=== PATIENT | male | born 1950 | race African-American/Black ===

== ENCOUNTER 2019-03-08 07:56 | Emergency (ER) | payer OTHER ==
[2019-03-08 08:34] LABS: Urine Blood TRACE (NEG); Urine Glucose NEGATIVE (NEG); Urine Protein NEGATIVE (NEG); Urine pH 7.5 (5.0-7.0)
[2019-03-08 08:41] LABS: Urine Bacteria >50 /HPF (NONE SEEN); Urine Culture Reflex Order REFLEXED; Urine RBC <5 /HPF (NONE SEEN)
[2019-03-08] MEDS ORDERED: CEFTRIAXONE/SWI 1gm 0 GM/0 ML SYR ONE (08:46)
[2019-03-08] MEDS ORDERED: CIPROFLOXACIN HCL 500 MG TAB ONE (09:11)
[2019-03-08] MEDS ORDERED: CEFTRIAXONE 1000 MG/VIAL ONE (09:12)
[2019-03-08] MEDS ORDERED: LIDOCAINE 1% MPF 2 ML AMPULE ONE (09:12)
--- NOTE | 2019-03-08 09:13 | ER ---
Nurse's Notes [facility] Name: Jesus Rodriguez Age: 68 yrs Sex: Male : 1950 Arrival Date: 03/08/2019 Time: 07:57 Bed 25 Private MD: Jesse Zamora H Diagnosis: Urinary tract infection, site not specified Presentation: 03/08 08:07 Presenting complaint: Patient states: Urinary frequency and "trickling" that began ss suddenly yesterday. Transition of care: patient was not received from another setting of care. Onset of symptoms was March 07, 2019. Risk Assessment: Do you want to hurt yourself or someone else? Patient reports no desire to harm self or others. Initial Sepsis Screen: Does the patient have a suspected source of infection? Yes: Dysuria/Frequency/Urgency/UTI. Initial Sepsis Screen: Does the patient meet any 2 criteria? HR > 90 bpm. Care prior to arrival: None. 08:07 Method Of Arrival: Ambulatory ss 08:07 Acuity: THERON 3 ss Historical: - Allergies: 08:08 No Known Allergies; ss - PMHx: 08:08 Hypertension; Gout; ss - Immunization history:: Adult Immunizations up to date. - Social history:: Smoking status: Patient/guardian denies using tobacco. - Ebola Screening: : Patient denies exposure to infectious person Patient denies travel to an Ebola-affected area in the 21 days before illness onset. Screenin:20 Abuse screen: Denies threats or abuse. Nutritional screening: No deficits noted. em Tuberculosis screening: No symptoms or risk factors identified. Fall Risk None identified. Assessment: 08:20 General: Appears in no apparent distress. comfortable, Behavior is calm, cooperative, em Denies fever. Pain: Denies pain. Neuro: Level of Consciousness is awake, alert, obeys commands, Oriented to person, place, time, situation, Appropriate for age. Cardiovascular: Capillary refill < 3 seconds Patient's skin is warm and dry. Respiratory: Airway is patent Respiratory effort is even, unlabored, Respiratory pattern is regular, symmetrical. : Reports burning with urination, urinary frequency, Denies discharge. Derm: Skin is intact, is healthy with good turgor, Skin is pink, warm \\T\\ dry. Musculoskeletal: Capillary refill < 3 seconds, Range of motion: intact in all extremities. 08:25 General: The previous assessment is accurate, call light remains within reach. . ss 09:00 Reassessment: currently refuses the IV and labs, reports has to be at a in [facility] and would just like to be given some medication and follow up with PCP, provider notified of pt request. Vital Signs: 08:06 BP 118 / 91; Pulse 99; Resp 16; Temp 99.7(O); Pulse Ox 98% on R/A; Weight 104.33 kg; ss Height 6 ft. 0 in. (182.88 cm); Pain 0/10; 09:25 BP 128 / 90; Pulse 91; Resp 18; Pulse Ox 99% on R/A; Pain 0/10; em 08:06 Body Mass Index 31.19 (104.33 kg, 182.88 cm) ED Course: 07:57 Patient arrived in ED. as 07:57 Jesse Zamora DO is Private Physician. as 08:02 Jaylan Calderon PA is PHCP. cp 08:02 Yamil Crane MD is Attending Physician. cp 08:06 Arm band placed on right wrist. ss 08:08 Triage completed. ss 08:14 Glen Valiente LVN is Primary Nurse. em 08:20 Patient has correct armband on for positive identification. Bed in low position. Call em light in reach. 08:22 Urine collected: clean catch specimen, clear, Bladder scan completed. 32 mL post void. em 09:12 Jesse Zamora DO is Referral Physician. cp 09:25 No provider procedures requiring assistance completed. Patient did not have IV access em during this emergency room visit. Administered Medications: 09:13 Not Given (Other Intervention Used): Rocephin 1 grams IV at calculated rate once; Given em slow IV push per pharmacy instructions 09:23 Drug: Rocephin (cefTRIAXone) 1 grams Route: IM; Site: left gluteus; em 09:39 Follow up: Response: No adverse reaction em 09:25 Drug: Cipro 500 mg Route: PO; em 09:39 Follow up: Response: No adverse reaction em Outcome: 09:12 Discharge ordered by . cp 09:25 Discharged to home ambulatory. em 09:25 Condition: good 09:25 Discharge instructions given to patient, Instructed on discharge instructions, follow up and referral plans. medication usage, Demonstrated understanding of instructions, follow-up care, medications, Prescriptions given X 1. 09:39 Patient left the ED. em Addendum: 03/11/2019 09:27 Addendum: Culture Results: Positive urine culture. Bacteria is resistant to, has s s intermediate sensitivity, or is not tested against prescribed antibiotics. Report given to ELIDA for further evaluation and then to gut snatcher for follow up with patient. Signatures: Glen Valiente, INSURANCE MARKETING REP INSURANCE MARKETING REP Ivonne Person Shelby, ANGELES RN ss Jaylan Calderon, PA PA cp
--- NOTE | 2019-03-08 09:14 | EDPHYS ---
Physician Documentation [facility] Name: Jesus Rodriguez Age: 68 yrs Sex: Male : 1950 Arrival Date: 03/08/2019 Time: 07:57 Bed 25 Private MD: Jesse Zamora H ED Physician Yamil Crane HPI: 03/08 08:15 This 68 yrs old Black Male presents to ER via Ambulatory with complaints of Urinary cp Retention. 08:15 The patient presents with urinary symptoms, urinary frequency, retention. cp 08:15 Onset: The symptoms/episode began/occurred yesterday. Associated signs and symptoms: cp Pertinent negatives: abdominal pain, dysuria, fever, hematuria, vomiting. Severity of symptoms: in the emergency department the symptoms are unchanged, despite home interventions. Historical: - Allergies: 08:08 No Known Allergies; ss - PMHx: 08:08 Hypertension; Gout; ss - Immunization history:: Adult Immunizations up to date. - Social history:: Smoking status: Patient/guardian denies using tobacco. - Ebola Screening: : Patient denies exposure to infectious person Patient denies travel to an Ebola-affected area in the 21 days before illness onset. ROS: 08:20 Eyes: Negative for injury, pain, redness, and discharge. cp 08:20 Constitutional: Negative for body aches, chills, fever, poor PO intake. 08:20 ENT: Negative for drainage from ear(s), ear pain, sore throat, difficulty swallowing, difficulty handling secretions. 08:20 Cardiovascular: Negative for chest pain, edema, palpitations. 08:20 Respiratory: Negative for cough, shortness of breath, wheezing. 08:20 Abdomen/GI: Negative for abdominal pain, nausea, vomiting, and diarrhea, black/tarry stool, rectal bleeding. 08:20 Back: Negative for pain at rest, pain with movement, radiated pain. 08:20 : Positive for urinary frequency, difficulty urinating, Negative for flank pain, cp testicular pain 08:20 Skin: Negative for rash. 08:20 Neuro: Negative for altered mental status, dizziness, headache, weakness. 08:20 All other systems are negative. Exam: 08:25 Constitutional: The patient appears in no acute distress, alert, awake, comfortable, cp non-diaphoretic, non-toxic, well developed, well nourished. 08:25 Head/Face: Normocephalic, atraumatic. cp 08:25 Eyes: Periorbital structures: appear normal, Conjunctiva: normal, no exudate, no injection, Sclera: no appreciated abnormality, Lids and lashes: appear normal, bilaterally. 08:25 ENT: External ear(s): are unremarkable, Nose: is normal, Mouth: Lips: moist, Oral mucosa: moist, Posterior pharynx: Airway: no evidence of obstruction, patent. 08:25 Neck: ROM/movement: is normal, is supple, no meningismus, no nuchal rigidity. 08:25 Chest/axilla: Inspection: normal, Palpation: is normal, no crepitus, no tenderness. 08:25 Cardiovascular: Rate: normal, Rhythm: regular. 08:25 Respiratory: the patient does not display signs of respiratory distress, Respirations: normal, no use of accessory muscles, no retractions, no splinting, no tachypnea, labored breathing, is not present, Breath sounds: are clear throughout, no decreased breath sounds, no stridor, no wheezing. 08:25 Abdomen/GI: Inspection: abdomen appears normal, Palpation: abdomen is soft and non-tender, in all quadrants, rebound tenderness, is not appreciated, voluntary guarding, is not appreciated, involuntary guarding, is not appreciated. 08:25 Back: CVA tenderness, is absent. 08:25 Neuro: Orientation: is normal, Mentation: is normal, Motor: moves all fours, strength is normal. Vital Signs: 08:06 BP 118 / 91; Pulse 99; Resp 16; Temp 99.7(O); Pulse Ox 98% on R/A; Weight 104.33 kg; ss Height 6 ft. 0 in. (182.88 cm); Pain 0/10; 09:25 BP 128 / 90; Pulse 91; Resp 18; Pulse Ox 99% on R/A; Pain 0/10; em 08:06 Body Mass Index 31.19 (104.33 kg, 182.88 cm) MDM: 08:04 Patient medically screened. josé miguel 08:30 Differential diagnosis: UTI, urinary retention, prostatitis, urethritis. cp 09:11 Data reviewed: vital signs, nurses notes, lab test result(s), and as a result, I will cp discharge patient. 09:11 Counseling: I had a detailed discussion with the patient and/or guardian regarding: the cp historical points, exam findings, and any diagnostic results supporting the discharge/admit diagnosis, lab results, the need for outpatient follow up, a family practitioner, to return to the emergency department if symptoms worsen or persist or if there are any questions or concerns that arise at home. 09:12 ED course: VSS. Patient declined having any blood work done today and denies any cp history of kidney disease. Will treat with 10 day course of Cipro and recommend f/u with primary physician next 2-3 days. 03/08 08:09 Order name: Urine Microscopic Only; Complete Time: 09:11 cp 03/08 08:32 Order name: Urine Dipstick--Ancillary (enter results); Complete Time: 09:11 eb 03/08 08:34 Order name: Urine Culture cp 03/08 08:09 Order name: Urine Dipstick-Ancillary (obtain specimen); Complete Time: 08:29 cp 03/08 08:13 Order name: Bladder Scanner: pre and post void; Complete Time: 08:29 cp Administered Medications: 09:13 Not Given (Other Intervention Used): Rocephin 1 grams IV at calculated rate once; Given em slow IV push per pharmacy instructions 09:23 Drug: Rocephin (cefTRIAXone) 1 grams Route: IM; Site: left gluteus; em 09:39 Follow up: Response: No adverse reaction em 09:25 Drug: Cipro 500 mg Route: PO; em 09:39 Follow up: Response: No adverse reaction em Disposition: 03/08/19 09:12 Discharged to Home. Impression: Urinary tract infection, site not specified. - Condition is Stable. - Discharge Instructions: Urinary Tract Infection, Adult. - Prescriptions for Cipro 500 mg Oral Tablet - take 1 tablet by ORAL route every 12 hours for 10 days; 20 tablet. - Medication Reconciliation Form, Thank You Letter, Antibiotic Education, Prescription Opioid Use form. - Follow up: Jesse Zamora DO; When: 2 - 3 days; Reason: Recheck today's complaints. - Problem is new. - Symptoms have improved. Signatures: Dispatcher [employer] Jaylan Arizmendi MD MD cha Munoz, Edgar, DRAWING INSTRUCTOR DRAWING INSTRUCTOR em Cyn Ospina, RN RN ss Jaylan Calderon PA PA cp Corrections: (The following items were deleted from the chart) 09:13 08:34 IV Saline Lock ordered. cp em 09:17 08:34 CBC+H.LAB.BRZ ordered. EDMS EDMS 09:17 08:34 BASIC METABOLIC PANEL+C.LAB.BRZ ordered. EDMS EDMS 09:39 09:12 03/08/2019 09:12 Discharged to Home. Impression: Urinary tract infection, site em not specified. Condition is Stable. Forms are Medication Reconciliation Form, Thank You Letter, Antibiotic Education, Prescription Opioid Use. Follow up: Jesse Zamora; When: 2 - 3 days; Reason: Recheck today's complaints. Problem is new. Symptoms have improved. cp
[2019-03-08 09:46] VITALS: TEMP 99.7
[2019-03-08 09:47] VITALS: BP 128/90; O2SAT 99
== END 2019-03-08 09:39 | disposition home or self-care (01) ==
LOC: ER 07:56
DX: N39.0 Urinary tract infection, site not specified (principal); I10 Essential (primary) hypertension
CPT/HCPCS: 87088; 87086; 87077; 87186; 96372; 99283; J2001; 81003; 81015; J0696

== ENCOUNTER 2019-07-18 09:06 | Emergency (ER) | payer OTHER ==
--- OUTSIDE RECORDS SUMMARY | 2019-07-18 09:09 | XMS REPORT ---
:1950 Author Organization [facility] Address [address] [place] [address] [address] Care Team Providers Name Role Phone FELIX FORD Unavailable Unavailable Problems This patient has no known problems. Allergies, Adverse Reactions, Alerts This patient has no known allergies or adverse reactions. Medications This patient has no known medications. Results Test Description Test Time Test Comments Text Results Atomic Results Result Comments TISSUE EXAM 2019-07-11 16:10:00 Surgical Pathology Report Case: [id number] Authorizing Provider: Felix Ford MD Collected: 07/08/2019 1003 Ordering Location: [facility] Received: 07/08/2019 1306 SERVICES Pathologist: Love Hernandez MD Specimen: Adrenal, Left, Left adrenal gland A. ADRENAL GLAND, LEFT, ADRENALECTOMY: - BENIGN ADRENAL GLAND WITH NO SIGNIFICANT DIAGNOSTIC ALTERATION. - HEMORRHAGE, ORGANIZING THROMBOSIS AND VASCULAR RECANALIZATION ADJACENT TO THE ADRENAL GLAND. - NO MALIGNANCY IDENTIFIED. Signing Pathologist Direct Phone Line: [phone] signed by Love Hernandez MD on 07/11/2019 at 4:10 [id number] and postop diagnosis: adrenal massLeft adrenal glandReceived fresh labeled with the patient's name, accession number and "adrenal, left" is a 58 gm, 7 x 4.7 x 4 cm adrenal gland surfaced by a glistening membrane. The outer surface is inked blue, and the specimen is serially sectioned to reveal a well-circumscribed, mostly hemorrhagic mass with a central area of pale yellow, sorensen to guo solid area. The mass is 5.5 x 4.7 x 4 cm and is completely encased within the cortex. The remaining adrenal gland is peguero yellow to guo and smooth. Residential Housekeeper sections are submitted. Section code: A1-A5, direct marketing representative of one full cross section of mass; A6-A7, mass to outer surface; A8-A9, uninvolved adrenal glands. CG/pl Performed.The interpretation of this case included the use of immunohistochemistry or special stains.Control Slides Examined: In-house known positive controls were evaluated along with the test tissue. These control slides run alongside of the patients sample show appropriate staining. Internal positive and negative controls when available are evaluated Immunohistochemistry technical testing was performed at [facility], Pathology Laboratory where it was developed and its performance characteristics were determined. It has not been cleared or approved by the U.S. Food and Drug Administration. The FDA has determined that such clearance or approval is not necessary. The test is used for clinical purposes. It should not be regarded as investigational or for research. This laboratory is certified under the Clinical Laboratory Improvement Amendments of 1988 (CLIA-88) as qualified to perform high complexity clinical laboratory testing.[facility], Department of Pathology, [address] [place] [id number], [facility], [address] [place] [address], [facility], Department of Path[facility], [address] [place] [address], BASIC METABOLIC PANEL 2019-07-10 06:54:00 Test Item Value Reference Range Comments SODIUM (BEAKER) (test xlgw=198) 139 meq/L 136-145 POTASSIUM (BEAKER) (test 3.7 meq/L 3.5-5.1 ipgs=142) CHLORIDE (BEAKER) (test 109 meq/L 98-107 gbqn=785) CO2 (BEAKER) (test lrti=585) 22 meq/L 22-29 BLOOD UREA NITROGEN (BEAKER) 7 mg/dL 7-21 (test mltu=043) CREATININE (BEAKER) (test 0.81 mg/dL 0.57-1.25 fmam=710) GLUCOSE RANDOM (BEAKER) (test 86 mg/dL 70-105 cavg=431) CALCIUM (BEAKER) (test 8.6 mg/dL 8.4-10.2 uqrp=616) EGFR (BEAKER) (test aefd=1418) INSUFFICIENT CLINICAL DATA TO CALCULATE ESTIMATED GFR. Program Arranger ID - GALAPCBC W/PLT COUNT & AUTO [id number] 05:35:00 Test Item Value Reference Range Comments WHITE BLOOD CELL COUNT (BEAKER) (test qwgm=825) 5.6 K/ L 3.5-10.5 RED BLOOD CELL COUNT (BEAKER) (test lcfu=702) 3.64 M/ L 4.63-6.08 HEMOGLOBIN (BEAKER) (test cndp=275) 11.1 GM/DL 13.7-17.5 HEMATOCRIT (BEAKER) (test ozlm=124) 34.5 % 40.1-51.0 MEAN CORPUSCULAR VOLUME (BEAKER) (test bhfy=672) 94.8 fL 79.0-92.2 MEAN CORPUSCULAR HEMOGLOBIN (BEAKER) (test 30.5 pg 25.7-32.2 hvtu=169) MEAN CORPUSCULAR HEMOGLOBIN CONC (BEAKER) (test 32.2 GM/DL 32.3-36.5 yzyv=536) RED CELL DISTRIBUTION WIDTH (BEAKER) (test 13.5 % 11.6-14.4 qxgn=536) PLATELET COUNT (BEAKER) (test pujx=423) 239 K/CU MM 150-450 MEAN PLATELET VOLUME (BEAKER) (test dqzz=789) 10.4 fL 9.4-12.4 NUCLEATED RED BLOOD CELLS (BEAKER) (test 0 /100 WBC 0-0 iwir=318) NEUTROPHILS RELATIVE PERCENT (BEAKER) (test 64 % mkfc=577) LYMPHOCYTES RELATIVE PERCENT (BEAKER) (test 25 % kjka=639) MONOCYTES RELATIVE PERCENT (BEAKER) (test 8 % vzbq=256) EOSINOPHILS RELATIVE PERCENT (BEAKER) (test 3 % kctf=379) BASOPHILS RELATIVE PERCENT (BEAKER) (test 0 % uscs=218) NEUTROPHILS ABSOLUTE COUNT (BEAKER) (test 3.55 K/ L 1.78-5.38 ammq=912) LYMPHOCYTES ABSOLUTE COUNT (BEAKER) (test 1.40 K/ L 1.32-3.57 dxry=093) MONOCYTES ABSOLUTE COUNT (BEAKER) (test 0.46 K/ L 0.30-0.82 elcz=330) EOSINOPHILS ABSOLUTE COUNT (BEAKER) (test 0.15 K/ L 0.04-0.54 ihii=437) BASOPHILS ABSOLUTE COUNT (BEAKER) (test 0.02 K/ L 0.01-0.08 kebp=614) IMMATURE GRANULOCYTES-RELATIVE PERCENT (BEAKER) 0 % 0-1 (test lzor=0857) BASIC METABOLIC [id number] 10:13:00 Test Item Value Reference Range Comments SODIUM (BEAKER) (test 140 meq/L 136-145 acfn=455) POTASSIUM (BEAKER) (test 4.5 meq/L 3.5-5.1 Specimen moderately hemolyzed qwvs=027) CHLORIDE (BEAKER) (test 110 meq/L 98-107 fphs=654) CO2 (BEAKER) (test ipyv=889) 26 meq/L 22-29 BLOOD UREA NITROGEN (BEAKER) 10 mg/dL 7-21 (test wfsg=733) CREATININE (BEAKER) (test 0.89 mg/dL 0.57-1.25 Specimen moderately hemolyzed rwgq=532) GLUCOSE RANDOM (BEAKER) 79 mg/dL 70-105 (test mbzh=664) CALCIUM (BEAKER) (test 8.4 mg/dL 8.4-10.2 nqni=911) EGFR (BEAKER) (test INSUFFICIENT CLINICAL DATA TO ojom=3781) CALCULATE ESTIMATED GFR. Program Arranger ID - [place] FCBC W/PLT COUNT & AUTO [id number] 09:50: 00 Test Item Value Reference Range Comments WHITE BLOOD CELL COUNT (BEAKER) (test pijm=871) 5.3 K/ L 3.5-10.5 RED BLOOD CELL COUNT (BEAKER) (test jfof=446) 3.60 M/ L 4.63-6.08 HEMOGLOBIN (BEAKER) (test vczx=659) 11.6 GM/DL 13.7-17.5 HEMATOCRIT (BEAKER) (test avxu=505) 34.0 % 40.1-51.0 MEAN CORPUSCULAR VOLUME (BEAKER) (test pdmx=002) 94.4 fL 79.0-92.2 MEAN CORPUSCULAR HEMOGLOBIN (BEAKER) (test 32.2 pg 25.7-32.2 aoiz=185) MEAN CORPUSCULAR HEMOGLOBIN CONC (BEAKER) (test 34.1 GM/DL 32.3-36.5 pkrx=239) RED CELL DISTRIBUTION WIDTH (BEAKER) (test 13.6 % 11.6-14.4 hmew=179) PLATELET COUNT (BEAKER) (test vxsa=290) 246 K/CU MM 150-450 MEAN PLATELET VOLUME (BEAKER) (test dwda=248) 10.2 fL 9.4-12.4 NUCLEATED RED BLOOD CELLS (BEAKER) (test 0 /100 WBC 0-0 eqkp=598) NEUTROPHILS RELATIVE PERCENT (BEAKER) (test 49 % giiu=907) LYMPHOCYTES RELATIVE PERCENT (BEAKER) (test 37 % mhej=415) MONOCYTES RELATIVE PERCENT (BEAKER) (test 10 % dyhh=181) EOSINOPHILS RELATIVE PERCENT (BEAKER) (test 4 % kxul=282) BASOPHILS RELATIVE PERCENT (BEAKER) (test 0 % gpsr=911) NEUTROPHILS ABSOLUTE COUNT (BEAKER) (test 2.58 K/ L 1.78-5.38 ygsf=739) LYMPHOCYTES ABSOLUTE COUNT (BEAKER) (test 1.93 K/ L 1.32-3.57 hhrp=026) MONOCYTES ABSOLUTE COUNT (BEAKER) (test 0.55 K/ L 0.30-0.82 ivpx=596) EOSINOPHILS ABSOLUTE COUNT (BEAKER) (test 0.19 K/ L 0.04-0.54 wout=982) BASOPHILS ABSOLUTE COUNT (BEAKER) (test 0.01 K/ L 0.01-0.08 ycms=712) IMMATURE GRANULOCYTES-RELATIVE PERCENT (BEAKER) 0 % 0-1 (test qxom=9527) BASIC METABOLIC [id number] 11:58:00 Test Item Value Reference Range Comments SODIUM (BEAKER) (test 138 meq/L 136-145 gvlp=214) POTASSIUM (BEAKER) (test 4.6 meq/L 3.5-5.1 isim=979) CHLORIDE (BEAKER) (test 110 meq/L 98-107 veyx=548) CO2 (BEAKER) (test jmxf=845) 22 meq/L 22-29 BLOOD UREA NITROGEN (BEAKER) 13 mg/dL 7-21 (test jehh=682) CREATININE (BEAKER) (test 0.97 mg/dL 0.57-1.25 tcgc=465) GLUCOSE RANDOM (BEAKER) 108 mg/dL 70-105 (test fokh=902) CALCIUM (BEAKER) (test 8.7 mg/dL 8.4-10.2 hser=199) EGFR (BEAKER) (test INSUFFICIENT CLINICAL DATA TO wxmo=1876) CALCULATE ESTIMATED GFR. Program Arranger ID - [place] FHEMOGLOBIN AND [id number] 11:41:00 Test Item Value Reference Range Comments HEMOGLOBIN (BEAKER) (test wpbq=913) 11.7 GM/DL 13.7-17.5 HEMATOCRIT (BEAKER) (test bccz=120) 34.9 % 40.1-51.0 Program Arranger ID - [id number] 11:35:00 Test Item Value Reference Range Comments CULTURE (BEAKER) (test mjxv=3866) No growth URINALYSIS W/ REFLEX URINE [id number] 14:23:00 Test Item Value Reference Range Comments COLOR (BEAKER) (test udvg=361) Yellow CLARITY (BEAKER) (test rmba=907) Clear SPECIFIC GRAVITY UA (BEAKER) (test wboo=457) 1.005 1.001-1.035 PH UA (BEAKER) (test lsjh=484) 7.0 5.0-8.0 PROTEIN UA (BEAKER) (test wqjs=271) Negative Negative GLUCOSE UA (BEAKER) (test keje=648) Negative Negative KETONES UA (BEAKER) (test rzwa=528) Negative Negative BILIRUBIN UA (BEAKER) (test khuu=545) Negative Negative BLOOD UA (BEAKER) (test qkeb=534) Negative Negative NITRITE UA (BEAKER) (test dryr=991) Negative Negative LEUKOCYTE ESTERASE UA (BEAKER) (test cjxq=807) Negative Negative UROBILINOGEN UA (BEAKER) (test nemd=674) 0.2 mg/dL 0.2-1.0 RBC UA (BEAKER) (test wzcd=894) < /HPF WBC UA (BEAKER) (test eclo=642) 2 /HPF BACTERIA (BEAKER) (test kchw=335) Rare SOURCE(BEAKER) (test ebnx=3283) Program Arranger ID - [auto]Program Arranger ID - techCOMPREHENSIVE METABOLIC [id number] 13 :52:00 Test Item Value Reference Range Comments TOTAL PROTEIN (BEAKER) (test 7.3 gm/dL 6.0-8.3 znsm=426) ALBUMIN (BEAKER) (test 4.4 g/dL 3.5-5.0 miyc=2770) ALKALINE PHOSPHATASE (BEAKER) 73 U/L 40-150 (test odoy=970) BILIRUBIN TOTAL (BEAKER) 0.8 mg/dL 0.2-1.2 (test bxte=621) SODIUM (BEAKER) (test 137 meq/L 136-145 mppr=958) POTASSIUM (BEAKER) (test 3.9 meq/L 3.5-5.1 fmpi=538) CHLORIDE (BEAKER) (test 104 meq/L 98-107 hrfj=442) CO2 (BEAKER) (test lqpo=634) 26 meq/L 22-29 BLOOD UREA NITROGEN (BEAKER) 11 mg/dL 7-21 (test srbs=254) CREATININE (BEAKER) (test 0.96 mg/dL 0.57-1.25 oxjz=884) GLUCOSE RANDOM (BEAKER) (test 96 mg/dL 70-105 naxn=259) CALCIUM (BEAKER) (test 9.9 mg/dL 8.4-10.2 fcgy=801) AST (SGOT) (BEAKER) (test 23 U/L 5-34 mdlm=747) ALT (SGPT) (BEAKER) (test 25 U/L 6-55 jstj=987) EGFR (BEAKER) (test INSUFFICIENT CLINICAL DATA TO ffit=2963) CALCULATE ESTIMATED GFR. Program Arranger ID - ROSIANGCBC W/PLT COUNT & AUTO [id number] 13:10:00 Test Item Value Reference Range Comments WHITE BLOOD CELL COUNT (BEAKER) (test amxx=536) 4.2 K/ L 3.5-10.5 RED BLOOD CELL COUNT (BEAKER) (test bybw=359) 4.21 M/ L 4.63-6.08 HEMOGLOBIN (BEAKER) (test odes=299) 12.9 GM/DL 13.7-17.5 HEMATOCRIT (BEAKER) (test jjqr=431) 39.1 % 40.1-51.0 MEAN CORPUSCULAR VOLUME (BEAKER) (test xlvo=624) 92.9 fL 79.0-92.2 MEAN CORPUSCULAR HEMOGLOBIN (BEAKER) (test 30.6 pg 25.7-32.2 ffqx=840) MEAN CORPUSCULAR HEMOGLOBIN CONC (BEAKER) (test 33.0 GM/DL 32.3-36.5 lpiu=886) RED CELL DISTRIBUTION WIDTH (BEAKER) (test 13.6 % 11.6-14.4 phwc=812) PLATELET COUNT (BEAKER) (test ndyz=358) 230 K/CU MM 150-450 MEAN PLATELET VOLUME (BEAKER) (test xdpv=588) 9.8 fL 9.4-12.4 NUCLEATED RED BLOOD CELLS (BEAKER) (test 0 /100 WBC 0-0 qswo=577) NEUTROPHILS RELATIVE PERCENT (BEAKER) (test 44 % wena=327) LYMPHOCYTES RELATIVE PERCENT (BEAKER) (test 42 % rmkb=915) MONOCYTES RELATIVE PERCENT (BEAKER) (test 10 % fsdq=836) EOSINOPHILS RELATIVE PERCENT (BEAKER) (test 3 % wzcm=495) BASOPHILS RELATIVE PERCENT (BEAKER) (test 1 % ukha=533) NEUTROPHILS ABSOLUTE COUNT (BEAKER) (test 1.82 K/ L 1.78-5.38 ttut=664) LYMPHOCYTES ABSOLUTE COUNT (BEAKER) (test 1.74 K/ L 1.32-3.57 vfaa=047) MONOCYTES ABSOLUTE COUNT (BEAKER) (test 0.43 K/ L 0.30-0.82 hkhk=642) EOSINOPHILS ABSOLUTE COUNT (BEAKER) (test 0.13 K/ L 0.04-0.54 fuco=520) BASOPHILS ABSOLUTE COUNT (BEAKER) (test 0.02 K/ L 0.01-0.08 meaf=320) IMMATURE GRANULOCYTES-RELATIVE PERCENT (BEAKER) 0 % 0-1 (test zyne=7566)
--- NOTE | 2019-07-18 09:28 | ER ---
Nurse's Notes [facility] Name: Jesus Rodriguez Age: 68 yrs Sex: Male : 1950 Arrival Date: 07/18/2019 Time: 09:07 Bed 18 Private MD: Jesse Zamora H Diagnosis: Urticaria Presentation: 07/18 09:19 Chief complaint: Patient states: itchy rash to pelvis area and upper thighs that began ss this morning. Pt also states that the itchiness seems to be progressing to hands and head. Denies SOB. PT reports the only thing new he started was TRAVATAN eye drops x 2 days. Coronavirus screen: The patient has NOT traveled to [place] in the past 14 days. Proceed with normal triage procedures. Ebola Screen: Patient denies exposure to infectious person. No symptoms or risks identified at this time. Onset: The symptoms/episode began/occurred this morning. Anaphylaxis evaluation, no signs or symptoms of anaphylaxis were noted. Initial Sepsis Screen: Does the patient meet any 2 criteria? No. Patient's initial sepsis screen is negative. Does the patient have a suspected source of infection? No. Patient's initial sepsis screen is negative. Risk Assessment: Do you want to hurt yourself or someone else? Patient reports no desire to harm self or others. 09:19 Method Of Arrival: Ambulatory ss 09:19 Acuity: THERON 5 ss 09:34 Onset of symptoms was July 18, 2019. ca1 Historical: - Allergies: 09:21 No Known Allergies; ss - PMHx: 09:21 Gout; Hypertension; ss - Immunization history:: Adult Immunizations up to date. - Social history:: Smoking status: Patient denies any tobacco usage or history of. Screenin:33 Abuse screen: Denies threats or abuse. Denies injuries from another. Nutritional ca1 screening: No deficits noted. Tuberculosis screening: No symptoms or risk factors identified. Fall Risk None identified. Assessment: 09:33 General: Appears in no apparent distress. comfortable, Behavior is calm, cooperative, ca1 appropriate for age. Pain: Denies pain. Neuro: Level of Consciousness is awake, alert, obeys commands, Oriented to person, place, time, situation, Appropriate for age. Respiratory: Airway is patent Respiratory effort is even, unlabored, Respiratory pattern is regular, symmetrical, Breath sounds are clear bilaterally. Derm: Skin is intact, is healthy with good turgor, Skin is pink, warm \T\ dry. Rash noted that is urticaria, on pelvis. Musculoskeletal: Circulation, motion, and sensation intact. Capillary refill < 3 seconds. Vital Signs: 09:19 BP 135 / 96; Pulse 85; Resp 17; Temp 98.2(TE); Pulse Ox 100% on R/A; Weight 106.59 kg; Height 6 ft. 0 in. (182.88 cm); Pain 0/10; 09:19 Body Mass Index 31.87 (106.59 kg, 182.88 cm) ED Course: 09:07 Patient arrived in ED. rg4 09:07 Jesse Zamora DO is Private Physician. 4 09:10 Luis García PA is PHCP. [facility] 09:10 Jaylan Caballero MD is Attending Physician. [facility] 09:19 Arm band placed on right wrist. 09:21 Triage completed. 09:25 Funmilayo Bustamante RN is Primary Nurse. ca1 09:33 Patient has correct armband on for positive identification. Bed in low position. Call ca1 light in reach. Side rails up X 1. Pulse ox on. NIBP on. 09:33 No provider procedures requiring assistance completed. Patient did not have IV access ca1 during this emergency room visit. Administered Medications: 09:32 Drug: Dexamethasone 10 mg Route: IM; Site: right gluteus; ca1 Outcome: 09:28 Discharge ordered by MD. [facility] 09:39 Discharged to home ambulatory, with significant other. ca1 09:39 Condition: stable 09:39 Discharge instructions given to patient, Instructed on discharge instructions, follow up and referral plans. no drinking with medication, no driving heavy equipment, medication usage, Demonstrated understanding of instructions, follow-up care, medications, Prescriptions given X 2. 09:50 Patient left the ED. ca1 Signatures: Luis García PA PA jmm Calderon, Audri, RN RN aa5 Smirch, Shelby, RN RN ss Garcia, Rubi 4 Funmilayo Bustamante RN RN ca1 Corrections: (The following items were deleted from the chart) 12:46 09:20 Geri Vu RN is Primary Nurse. rm abdalla 12:46 09:25 Primary Nurse role handed off by Geri Vu, RN ca1 aa5
--- NOTE | 2019-07-18 09:28 | EDPHYS ---
Physician Documentation [facility] Name: Jesus Rodriguez Age: 68 yrs Sex: Male : 1950 Arrival Date: 07/18/2019 Time: 09:07 Bed 18 Private MD: Jesse Zamora H ED Physician Jaylan Caballero HPI: 07/18 09:23 This 68 yrs old Black Male presents to ER via Ambulatory with complaints of Hives. jmm 09:23 Onset: The symptoms/episode began/occurred gradually, this morning. Associated signs jmm and symptoms: Pertinent positives: rash, Pertinent negatives: SOB, facial swelling. Modifying factors: The patient symptoms are alleviated by nothing, the patient symptoms are aggravated by nothing. This is a 68 year old male with a history of htn that presents to the ED with complaints of rash which initially began in his groin this morning. Patient recently began a medication for glaucoma. Denies change in vision, swelling in the throat, face. . Historical: - Allergies: 09:21 No Known Allergies; ss - PMHx: 09:21 Gout; Hypertension; ss - Immunization history:: Adult Immunizations up to date. - Social history:: Smoking status: Patient denies any tobacco usage or history of. ROS: 09:23 Constitutional: Negative for fever, chills, and weight loss, Cardiovascular: Negative jmm for chest pain, palpitations, and edema, Respiratory: Negative for shortness of breath, cough, wheezing, and pleuritic chest pain. 09:23 Skin: Positive for rash. 09:23 All other systems are negative. Exam: 09:23 Constitutional: This is a well developed, well nourished patient who is awake, alert, jmm and in no acute distress. Head/Face: atraumatic. Eyes: EOMI, no conjunctival erythema appreciated ENT: Moist Mucus Membranes Neck: Trachea midline, Supple Chest/axilla: Normal chest wall appearance and motion. Cardiovascular: Regular rate and rhythm. No edema appreciated Respiratory: Normal respirations, no respiratory distress appreciated Abdomen/GI: Non distended, soft Back: Normal ROM 09:23 Skin: urticaria noted to the the proximal legs bilaterally. 09:23 Neuro: Orientation: is normal, Mentation: is normal, Memory: is normal. 09:23 Psych: Behavior/mood is pleasant, cooperative. Vital Signs: 09:19 BP 135 / 96; Pulse 85; Resp 17; Temp 98.2(TE); Pulse Ox 100% on R/A; Weight 106.59 kg; ss Height 6 ft. 0 in. (182.88 cm); Pain 0/10; 09:19 Body Mass Index 31.87 (106.59 kg, 182.88 cm) ss MDM: 09:13 Patient medically screened. mone 09:27 Data reviewed: vital signs, nurses notes. Counseling: I had a detailed discussion with mone the patient and/or guardian regarding: the historical points, exam findings, and any diagnostic results supporting the discharge/admit diagnosis, the need for outpatient follow up, to return to the emergency department if symptoms worsen or persist or if there are any questions or concerns that arise at home. ED course: Patient is alert and non toxic in appearance in the ED. Patient advised to discontinue new medication and will follow up with ophthalmology for reevaluation. Patient is otherwise given strict return precautions. Patient understood and agrees with the plan of care. . Administered Medications: 09:32 Drug: Dexamethasone 10 mg Route: IM; Site: right gluteus; ca1 Disposition: 12:30 Co-signature as Attending Physician, Jaylan Caballero MD I agree with the assessment and josé miguel plan of care. Disposition: 07/18/19 09:28 Discharged to Home. Impression: Urticaria. - Condition is Stable. - Discharge Instructions: Hives. - Prescriptions for Hydroxyzine HCl 25 mg Oral Tablet - take 1 tablet by ORAL route every 6 hours As needed; 30 tablet. Prednisone 20 mg Oral Tablet - take 3 tablet by ORAL route once daily for 5 days; 15 tablet. - Medication Reconciliation Form, Thank You Letter, Antibiotic Education, Prescription Opioid Use, Work release form form. - Follow up: Private Physician; When: Upon discharge from the Emergency Department; Reason: Recheck today's complaints, Continuance of care, Re-evaluation by your physician. Signatures: Jaylan Caballero MD MD cha Mickail, Joel, PA PA jmm Smirch, Shelby, RN RN ss Funmilayo Bustamante RN RN ca1 Corrections: (The following items were deleted from the chart) 09:50 09:28 07/18/2019 09:28 Discharged to Home. Impression: Urticaria. Condition is Stable. ca1 Forms are Medication Reconciliation Form, Thank You Letter, Antibiotic Education, Prescription Opioid Use. Follow up: Private Physician; When: Upon discharge from the Emergency Department; Reason: Recheck today's complaints, Continuance of care, Re-evaluation by your physician. mone
[2019-07-18] MEDS ORDERED: dexAMETHasone 4 MG/ML VIAL ONE (09:32)
[2019-07-18 09:56] VITALS: BP 135/96; TEMP 98.2; O2SAT 100
== END 2019-07-18 09:50 | disposition home or self-care (01) ==
LOC: ER 09:06
DX: L50.9 Urticaria, unspecified (principal)
CPT/HCPCS: 96372; 99283

== ENCOUNTER 2020-02-09 20:51 | Emergency (ER) | payer OTHER ==
--- OUTSIDE RECORDS SUMMARY | 2020-02-09 20:54 | XMS REPORT | Clinical Summary ---
:1950 Author Organization [facility] Address [address] [place] [address] Care Team Providers Name Role Phone Jonathan Zamora DO Primary Care Provider Allergies Active Allergy Reactions Severity Noted Date Comments No Known Drug Allergies 04/18/2016 Medications Medication Sig Dispensed Refills Start Date End Date Status allopurinol (ZYLOPRIM) Take 300 mg by 1 02/02/2016 Active 300 MG tablet mouth once daily. amlodipine-benazepril Take 1 capsule 0 04/07/2016 Active (LOTREL) 10-20 mg per by mouth daily. capsule fluticasone (FLONASE) 50 fluticasone 50 0 Active mcg/actuation nasal mcg/actuation spray nasal spray,suspension PRN losartan (COZAAR) 100 MG Take 100 mg by 0 10/10/2017 Active tablet mouth daily. flaxseed powder Take by mouth 0 Active daily. multivitamin capsule Take 1 capsule 0 Active by mouth daily. vitamin E 400 UNIT Take 400 Units 0 Active capsule by mouth daily. zinc 50 mg tablet Take 1 tablet by 0 Active mouth daily. gabapentin (NEURONTIN) Take 600 mg by 0 Active 600 mg tablet mouth as needed. cholecalciferol, vitamin Take 2,000 Units 0 Active D3, (VITAMIN D3) 2,000 by mouth daily. unit capsule capsule doxazosin (CARDURA) 2 MG 2 mg 2 (two) 0 03/14/2018 Active tablet times a day. MAGNESIUM ORAL Take 500 mg by 0 Active mouth daily. tiZANidine (ZANAFLEX) 4 Take 4 mg by 0 09/02/2018 Active MG tablet mouth every 8 (eight) hours as needed. IBU 800 mg tablet Take 800 mg by 0 09/09/2018 Active mouth every 6 (six) hours as needed. metoprolol succinate XL TAKE 1 TABLET BY 90 tablet 3 9 Active (TOPROL-XL) 200 mg 24 hr MOUTH EVERY DAY tablet hydroCHLOROthiazide Take 1 capsule 90 capsule 3 03/19/2018 (MICROZIDE) 12.5 mg (12.5 mg total) 19 capsule by mouth daily. Additional Information Patient taking differently: 12.5 mg oral PRN, Reported on 09/10/2018 metoprolol TAKE 1 TABLET 90 tablet 3 05/27/2018 05/01/2019 Dis continued succinate XL BY MOUTH (Reorde r) (TOPROL-XL) 200 mg EVERY DAY 24 hr tablet Active Problems Problem Noted Date Hyperparathyroidism, primary 01/11/2018 Irregular heart beat 12/04/2017 Abdominal aortic aneurysm (AAA) 04/18/2016 Aneurysm of thoracic aorta 04/18/2016 Aortic valve regurgitation 04/18/2016 Coronary arteriosclerosis 04/18/2016 Essential hypertension 04/18/2016 Peripheral vascular disease 04/18/2016 Coronary artery disease involving venetie heart without angina pectoris 04/18/2016 Encounters Date Type Specialty Care Team Description 09/09/2019 Telemedicine Cardiology Sina Jaquez MD Thoracic aortic aneurysm without rupture (HCC) (Primary Dx); Essential hyper tension; Coronary artery disease involving ven[place] coronary artery of venetie heart without angina pectoris 09/08/2019 Travel 08/22/2019 Travel 05/01/2019 Refill Cardiology Sina Jaquez MD Med Refi ll 03/10/2019 Telephone Cardiology Rafael Cavazos MA Telephone [place] unter after 02/08/2019 Immunizations Name Administration Dates Next Due FLUZONE HIGH-DOSE PF 02/06/2019 Family History Medical History Relation Name Comments Heart attack Mother Heart attack Other Grandfather Relation Name Status Comments Mother Other Grandfather Social History Tobacco Use Types Packs/Day Years Used Date Former Smoker Cigarettes 1 40 Quit: 2009 Smokeless Tobacco: Never Used Comments: stopped 2009 Alcohol Use Drinks/Week oz/Week Comments Yes occasional Sex Assigned at Date Recorded Not on file Last Filed Vital Signs Not on file Plan of Treatment Health Maintenance Due Date Last Done Comments COLONOSCOPY SCREENING 2002 SHINGLES VACCINES (#1) 2002 INFLUENZA VACCINE 01/20/2020 02/19/2019, 02/06/2019, 2017, Additional history exists 65+ PNEUMOCOCCAL VACCINE Completed 02/24/2019, 01/28/2019 Implants Implanted Type Area Department Manager Device Shelf Model / Identifier Expiration Serial / Date Lot Clip Ligtng Weck Hemoclip Plus W/ Tape Ti Med - [id number] Medic al [employer]LE[employer] MEDICAL [id number] / Implanted: Qty: 2 on 01/11/2018 by Zack Driscoll MD at [facility] Clips for / Internal Use Clip Ligtng Weck Hemoclip Plus W/ Tape Ti Sm - [id number] Medical WECK CLOSURE [id number] / Implanted: Qty: 2 on 01/11/2018 by Zack Driscoll MD at [facility] Clips for SYSTEMS / Internal Use Results Not on fileafter 02/08/2019 Insurance Payer Benefit Plan / Subscriber ID Effective Dates Phone Addre ss Type Group MEDICARE MEDICARE PART A AND [id number] 2017-[place] Medicare B t AETNA AETNA [facility] [id number] 2000-Senthil [place] [phone] (Work) Advance Directives For more information, please contact: [phone] Type Date Recorded Patient Travel Money Advisor Explanati on Advance Directives, Living Will and Medical Power of Ultrasonographer
--- OUTSIDE RECORDS SUMMARY | 2020-02-09 20:54 | XMS REPORT | Clinical Summary ---
:1950 Author Organization [facility] Address [address] [place] [address] Care Team Providers Name Role Phone Unavailable Primary Care Provider Unavailable Allergies No Known Allergies Medications Medication Sig Dispensed Refills Start Date End Date Status allopurinol Take 300 mg by 0 Act cathy (ZYLOPRIM) 300 MG mouth daily. tablet amlodipine-benazepril Take 1 capsule 0 Active (LOTREL) 10-20 mg per by mouth daily. capsule doxazosin (CARDURA) 2 Take 2 mg by 0 Active MG tablet mouth 2 (two) times daily. metoprolol Take 200 mg by 0 Acti ve (TOPROL-XL) 200 MG 24 mouth daily. hr tablet losartan (COZAAR) 100 Take 100 mg by 0 Active MG tablet mouth daily. zinc gluconate 50 mg Take 50 mg by 0 Active tablet mouth daily. vitamin E 400 UNIT Take 400 Units 0 Active capsule by mouth daily. cholecalciferol, Take 2,000 Units 0 Active vitamin D3, 2,000 by mouth daily. unit Tab magnesium chloride Take by mouth 0 Active (SLOW-MAG) 71.5 mg daily. TbEC omeprazole (PRILOSEC) Take 20 mg by 0 Active 20 MG capsule mouth daily. aspirin 81 MG EC Take 81 mg by 0 Active tablet mouth daily. fluticasone 1 spray by Nasal 0 A ctive propionate (FLONASE) route as needed 50 mcg/actuation for Rhinitis. nasal spray albuterol HFA Inhale 1 puff by 0 Active (VENTOLIN HFA) 90 mouth via mcg/actuation inhaler inhaler every 6 (six) hours as needed for Wheezing. fluticasone Inhale by mouth 0 Ac tive furoate-vilanterol via inhaler as (BREO ELLIPTA) 200-25 needed. mcg/dose DsDv doxylamine/phenylephr Take by mouth as 0 Active ine HCl (POLY HIST needed. FORTE ORAL) acetaminophen-codeine Take 1 tablet by 30 tablet 0 07/09/2019 07/19/2019 (TYLENOL #3) 300-30 mouth every 4 mg per tablet (four) hours as needed for up to 10 days. Max Daily Amount: 6 tablets bisacodyl (DULCOLAX) Take 1 tablet (5 30 tablet 0 07/09/2019 0 08/08/2019 5 mg EC tablet mg total) by mouth daily as needed for up to 30 days. Active Problems Problem Noted Date Adrenal mass 07/08/2019 Encounters Date Type Specialty Care Team Description 07/08/2019 Anesthesia Event Syed Nava MD 07/08/2019 Surgery Link, Gurinder LAPAROSCOPY,AD RENAL MD Davi ECTOMY 07/08/2019 - Hospital Encounter General Internal LinkGurinder 07/10/2019 Medicine MD Davi 06/25/2019 Orders Only Lab Link, Gurinder Tomlinson MD 06/25/2019 Hospital Encounter Pre-Admission Link, Gurinder Testing MD Davi after 02/08/2019 Social History Tobacco Use Types Packs/Day Years Used Date Former Smoker Quit: 06/25/19 10 Smokeless Tobacco: Never Used Alcohol Use Drinks/Week oz/Week Comments Yes occasional Sex Assigned at Date Recorded Not on file Job Start Date Occupation Industry Not on file Not on file Not on file Travel History Travel Start Travel End No recent travel history available. Last Filed Vital Signs Vital Sign Reading Time Taken Blood Pressure 157/87 07/10/2019 8:00 AM POTTERY MACHINE OPERATOR Pulse 87 07/10/2019 8:00 AM POTTERY MACHINE OPERATOR Temperature 36.8 C (98.2 F) 07/10/2019 8:00 AM POTTERY MACHINE OPERATOR Respiratory Rate 18 07/10/2019 8:00 AM POTTERY MACHINE OPERATOR Oxygen Saturation 97% 07/10/2019 8:00 AM POTTERY MACHINE OPERATOR Inhaled Oxygen Concentration - - Weight 105.5 kg (232 lb 9.4 oz) 07/08/2019 5:4 1 AM POTTERY MACHINE OPERATOR Height 182.9 cm (6') 07/08/2019 5:41 AM POTTERY MACHINE OPERATOR Body Mass Index 31.54 07/08/2019 5:41 AM POTTERY MACHINE OPERATOR Plan of Treatment Not on file Procedures Procedure Name Priority Date/Time Associated Comments Diagnosis RHYTHM STRIP - SCAN 07/15/2019 9:22 AM POTTERY MACHINE OPERATOR CBC W/PLT COUNT & GAIL 07/10/2019 4:34 Result s for this AUTO DIFFERENTIAL AM POTTERY MACHINE OPERATOR procedure are in the results section. BASIC METABOLIC PANEL GAIL 07/10/2019 4:34 Re sults for this (7) AM POTTERY MACHINE OPERATOR procedure are i n the results section. CBC W/PLT COUNT & GAIL 07/10/2019 4:34 Result s for this AUTO DIFFERENTIAL AM POTTERY MACHINE OPERATOR procedure are in the results section. TRANSFUSION SERVICE 07/09/2019 5:51 REPORT - SCAN PM POTTERY MACHINE OPERATOR CBC W/PLT COUNT & GAIL 07/09/2019 8:43 Result s for this AUTO DIFFERENTIAL AM POTTERY MACHINE OPERATOR procedure are in the results section. BASIC METABOLIC PANEL GAIL 07/09/2019 8:43 Re sults for this (7) AM POTTERY MACHINE OPERATOR procedure are i n the results section. CBC W/PLT COUNT & GAIL 07/09/2019 8:43 Result s for this AUTO DIFFERENTIAL AM POTTERY MACHINE OPERATOR procedure are in the results section. BASIC METABOLIC PANEL STAT 07/08/2019 11:15 Re sults for this (7) AM POTTERY MACHINE OPERATOR procedure are i n the results section. HEMOGLOBIN AND STAT 07/08/2019 11:15 Results f or this HEMATOCRIT AM POTTERY MACHINE OPERATOR procedure are i n the results section. TISSUE EXAM AP Routine 07/08/2019 10:03 Results for this AM POTTERY MACHINE OPERATOR procedure are i n the results section. LAPAROSCOPY,ADRENALEC 07/08/2019 7:30 Adrenal mass (H CC) SAIDA AM POTTERY MACHINE OPERATOR Case Notes 4 HRS Special Needs (3D SCOPE, [place]) ABORH, MANUAL STAT 07/08/2019 6:19 AM POTTERY MACHINE OPERATOR Res ults for this procedure are i n the results section . TYPE AND SCREEN, AUTOMATED Routine 07/08/2019 5:52 AM POTTERY MACHINE OPERATOR Results for this procedure are i n the results section . CBC W/PLT COUNT & AUTO Routine 06/25/2019 12:53 PM POTTERY MACHINE OPERATOR Results for this DIFFERENTIAL procedure are i n the results section . COMPREHENSIVE METABOLIC Routine 06/25/2019 12:53 PM POTTERY MACHINE OPERATOR Results for this PANEL procedure are i n the results section . CBC W/PLT COUNT & AUTO Routine 06/25/2019 12:53 PM POTTERY MACHINE OPERATOR Results for this DIFFERENTIAL procedure are i n the results section . URINALYSIS W/ REFLEX URINE Routine 06/25/2019 12:53 PM POTTERY MACHINE OPERATOR Results for this CULTURE procedure are i n the results section . URINE CULTURE Routine 06/25/2019 12:53 PM POTTERY MACHINE OPERATOR Res ults for this procedure are i n the results section . after 02/08/2019 Results RHYTHM STRIP - SCAN (07/15/2019 9:22 AM POTTERY MACHINE OPERATOR) Narrative Performed At This result has an attachment that is no t available. CBC with platelet count + automated diff (07/10/2019 4:34 AM POTTERY MACHINE OPERATOR)Only the most recent of3 resultswithin the time period is included. WBC 5.6 3.5 - 10.5 K/L [facility] RBC 3.64 (L) 4.63 - 6.08 M/L [facility] Hemoglobin 11.1 (L) 13.7 - 17.5 GM/DL [facility] Hematocrit 34.5 (L) 40.1 - 51.0 % [facility] MCV 94.8 (H) 79.0 - 92.[address] [facility] MCH 30.5 25.7 - 32.[address] [facility] MCHC 32.2 (L) 32.3 - 36.5 GM/DL [facility] RDW 13.5 11.6 - 14.4 % [facility] Platelets 239 150 - 450 K/CU MM [facility] MPV 10.4 9.4 - 12.[address] [facility] nRBC 0 0 - 0 /[address] [facility] % Neutros 64 % [facility] % Lymphs 25 % [facility] % Monos 8 % [facility] % Eos 3 % [facility] % Baso 0 % [facility] # Neutros 3.55 1.78 - 5.38 K/L [facility] # Lymphs 1.40 1.32 - 3.57 K/L [facility] # Monos 0.46 0.30 - 0.82 K/L [facility] # Eos 0.15 0.04 - 0.54 K/L [facility] # Baso 0.02 0.01 - 0.08 K/L [facility] Immature Granulocytes-Relative 0 0 - 1 % C [facility] Specimen Blood Performing Organization Address City/[facility]/Zipcode Phone Number [address] [address] CENTER Basic Metabolic Panel (07/10/2019 4:34 AM POTTERY MACHINE OPERATOR)Only the most recent of3 results within the time period is included. Sodium 139 136 - 145 meq/L [facility] Potassium 3.7 3.5 - 5.1 meq/L [facility] Chloride 109 (H) 98 - 107 meq/L [facility] CO2 22 22 - 29 meq/L [facility] BUN 7 7 - 21 mg/dL [facility] Creatinine 0.81 0.57 - 1.25 mg/dL [facility] Glucose 86 70 - 105 mg/dL [facility] Calcium 8.6 8.4 - 10.2 mg/dL [facility] EGFR Comment: INSUFFICIENT CLINICAL C [facility] DATA TO CALCULATE ESTIMATED [facility] GFR. Specimen Blood Narrative Performed At Messenger Copy ID - [facility] Performing Organization Address City/[facility]/Zipcode Phone Number [address] [address] [place] TRANSFUSION SERVICE REPORT - SCAN (07/09/2019 5:51 PM POTTERY MACHINE OPERATOR) Narrative Performed At This result has an attachment that is no t available. Hemoglobin and hematocrit (07/08/2019 11:15 AM POTTERY MACHINE OPERATOR) Hemoglobin 11.7 (L) 13.7 - 17.5 GM/DL [facility] Hematocrit 34.9 (L) 40.1 - 51.0 % [facility] Specimen Blood Narrative Performed At Messenger Copy ID - [id number] [facility] CENTER Performing Organization Address City/State/Zipcode Phone Number [facility] [address] [place] [address] CENTER Tissue Exam (07/08/2019 10:03 AM POTTERY MACHINE OPERATOR) Case Report Surgical Pathology Report Case: [id number] [facility] Authorizing Provider:Gurinder Callaway MD Collected: 07/08/2019 1003 [facility] Ordering Location: [facility] Received:07/08/2019 1306 SERVICES Pathologist: Love Hernandez MD Specimen:Adrenal, Le ft, Left adrenal gland [facility]AG[facility]IS [facility] ADRENAL GLAND, LEFT, ADRENALECTOMY: [facility] - BENIGN ADRENAL GLAND WITH NO SIGNIFICANT D IAGNOSTIC ALTERATION. - HEMORRHAGE, ORGANIZING THROMBOSIS AND VASC ULAR RECANALIZATION ADJACENT TO THE ADRENAL GLAND. - NO MALIGNANCY IDENTIFIED. Signing Pathologist Direct Phone Line: CPT Code(s) 02032 [facility] ER CLINICAL HISTORY Pre and postop diagnosis: [facility] adrenal mass [facility] ER SPECIMEN SOURCE Left adrenal gland [facility] ER GROSS DESCRIPTION Received fresh labeled with the patient's name, accession number and "adrenal, left" is a 58 gm, 7 x 4.7 x 4 cm adrenal gland surfaced by a glistening membrane. The outer surface is inked blue, and the [facility] specimen is serially section ed to reveal a well-circumscribed, mostly hemorrhagic mass with a central area of pale yellow, sorensen to guo solid area. The mass is 5.5 x 4.7 x 4 cm and is completely encased [facility] within the cortex. The remai philomena adrenal gland is peguero yellow to guo and smooth. Digital Media Strategist sections are submitted. Section code: A1-A5, represe ntative of one full cross section of mass; A6-A7, mass to outer surface; A8-A9, uninvolved adrenal glands. CG/pl MICROSCOPIC DESCRIPTION Performed. [facility] SPECIAL STUDIES The interpretation of this c ase included the use of immunohistochemistry or special stains. [facility] Control Slides Examined: In -house known positive controls were evaluated along with the test tissue. These control slides run alongside of the patients sample show appropriate staining. Internal posit cathy and negative controls when available are edvin peraza Immunohistochemistry technic al testing was performed at [facility], Pathology Laboratory where it was developed and its performance characteristics were determined. It has not be en cleared or approved by [facility] U.S. Food and Drug Administration. The FDA has determined that such clearance or approval is not necessary. The test is used for clinical purposes. It should not be regarde d as investigational or for research. This laboratory is certified under the Clinical Laboratory Improvement Amendments of 1988 (CLIA-88) as qualified to perform high complexity clinical laboratory testing. Gross assessment was [facility] performed at [place], Department of [facility] Pathology, [address] [place] [address], Technical component was [facility] performed at [place], Department of [facility] Pathology, [address] [place] [address], Professional component [facility] was performed at [place], Department of [facility] Pathology, [address] [place] [address], Specimen Tissue Performing Organization Address City/State/Zipcode Phone Number [address] [phone] CENTER ABORH, manual (07/08/2019 6:19 AM POTTERY MACHINE OPERATOR) ABO Grouping O [facility] Rh Factor POS [facility] Specimen Blood Performing Organization Address City/[facility]/Unm Hospitalcode Phone Number [facility] [address] [place] [address] Type and screen, automated (07/08/2019 5:52 AM POTTERY MACHINE OPERATOR) ABO/RH AUTOMATED (BEAKER) O POSITIVE [facility] Ab Scrn NEGATIVE [facility] Specimen Blood Performing Organization Address [facility]/Unm Hospitalcode Phone Number [facility] [address] [place] [address] Urinalysis w/Microscopic + Reflex to Culture (06/25/2019 12:53 PM POTTERY MACHINE OPERATOR) Color, UA Yellow [facility] ALTH [facility] Clarity, UA Clear [facility] Specific [place], UA 1.005 1.001 - 1.035 [facility] pH, UA 7.0 5.0 - 8.0 [facility] Protein, UA Negative Negative [facility] ALTH [facility] Glucose, UA Negative Negative [facility] ALTH [facility] Ketones, UA Negative Negative [facility]TH [facility] Bilirubin, UA Negative Negative [facility]TH [facility] Blood, UA Negative Negative [facility] ALTH [facility] Nitrite, UA Negative Negative [facility]TH [facility] Leukocytes, UA Negative Negative [facility] Urobilinogen, UA 0.2 0.2 - 1.0 mg/dL [facility] RBC, UA <1 /HPF [facility] WBC, UA 2 /HPF [facility] ALTH [facility] Bacteria, UA Rare [facility] Specimen Source [facility] Specimen Urine Narrative Performed At Messenger Copy ID - [auto] [facility] Messenger Copy ID - tech Performing Organization Address City/State/Zipcode Phone Number [facility] [address] [place] [address] [place] Urine culture (06/25/2019 12:53 PM POTTERY MACHINE OPERATOR) Result No growth [facility] Specimen Urine Performing Organization Address [facility]/Zipcode Phone Number [facility] [address] [place] [address] [place] Comprehensive metabolic panel (06/25/2019 12:53 PM POTTERY MACHINE OPERATOR) Protein, Total 7.3 6.0 - 8.3 gm/dL [facility] Albumin 4.4 3.5 - 5.0 g/dL [facility] Alkaline Phosphatase 73 40 - 150 U/L [facility] Total Bilirubin 0.8 0.2 - 1.2 mg/dL [facility] Sodium 137 136 - 145 meq/L [facility] Potassium 3.9 3.5 - 5.1 meq/L [facility] Chloride 104 98 - 107 meq/L [facility] CO2 26 22 - 29 meq/L [facility] BUN 11 7 - 21 mg/dL [facility] Creatinine 0.96 0.57 - 1.25 mg/dL [facility] Glucose 96 70 - 105 mg/dL [facility] Calcium 9.9 8.4 - 10.2 mg/dL [facility] AST 23 5 - 34 U/L [facility] ALT 25 6 - 55 U/L [facility] EGFR Comment: INSUFFICIENT [facility] TER CALCULATE ESTIMATED GFR. Specimen Blood Narrative Performed At Messenger Copy MATTHEW - [facility] Performing Organization Address City/State/Zipcode Phone Number [facility] [address] [place] [address] CENTER after 02/08/2019 Insurance Payer Benefit Plan / Group Subscriber ID Type Phone A ddress MEDICARE MEDICARE A B xxxxxxxxxxx Medicare AETNA - MGD CARE AETNA INDEMNITY NON CONTR xxxxxxxxx Comm
--- OUTSIDE RECORDS SUMMARY | 2020-02-09 20:55 | XMS REPORT | Continuity of Care Document ---
:1950 Author Organization [facility] t Address [address] [place] [address] Care Team Providers Name Role Phone Jonathan Zamora DO Primary Care Physician Michael Hamlin MD Attending Clinician Kerrie Delgado MD Attending Clinician DWAIN DELGADO Attending Clinician Unavailable Dwain Delgado MD Attending Clinician Wes Nava MD Attending Clinician Macy DAVID Attending Clinician Unavailable DWAIN DELGADO Admitting Clinician Unavailable Payers Payer Name Policy Policy Number Effective Expiration Source Type Date Date MEDICAREMEDICARE PART A [id number] 2017 [place] AND 00:00:00 [place] [id number] [facility] [place] [facility] [id number] [facility] [id number] 00:00:00 [facility]ish 01-PresentIndemnity MEDICAREMEDICARE A xxxxxxxxxxx [facility] [place] [facility] AETNA - MGD CAREAETNA xxxxxxxxx [facility] INDEMNITY NON - Medical CONTRxxxxxxxxxComm Center Problems Condition Condition Condition Status Onset Resolution Last Treating Co mments Source Name Details Category Date Date Treatment Clinician Date Adrenal Adrenal Disease Active [facility] 2-18 [facility] - [facility]: Medical 00 Center Hyperparat Hyperparat Disease Active H jimmie hyroidism, hyroidism, 8-24 [facility] primary primary 00:00: st 00 Irregular Irregular Disease Active Darshana ston heart beat heart beat 7-17 Me thodi 00:00: st 00 Abdominal Abdominal Disease Active 2015-05 Darshana ston aortic aortic 06-18 [facility] aneurysm aneurysm 00:00: st (AAA) (AAA) 00 Aneurysm Aneurysm Disease Active 2015-05 [place] of of 06-18 [facility] thoracic thoracic 00:00: st aorta aorta 00 Aortic Aortic Disease Active 2015-05 [place] valve valve 06-18 [facility] regurgitat regurgitat 00:00: st ion ion 00 Essential Essential Disease Active 2015-05 Darshana ston hypertensi hypertensi 06-18 Me thodi on on 00:00: st 00 Peripheral Peripheral Disease Active 2015-05 [place] vascular vascular 06-18 Method i disease disease 00:00: st 00 Coronary Coronary Disease Active 2015-05 [place] artery artery 06-18 [facility] disease disease 00:00: st involving involving 00 [place] heart heart without without angina angina pectoris pectoris Allergies, Adverse Reactions, Alerts This patient has no known allergies or adverse reactions. Family History Family Member Diagnosis Comments Start Date Stop Date Source Natural mother Heart attack [place] [facility] Other Heart attack [place] Meth odist Social History Social Habit Start Date Stop Date Quantity Comments Source Sex Assigned At [place] [facility] Cigarettes smoked 2018-07-29 2018-07-29 [place] current (pack per 00:00:00 00:00:00 [facility] ) - Reported Cigarette 2018-07-29 2018-07-29 [place] pack-years 00:00:00 00:00:00 [facility] Tobacco use and 2018-07-29 2018-07-29 Never used [place] exposure 00:00:00 00:00:00 [facility] Alcohol intake 2018-07-29 2018-07-29 [facility] (finding) Tobacco Comment 2018-01-01 2018-01-01 stopped 2009 00:00:00 00:00:00 [facility] Alcohol Comment 2016-04-18 2016-04-18 occasional [place] 00:00:00 00:00:00 [facility] History of tobacco 2009-06-[address] [facility] Smoking Status Start Date Stop Date Source Former smoker 2018-07-29 00:00:00 2018-07-29 00:00:00 [place] [facility] Medications Ordered Filled Start Stop Current Ordering Indication Dosage Frequency Signature Comments Components Source Medication Medication Date Date Medication? Clinician (SIG) Name Name bisacodyl 2019-0 2020- No 5mg Take 1 [facility] (DULCOLAX) 07-09 03-20 tablet (5 [facility] es - 5 mg EC 00:00: 23:59 mg total) Medi erica tablet 00 :00 by mouth Center daily as needed for up to 30 days. acetaminoph 2019- 2020- No 1{tbl} Take [address] en-codeine 07-0929 tablet by Mariaa es - (TYLENOL 00:00: 23:59 mouth Medical #3) 300-30 00 :00 every 4 Center mg per (four) tablet hours as needed for up to 10 days. Max Daily Amount: 6 tablets doxylamine/ 2019-0 Yes Take by [facility] phenylephri 2-05 mouth as Luke s - ne HCl 12:35: needed. Medical (POLY HIST 46 Center FORTE ORAL) fluticasone 2019-0 Yes Inhale by [facility] furoate-catrachito 2-05 mouth via Mariaa es - anterol 12:33: inhaler as Medi erica (BREO 17 needed. Center ELLIPTA) 200-25 mcg/dose DsDv albuterol 2019-0 Yes 1{puff} Inhale [address] HFA 2-05 puff by [facility] - (VENTOLIN 12:32: mouth via Med ical HFA) 90 33 inhaler Center mcg/actuati every 6 on inhaler (six) hours as needed for Wheezing. fluticasone 2020-0 Yes 1{spray [address] propionate 2-05 } Nasal [facility] - (FLONASE) 12:30: route as Medi erica 50 55 needed for Center mcg/actuati Rhinitis. on nasal spray vitamin E 2020-0 Yes 400U QD Take [address] 400 UNIT 2-05 Units by [facility] - capsule 12:30: mouth Medical 11 daily. Center cholecalcif 2020-0 Yes 2000U QD Take 2,[address] myrna, 2-05 Units by [facility] - vitamin D3, 12:30: mouth Medic al 2,000 unit 11 daily. [place] Tab magnesium 2020-0 Yes QD Take by [facility] t chloride 2-05 mouth [facility] - (SLOW-MAG) 12:30: daily. Medic al 71.5 mg 11 [facility] omeprazole 2020-0 Yes 20mg QD Take [address] (PRILOSEC) 2-05 by mouth [facility] - 20 MG 12:30: daily. Medical capsule 11 Center aspirin 81 2020-0 Yes 81mg QD Take [address] MG EC 2-05 by mouth [facility] - tablet 12:30: daily. Medical 11 [place] allopurinol 2020-0 Yes 300mg QD Take [address] (ZYLOPRIM) 2-05 mg by [facility] - 300 MG 12:30: mouth Medical tablet 10 daily. [place] amlodipine- 2019-0 Yes 1{capsu QD Take [address] benazepril 2-05 le} capsule by Mariaa es - (LOTREL) 12:30: mouth Medical 10-20 mg 10 daily. [place] per capsule doxazosin 2019-0 Yes 2mg Q.5D Take [address] (CARDURA) 2 2-05 by mouth 2 Gevoanna kes - MG tablet 12:30: (two) Medical 10 times Center daily. metoprolol 2019-0 Yes 200mg QD Take [address] (TOPROL-XL) 2-05 mg by [facility] - 200 MG 24 12:30: mouth Medical hr tablet 10 daily. [place] losartan 2019-0 Yes 100mg QD Take [address] (COZAAR) 2-05 mg by [facility] - 100 MG 12:30: mouth Medical tablet 10 daily. [place] zinc 2019-0 Yes 50mg QD Take [address] gluconate 2-05 by mouth [facility] - 50 mg 12:30: daily. Medical tablet 10 [place] metoprolol 2018-05 Yes TAKE 1 [place] succinate 2-12 TABLET BY Metho di XL 00:00: MOUTH st (TOPROL-XL) 00 EVERY DAY 200 mg 24 hr tablet fluticasone 2018- Yes fluticason [place] (FLONASE) 4-23 e 50 Methodi 50 10:31: mcg/actuat st mcg/actuati 39 ion nasal on nasal spray,susp spray ension PRN flaxseed 2018-0 Yes QD Take by [place] powder 4-23 mouth [facility] 10:31: daily. st 39 multivitami 2019-0 Yes 1{capsu QD Take 1 [place] capsule 4-23 le} capsule by Meth [place] 10:31: mouth st 39 daily. vitamin E 2019-0 Yes 400U QD Take 400 [place] 400 UNIT 4-23 Units by [facility]i capsule 10:31: mouth st 39 daily. zinc 50 mg 2019-0 Yes 1{tbl} QD Take 1 D[facility] ston tablet 4-23 tablet by [facility]i 10:31: mouth st 39 daily. gabapentin 2019-0 Yes 600mg Take 600 [place] (NEURONTIN) 4-23 mg by [facility] 600 mg 10:31: mouth as st tablet 39 needed. cholecalcif 2019-0 Yes 2000U QD Take 2,000 [place] myrna, 4-23 Units by [facility] vitamin D3, 10:31: mouth st (VITAMIN 39 daily. D3) 2,000 unit capsule capsule MAGNESIUM 2019-0 Yes 500mg QD Take 500 Darshana ston ORAL 4-23 mg by Methodi 10:31: mouth st 39 daily. IBU 800 mg 2019-0 Yes 800mg Q6H Take 800 [place] tablet 4-22 mg by Methodi 00:00: mouth st 00 every 6 (six) hours as needed. tiZANidine 2019-0 Yes 4mg Q8H Take 4 mg [place] (ZANAFLEX) 4-15 by mouth Metho di 4 MG tablet 00:00: every 8 st 00 (eight) hours as needed. metoprolol 2019- No TAKE 1 [place] succinate 1-07 12-12 TABLET BY Meth trell XL 00:00: 00:[address] (TOPROL-XL) 00 :00 EVERY DAY 200 mg 24 hr tablet hydroCHLORO 2017-05 2019- No 12.5mg QD Take 1 [place] thiazide 0-30 10-30 capsule [facility] (MICROZIDE) 00:00: 23:59 (12.5 mg s t 12.5 mg 00 :00 total) by capsule mouth daily. doxazosin 2017-05 Yes 2mg Q.5D 2 mg 2 [place] (CARDURA) 2 0-25 (two) [facility] MG tablet 00:00: times a st 00 day. losartan 2018-0 Yes 100mg QD Take 100 [place] (COZAAR) 5-23 mg by [facility]i 100 MG 00:00: mouth st tablet 00 daily. amlodipine- 2015-05 Yes 1{capsu QD Take 1 [place] benazepril 1-18 le} capsule by Met akhtar (LOTREL) 00:00: mouth st 10-20 mg 00 daily. per capsule allopurinol Yes 300mg QD Take 300 [place] (ZYLOPRIM) 9-14 mg by Methodi 300 MG 00:00: mouth once st tablet 00 daily. Immunizations Ordered Immunization Filled Immunization Date Status Commen ts Source Name Name FLUZONE HIGH-DOSE PF 2019-02-06 Completed [place] 00:00:00 [place] Vital Signs Vital Name Observation Time Observation Value Comments Source Systolic blood 2019-07-10 08:00:00 157 mm[Hg] [facility] Diastolic blood 2019-07-10 08:00:00 87 mm[Hg] [facility] Heart rate 2019-07-10 08:00:00 87 /min [facility] Body temperature 2019-07-10 08:00:00 36.78 [facility] Respiratory rate 2019-07-10 08:00:00 18 /min [facility] Oxygen saturation in 2019-07-10 08:00:00 97 /min [facility] Arterial blood by Medical Ce nter Pulse oximetry Body height 2019-07-08 05:41:00 182.9 cm [facility] Body weight Measured 2019-07-08 05:41:00 105.5 kg [facility] BMI 2019-07-08 05:41:00 31.54 kg/m2 [facility] Procedures Procedure Date / Time Performed Performing Clinician Sourc e RHYTHM STRIP - SCAN 2019-07-15 09:22:16 Provider, Default [facility] BASIC METABOLIC PANEL (7) 2019-07-10 04:34:00 Leroy Workman CH I [facility] CBC W/PLT COUNT & AUTO 2019-07-10 04:34:00 Leroy Workman [facility] TRANSFUSION SERVICE 2019-07-09 17:51:44 Provider, Default [facility] REPORT - SCAN [facility] BASIC METABOLIC PANEL (7) 2019-07-09 08:43:00 Leroy Workman CH [facility] CBC W/PLT COUNT & AUTO 2019-07-09 08:43:00 Leroy Workman [facility] HEMOGLOBIN AND HEMATOCRIT 2019-07-08 11:15:00 Luther Santo CH, I [facility] BASIC METABOLIC PANEL (7) 2019-07-08 11:15:00 Luther Santo [facility] TISSUE EXAM 2019-07-08 10:03:00 Gurinder Delgado [facility] LAPAROSCOPY,ADRENALECTOMY 2019-07-08 07:30:[address] [facility] ABORH, MANUAL 2019-07-08 06:19:00 Morelia Leo [facility] TYPE AND SCREEN, 2019-07-08 05:52:00 Luther Santo [facility] s - AUTOMATED [facility] URINE CULTURE 2019-06-25 12:53:00 Gurinder Delgado [facility] URINALYSIS W/ REFLEX 2019-06-25 12:53:00 Gurinder Delgado [facility] URINE CULTURE [facility] COMPREHENSIVE METABOLIC 2019-06-25 12:53:00 Gurinder Delgado [facility] CBC W/PLT COUNT & AUTO 2019-06-25 12:53:00 Gurinder Delgado [facility] Plan of Care Planned Activity Planned Date Details Comments Source Future Scheduled 2020-01-20 INFLUENZA VACCINE [place] [facility] Test 00:00:00 [code = INFLUENZA VACCINE] Future Scheduled 2002 COLONOSCOPY SCREENING [place] [facility] Test 00:00:00 [code = COLONOSCOPY SCREENING] Future Scheduled 2002 SHINGLES VACCINES [place] [facility] Test 00:00:00 (#1) [code = SHINGLES VACCINES (#1)] Encounters Start End Encounter Admission Attending Care Care Encounter Source Date/Time Date/Time Type Type Clinicians Facility Department ID 2019-09-09 2019-09-09 Outpatient [facility] [id number] [address] [place] [address] 00:00:00 00:00:[address] 2019-07-23 2019-07-23 Office OSIEL Delgado [id number] 15:02:12 16:42:42 Visit Gurinder RIVAS [id number] Y [id number] 300 Results Test Description Test Time Test Comments Results Result Comments Source Tissue Exam 2019-07-11 16:10:00 Test Item Value Reference Range Interpretation Comme nts Case Report (test code = 104) Surgical Pathology Report Case: [id number] Authorizing Provider: Gurinder Delgado MD Collected: 07/08/2019 1003 Ordering Location: [facility] PERI[facility] Received: 07/08/2019 1306 SERVICES Pathologist: Love Hernandez MD Specimen: Adrenal, Left, Left adrenal gland DIAGNOSIS (test code = 3220) [id number]vOoMbGzQd pc aBWhMCmunvKwMAlzz3SvK2ZlAlApNXwxgaXkPPXi YsstqvguXYCsZDR7zhOeAMDfUModOFEmDUiyTt9z bXAdrJrhQhEwITGyx1xhkcKPzocciUp3o3raEWNl UhNnuJIcGTcnN5azneUliYKmUCGbVTu9oSqwDxNx DCGgw6rqyeTkRdPhEDWfZKReCXSvzSZnS279i0mc v6zvpnDwuWU4CDZoOCWdW9VvTS5sNAMmuLVqCMrc phUbRxV1QGgnXDGhJvA2HGRqmLKqGKUuW1hgIZIl FGddywCsghG6FBXdaXYaZKT0sZoep6P8oOCslGWe fCufSpJoVlUmCYBIj4YyTNo9sTojB6CwYFOfMzK3 aAXhCYMfKDxqOQNlTLKbmwI1kM56SNynfhJ8eZXq b4Hmd56qc547fM9ocSTiDBH2GNUdHEAdpHVcJKHq APP3VUTkyXHtH0v8AiCwiYYcX6M8NnJalLVuI0E9 IgDulFFaE3T2WgHnwXNdIMAmuPAcYe5wfZJslRDl dw1fxl64MJO3o4NfmHreRRG7SDG7OoMyUz2rgXEv KTGrPD4lVpUqlPYaBSJaib51eWlaXKqvnpTfyH0w RzVdRH2uwHabf55yDFPsWL3tkX5ovd6uynEkGTxk wTTroJH8obujCAT8RVXvejYls3Hse1vcRiVyxoBm N3xaU0WbDGUxGQJtOPDbAhRaakUpj3Vic2IopMUw nLn9l5kcUMIwSGRiqHctl2dsPYZ2TYElA1E1kTSx v6gwZSgtPGTckIW3kvuuHQdzKBMhonE3xgueWUqc LKOroSF6zepaRZgsFKPvCxK8iandPCwrEOWgAIV0 ZMhfb502BPZ5XDxuVghvBJvqHZVnvlPevzRoiLjp ZGVjXHBsYWluXHBsYWluXGYwXGZzMjBccWxccGxh aM6cGlAvQbPwZMdqsJVutnwsIKgnsgXnWXWicyAX RmSSYAUFTaJXFLcSCX1NYWVRGERSYSGYKGBZAwJR EMBPP27SNackBFDfJLYeLB4fKfWDHUnMANDQZfFL URbyY1qDLpHbF0bRJBZflFgvoI1tQoIuZsIzCRud IW9vIHNmG5mdsMNoWYUeDUEgU8bkImZzhB6poLby JOrfUaKpAgMuEZkplSTxyBIHRcTFNZoXSTVLD9VC KQWMMJPVMq3VDFfNOUPPWKATKWCDD07xzLdocI8p KwNdDlCyREejZG0vGOMqQ5qemEOwZSVuQYYlY5jp FoMdeO4juTtsUiwnFzBjKcCyWCTdUSOnPLrgQARm QPYkFrLrqANzUJQzBLUbKMhPPP9XEdcSO4LpCP2C J1QQBEfDYqkgMFcYB97YB3FNNxRUTvQxFqPOG3KS AYHrUgPWPE4GBPmnSODQW77nZEVmxcPtTVHqESVO PPtQW2SWPNOEBvUYLMZbAZKTQV3PNRFTYRNYPP0n dMTxNYUvLFVwNS2DLQ3UEIpKAjPIH3zcOOLKVwSA RrvBQN4ecIEidQymrdHqPPnoz8TeNIhaXDAgOV7l eGwlGUVsLE9uJRUgO3criF7lgoj1IgQhERMsYgZ1 FXJaeuH5Lhc8GUNrYApim0ouy1QuAVAiUGo7dFsi PpWwSVBiv1apjcWcKgBtGURuDQAdDVDlmSApU108 s0dzq3xvcnGgkWF6CNFdDFL8JCypolGvqkQ7CXkl lOMaXeW2BKrindLwRJweetAhktTsMkz6AOPwT780 SVA2rMdbu1bhCGB5EUEnTGSkBgWsGj2xbHIfY075 STDdGMELRXYcnNb1ZVPldeBxagLceRVCh197J317 l9ytVMNbaqWbjOrQjlvsl3yxA823KQCcqCZvlsBy GpGqRXEjhOTxzTR3TMNsRU0elysmFHuwDJlbQKPm ptX5MCYgmSVlA3WyKYUxHX9ntybwHNQ2XCemEMNo IEI2IdQsIQQla7Bbpzc3FzNxfq1wwc68USI3z2Gj rEruVFW7MOQ2CaKlZu4vwCJqDAOuYB2xQsQxaQHh BBRwgl86hXbvQVveUSK7WIEnduIpy8Hku2ioRiTf pzPpP3lzN0DvOATtSKGxUUWtFiBzniPtv6Vsh3Fu bBRmzDj7n8hrOHQgXQOrrAxkx8wcIKZ1UYFhuMLq P9wsnN4mYRFlZU2npyoxx1juMAouCAwgPIXprDV0 muO7EDOhhQVsX4UueM2zYKEbDPrzUVHctrs5PjQp Nm3omJChdYxmHZgpVzeiVSzuLLVsgxKlztLvwExi ZGVjXHBsYWluXHBsYWluXGYwXGZzMjRccWxcbGFu PpDiCaHouXottTofDGquJyRhKCPzPMomZ0kuJuQp NuBjZss3XJJxaTPtYPHgKrq7RHLpwNYoCUWZjLrc sU7tVSKctAxlbN0tyDI7BCIwnjPnpOTNjZ0yQYJG qQ7gBxU5LHBbGxk4COZjZeSkuKAjtJ1= CPT Code(s) (test code = 3357) f0heuYXsIYSnfCOeRlGiPXIcEIRcg2ysQWRf bGFu AfWpFhOlWzZgKyxzhRYdYFRsCtOzs3fba181mJWm y2feRSOoPjH0mWEpTRFhfKDxE977l4ujf0psjuIs rPT0FAJcZLP5GAmftiXdmwT1WYhnzRDeXdD1YSsw jdVfZIbhnnQzgeEeEak2NBZiX166HXU3nCvrz3bw NZH0UXYaFWUzSmYgAu0vqHTgA281BEYqYTCIUAGf mBa6TVFcnfWyjcOhaXTWg812Z560x6rrWOLyypDk qLdTifwoy4ylH955WAUptCDyvyBdRvYrULVkuRHa uLW5UJXrRN0ytbblUrStHI0ctrriCsBwOW3vxaz7 PfVhSK1ccihmGoXdXHrtRVMkzncgHKOde7Bojyns MP9yY0Cda9H7wA6fwVNyVTUwvKLzPfIdSXBoon1u eIDlQWbid8ZwLME7knU5sHZskFXzDJSyRP85Lusf l4JoTjyhKOD3XYKabfQkr6Nbl2cnDdAlffCaX5fn C1QuEINrBOSwYBPqOmScrhJgt9Iif9GbtBCwvDt7 z5yoMGPfZMTvnMuif0tsWTI7ZLEmO0Y1iQYxc3tr FZarICFipUR5xnnrCVseYWMyxqB5vohtGPewKJAs eON7ojtjVJaeUUCeObQ5gnqsOJdfPNLeZQX8CWtj h204DKY6KCrpUktpZKpeDVWonfVlttEqbSoyVENk SLMcFQxmTYZpQJrlHINsIRZzRbVxyUevjDzaxL1e RgPlNhXnTPyjAH5vHMZuJ9gzuSAbEQAcXHQrQ0hp FfTnwY9tyYmoMCjopeRkZKq1MqC9KMSngk6= CLINICAL HISTORY (test code = 3356) k8mawTEsBTFkhHObQjIrYPHoDTOtg2v cZGVmbGFu XyJuQvMmAzKtLhyrvZUtFULxWrPbj1ssh435vQOm u6lzSTHzRjM9sUMfKWTpiBWmT733MWYwOOrhf7tz s6MhJRTbgKTji7U7TZEBoiahpUq0dDqhI71of2Y3 LgsxI7dcQNWgKFyxUXPbQSckdNYgEIF1UURuCEA6 TRkgcpWiprS3XCverPQbXwB6LRc6p1lumDazXVBz LRA2t2zqTPxutpPyST2lgv6hxKu5c3dtvpZkAMAj RFUjsWQPYOWzF9EmkKqpUt6cmTx3fUntTfmcNUU8 Vuu5PT8sme23nsl4eLomOKCgsikiChO2ZQojMSQj rihpRMh2MErdSQHjeQtbCNvtUKRoxapfRBzxCLSy xDuuHPmqEEDsNvpeNYdfKKGbTWZ4XElju153CSP3 RGjlz8hrr9pxzXZjPgk6VHFbDwGaPwhxYEjpu9Qy n1huLHIwlq6nKJY0gSXzdHsoe4X5eVYqDJUzdJAc hpBwULZfOiQ5PCpiOC9ayw44TCByTHW1ez1uuXEt qHzimxAvkQBaAKtjX0PfVWUhe742DDNqU0VlEGTl i0E2pyLwNkWgLGHmaPN1leR4YSFkKCq0pEUdblH2 joZhyZIkN6zbiB09HcNzlVWiU4QlvH37IcHhsUTh H9UahG41WdJvcSHvN3UmoU93UsWbqWJiKMIagNQo Ct9iyCRcoPHwy7BskNHtLEwrA97mg958YGQkooQb Y9tzgJKazgtfnVEiqiwsTYmkxtPhJPLcQCImOMap DBGjYQUiNvFsxGpxoX5cWaOgDsGhFZAOkoVeTL6l STUwn7VfxOMbzUPtqc4adQX3TDGbzbTnFNzjzXZx x9rzZYN4 SPECIMEN SOURCE (test code = 3377) z3ofyDRlKASyoSQdVhKgFVUiKNBbj8qi ZGVmbGFu CjBtZmWiMzIiVqlgkNTmWSUdPxTow7uon533dPOj t3ujVHRsXmW6yKKyGTYtfPNeO702e7eup8xhgtSh qVS7VHWhKBH1YWfkibKtruS4RDlawZSkKuU3XJnk ysOsOVmkafKybfYkUii7ONMnL371HZB0iBase4hr HBG5KOTqIKKzTeBkHc9ksLAtJ188VVFrYVAHGSDu kGn5IXIympPxysGlkVEOs250N780a6nnTWTaeuAh hHvLoxaob7jlT888DACnhYCycsJfEmRnDPVmdNFs sNR4DSDzTK4dplfbHzDoTF0wqesvMlIvGE0osrs9 BiMqGC4djflsMySoQHecJDLvhhomHCIcm1Leinjj DP7bQ9Nlm4Y4mC4epBIfRZFwrLQqUuLhRCNhgz1m aMWpQFfyo9VpDPX4clN4qHRolRVzASWpBJ72Idit a3DtVhhdEMA0NLKnaoWoi0Qbh8jcHpOfkdSbW8hd J9DxACOeWCHpIUZhNcIjauSqa6Lgj3TgiUHikKv3 k3kkRHYcKIKzgNrkb9jlLSQ7EACpP9K4oTQts2wl CPejUKAezLZ5kktmJNfdNKIodtL1nymwZSzdCEPn sMQ6ekkpXBusBDMbKwY1otkhGNomQMZnOOT3OAfd l280XNT5JYxeOownRQjfHWSmxeDgtcYweLzjICUp OICtIVasBQLxUHfqVGVrKVDpDlDsxLnsuKewjQ5t LmSvLaLeHGtnAS5bTSCaE6zxiWMgSMIeBLDnP1ik IzXnnW9grYxwCBjcrfZwFOwpBiUlSVDuWW8uwQVd bGFuZFxwYXJ9 GROSS DESCRIPTION (test code = 3366) i6mhsGXjGYHbnBGuBuIwGNDrDLLrc6 lcZGVmbGFu GmXbRaDbFzKvPqyomOZqNMPjOoAgj7oue432qODv a9upCAPpIzU9rLGjTNPvvDKqM901TWFoMNdqz1fc f2MmZGYevZGtw6V9CSAYejaoiXx5cCpqX40vz7Y8 CwxiN5dyHQRaMMlpSBLpXDfajNFwDRR8XSQqQFQ0 XWfmblXfnnV8EKjusJEbCmH6CJg4a9hmfGigRBCs GLB0z2waEFexbpGjPT5yfn3xhIs1j7ywigDcZVVm QZTspEIKJVKyQ6CrmQbiFj2xxYu0hGtuIzkpNHP5 Uvv2PR6vit41ryk1uNxvUEVcdjvbIlD8ZNecNFYr xsjsEOl9TTszJPGyqZbhSCulLZJnuiuhQKsvNXNi dZljVZxlBBCoZbvnSVscSUBiTZE4GBllp223UPS5 LGnig9mqn4owwLMqKdz9JVTuPjWjHsxeEGxvl7Qn w0ubYDImyr2xNWH3dEIhoEwaw4O8vZUaUJRkwQSq cwMeIFXrJhD0OSvaCU9azd53LKFkRRV3hl5dkGWm oGfufqInfNBpZUicY3BpNHSez236PFDuH9KmKZRr l1W6pnYoCcWkDJXcwMW6kcR0IOEoZSd8fMObpeH8 dxMylWKxR3nrrW97OiZetQWrR5XlrN36NpBnfPAe M9SpqB13DkTrxDUiG1RnsV80MiMfpILvVLIinWUe Dn3noSNgvJPbv0SmyDWsYWzcZ43nr563OIOpxnIk J5kapXXhqqkonHWzbubzTYchnhLeADWfCNBoSVlt YBFaXPMcNvJdhIrlcB2xWtCvUeQoICDDQZFipGMm ZCBmcmVzaCBsYWJlbGVkIHdpdGggdGhlIHBhdGll hfFtefYkRZ7aMYJiA5Gzf2Foc54vonHsTxZcRANy CEIyLNSsAW0ohCfooIEpwSQroGScHWQ6SUOfpFhv YeV2VGVxPtG2FKUsF27sWBDvKU6chZMoaTPsDJUo iGSoBDJtHTNpdJFyRWefjET2CV2eciaalTWjIhHw lgUzYHXqGXNgsSAbmvEbwQTeIFIiGPazBYfck6As JINgwGCrUMPbXVT7iSPmp7WcV9svLU9xdTOim4Cg kPGrsNavj5ZrvIfpcvLdEPJdASKpvcYxwEPrVZih dBldG7arP8Dtw1DyjMAeSCuouW7btWm0ANjwvI0e vdbcZ8yoSE6ox2Gbh0z3gXZuUDDeawSuAQeeJTZt KRUzOdOoLYozEWjtxEbhcktpL3LhwFE4wcB1MG6l r15orSKcIXVhZQ6fUIyoCP1zr0ZdiONdQQ05AGsi DO66IDoqZKFgzTNbgcOesIFqL84zbUydxFLlxIUo ukCta4XjRKypiLoklcV7mQOxW36sjOS2AlHXoZWh wjWxLYraaF6rHYBnukDvKClfH9fwvnKoyUZrM73i NIMoRQzvnWzukuG4edP0BZ0nZG0cNPMxo312qY2j HyGdhnVdQH16VRDlbpXpe9ZdmIpddwCxUISiNJP2 Cp7rbRPkIS9cBPMmafndWLXsQ9GhbDnrhzYsi1Zu CmVRTR8YCDdmrqHulqPwRL88JHBbkxZse6Zcy32t CVI7kFxvG9Kfn7Fma3TmcDprnuBmDwFkMXRuQsLK Fk0PBqirfOLuddM4oeKoyFMtgrXjoJCrZYDoUhUP HU0JNKtvcZ7hyyHyrXUhSTSrFXHonaEdDOjkRQ2g mg1tB5qwfDapEHGedp2= MICROSCOPIC DESCRIPTION (test code = z1lwnVPoWNZffYBlEeVsOXLfICGmm8 [place] [address]) MjKaIyYqAoGzDjhkfHBsEJBzKnYyb0ttw464dRBl v0wmOSUsSwD5aOEfNIPguVYnG981o0ylx5wiwnDz nPW8KTIcWRA9QZfxyfGzhpE6LNjdcRGoFtQ1ERru ddGhAZksntBrkiEwZnd1LYTpC297DKT0aPabt1xd DVM6TDAuKOIdBsCsHj8raOZsJ412DNTaYLTGVJEp sFs9EVWyvsDjisPlgCNRw268X827e4sfAHVikiBo qJyYzsvhw5igL178TGTieHDeodJlPbCoKYFygQQh aBH6OVGbMA0ficrbOuFjEV7shpceNcCyKK9oill2 EyNaTA3xsxkiWiDrCYkgUMFzqyuyTPJsb7Mmgdwf US6pS4Crb4V8wQ3jkVWoWZZnnCWcCaXrJLFglz2v zOMxJTnye9QmWDO4cfG0fLZbuGDiMGXfAK75Qxxn r4SuFnkuAKA0DVIbshBvo4Pat3ueKjTomuIsX0nd B1XhRCOaPIMuIOFcTrAxilMxe0Noy7RyaRPfsNm6 l5yoEAHlLVOzqBwxh5tgGHI1AEDtZ8N0oRMqg9xi HOoeREAbcHZ1wyyyPQwdNAEvxzR9zdafFQndISKt fWM5wkavHAwfFXIbPfN3pbkfRNmySFLiPKG6KOiq d640QRW1TAiiJtspSBvuRDKdknTwcrLeuBenAZUg IORyPGtlTQWfBVhmFNVpEQPgTgKgyBfehTagoJ9r QvLnWrBvNJdlWX8gTMXdP0ulzLKiVVWuSTMbW3fd OfXgxM0voAwrTHqlzrBuTVRywfArzp2hCG9clKIb fQ== SPECIAL STUDIES (test code = 3376) p1sjsIKuXEDuvVCiUdKeUNJlZBPeo6tz ZGVmbGFu SkSyIkDqOiMbSkciuSMzJAMfZjLbb3pyn141tXCn h3znLXFqQbS6sFWbXTNniSPfV561KPYjXIzpq2qg g1BvYXMirXUts9R9PYTZWRrvEsOcV691IQUkLChw l8hky4EfNKMfhFAld5R8AJEFdwichUi3cCxmM28r x0K6TrcrO4dpYAQuSVMzW3SmJH6dWOAjFyl7IJY1 HRZ6OBCzYQBoO9RiPG1qSOHnvVSuZNe0p2irnTrv MVBbGGG3f5kfABfcckU4XJ2rxs0wvIe5v8uybqWb TYYiDQRmyZTGHOYaY1UkiFknNb5ugBd5x2oaBrmt vzC7kLBeFkOxNsOjRHcwgBOulypvWNXiXWE7hHBS FIc3Y900t1ycLCVyejDqxHaGwlbwp5grV753AUGp aIUdetZvMwLySEPltHHusUG1VALjZQ1zkcbiQuUn GA5naxtaZpVsMG3jrni6WnFbRO6bkngaIbTtSXfu HDCjfueoJYDmk4FhnbyuUR7uX1Ytc0M7sT6xxXTx GXDjfASsBjOcOSByjj4hwYWdBFvxXOX0ETBhgrRc e9Uot0guQoDxszXpZ0hsR9AcGKDnKMAlWINnDqYt loNva8Orj0VhrKEeaTo8q9aiLYTgLXWklZcvs8vy ASV4VZNrE7C5sLKsq6jmYOhwZWKbyXD6scawKLob ZQNoqfO1jfycNZfwZZQykJB0rdzwBQhwFBHqPfH4 mzlyUHcnCAFfWWF2YVtao655VCF9UYydIlwaXLxc XHBnbmNvbnRccGduZGVjXHBsYWluXHBsYWluXGYw WJPzWvAzvJcenAiumY0hBmOoBkVdBxleLA2bCKQx B3kigRVcLBIyAICuZ9bhPvGwyK1vvVuaADcnEpOw ElWeNgTQpCJgaQ98ZXQaqeL4ZMOwa81yg7PxnIro ufAhWVKlRCekV9t1JOHpJGJbQIA0r7Fwr7WjtC7l qA7dzDloxC5jdPMqdMU5vmbpx6Wyz0KuH2tfbPGv dGFpbnMuXHBsYWluXGYxXGZzMjJcbGFuZzEwMzNc jKttiWfuGWmqZxLySVIaNDfvP0taMhTtG0HnRHNj XkNrsYLpS8civHUqCFIzdaeguTPbrnivXJcodbXh WBqidjceDMQxRQhhI3aiIaUxNSZcrXjiDUvcl5Ck UKBvTTBgXmsnfxBrVCFpkfQtv6nwQ5awKLCxTEG6 VE9uhbClXsZrOV1lyG96e8Dgu83ph08nhH2ypVAi sxOwG22mpULbeDQwe0XnISGftrSijPX8BANuYEyl uddzk4k6pAG4lCUjfKTnvJH1uFFvzIEoWZUPwXZl OJPik589fe8fVNNtbTKvseIkiM9bQRtqwayevWXr AE6hJPYdAMNvWZVuYO67msZhTS2xkHPcf6nsamKk jREei2VzxLO1KAZbpLDbdgfeDh1oHX92GNRrHQst jT1mfWSfbkHlIA5tEE8pK0A2nECiKPBfjiIgk0cu YSekAB9oBIZpcExyQmjmXBCqJGSnzuXbxAH1CIXj wMxphW7oRmWvKwSvAcziAC7vKPVmH5mnpPEgECTc LZEwB5pbHiQdjV5mqYvmUAbiKbVdSrEbDuikmXAt yGlxQIOsjBjzvE5sNaMpYpLaDxdsMS5iUOAjY9iw gMIuCYSvNWBfT2hdPgDgyY4ojEppANcuIiGdWhLu MiAgXHBsYWluXGYxXGZzMjJcbGFuZzEwMzNcaGlj gTlpSWqdTnYdUEKvEDknD0jyPjBwA0KvIKTlLpTb wGYtU9mvwTDiJNCwDHfcBCXwMXBtFlRpdXNsQqGp ArRxwBtstIokBIjsWpRmSTMmSOunC9uaWeJeK5Cx EBUlIhYqLZ5tiZ5izYonlJ8kwQHcnZU9ffyilYYh mU3hU5CfQTNth4Rhenygm5MgMDXazlRoxg5fUDYn oQREAHkgb9WxY5BoFLy7f9SxqQnqbT9jYuHaEtUd FyycNQ9dGIJlT2sgxYEaVJNsJNWdK1ohVrRcmD5j iAgtOScvAlAuCyYaGsz1PNFeAhNmCwzsGDFcVNqb XGYxXGZzMjJcbGFuZzEwMzNcaGljaFxmMVxkYmNo BLKoWOciX8nrRpRcN1DbHIYiViIoxnZYTTCkQ6Kt YETqbuRcyhrsUGA8dI8wb8h0ZXwyOg1mHISquxnc m2aeroZkpCUuh8KyQELhyvCpz3JnSQKtchKmtLCc SJCaprXdjj5nbvJzQYFtYQCsH4DqbcpsoPhthjD3 QESvNIDtkPLcuEkvNMJdGNv4IUejsrMwf2HyGbAr xrFfjRKiriOcVV4fUUIdqVIqxsIfTLA6KRXcVAYT HpHxWGMkz7IwPO4hRZAruTzzKFLmcW9hn8WrAPTu r94eNUUoFTJEQTGofDNbGSCklCFbyMfpSRQtuToo cRPdfTWuWPRdWZFvFO3fYJKqfsFrxWWyt5WhoCBw wlXve6MvglXzGZAuDWF5PkUQySOipIAyzPResbK4 k6HdIMAkbxEjlOouxJWapCHxvQWsx7Albu1aTRWx i0sjuTxcTW9roAQjHMPyPZlkicZjRPVonaRvybPa h8DcF4R4zK5bIZezd1SgXu8hYLCaj6JyegNnBnRX yKxmRBoaZc7xZPHfsdqxhNHfC0DwbGottWVkTUWe EAYkUQMeUWOLoXfwkWRwaTWZEUVswcI2a8G1HVqf tCMegtMvEQ73YBDqES0sbXWulQCkk7BnLQr7DMVm X6xLJH58JTefKCDokGSdxXpzrOHxLTKcMAXaylRl ww6ciMxvpZJkb27jfGM0cFV6KMIkzY3gG7IqEYrg Te3sJAMvrdbceCMdqNleTu4isFvaiS7hVzYiBfUo AbctFR6rLTRyE4sxuWRqCWEwKOBaR5azOyMemO6z aFxmMlxmczIyXHBhclxwYXJkXHBsYWluXGYwXGZz IgU[id number] Gross assessment was performed at (test [facility] enter, code = 2777) Department of Pathology, [address] [place] [id number], Technical component was performed at [facility] er, (test code = 2778) Department of Pathology, [address] [place] [id number], Professional component was performed at [facility] enter, (test code = 2779) Department of Pathology, [address] [place] [address], [id number] 16:10:00Surgical Pathology Report Case: [id number] Authorizing Provider: Gurinder Delgado MD Collected: 07/08/2019 1003 Ordering Location: [facility] PERI[facility] Received: 07/08/2019 1306 SERVICES Pathologist: Love Hernandez MD Specimen: Ad renal, Left, Left adrenal gland A. ADRENAL GLAND,LEFT, ADRENALECTOMY: - BENIGN ADRENAL GLAND WITH NO SIGNIFICANT DIAGNOSTIC ALTERATION. - HEMORRHAGE, ORGANIZING THROMBOSIS AND VASCULAR RECANALIZATION ADJACENT TO THE ADRENAL GLAND. - NOMALIGNANCY IDENTIFIED. Signing Pathologist Direct Phone Line: [phone] signedby Love Hernandez MD on 07/11/2019 at 4:10 [id number] and postop diagnosis: adrenal massLeft adrenal glandReceived fresh labeled with the patient's name, accession number and "adrenal, left" is a 58 gm, 7x 4.7 x 4 cm adrenal gland surfaced by a glistening membrane. The outer surface is inked blue, and the specimen is serially sectioned to reveal a well- circumscribed, mostly hemorrhagic mass with a central area of pale yellow, sorensen to guo solid area. The mass is 5.5 x 4.7 x 4 cm and is completely encased within the cortex. The remaining adrenal gland is peguero yellow to guo and smooth. [employer] Systems Operator sections are submitted. Section code: A1-A5, digital sales representative of one full cross section of mass; A6-A7,mass to outer surface; A8-A9, uninvolved adrenal glands. CG/pl Performed.The interpretation of this case included the use of immunohistochemistry or special stains.Control Slides Examined: In-house kno wn positive controls were evaluated along with the test tissue. These control slides run alongside of the patients sample show appropriate staining. Internal positive and negative controls when available are evaluated Immunohistochemistry technical testing was performed at [facility], Pathology Laboratory where it was developed [...] (CLIA-88) as qualified to perform high complexity clinicallaboratory testing.[facility], Department of Pathology, [address] [place] [address], [facility], [address] [place] [address], [facility], [address] [place] [address], Zbdnx Metabolic [id number] 06:54:00 Test Item Value Reference Range Interpretation Comments Sodium (test code = 139 meq/L 978-301 9363-2) Potassium (test code 3.7 meq/L 3.5-5.1 = 2823-3) Chloride (test code = 109 meq/L 98-107 H 2074-0) CO2 (test code = 22 meq/L 22-29 2027-9) BUN (test code = 7 mg/dL 7- 3094-0) Creatinine (test code 0.81 mg/dL 0.57-1.25 = 2160-0) Glucose (test code = 86 mg/dL 70-105 2345-7) Calcium (test code = 8.6 mg/dL 8.4-10.2 10668-2) EGFR (test code = [place] [address]-3) CLINICAL DATA T O CALCULATE ESTIMATED GFR. FLORINDA (test code = FLORINDA) Floater Operator ID - GALAP Lab Interpretation Abnormal (test code = 15594-4) [facility] [id number] 06:54:00 Test Item Value Reference Range Interpretation Comments SODIUM (BEAKER) (test 139 meq/L 136-145 code = 381) POTASSIUM (BEAKER) 3.7 meq/L 3.5-5.1 (test code = 379) CHLORIDE (BEAKER) 109 meq/L 98-107 H (test code = 382) CO2 (BEAKER) (test 22 meq/L 22-29 code = 355) BLOOD UREA NITROGEN 7 mg/dL 7-21 (BEAKER) (test code = 354) CREATININE (BEAKER) 0.81 mg/dL 0.57-1.25 (test code = 358) GLUCOSE RANDOM 86 mg/dL 70-105 (BEAKER) (test code = 652) CALCIUM (BEAKER) 8.6 mg/dL 8.4-10.2 (test code = 697) EGFR (BEAKER) (test INSUFFIC IENT CLINICAL code = 1092) DATA TO CALCULA TE ESTIMATED GFR. Floater Operator ID - GALAPCBC with platelet count + automated [id number] 05:35:00 Test Item Value Reference Range Interpretation Comments WBC (test code = 6690-2) 5.6 3.5- 10.5 K/L RBC (test code = 789-8) 3.64 4.63- 6.08 M/L L MCHC (test code = 786-4) 32.2 32.3- 36.5 GM/DL L Hematocrit (test code = 4544-3) 34.5 % 40.1-51 L MCV (test code = 787-2) 94.8 fL 79-92.2 H MCH (test code = 785-6) 30.5 pg 25.7-32.2 RDW (test code = 788-0) 13.5 % 11.6-14.4 Platelets (test code = 777-3) 239 150- 450 K/CU MM MPV (test code = 52967-2) 10.4 fL 9.4-12.4 nRBC (test code = 413) 0 0- 0 /100 WBC % Neutros (test code = 429) 64 % % Lymphs (test code = 430) 25 % % Monos (test code = 431) 8 % % Eos (test code = 432) 3 % % Baso (test code = 437) 0 % # Neutros (test code = 670) 3.55 1.78- 5.38 K/L # Lymphs (test code = 414) 1.40 1.32- 3.57 K/L # Monos (test code = 415) 0.46 0.30- 0.82 K/L # Eos (test code = 416) 0.15 0.04- 0.54 K/L # Baso (test code = 417) 0.02 0.01- 0.08 K/L Immature Granulocytes-Relative 0 % 0-1 (test code = 2801) Lab Interpretation (test code = Abnormal 14444-6) [facility] W/PLT COUNT & AUTO [id number] 05:35:00 Test Item Value Reference Range Interpretation Comments WHITE BLOOD CELL COUNT (BEAKER) 5.6 K/ L 3.5-10.5 (test code = 775) RED BLOOD CELL COUNT (BEAKER) 3.64 M/ L 4.63-6.08 L (test code = 761) HEMOGLOBIN (BEAKER) (test code = 11.1 GM/DL 13.7-17.5 L 410) HEMATOCRIT (BEAKER) (test code = 34.5 % 40.1-51.0 L 411) MEAN CORPUSCULAR VOLUME (BEAKER) 94.8 fL 79.0-92.2 H (test code = 753) MEAN CORPUSCULAR HEMOGLOBIN 30.5 pg 25.7-32.2 (BEAKER) (test code = 751) MEAN CORPUSCULAR HEMOGLOBIN CONC 32.2 GM/DL 32.3-36.5 L (BEAKER) (test code = 752) RED CELL DISTRIBUTION WIDTH 13.5 % 11.6-14.4 (BEAKER) (test code = 412) PLATELET COUNT (BEAKER) (test 239 K/CU MM 150-450 code = 756) MEAN PLATELET VOLUME (BEAKER) 10.4 fL 9.4-12.4 (test code = 754) NUCLEATED RED BLOOD CELLS 0 /100 WBC 0-0 (BEAKER) (test code = 413) NEUTROPHILS RELATIVE PERCENT 64 % (BEAKER) (test code = 429) LYMPHOCYTES RELATIVE PERCENT 25 % (BEAKER) (test code = 430) MONOCYTES RELATIVE PERCENT 8 % (BEAKER) (test code = 431) EOSINOPHILS RELATIVE PERCENT 3 % (BEAKER) (test code = 432) BASOPHILS RELATIVE PERCENT 0 % (BEAKER) (test code = 437) NEUTROPHILS ABSOLUTE COUNT 3.55 K/ L 1.78-5.38 (BEAKER) (test code = 670) LYMPHOCYTES ABSOLUTE COUNT 1.40 K/ L 1.32-3.57 (BEAKER) (test code = 414) MONOCYTES ABSOLUTE COUNT (BEAKER) 0.46 K/ L 0.30-0.82 (test code = 415) EOSINOPHILS ABSOLUTE COUNT 0.15 K/ L 0.04-0.54 (BEAKER) (test code = 416) BASOPHILS ABSOLUTE COUNT (BEAKER) 0.02 K/ L 0.01-0.08 (test code = 417) IMMATURE GRANULOCYTES-RELATIVE 0 % 0-1 PERCENT (BEAKER) (test code = 2801) BASIC METABOLIC [id number] 10:13:00 Test Item Value Reference Range Interpretation Comments SODIUM (BEAKER) (test 140 meq/L 136-145 code = 381) POTASSIUM (BEAKER) 4.5 meq/L 3.5-5.1 Specimen moderately (test code = 379) hemolyzed CHLORIDE (BEAKER) 110 meq/L 98-107 H (test code = 382) CO2 (BEAKER) (test 26 meq/L 22-29 code = 355) BLOOD UREA NITROGEN 10 mg/dL 7-21 (BEAKER) (test code = 354) CREATININE (BEAKER) 0.89 mg/dL 0.57-1.25 Specimen moderately (test code = 358) hemolyzed GLUCOSE RANDOM 79 mg/dL 70-105 (BEAKER) (test code = 652) CALCIUM (BEAKER) 8.4 mg/dL 8.4-10.2 (test code = 697) EGFR (BEAKER) (test INSUFFIC IENT CLINICAL code = 1092) DATA TO CALCULA TE ESTIMATED GFR. Floater Operator ID - [place] FCBC W/PLT COUNT & AUTO [id number] 09:50:00 Test Item Value Reference Range Interpretation Comments WHITE BLOOD CELL COUNT (BEAKER) 5.3 K/ L 3.5-10.5 (test code = 775) RED BLOOD CELL COUNT (BEAKER) 3.60 M/ L 4.63-6.08 L (test code = 761) HEMOGLOBIN (BEAKER) (test code = 11.6 GM/DL 13.7-17.5 L 410) HEMATOCRIT (BEAKER) (test code = 34.0 % 40.1-51.0 L 411) MEAN CORPUSCULAR VOLUME (BEAKER) 94.4 fL 79.0-92.2 H (test code = 753) MEAN CORPUSCULAR HEMOGLOBIN 32.2 pg 25.7-32.2 (BEAKER) (test code = 751) MEAN CORPUSCULAR HEMOGLOBIN CONC 34.1 GM/DL 32.3-36.5 (BEAKER) (test code = 752) RED CELL DISTRIBUTION WIDTH 13.6 % 11.6-14.4 (BEAKER) (test code = 412) PLATELET COUNT (BEAKER) (test 246 K/CU MM 150-450 code = 756) MEAN PLATELET VOLUME (BEAKER) 10.2 fL 9.4-12.4 (test code = 754) NUCLEATED RED BLOOD CELLS 0 /100 WBC 0-0 (BEAKER) (test code = 413) NEUTROPHILS RELATIVE PERCENT 49 % (BEAKER) (test code = 429) LYMPHOCYTES RELATIVE PERCENT 37 % (BEAKER) (test code = 430) MONOCYTES RELATIVE PERCENT 10 % (BEAKER) (test code = 431) EOSINOPHILS RELATIVE PERCENT 4 % (BEAKER) (test code = 432) BASOPHILS RELATIVE PERCENT 0 % (BEAKER) (test code = 437) NEUTROPHILS ABSOLUTE COUNT 2.58 K/ L 1.78-5.38 (BEAKER) (test code = 670) LYMPHOCYTES ABSOLUTE COUNT 1.93 K/ L 1.32-3.57 (BEAKER) (test code = 414) MONOCYTES ABSOLUTE COUNT (BEAKER) 0.55 K/ L 0.30-0.82 (test code = 415) EOSINOPHILS ABSOLUTE COUNT 0.19 K/ L 0.04-0.54 (BEAKER) (test code = 416) BASOPHILS ABSOLUTE COUNT (BEAKER) 0.01 K/ L 0.01-0.08 (test code = 417) IMMATURE GRANULOCYTES-RELATIVE 0 % 0-1 PERCENT (BEAKER) (test code = 2801) BASIC METABOLIC [id number] 11:58:00 Test Item Value Reference Range Interpretation Comments SODIUM (BEAKER) (test 138 meq/L 136-145 code = 381) POTASSIUM (BEAKER) 4.6 meq/L 3.5-5.1 (test code = 379) CHLORIDE (BEAKER) 110 meq/L 98-107 H (test code = 382) CO2 (BEAKER) (test 22 meq/L 22-29 code = 355) BLOOD UREA NITROGEN 13 mg/dL 7-21 (BEAKER) (test code = 354) CREATININE (BEAKER) 0.97 mg/dL 0.57-1.25 (test code = 358) GLUCOSE RANDOM 108 mg/dL 70-105 H (BEAKER) (test code = 652) CALCIUM (BEAKER) 8.7 mg/dL 8.4-10.2 (test code = 697) EGFR (BEAKER) (test INSUFFIC IENT CLINICAL code = 1092) DATA TO CALCULA TE ESTIMATED GFR. Floater Operator ID - [place] FHemoglobin and [id number] 11:41:00 Test Item Value Reference Range Interpretation Comments Hemoglobin (test code = 11.7 13.7- 17.5 GM/DL L 786-4) Hematocrit (test code = 34.9 % 40.1-51 L 4544-3) FLORINDA (test code = FLORINDA) Floater Operator ID - [id number] Lab Interpretation (test Abnormal code = 39522-9) [facility] AND [id number] 11:41:00 Test Item Value Reference Range Interpretation Comments HEMOGLOBIN (BEAKER) (test code = 11.7 GM/DL 13.7-17.5 L 410) HEMATOCRIT (BEAKER) (test code = 34.9 % 40.1-51.0 L 411) Floater Operator ID - [id number], [id number] 07:44:00 Test Item Value Reference Range Interpretation Comments ABO Grouping (test code = 2588) O Rh Factor (test code = 2589) POS [facility], [id number] 07:08:00 Test Item Value Reference Range Interpretation Comments ABO/RH AUTOMATED (BEAKER) (test O POSITIVE code = 2260) Ab Scrn (test code = 890-4) NEGATIVE [facility] Center[facility] [id number] 11:35:00 Test Item Value Reference Range Interpretation Comments Result (test code = 6463-4) No growth [facility] [id number] 11:35:00 Test Item Value Reference Range Interpretation Comments CULTURE (BEAKER) (test code = 1095) No growth Urinalysis w/Microscopic + Reflex to [id number] 14:23:00 Test Item Value Reference Range Interpretation Comments Color, UA (test code = Yellow 5778-6) Clarity, UA (test code Clear = 5767-9) Specific [place], UA 1.005 1.001-1.035 (test code = 5811-5) pH, UA (test code = 7.0 5.0-8.0 5803-2) Protein, UA (test code Negative Negative = 35345-1) Glucose, UA (test code Negative Negative = 365) Ketones, UA (test code Negative Negative = 2514-8) Bilirubin, UA (test Negative Negative code = 71486-5) Blood, UA (test code = Negative Negative 32522-5) Nitrite, UA (test code Negative Negative = 5802-4) Leukocytes, UA (test Negative Negative code = 5799-2) Urobilinogen, UA (test 0.2 mg/dL 0.2-1 code = 19141-6) RBC, UA (test code = <1 /HPF 95010-6) WBC, UA (test code = 2 /HPF 5821-4) Bacteria, UA (test code Rare = 07045-7) Specimen Source (test code = 2795) FLORINDA (test code = FLORINDA) Floater Operator ID - [auto]Floater Operator ID - tech [facility]/ REFLEX URINE [id number] 14:23:00 Test Item Value Reference Range Interpretation Comments COLOR (BEAKER) (test code = 470) Yellow CLARITY (BEAKER) (test code = 469) Clear SPECIFIC GRAVITY UA (BEAKER) (test 1.005 1.001-1.035 code = 468) PH UA (BEAKER) (test code = 467) 7.0 5.0-8.0 PROTEIN UA (BEAKER) (test code = Negative Negative 464) GLUCOSE UA (BEAKER) (test code = Negative Negative 365) KETONES UA (BEAKER) (test code = Negative Negative 371) BILIRUBIN UA (BEAKER) (test code = Negative Negative 462) BLOOD UA (BEAKER) (test code = 461) Negative Negative NITRITE UA (BEAKER) (test code = Negative Negative 465) LEUKOCYTE ESTERASE UA (BEAKER) Negative Negative (test code = 466) UROBILINOGEN UA (BEAKER) (test code 0.2 mg/dL 0.2-1.0 = 463) RBC UA (BEAKER) (test code = 519) < /HPF WBC UA (BEAKER) (test code = 520) 2 /HPF BACTERIA (BEAKER) (test code = 517) Rare SOURCE(BEAKER) (test code = 2795) Floater Operator ID - [auto]Floater Operator ID - techComprehensive metabolic [id number] 13:52:00 Test Item Value Reference Range Interpretation Comments Protein, Total 7.3 6.0- 8.3 gm/dL (test code = 2885-2) Albumin (test code 4.4 g/dL 3.5-5 = 25458-8) Alkaline 73 U/L 40-150 Phosphatase (test code = 6768-6) Total Bilirubin 0.8 mg/dL 0.2-1.2 (test code = 1975-2) Sodium (test code = 137 meq/L 034-276 1881-2) Potassium (test 3.9 meq/L 3.5-5.1 code = 2823-3) Chloride (test code 104 meq/L 98-107 = 2075-0) CO2 (test code = 26 meq/L 22-29 2027-9) BUN (test code = 11 mg/dL 7-21 3094-0) Creatinine (test 0.96 mg/dL 0.57-1.25 code = 2160-0) Glucose (test code 96 mg/dL 70-105 = 2345-7) Calcium (test code 9.9 mg/dL 8.4-10.2 = 28579-4) AST (test code = 23 U/L 5-34 1920-8) ALT (test code = 25 U/L 6-55 1742-6) EGFR (test code = [place] [address]-1) CLINICAL DATA T O CALCULATE ESTIM ATED GFR. FLORINDA (test code = Floater Operator ID - FLORINDA) AKASH DOUGLASS [facility] Center[facility]PRE[facility] MET[facility] [id number] 13:52:00 Test Item Value Reference Range Interpretation Comments TOTAL PROTEIN 7.3 gm/dL 6.0-8.3 (BEAKER) (test code = 770) ALBUMIN (BEAKER) 4.4 g/dL 3.5-5.0 (test code = 1145) ALKALINE PHOSPHATASE 73 U/L 40-150 (BEAKER) (test code = 346) BILIRUBIN TOTAL 0.8 mg/dL 0.2-1.2 (BEAKER) (test code = 377) SODIUM (BEAKER) (test 137 meq/L 136-145 code = 381) POTASSIUM (BEAKER) 3.9 meq/L 3.5-5.1 (test code = 379) CHLORIDE (BEAKER) 104 meq/L 98-107 (test code = 382) CO2 (BEAKER) (test 26 meq/L 22-29 code = 355) BLOOD UREA NITROGEN 11 mg/dL 7-21 (BEAKER) (test code = 354) CREATININE (BEAKER) 0.96 mg/dL 0.57-1.25 (test code = 358) GLUCOSE RANDOM 96 mg/dL 70-105 (BEAKER) (test code = 652) CALCIUM (BEAKER) 9.9 mg/dL 8.4-10.2 (test code = 697) AST (SGOT) (BEAKER) 23 U/L 5-34 (test code = 353) ALT (SGPT) (BEAKER) 25 U/L 6-55 (test code = 347) EGFR (BEAKER) (test INSUFFIC IENT CLINICAL code = 1092) DATA TO CALCULA TE ESTIMATED GFR. Floater Operator ID - ROSIANGCBC W/PLT COUNT & AUTO [id number] 13:10:00 Test Item Value Reference Range Interpretation Comments WHITE BLOOD CELL COUNT (BEAKER) 4.2 K/ L 3.5-10.5 (test code = 775) RED BLOOD CELL COUNT (BEAKER) 4.21 M/ L 4.63-6.08 L (test code = 761) HEMOGLOBIN (BEAKER) (test code = 12.9 GM/DL 13.7-17.5 L 410) HEMATOCRIT (BEAKER) (test code = 39.1 % 40.1-51.0 L 411) MEAN CORPUSCULAR VOLUME (BEAKER) 92.9 fL 79.0-92.2 H (test code = 753) MEAN CORPUSCULAR HEMOGLOBIN 30.6 pg 25.7-32.2 (BEAKER) (test code = 751) MEAN CORPUSCULAR HEMOGLOBIN CONC 33.0 GM/DL 32.3-36.5 (BEAKER) (test code = 752) RED CELL DISTRIBUTION WIDTH 13.6 % 11.6-14.4 (BEAKER) (test code = 412) PLATELET COUNT (BEAKER) (test 230 K/CU MM 150-450 code = 756) MEAN PLATELET VOLUME (BEAKER) 9.8 fL 9.4-12.4 (test code = 754) NUCLEATED RED BLOOD CELLS 0 /100 WBC 0-0 (BEAKER) (test code = 413) NEUTROPHILS RELATIVE PERCENT 44 % (BEAKER) (test code = 429) LYMPHOCYTES RELATIVE PERCENT 42 % (BEAKER) (test code = 430) MONOCYTES RELATIVE PERCENT 10 % (BEAKER) (test code = 431) EOSINOPHILS RELATIVE PERCENT 3 % (BEAKER) (test code = 432) BASOPHILS RELATIVE PERCENT 1 % (BEAKER) (test code = 437) NEUTROPHILS ABSOLUTE COUNT 1.82 K/ L 1.78-5.38 (BEAKER) (test code = 670) LYMPHOCYTES ABSOLUTE COUNT 1.74 K/ L 1.32-3.57 (BEAKER) (test code = 414) MONOCYTES ABSOLUTE COUNT (BEAKER) 0.43 K/ L 0.30-0.82 (test code = 415) EOSINOPHILS ABSOLUTE COUNT 0.13 K/ L 0.04-0.54 (BEAKER) (test code = 416) BASOPHILS ABSOLUTE COUNT (BEAKER) 0.02 K/ L 0.01-0.08 (test code = 417) IMMATURE GRANULOCYTES-RELATIVE 0 % 0-1 PERCENT (BEAKER) (test code = 2801)
--- NOTE | 2020-02-09 22:36 | ER ---
Nurse's Notes [facility] Name: Jesus Rodriguez Age: 69 yrs Sex: Male : 1950 Arrival Date: 02/09/2020 Time: 20:54 Bed 4 Private MD: Diagnosis: Viral infection, unspecified Presentation: 02/08 21:07 Chief complaint: Patient states: SOB, slight cough, fever, fatigue for 1 day. ll1 Coronavirus screen: Client denies travel out of the [place] in the last 14 days. cough unrelated to allergies, difficulty breathing, fatigue, fever, Client presents with at least one sign or symptom that may indicate coronavirus-19. Standard/surgical mask placed on the client. Ebola Screen: Patient denies travel to an Ebola-affected area in the 21 days before illness onset. Initial Sepsis Screen: Does the patient meet any 2 criteria? HR > 90 bpm. No. Patient's initial sepsis screen is negative. Risk Assessment: Do you want to hurt yourself or someone else? Patient reports no desire to harm self or others. Onset of symptoms was February 09, 2020. 21:07 Method Of Arrival: Ambulatory 1 21:07 Acuity: THERON 3 ll1 22:40 Initial Sepsis Screen: Does the patient have a suspected source of infection? No. mg2 Patient's initial sepsis screen is negative. Triage Assessment: 22:40 General: Appears in no apparent distress. comfortable, Behavior is calm, cooperative. mg2 22:40 Respiratory: Reports shortness of breath Onset: The symptoms/episode began/occurred mg2 gradually, the patient has mild shortness of breath. Historical: - Allergies: 21:09 No Known Allergies; ll1 - PMHx: 21:09 Gout; Hypertension; ll1 - PSHx: 21:10 mass removed from head; parathyroidectomy; cyst removed from spine; adrenal gland mass; ll1 - Immunization history:: Flu vaccine is up to date. - Social history:: Smoking status: Patient denies any tobacco usage or history of. Screenin:40 Abuse screen: Denies threats or abuse. Denies injuries from another. Nutritional mg2 screening: No deficits noted. Tuberculosis screening: No symptoms or risk factors identified. 22:40 Fall Risk None identified. mg2 Assessment: 22:40 General: Appears in no apparent distress. comfortable, Behavior is calm, cooperative. mg2 Pain: Denies pain. Neuro: Level of Consciousness is awake, alert, obeys commands, Oriented to person, place, time, situation. Cardiovascular: Rhythm is regular. Respiratory: Airway is patent Respiratory effort is even, unlabored, Respiratory pattern is regular, symmetrical. GI: No signs and/or symptoms were reported involving the gastrointestinal system. : No signs and/or symptoms were reported regarding the genitourinary system. EENT: No deficits noted. Derm: Skin is intact, is healthy with good turgor, Skin is pink, warm \T\ dry. normal. Musculoskeletal: Circulation, motion, and sensation intact. Capillary refill < 3 seconds. 22:40 Respiratory: Breath sounds are clear. mg2 Vital Signs: 21:07 BP 108 / 77; Pulse 99; Resp 18; Temp 99.5; Pulse Ox 100% ; Pain 0/10; ll1 22:40 BP 110 / 60; Pulse 90; Resp 18; Temp 99; Pulse Ox 100% on R/A; mg2 ED Course: 20:54 Patient arrived in ED. cf2 21:09 Triage completed. ll1 21:10 Arm band placed on Patient placed in an exam room, on a stretcher. ll1 21:12 Candido Osorio MD is Attending Physician. tw4 21:38 Flu and/or RSV swab sent to lab. Strep swab sent to lab. COVID 19 Swab done and walked ar5 out to lab. 21:54 Kwadwo Pichardo, ANGELES is Primary Nurse. rv 22:05 CXR XRAY In Process Unspecified. EDMS 22:40 Patient has correct armband on for positive identification. mg2 22:40 Patient did not have IV access during this emergency room visit. mg2 22:40 No provider procedures requiring assistance completed. mg2 Administered Medications: No medications were administered Outcome: 22:35 Discharge ordered by . tw4 22:48 Discharged to home ambulatory, with family. mg2 22:48 Condition: good 22:48 Discharge instructions given to patient, Instructed on discharge instructions, follow up and referral plans. medication usage, Demonstrated understanding of instructions, follow-up care, medications, Prescriptions given X 3. 22:49 Patient left the ED. mg2 Addendum: 02/11/2020 14:39 Addendum: COVID-19 Result: Negative result given to RN to notify pt. Notified pt of s s negative COVID 19 swab results. Pt advised that even with a negative test result they should remain in isolation until symptom free for 3 days without medication. Pt also advised to return to the ED for worsening symptoms. Signatures: Dispatcher [employer] EDCyn Parks, RN RN Candido Watkins MD MD tw4 Reg Manning RN RN mg2 Kwadwo Pichardo RN RN rv Robles, Autumn ar5 Cintia Tabor 2 Lou Lynch RN RN ll1
--- NOTE | 2020-02-09 22:36 | EDPHYS ---
Physician Documentation [facility] Name: Jesus Rodriguez Age: 69 yrs Sex: Male : 1950 Arrival Date: 02/09/2020 Time: 20:54 Bed 4 Private MD: ED Physician Candido Osorio HPI: 02/09 06:30 This 69 yrs old Black Male presents to ER via Ambulatory with complaints of Fever, tw4 Breathing Difficulty. 06:30 The patient reports fever, not measured (subjective). Onset: The symptoms/episode tw4 began/occurred today. Modifying factors: there are no obvious modifying factors. Associated signs and symptoms:. Severity of symptoms: At their worst the symptoms were moderate in the emergency department the symptoms are unchanged. The patient has not experienced similar symptoms in the past. Historical: - Allergies: 02/08 21:09 No Known Allergies; ll1 - PMHx: 21:09 Gout; Hypertension; ll1 - PSHx: 21:10 mass removed from head; parathyroidectomy; cyst removed from spine; adrenal gland mass; ll1 - Immunization history:: Flu vaccine is up to date. - Social history:: Smoking status: Patient denies any tobacco usage or history of. ROS: 02/09 06:30 ENT: Negative for injury, pain, and discharge, Neck: Negative for injury, pain, and tw4 swelling, Cardiovascular: Negative for chest pain, palpitations, and edema, Abdomen/GI: Negative for abdominal pain, nausea, vomiting, diarrhea, and constipation. Back: Negative for injury and pain, MS/Extremity: Negative for injury and deformity, Skin: Negative for injury, rash, and discoloration, Neuro: Negative for headache, weakness, numbness, tingling, and seizure. Constitutional: Positive for fever. Constitutional: Positive for body aches, fatigue. Respiratory: Positive for shortness of breath, Negative for cough, dyspnea on exertion, hemoptysis, orthopnea, pleurisy. Exam: 06:30 Constitutional: This is a well developed, well nourished patient who is awake, alert, tw4 and in no acute distress. Head/Face: Normocephalic, atraumatic. Chest/axilla: Normal chest wall appearance and motion. Nontender with no deformity. No lesions are appreciated. Cardiovascular: Regular rate and rhythm with a normal S1 and S2. No gallops, murmurs, or rubs. Normal PMI, no JVD. No pulse deficits. Respiratory: Lungs have equal breath sounds bilaterally, clear to auscultation and percussion. No rales, rhonchi or wheezes noted. No increased work of breathing, no retractions or nasal flaring. Abdomen/GI: Soft, non-tender, with normal bowel sounds. No distension or tympany. No guarding or rebound. No evidence of tenderness throughout. Back: No spinal tenderness. No costovertebral tenderness. Full range of motion. MS/ Extremity: Pulses equal, no cyanosis. Neurovascular intact. Full, normal range of motion. Neuro: Awake and alert, GCS 15, oriented to person, place, time, and situation. Cranial nerves II-XII grossly intact. Motor strength 5/5 in all extremities. Sensory grossly intact. Cerebellar exam normal. Normal gait. Vital Signs: 02/08 21:07 BP 108 / 77; Pulse 99; Resp 18; Temp 99.5; Pulse Ox 100% ; Pain 0/10; ll1 22:40 BP 110 / 60; Pulse 90; Resp 18; Temp 99; Pulse Ox 100% on R/A; mg2 MDM: 21:12 Patient medically screened. 02/09 06:30 Differential diagnosis: viral Infection, bacterial infection, URI, bronchitis, tw4 pneumonia. Data reviewed: vital signs, nurses notes. Data reviewed: lab test result(s), Flu: negative. Data interpreted: Pulse oximetry: Interpretation: normal. Counseling: I had a detailed discussion with the patient and/or guardian regarding: the historical points, exam findings, and any diagnostic results supporting the discharge/admit diagnosis, lab results. Special discussion: I discussed with the patient/guardian in detail that at this point there is no indication for admission to the hospital. It is understood, however, that if the symptoms persist or worsen the patient needs to return immediately for re-evaluation. 02/08 21:12 Order name: COVID-19 tw4 02/08 21:13 Order name: Flu tw4 02/08 21:13 Order name: Strep tw4 02/08 22:08 Order name: Throat Culture EDMS 02/08 22:14 Order name: Urine Microscopic Only mg2 02/08 22:18 Order name: Urine Dipstick--Ancillary (enter results) tt3 02/08 21:12 Order name: CXR XRAY tw4 02/08 21:13 Order name: Document PUI#; Complete Time: 21:54 02/08 21:13 Order name: Droplet/Contact Precautions; Complete Time: 21:54 02/08 21:13 Order name: Labs collected and sent; Complete Time: 21:54 02/08 21:13 Order name: Notify Health Dept [phone]/ ; Complete Time: 21:54 02/08 21:13 Order name: O2 Per Protocol; Complete Time: 21:54 02/08 22:14 Order name: Urine Dipstick-Ancillary (obtain specimen); Complete Time: 22:14 mg2 Administered Medications: No medications were administered Disposition: 02/09/20 22:35 Discharged to Home. Impression: Viral infection, unspecified. - Condition is Stable. - Discharge Instructions: Viral Respiratory Infection. - Prescriptions for Ibuprofen 800 mg Oral Tablet - take 1 tablet by ORAL route every 8 hours As needed take with food; 30 tablet. Medrol (Tito) 4 mg Oral Tablets, Dose Pack - take 1 tablet by ORAL route as directed - follow package instructions; 1 packet. Albuterol Sulfate 90 mcg/actuation - inhale 1-2 puff by INHALATION route every 4-6 hours; 1 Inhaler. - Medication Reconciliation Form, Thank You Letter, Antibiotic Education, Prescription Opioid Use form. - Follow up: Private Physician; When: Upon discharge from the Emergency Department; Reason: Recheck today's complaints, Continuance of care, Re-evaluation by your physician. - Problem is new. - Symptoms have improved. Signatures: Dispatcher [employer] EDNV Candido Osorio MD MD tw4 Reg Manning RN RN mg2 Lou Lynch RN RN ll1 Corrections: (The following items were deleted from the chart) 02/08 22:49 22:35 02/09/2020 22:35 Discharged to Home. Impression: Viral infection, unspecified. mg2 Condition is Stable. Forms are Medication Reconciliation Form, Thank You Letter, Antibiotic Education, Prescription Opioid Use. Follow up: Private Physician; When: Upon discharge from the Emergency Department; Reason: Recheck today's complaints, Continuance of care, Re-evaluation by your physician. Problem is new. Symptoms have improved. tw4
[2020-02-09 22:53] VITALS: BP 108/77; TEMP 99.5; O2SAT 100
[2020-02-09 23:45] LABS: Urine Blood NEGATIVE (NEG); Urine Culture Reflex Order REFLEXED; Urine Glucose NEGATIVE (NEG); Urine Protein NEGATIVE (NEG); Urine pH 5.5 (5.0-7.0)
[2020-02-09 23:46] LABS: Urine Bacteria <20 /HPF (NONE SEEN); Urine Mucus SLIGHT /HPF (NONE SEEN); Urine RBC <5 /HPF (NONE SEEN)
--- NOTE | 2020-02-10 06:59 | RAD REPORT ---
EXAM DESCRIPTION: RAD - Chest Single View - 02/09/2020 10:05 pm CLINICAL HISTORY: COUGH COMPARISON: Portable September 22 TECHNIQUE: AP portable chest image was obtained 02/09/2020 10:05 pm . FINDINGS: Lungs are clear. Heart and vasculature are normal. No measurable pleural effusion and no p neumothorax. No acute bony abnormality seen. No acute aortic findings suspected. PICC line has been r emoved since comparison. IMPRESSION: No acute cardiopulmonary process.
== END 2020-02-09 22:49 | disposition home or self-care (01) ==
LOC: ER 20:51
DX: B34.9 Viral infection, unspecified (principal); Z20.828 Contact with and (suspected) exposure to other viral communicable diseases
CPT/HCPCS: 87070; 87088; 87086; 87081; 87804 ×2; 71045; 99283; U0002; 81003; 81015

== ENCOUNTER 2020-03-25 15:32 | Inpatient (IN) | payer OTHER ==
--- OUTSIDE RECORDS SUMMARY | 2020-03-25 15:34 | XMS REPORT | Clinical Summary ---
:1950 Author Organization [facility] Address [address] [place] [address] Care Team Providers Name Role Phone Unavailable [...] MD 06/25/2019 Hospital Encounter Pre-Admission Link, Gurinder Tomlinson MD after 03/25/2019 Social History Tobacco Use Types Packs/Day Years Used Date Former Smoker Quit: 06/25/19 10 Smokeless Tobacco: Never Used Alcohol Use Drinks/Week oz/Week Comments Yes occasional Sex Assigned at Date Recorded Not on file Last Filed Vital Signs Vital Sign Reading Time Taken Comments Blood Pressure 157/87 07/10/2019 8:00 AM [employer] Pulse 87 07/10/2019 8:00 AM [employer] Temperature 36.8 C (98.2 F) 07/10/2019 8:00 AM [employer] Respiratory Rate 18 07/10/2019 8:00 AM [employer] Oxygen Saturation 97% 07/10/2019 8:00 AM [employer] Inhaled Oxygen Concentration - - Weight 105.5 kg (232 lb 9.4 oz) 07/08/2019 5:41 AM [employer] Height 182.9 cm (6') 07/08/2019 5:41 AM [employer] Body Mass Index 31.54 07/08/2019 5:41 AM [employer] Plan of Treatment Health Maintenance Due Date Last Done Comments COLON CANCER SCREENING COLONOSCOPY 1950 MEDICARE ANNUAL WELLNESS (YEAR 2 or FIRST 07/20/2018 YEAR if no IPPE) INFLUENZA VACCINE (#1) 2020 02/06/2019 PNEUMOCOCCAL 65+ YRS Completed 02/24/2019, 01/28/2019 Procedures Procedure Name Priority Date/Time Associated Comments Diagnosis RHYTHM STRIP - SCAN 07/15/2019 9:22 AM [employer] CBC W/PLT COUNT & GAIL 07/10/2019 4:34 Result s for this AUTO DIFFERENTIAL AM [employer] procedure are in the results section. BASIC METABOLIC PANEL GAIL 07/10/2019 4:34 Re sults for this (7) AM [employer] procedure are i n the results section. CBC W/PLT COUNT & GAIL 07/10/2019 4:34 Result s for this AUTO DIFFERENTIAL AM [employer] procedure are in the results section. TRANSFUSION SERVICE 07/09/2019 5:51 REPORT - SCAN PM [employer] CBC W/PLT COUNT & GAIL 07/09/2019 8:43 Result s for this AUTO DIFFERENTIAL AM [employer] procedure are in the results section. BASIC METABOLIC PANEL GAIL 07/09/2019 8:43 Re sults for this (7) AM [employer] procedure are i n the results section. CBC W/PLT COUNT & GAIL 07/09/2019 8:43 Result s for this AUTO DIFFERENTIAL AM [employer] procedure are in the results section. BASIC METABOLIC PANEL STAT 07/08/2019 11:15 Re sults for this (7) AM [employer] procedure are i n the results section. HEMOGLOBIN AND STAT 07/08/2019 11:15 Results f or this HEMATOCRIT AM [employer] procedure are i n the results section. TISSUE EXAM AP Routine 07/08/2019 10:03 Results for this AM [employer] procedure are i n the results section. LAPAROSCOPY,ADRENALEC 07/08/2019 7:15 Adrenal mass (H CC) SAIDA AM [employer] Case Notes 4 HRS Special Needs (3D SCOPE, [place]) ABORH, MANUAL STAT 07/08/2019 6:19 AM [employer] Res ults for this procedure are i n the results section . TYPE AND SCREEN, AUTOMATED Routine 07/08/2019 5:52 AM [employer] Results for this procedure are i n the results section . CBC W/PLT COUNT & AUTO Routine 06/25/2019 12:53 PM [employer] Results for this DIFFERENTIAL procedure are i n the results section . COMPREHENSIVE METABOLIC Routine 06/25/2019 12:53 PM [employer] Results for this PANEL procedure are i n the results section . CBC W/PLT COUNT & AUTO Routine 06/25/2019 12:53 PM [employer] Results for this DIFFERENTIAL procedure are i n the results section . URINALYSIS W/ REFLEX URINE Routine 06/25/2019 12:53 PM [employer] Results for this CULTURE procedure are i n the results section . URINE CULTURE Routine 06/25/2019 12:53 PM [employer] Res ults for this procedure are i n the results section . after 03/25/2019 Results RHYTHM STRIP - SCAN (07/15/2019 9:22 AM [employer]) Narrative Performed At This result has an attachment that is no t available. CBC with platelet count + automated diff (07/10/2019 4:34 AM [employer])Only the most recent of3 resultswithin the time period is included. Pathologist Sig nature WBC 5.6 3.5 - 10.5 [facility] K/L [facility] RBC 3.64 (L) 4.63 - 6.08 [facility] M/L [facility] Hemoglobin 11.1 (L) 13.7 - 17.5 [facility] GM/DL [facility] Hematocrit 34.5 (L) 40.1 - 51.0 % [facility] MCV 94.8 (H) 79.0 - 92.2 fL [facility] MCH 30.5 25.7 - 32.2 pg [facility] MCHC 32.2 (L) 32.3 - 36.5 [facility] GM/DL [facility] RDW 13.5 11.6 - 14.4 % [facility] Platelets 239 150 - 450 K/CU [facility] MPV 10.4 9.4 - 12.4 fL [facility] nRBC 0 0 - 0 /100 WBC [facility] % Neutros 64 % [facility] % Lymphs 25 % [facility] % Monos 8 % [facility] % Eos 3 % [facility] % Baso 0 % [facility] # Neutros 3.55 1.78 - 5.38 [facility]/L [facility] # Lymphs 1.40 1.32 - 3.57 [facility]/L [facility] # Monos 0.46 0.30 - 0.82 [facility] # Eos 0.15 0.04 - 0.54 [facility]/L [facility] # Baso 0.02 0.01 - 0.08 [facility]/L [facility] Immature 0 0 - 1 % [facility] Granulocytes-Relative [facility] Specimen Blood Performing Organization Address City/[facility]/Zipcode Phone Number [facility] [address] [place] [address] [facility] Basic Metabolic Panel (07/10/2019 4:34 AM [employer])Only the most recent of3 results within the time period is included. Sodium 139 136 - 145 [facility] meq/[facility] Potassium 3.7 3.5 - 5.1 [facility] meq/[facility] Chloride 109 (H) 98 - 107 meq/L [facility] CO2 22 22 - 29 meq/L [facility] BUN 7 7 - 21 mg/dL [facility] Creatinine 0.81 0.57 - 1.25 [facility] mg/dL [facility] Glucose 86 70 - 105 mg/dL [facility] Calcium 8.6 8.4 - 10.2 [facility] mg/dL [facility] EGFR Comment: INSUFFICIENT [facility] CLINICAL DATA TO [facility] CALCULATE ESTIMATED CENTER GFR. Specimen Blood Narrative Performed At [facility] ICAL [place] Performing Organization Address City/State/Zipcode Phone Number [facility] [address] [place] [address] [place] TRANSFUSION SERVICE REPORT - SCAN (07/09/2019 5:51 PM [employer]) Narrative Performed At This result has an attachment that is no t available. Hemoglobin and hematocrit (07/08/2019 11:15 AM [employer]) Pathologist Sig nature Hemoglobin 11.7 (L) 13.7 - 17.5 GM/DL [facility] Hematocrit 34.9 (L) 40.1 - 51.0 % [facility] Specimen Blood Narrative Performed At [facility] ID - [id number] [facility] Performing Organization Address City/State/Zipcode Phone Number [facility] [address] [place] [address] CENTER Tissue Exam (07/08/2019 10:03 AM [employer]) Case Report Surgical Pathology Report Case: [id number] [facility] Authorizing Provider: Gurinder Ford MD Collected: 07/08/2019 1003 [facility] Ordering Location: [facility] PERI[facility] Received: 07/08/2019 1306 [facility] Pathologist: Love Hernandez MD Specimen: Adrenal, Left , Left adrenal gland DIAGNOSIS [facility] Electronically A. ADRENAL GLAND, LEFT, ADRENALECTOMY: HE [facility] signed by David, - BENIGN ADRENAL GLAND WITH NO SIGNIFICANT D IAGNOSTIC ALTERATION. [facility] MD Love on - HEMORRHAGE, ORGANIZING THROMBOSIS AND VASCULAR R ECANALIZATION 07/11/2019 at 4:10 ADJACENT TO THE ADRENAL GLAND. PM - NO MALIGNANCY IDENTIFIED. Signing Pathologist Direct Phone Line: CPT Code(s) 10024 [facility] CLINICAL HISTORY Pre and postop diagnosis: [facility] adrenal mass [facility] SPECIMEN SOURCE Left adrenal gland [facility] GROSS DESCRIPTION Received fresh labeled with the patient's name, accession number and "adrenal, left" is a 58 gm, 7 x 4.7 x 4 cm adrenal gland surfaced by a glistening membrane. The outer surface is inked blue, and the [facility] specimen is serially section ed to reveal a well-circumscribed, mostly hemorrhagic mass with a central area of pale yellow, sorensen to guo solid area. The mass is 5.5 x 4.7 x 4 cm and is completely encased [facility] within the cortex. The deejay quach adrenal gland is peguero yellow to guo and smooth. Director Presales sections are submitted. [facility] Section code: A1-A5, represe ntative of one full cross section of mass; A6-A7, mass to outer surface; A8-A9, uninvolved adrenal glands. CG/pl MICROSCOPIC Performed. [facility] [place] SPECIAL STUDIES The interpretation of this c ase included the use of immunohistochemistry or special stains. [facility] Control Slides Examined: In -house known positive controls were evaluated along with the test tissue. These control slides run alongside of the patients sample show appropriate staining. [facility] cathy and negative controls when available are evaluated Immunohistochemistry technic donaldo testing was performed at [facility], Pathology Laboratory where it was developed and its performance characteristics were determined. It has not be en cleared or approved by [facility] U.S. Food and Drug Administration. The FDA has determined that such clearance or approval is not necessary. The test is used for clinical purposes. It should not be regarde d as investigational or for research. This laboratory is certified under the Clinical Laboratory Improvement Amendments of 1988 (CLIA-88) as qualified to perform high complexity clinical laboratory testing. Gross assessment [facility] was performed at [facility] Pathology, [address] [place] [id number], Technical [facility] component was [facility] performed at Pathology, [address] [place] [id number], Professional [facility] component was [facility] performed at [address] [id number], Specimen Tissue - Structure of left adrenal gland (body structure) Performing Organization Address City/State/Zipcode Phone Number [facility] [address] [place] [phone] CENTER ABORH, manual (07/08/2019 6:19 AM [employer]) Pathologist Sig nature ABO Grouping O [facility] Rh Factor POS [facility] Specimen Blood Performing Organization Address City/[facility]/Zipcode Phone Number [facility] [address] [place] [address] Type and screen, automated (07/08/2019 5:52 AM [employer] IN) Pathologist Sig nature ABO/RH AUTOMATED O POSITIVE [facility] Ab Scrn NEGATIVE [facility] Specimen Blood Performing Organization Address [facility]/Zipcode Phone Number [facility] [address] [place] [address] Urinalysis w/Microscopic + Reflex to Culture (06/25/2019 12:53 PM [employer] IN) Pathologist Sig nature Color, UA Yellow [facility] Clarity, UA Clear [facility] Specific [place], UA 1.005 1.001 - 1.035 [facility] pH, UA 7.0 5.0 - 8.0 [facility] Protein, UA Negative Negative [facility] Glucose, UA Negative Negative [facility] Ketones, UA Negative Negative [facility] Bilirubin, UA Negative Negative [facility] Blood, UA Negative Negative [facility] Nitrite, UA Negative Negative [facility] Leukocytes, UA Negative Negative [facility] Urobilinogen, UA 0.2 0.2 - 1.0 mg/dL [facility] RBC, UA <1 /HPF [facility] WBC, UA 2 /HPF [facility] Bacteria, UA Rare [facility] Specimen Source [facility] Specimen Urine - Urine (substance) Narrative Performed At [facility] ID - [auto] [facility] ID - tech Performing Organization Address [facility]/Zipcode Phone Number [facility] [address] [place] [address] [facility] Urine culture (06/25/2019 12:53 PM [employer] IN) Pathologist Sig nature Result No growth [facility] Specimen Urine - Urine specimen collection, clean catch (procedure) Performing Organization Address City/State/Zipcode Phone Number [facility] [address] [place] [address] [place] Comprehensive metabolic panel (06/25/2019 12:53 PM [employer] IN) Protein, Total 7.3 6.0 - 8.3 [facility] gm/dL [facility] Albumin 4.4 3.5 - 5.0 [facility] g/dL [facility] Alkaline 73 40 - 150 U/L [facility] Phosphatase [facility] Total Bilirubin 0.8 0.2 - 1.2 [facility] mg/dL [facility] Sodium 137 136 - 145 [facility] meq/L [facility] Potassium 3.9 3.5 - 5.1 [facility] meq/L [facility] Chloride 104 98 - 107 [facility] meq/L [facility] CO2 26 22 - 29 [facility] meq/L [facility] BUN 11 7 - 21 mg/dL [facility] Creatinine 0.96 0.57 - 1.25 [facility] mg/dL [facility] Glucose 96 70 - 105 [facility] mg/dL [facility] Calcium 9.9 8.4 - 10.2 [facility] mg/dL [facility] AST 23 5 - 34 U/L [facility] ALT 25 6 - 55 U/L [facility] EGFR Comment: [facility] CLINICAL DATA TO MEDICAL CENTER CALCULATE ESTIMATED GFR. Specimen Blood - Entire left upper arm (body stru cture) Narrative Performed At [facility] ID - KRISTYG RAFAT [facility] Performing Organization Address City/State/Zipcode Phone Number [facility] [address] [place] [address] CENTER after 03/25/2019 Insurance Payer Benefit Plan / Subscriber ID Effective Dates Phone Addre ss Type Group MEDICARE MEDICARE A B [id number] 2017-Present Medicare AETNA - MGD CARE AETNA INDEMNITY [id number] 2017-Present Comm NON CONTR
--- OUTSIDE RECORDS SUMMARY | 2020-03-25 15:34 | XMS REPORT | Clinical Summary ---
:1950 Author Organization [facility] Address [address] [place] [address] Care Team Providers Name Role Phone Jonathan Zamora DO Primary Care Provider Allergies Active Allergy Reactions Severity Noted Date Comments No Known Drug Allergies 04/18/2016 Medications Medication Sig Dispensed Refills Start Date End Date Status allopurinol Take 300 mg by 1 02/02/2016 Ac tive (ZYLOPRIM) 300 MG mouth once tablet daily. amlodipine-benaze Take 1 capsule 0 04/07/2016 Active pril (LOTREL) by mouth daily. 10-20 mg per capsule fluticasone fluticasone 50 0 Act cathy (FLONASE) 50 mcg/actuation mcg/actuation nasal nasal spray spray,suspension PRN losartan (COZAAR) Take 100 mg by 0 10/10/2017 Active 100 MG tablet mouth daily. flaxseed powder Take by mouth 0 Active daily. multivitamin Take 1 capsule 0 Ac tive capsule by mouth daily. vitamin E 400 Take 400 Units 0 A ctive UNIT capsule by mouth daily. zinc 50 mg tablet Take 1 tablet by 0 Active mouth daily. gabapentin Take 600 mg by 0 Acti ve (NEURONTIN) 600 mouth as needed. mg tablet cholecalciferol, Take 2,000 Units 0 Active vitamin D3, by mouth daily. (VITAMIN D3) 2,000 unit capsule capsule doxazosin 2 mg 2 (two) 0 03/14/2018 Active (CARDURA) 2 MG times a day. tablet MAGNESIUM ORAL Take 500 mg by 0 Active mouth daily. tiZANidine Take 4 mg by 0 09/02/2018 Activ e (ZANAFLEX) 4 MG mouth every 8 tablet (eight) hours as needed. IBU 800 mg tablet Take 800 mg by 0 09/09/2018 Active mouth every 6 (six) hours as needed. metoprolol TAKE 1 TABLET BY 90 tablet 3 05/01/2019 A ctive succinate XL MOUTH EVERY DAY (TOPROL-XL) 200 mg 24 hr tablet metoprolol TAKE 1 TABLET BY 90 tablet 3 05/27/2018 05/01/20 D iscontinued succinate XL MOUTH EVERY DAY 19 ( Reorder) (TOPROL-XL) 200 mg 24 hr tablet Active Problems Problem Noted Date Hyperparathyroidism, primary 01/11/2018 Irregular heart beat 12/04/2017 Abdominal aortic aneurysm (AAA) 04/18/2016 Aneurysm of thoracic aorta 04/18/2016 Aortic valve regurgitation 04/18/2016 Coronary arteriosclerosis 04/18/2016 Essential hypertension 04/18/2016 Peripheral vascular disease 04/18/2016 Coronary artery disease involving huslia heart without angina pectoris 04/18/2016 Encounters Date Type Specialty Care Team Description 09/09/2019 Telemedicine Cardiology Sina Jaquez MD Thoracic aortic aneurysm without rupture (HCC) (Primary Dx); Essential hyper tension; Coronary artery disease involving huslia coronary artery of huslia heart without angina pectoris 09/08/2019 Travel 08/22/2019 Travel 05/01/2019 Refill Cardiology Sina Jaquez MD Med Refi ll after 03/25/2019 Immunizations Name Administration Dates Next Due FLUZONE HIGH-DOSE PF 02/06/2019 Surgical History Surgery Date Site/Laterality Comments INCISION AND REMOVAL, CYST, 05/21/2010 - occi pital area SEBACEOUS 05/20/2011 EXPLORATION, NECK, WITH 01/11/2018 Neck/N/A Procedur e: PARATHYROIDECTOMY PARATHYROIDECT WINTER WITH INTRAOPERATIVE U LTRASOUND; Surgeon: Zack burgos MD; Location: [facility]; Service: General ; Laterality: N/A; Medical devices from this surgery are in t he Implants section. LAMINECTOMY, LUMBAR, WITH 07/26/2018 Back/Posterior Proced ure: LUMBAR FORAMINOTOMY OR FACETECTOMY, GONZALEZ INECTOMY, MEDIAL 1 LEVEL FACETECTOMY, AND FORAMINOTOMY AT RIGHT L3-L4, EMG; Ivan geon: Joce Min MD; Location: [facility]; Service: Neuros urgery; Laterality: Post erior; Medical History Medical History Date Comments AAA (abdominal aortic aneurysm) (HCC) Anesthesia denies chest pain or sob, nhap/nfhap can climb 2 flights of s tairs no routine exercise Exercises occasionally Aneurysm of aorta (HCC) dx [address] Jaquez last visit november 2017 Gout controlled with medi cation Hypertension takes meds Disease of thyroid gland Family History Medical History Relation Name Comments [...] 2002 SHINGLES VACCINES (#1) 2002 INFLUENZA VACCINE 12/20/2019 02/19/2019, 02/06/2019, 2017, Additional history exists 65+ PNEUMOCOCCAL VACCINE Completed 02/24/2019, 01/28/2019 Implants Implanted Type Area [place] Device Shelf Model / Identifier Expiration Serial / Date Lot Clip Ligtng Weck Hemoclip Plus W/ Tape Ti Med - [id number] Medic al TELE[employer] MEDICAL [id number] / Implanted: Qty: 2 on 01/11/2018 by Zack Driscoll MD at [facility] Clips for / Internal Use Clip Ligtng Weck Hemoclip Plus W/ Tape Ti - [id number] Medical WECK CLOSURE [id number] / Implanted: Qty: 2 on 01/11/2018 by Zack Driscoll MD at [facility] Clips for SYSTEMS / Internal Use Results Not on fileafter 03/25/2019 Insurance Payer Benefit Plan / Subscriber ID Effective Dates Phone Addre ss Type Group MEDICARE MEDICARE PART A AND [id number] [facility] [place] Medicare B t AETNA AETNA [facility] [id number] 2000-Senthil d[place]las [phone] (Work) Advance Directives For more information, please contact: [phone] 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
--- OUTSIDE RECORDS SUMMARY | 2020-03-25 15:36 | XMS REPORT | Continuity of Care Document ---
:1950 Author Organization [facility] t Address [address] [place] [place] [address] Care Team Providers Name Role Phone Noah TAYLOR Castillo Primary Care Physician Michael Jaquez MD Attending Clinician Kerrie Delgado MD Attending Clinician DWAIN DELGADO Attending Clinician Unavailable Dwain Delgado MD Attending Clinician Wes Nava MD Attending Clinician DWAIN DELGADO Admitting Clinician Unavailable Payers Payer Name Policy Type Policy Effective Date Expiration Date Sour ce Number MEDICAREMEDICARE PART [id number] 2017-07-19 Cm rebollar A AND 00:00:00 [facility] [id number]/05[place] [id number] 2000-05-21 [facility] 00:00:00 [facility] [id number]/-PresentIndemnit y MEDICAREMEDICARE A [id number] 2017-07-19 RAFAT [place] [id number]/05/2017- 00:00:00 - Shawna gilical PresentMedicare Center AETNA - MGD CAREAETNA [id number] 2017-07-19 RAFAT Watson INDEMNITY NON 00:00:00 - Medical [id number]/ Mp ter 8-PresentComm Problems Condition Condition Condition Status Onset Resolution Last Treating Co mments Source Name Details Category Date Date Treatment Clinician Date Adrenal Adrenal Disease Active [facility] mass mass 2-18 [facility] - 00:00: Medical [...] aorta 00 Aortic Aortic Disease Active 2015-05 [place] valve valve 06-18 [facility] regurgitat regurgitat 00:00: st ion ion 00 Essential Essential Disease Active 2015-05 Darshana ston hypertensi hypertensi 06-18 Me thodi on on 00:00: st 00 Peripheral Peripheral Disease Active 2015-05 H jimmie vascular vascular 06-18 Method i disease disease 00:00: st 00 Coronary Coronary Disease Active 2015-05 [place] artery artery 06-18 [facility] disease disease 00:00: st involving involving 00 [place] heart heart without without angina angina pectoris pectoris Allergies, Adverse Reactions, Alerts This patient has no known allergies or adverse reactions. Family History Family Member Diagnosis Comments Start Date Stop Date Source Natural mother Heart attack [facility] Other Heart attack [facility] Meth odist Social History Social Habit Start Date Stop Date Quantity Comments Source Sex Assigned At [facility] Tobacco use and 2019-07-08 2019-07-08 Never used [facility] - exposure 00:00:00 00:00:00 [facility] Alcohol intake 2019-07-08 2019-07-[address] [facility] [place] - 00:00:00 00:00:00 of alcohol [facility] (finding) Alcohol Comment 2019-06-25 2019-06-25 occasional [facility] - 00:00:00 00:00:00 [facility] Cigarettes smoked 2018-07-29 2018-07-29 [facility] current (pack per 00:00:00 00:00:[address] day) - Reported Cigarette 2018-07-29 2018-07-29 [facility] pack-years 00:00:00 00:00:00 [facility] Tobacco Comment 2018-01-01 2018-01-01 stopped 2009 [facility] 00:00:00 00:00:00 [facility] History of tobacco 2009-06-25 [facility] Smoking Status Start Date Stop Date Source Former smoker 2019-07-08 00:00:00 2019-07-08 00:00:[address] [facility] Medications Ordered Filled Start Stop Current Ordering Indication Dosage Frequency Signature Comments Components Source Medication Medication Date Date Medication? Clinician (SIG) Name Name allopurinol 2020-0 Yes 300mg QD Take [address] (ZYLOPRIM) 2-20 mg by [facility] - 300 MG 09:20: mouth Medical tablet 49 daily. [place] amlodipine- 2020-0 Yes 1{capsu QD Take [address] benazepril 2-20 le} capsule by [facility] - (LOTREL) 09:20: mouth Medical 10-20 mg 49 daily. [place] per capsule doxazosin 2020-0 Yes 2mg Q.5D Take [address] (CARDURA) 2 2-20 by mouth 2 Geovanna kes - MG tablet 09:20: (two) Medical 49 times Center daily. metoprolol 2020-0 Yes 200mg QD Take [address] (TOPROL-XL) 2-20 mg by [facility] - 200 MG 24 09:20: mouth Medical hr tablet 49 daily. [place] losartan 2020-0 Yes 100mg QD Take [address] (COZAAR) 2-20 mg by [facility] - 100 MG 09:20: mouth Medical tablet 49 daily. [place] zinc 2020-0 Yes 50mg QD Take [address] gluconate 2-20 by mouth [facility] - 50 mg 09:20: daily. Medical tablet 49 [place] vitamin E 2020-0 Yes 400U QD Take [address] 400 UNIT 2-20 Units by [facility] - capsule 09:20: mouth Medical 49 daily. [place] cholecalcif 2020-0 Yes 2000U QD Take 2,[address] myrna, 2-20 Units by [facility] - vitamin D3, 09:20: mouth Medic al 2,000 unit 49 daily. [place] Tab magnesium 2020-0 Yes QD Take by [facility] t chloride 2-20 mouth [facility] - (SLOW-MAG) 09:20: daily. Medic al 71.5 mg 49 Center TbEC omeprazole 2019-0 Yes 20mg QD Take [address] (PRILOSEC) 2-20 by mouth [facility] - 20 MG 09:20: daily. Medical capsule 49 Center aspirin 81 2020-0 Yes 81mg QD Take [address] MG EC 2-20 by mouth [facility] - tablet 09:20: daily. Medical 49 Center fluticasone 2019-0 Yes 1{spray [address] propionate 2-20 } Nasal [facility] - (FLONASE) 09:20: route as Medi erica 50 49 needed for Center mcg/actuati Rhinitis. on nasal spray albuterol 2019-0 Yes 1{puff} Inhale [address] HFA 2-20 puff by [facility] - (VENTOLIN 09:20: mouth via Med ical HFA) 90 49 inhaler Center mcg/actuati every 6 on inhaler (six) hours as needed for Wheezing. fluticasone 2019-0 Yes Inhale by [facility] furoate-catrachito 2-20 mouth via Mariaa es - anterol 09:20: inhaler as Medi erica (BREO 49 needed. Center ELLIPTA) 200-25 mcg/dose DsDv doxylamine/ 2019-0 Yes Take by [facility] phenylephri 2-20 mouth as Luke s - ne HCl 09:20: needed. Medical (POLY HIST 49 Center FORTE ORAL) bisacodyl 2019-0 2020- No 5mg Take 1 [facility] t (DULCOLAX) 2-19 03-20 tablet (5 Maria[facility] - 5 mg EC 00:00: 23:59 mg total) Medi erica tablet 00 :00 by mouth Center daily as needed for up to 30 days. acetaminoph 2020-0 2020- No 1{tbl} Take [address] en-codeine 2-19 02-29 tablet by Mariaa [facility] - (TYLENOL 00:00: 23:59 mouth Medical #3) 300-30 00 :00 every 4 Center mg per (four) tablet hours as needed for up to 10 days. Max Daily Amount: 6 tablets metoprolol 2018-05 Yes TAKE 1 [place] succinate 2-12 TABLET BY Metho di XL 00:00: MOUTH st (TOPROL-XL) 00 EVERY DAY 200 mg 24 hr tablet fluticasone 2019-0 Yes fluticason [place] (FLONASE) 4-23 e 50 Methodi 50 10:31: mcg/actuat st mcg/actuati 39 ion nasal on nasal spray,susp spray ension PRN flaxseed 2019-0 Yes QD Take by [place] powder [...] st 00 (eight) hours as needed. metoprolol 2019-0 2019- No TAKE 1 [place] succinate 1-07 12-12 TABLET BY Meth trell XL 00:00: 00:[address] (TOPROL-XL) 00 :00 EVERY DAY 200 mg 24 hr tablet doxazosin 2017-05 Yes 2mg Q.5D 2 mg 2 [place] (CARDURA) 2 0-25 (two) Methodi MG tablet 00:00: times a st 00 day. losartan 2018-0 Yes 100mg QD Take 100 [place] (COZAAR) 5-23 mg by Methodi 100 MG 00:00: mouth st tablet 00 daily. amlodipine- 2016- Yes 1{capsu QD Take 1 [place] [...] HIGH-DOSE PF 2019-02-06 Completed [place] 00:00:00 [facility] Vital Signs Vital Name Observation Time Observation Value Comments Source Systolic blood 2019-07-10 08:00:00 157 mm[Hg] [facility] Diastolic blood 2019-07-10 08:00:00 87 mm[Hg] [facility] Heart rate 2019-07-10 08:00:00 87 /min [facility] Body temperature 2019-07-10 08:00:00 36.78 Kristie [facility] Respiratory rate 2019-07-10 08:00:00 18 /min [facility] Oxygen saturation in 2019-07-10 08:00:00 97 /min [facility] Arterial blood by Medical Ce nter Pulse oximetry Body height 2019-07-08 05:41:00 182.9 cm [facility] Body weight 2019-07-08 05:41:00 105.5 kg [facility] BMI 2019-07-08 05:41:00 31.54 kg/m2 [facility] Procedures Procedure Date / Time Performed Performing Clinician Sour e RHYTHM STRIP - SCAN 2019-07-15 09:22:16 Provider, Default [facility] BASIC METABOLIC PANEL (7) 2019-07-10 04:34:00 Leroy Workman [facility] CBC W/PLT COUNT & AUTO 2019-07-10 04:34:[address] [facility] TRANSFUSION SERVICE 2019-07-09 17:51:44 Provider, Default [facility] - REPORT - SCAN [facility] BASIC METABOLIC PANEL (7) 2019-07-09 08:43:00 Leroy Workman [facility] CBC W/PLT COUNT & AUTO 2019-07-09 08:43:00 Leroy Workman [facility] HEMOGLOBIN AND HEMATOCRIT 2019-07-08 11:15:00 Luther Santo [facility] BASIC METABOLIC PANEL (7) 2019-07-08 11:15:00 Luther Santo [facility] TISSUE EXAM 2019-07-08 10:03:00 Gurinder Delgado [facility] LAPAROSCOPY,ADRENALECTOMY 2019-07-08 07:15:[address] [facility] ABORH, MANUAL 2019-07-08 06:19:00 Morelia Leo [facility] TYPE AND SCREEN, 2019-07-08 05:52:00 Luther Santo [facility] - AUTOMATED [facility] URINE CULTURE 2019-06-25 12:53:00 Gurinder Delgado [facility] URINALYSIS W/ REFLEX 2019-06-25 12:53:00 Gurinder Delgado [facility] URINE CULTURE [facility] COMPREHENSIVE METABOLIC 2019-06-25 12:53:00 Gurinder Delgado [facility] CBC W/PLT COUNT & AUTO 2019-06-25 12:53:00 Gurinder Delgado [facility] Plan of Care Planned Activity Planned Date Details Comments Source Future Scheduled 2020-01-[address] [facility] - Test 00:00:00 (#1) [code = [facility] INFLUENZA VACCINE (#1)] Future Scheduled 2019-12-20 INFLUENZA VACCINE [place] [facility] Test 00:00:00 [code = INFLUENZA VACCINE] Future Scheduled 2018-07-[address] [facility] - Test 00:00:00 WELLNESS (YEAR 2 or Medical Center FIRST YEAR if no IPPE) [code = MEDICARE ANNUAL WELLNESS (YEAR 2 or FIRST YEAR if no IPPE)] Future Scheduled 2002 COLONOSCOPY SCREENING [place] [facility] Test 00:00:00 [code = COLONOSCOPY SCREENING] Future Scheduled 2002 SHINGLES VACCINES [place] [facility] Test 00:00:00 (#1) [code = SHINGLES VACCINES (#1)] Future Scheduled [address] [facility] - Test 00:00:00 malignant neoplasm of Medica l Center colon (procedure) [code = 833425602] Encounters Start End Encounter Admission Attending Care Care Encounter Source Date/Time Date/Time Type Type Clinicians Facility Department ID 2019-09-09 2019-09-09 Outpatient COUNT INCLUDES [facility] [id number] [address] [place] [address] 00:00:00 00:00:[address] 2019-07-23 2019-07-23 Office ARGENTINA Delgado [id number] 50 15:02:12 16:42:42 Visit Gurinder Sy AMBULATOR [id number] Y [id number] 300 Results Test Description Test Time Test Comments Results Result Comments Source Tissue Exam 2019-07-11 16:10:00 Test Item Value Reference Range Interpretation Comme nts Case Report (test code = 104) Surgical Pathology Report Case: [id number] Authorizing Provider: Gurinder Delgado MD Collected: 07/08/2019 1003 Ordering Location: [facility] Received: 07/08/2019 1306 SERVICES Pathologist: Love Hernandez MD Specimen: Adrenal, Left, Left adrenal gland DIAGNOSIS (test code = 3220) v5xnvLMcQYXor6elMIFznNVkXkKiPsQdAcHlZx pc nXBkKTgkpnCsYSftp8VdW4DsJjNvPMfzebSiTGCx TqbtmkizGFBdTTO3obRgIPFzQBguEHBxXTnfDp4y zEDgrVlwHnAcWAQrp8qxftGErnytyAl0y9mpTKYh RlBgaHEdEDsdO3opvxBguLMpITGaNIw7vUwkNjFv ELRcm6xhenUuUyQwAIWxFIJaWWKqvKWxP836f2wc k8bqjjWeeLR1NMUmMDJsQ3CdGN1oXHMynOTqWPaw czBaZfF0EThhYMEtZvM2XCZevBRsJNIcC6bkINZf HNfchgEilbD1RSHbxRWeUKO5xJkwh1D3zBHzkCIx zEgiDcSkPyKkKESHr1TtLFk1rUlmI2RuKUXfGnJ0 bTIyZVBnPWbtRTEnEITryzJ4oQ57GKsnetQ2iKXy d3Jzb39db119lA7wqKUeOQY4DCKaNYBzmFMcELVg KRP7FOVxoLMcX1f1CkBarVXcS4Y6XzMiuQWjE5N7 LuPmhZGtM6O7SkDkeXNpOLLdsDMeIf8hsAWaeBGd pv7wry67QCL2r8GqmDjjXQB4GCJ6GlThWv7ytIIy KXNfCY4hLrEogWVzIQOmpn28iYgxYVnmxmGhgU4z HqGoKZ5ovWqse86jYXPvUG4cpV8ywd2stdFsWUym qXKmcWF6znsvOTD9AKBuueJbj0Eht4xvHoQcqpFv U7phS3VmTRRsCDGjZLSvZpBlelDyr5Wis9JomQDb tMi5b6nvFPXuKVFdlHonh7hhUKE8EGNsK6K9xDGa j5zmSWybDTFwzUA1nmrjMCmnOXLjjlT0bplkUTql IFAkrTN3uoamUYrxXUBkVyI5feewJBfeKMMfOKP4 FQwiq996YQO4LXmjQdgoSVipAYGhkrHgqlZiaLqz ZGVjXHBsYWluXHBsYWluXGYwXGZzMjBccWxccGxh dY0sUfLjJaBdXXrpfFKyaetvSCoowlQmIRMrdyUH ObYIIUKSNcMGZOeCOU6PULRISUQQWGUWYTYUVbTN JHTMF20NDpbyTOXxSIKoMA1mXjBNRWwTBDKMJgWV MJcvQ5tDIdHcU9gKDSHnxJukoY2qBvZbSeMfNPun GJ7oBKNfL8zscTMdULFtHUTqL9kqLpKjdE7kqLfv WJnrPbNoJuDkKItjrSFlvEOYLeQEOKxCHMWIG2DF XTEADSKVYh9TGOgDHLISZAXFAOPDR96zeVmozY5q QbSiZmOfIBllMA9cMWZfI7dhzOTdLFEgSJZmQ4jo OcAirR8lpIcbOzfgIdFgDdQbQKPqOPGuIWlqNVBi SZVjTlBmdLDnJYOcOYDcPSqQBQ1VEfqPE2YoQD2I G2RBPZsWVcmgPHgUA04NJ6JJFmAQJmZuVgEKJ1NY ICBpPpZVBF0RVEycYRGKX01zRTMqdeAqBORzGVAM EIzGJ4SFMSDPRxIJDSSeWKPDVA3JDNLWASWPXJ4m gKKnSVExRZMhJB3ASR8SRVhCTyQUG6ssVSUHTmWM KvwDTN2kiHYweRhqgxYyFRuia0FcVPpfTHRiKY2k lAnnCQPqVC1zMOTjB6twaV4ypxm8FdYxFZHyNtB0 QMTzwmJ8Bjz0JURoWFxiw1gui4McZRAwJSf0eBdp SmFcFGRsi7afzxEiWfTyHJBqSKSvVLHvpBRlY976 e6ztn1hxugDqwSF5MBZiAFR1CMjzckXmgsP0OScw iNWbBqE3NFjqqeSkSImrbdEtwoFcXnd0KRErW301 SZB0bWhtg3asWKI3QJUcVLGnJmVeIn8hhWEjX730 HXPjDRLLZMWtsVf9KCAwigLnxtIkbSLZt502Q861 l4vcQIShbzAnyAqPcwcfb5rmR267VIKzvHTfwiPf ZmQiCORjtKNxmHP2BNDyTV9cgpnbQBfyQFotBDJp fbN0DGXpjEXqV2HfFOQsET3qwxqeMPV7HPmgHGHe HTK2QmPlETIil8Gzpxs9CgQkny7clf69MNO3k9It zJyhFZA5SZI7LlHhQy8evYHxHUXvQK8cDrEksNTr RPIdkh99oFrqJXxlJHX6UYLqfpDtj7Foh1axSfIc hqNfI3axE5WvYZFqJNAxLGWxCfMiovShe7Kgk2Hv kZTatWw4q1qbRLDoZVZysRxxx4ouSZF9HVCebRFm R2imsG8pESVvVS7clougi3goPRycYXvoBFPbaCG4 yxG9UMRabIZrA5XyxP3oFBVeZTliTTUiusz6VxAa Bv5rjMVrvZtmXClwAzbkFUfpSYUdzwAdjpVhpTxe ZGVjXHBsYWluXHBsYWluXGYwXGZzMjRccWxcbGFu YfTtLjEmsSqieQbhBLmyXqMeBWPaZWzdF5klSvTv PpFcRxr2KWKjvLAvJBIzFvf1RMXjeXKbGHPZbHew qH0eHHQhbOlkxV1seVH0KOIsetNycONQhR7lZGHD hU8rCdY3MHZjMqb5IJQcRsClxLBrlO1= CPT Code(s) (test code = 3357) l0ojsYJaPTUcqLLcClSqVYSvTVBvx0kbMGHx bGFu UtPjDkZkRdYwWdgeoUPmRGQdKxXms9gtn062oPOr e4kpKGQsUwD7lUNwFWDhnLFfS370l0dpf3gebaYi oCA8JFVbJWP0HNfvuuOszyT0BPejfCArHrW6IChu hfCpFXlfwnFlrdXnYgc9CSAgU598KNG5uKhnh8vk WBR1TDTpZTNyPjXpZf0saJXgH250CGJcXEWFNXUq yMd4SFOzvtFoueKucGRXn736C782w4vyFRCcknCd oGcPdrihm6qjM973QQZmpMLufaZzTmBdUWQncSEi tCI5MWMdBC1kyvamNsHeVO9kylalJrKmHN8quye3 PtCsPD5qerzoMrMiMDveXLUagixrBUObg8Crhlzx MG6yW5Chm4D6mW2kvFUtVKLkeONrNrHyVOYjfu9v bLQpIMeyx9XpWSY9nsC1hGVdpPDgKUTfNV93Xtls t8DyPpsnTAL3FYRprdIhc3Nrb6ncSeYtyxCzY1tx Z5CeXUWuTCBcFAHtTvUzawOhf8Tvg1SlqQCrqXc5 o2jeNTUbUATwnPdoe8mfITM2FYPdD0N0lMYll7vt TGthZJTvsIL5ssxiTWnoXASsxoU3knvuEUdjJFWt aHR9lxvrXUluGJCbYiX1mteuPVsqWLPuBID3SHzb z191IOD2ZDmaVyiiHHvoMYYgtcIgkoJxjUqkINZg AMDhHTyfLNNrFChgIVYoZHIdLsQmrBhvzSswlL5f XmHzBjJaFXacGO5xLQJcY4zxcAOzVQWnQJIcK3eb UvEylG4jrUvdCYglajEoJSz9PmI6XAHzlm7= CLINICAL HISTORY (test code = 3356) r5fttZBxVSIdqSNhIzQdTMKcSSPqs5g cZGVmbGFu LgXsNbRmMhAtRoiciHIvVZJiJcIus3zag498fBOe h0ckVNCcYbM9hDHbVWOxiPDoX104FEPrSIdym4gj k1YkBLZctBShd6E9AGSLlxyktNh2fBooM87fi6F8 AzqkN8kbEBHjOFloFYBlHYazdPFmQQB7JMLkYGP0 NYcbirTgryV4BAmaeJJfUpM0ZXn3t0mckCocZECh HAP2g9weUYibtpNuOT3hwm4iuIi2g1nygnOmHPSd PTBteUBTYQWfN1OpmZmfIx6ceLn9lUslEvnyUTR7 Fwe9LN2vyj85cni5fKkiGXSdzfzlEsU2MUtuBQKm smzgJIx1MGyzHDRyrLucSPknKCNsapjdLLcxLYKx zHiqHGihIQDpVezbWBrnCLEgIBV5KXnxf894HUR6 ZFoai2xmg6qbiOInJug7JTXjVmGzGzyqNFuqi9Ob r1jhZUSbkd4aCXD8mMDdoOpnq9L1uCZzBVIcbREt xkFuWBAeWiR7GStnYG7kjr45XFWwZTR1db3bxFEu gIcabgJblHSrJDsuP9QkGAQrk236TRGzS0ZhTKEg t5K9ucWcHtTaPYSlzAS7fmJ7YIUhORi2mFMypmO0 lbWsvNYyR2gjzB63ExVpsCQnF2KmsC91QlDwgOJr I9KakD18ImUifTTzG8DmvP49TvEkeTTvTTEvmTRh Vq9dpABwaVMgx0CmaYBgJJecF45yl555IMCmrmMl D9umqAXpycklyZKttumkTAeymjYjQPZbJRQzOCpn WTOdNZAlGbMyvRaepL4dLjVtXkAdFJLVplTzGL5m GYNal6HikPAjhXSzgf5duYD5EMDsweCiFMfifUOs x9uuIYT1 SPECIMEN SOURCE (test code = 3377) c3lzyBLpFTJewXFyFzGaTPNtWZGgy6ma ZGVmbGFu IkAnLxHsVlPlNtgakDPsKXQdJvPyw1ltf591lYTs a1gcGZLlHvE4kBVhPWWaaIZfV272o7iqj9gzrpVo tCF3RJQmZRM3VSmpdnGfzsB3QUugaNOeAtR2MQiz shYvSFaqahWsqhTyUjo1KYOmQ278QBY7gBjiq4lb ZUK6AIQrKJCqVfXuBg1zaMEqN909MRNwAHQGVRWg wEg6GOCjroGnetGceFKFk815G151h0lgACEwbwQy hPvMookbf7qhA703EUCefSTqiaAdPmRhCDCfaHHc wMR9SMWwGV0kowqpQoBnCF1wtnuoAwHcGP8iusk8 SpQwCF3hmbecEgEdKMkwHVOoseylLYCay9Vlkqob DL9aL6Bju5A4oZ0oaXIjIIQyfIQmHaUdQHYrja3h rJLjVKfmk3FnIUL3vtM1jLAtuGVuHKGxVA08Cktv g1EfNbsxTQU7FHYrvpPar9Sqx6blKnYjyrPqZ2pe R5KpFMEfCSNzQFQfZmRgdfXqa8Auc5IelXDkiXo5 m4dwZMDvXPMoiLzod7hvMDF7WXHbI9E6vAHkm2zl TJnjGJOvrDG9mnbhZOxjKHWsdhT7kuarPPopIIQc hXT2uvkpQYtoZOQxEpD5brrcCTzqBMPzCHB4JNoa b246UET1RVcbOhjkHGvmCOLhcyKhosPhsZquTPPn IZYtMVzkYTNfXShuSMDhVHZdTaUqpImulWeehV6g GmBjNaAkPRtpCL0rHOGkG2rupWYrCNPpBFGuJ0kv PiLryA2wcKdyQPzbdgWbRAseDrZiJXEdXR8dkNVr bGFuZFxwYXJ9 GROSS DESCRIPTION (test code = 3366) z8dmiCMuSATyjXDxJcWnKBFmHRSdx5 lcZGVmbGFu ZrUzFvZiKsNlMzykmXOfRELuNoAol5bkk023bYUk u3anKYXvUpQ9aPSgKXWtvFWsG944XHAqPHeur7dm r4HeXGZmoHOpy2B8XNFPewdsuWq6lAyaF65xg7J1 OvdtR3frEHMrWZmeYZYkQHjuxXWuTUG9BCGkHVT6 AGmkqmRoktA6KEguvSMaHgE8FMm0h4ougXljJOKk KQN6x9zrNRgleaYjUK1paj7nmSh3x1ehymCuZZAw SPNqeEUGHPBnF8BdtDmbXw9exIv9sWqnNtqqYQG2 Lin4YU4tlo70jic5hYiqUDXouywwGyL7SYlzICPd krboTZg8OOpaUEJuaXmrYUtyPOHtqdimLSagNGLb eDedCOchWIVyPkuqNCgaHZNmDAT9OIcjf593ACB4 YQsgg1jqv3fhcHUpIgu8UCHhRfVlRzftWVymt4Ac o6ncCZYkpe1kENA3cYKwjGiyw3A2yRBmDXMtgHCj wvUxRIYcAxP1RMyhSP4jnb79NTKxKXB1zt1qnFUa rAeionNchUIyEElbL2PoFMMlz740QGIcJ0VhKPYj n4G1asEmDrCuPKIdnRQ4vcA9TUIhWGb7gIJxljA2 vtUsxVMlT5txoG57LfRaaHRsG8XiuL16LiDtwJGb S5FnxS34RbUzeOIyD3GzkM56SsTcqBSbETVymSCo Zy2bxERorPRnz8KwcDYnPJiuE15ks459NWHouqHg D5dzaLJlrbzwfGAjskhhPHahpmKbUKZpGHAvBOry NQUqQEZlZqOeaInfkK4xQbMlWbOpCCMVHWNrsZVk ZCBmcmVzaCBsYWJlbGVkIHdpdGggdGhlIHBhdGll nmVtdcYkYD2oPWDfW9Ixd9Hqb53qvtYuKkKfHCTe DKDgZJByDQ5lvAxtcPMlsRYxuPHgYQY5VUWhfGtj ZiJ9MJLnHnJ5KCHlR22gBRHfCM0znKCfjZNqBMKo bBXhPEScCPFgrXPhSObgqRU7EB7nhitndRPsFdEn zbSnHGPlYAOawUAkvdXxyXKcUAYbJNxbIPgky1Nt RSIpfDYuEGYiNCB0oOZyz0EfW9mdZN6jmUDmt5Fe eBMxlDowq5LvbHzzymLkIPDpBJRhxdBqxLDaNKan tIcfI1ewF1Swr6KftVNqVQqhbH3wpOd1XCkpdR4v oaliG9wgHU9pp0Noo2j0yAGkYIOjbwJaFXvyGBCq YJXfRfRiONdoUKhkmZorjyqnB7FhwWC9raO1PD2d k73lxMAeVFAnPC5oJSfmCN1vd7NmmDVeLR60XTbj LP88UMdzOCXdmDSxftFnmCMtF12xpFbbjTAdiDEj vpZep4NlUWdmbIxribP4gVDpB50euUZ5ZuLVaXVs amLvIZgacB6zFTDmwfYnHRdhQ7rxujVzvLUcB23h LPXlCDuimAxndiK0nkO5EH6kDY3oPUOug692nP9m YxXibuIgCC00BVWuefBaj5AtyYxekrZrTXGqSLW4 At8mbYRnZB6kZTWgkcafSTPyG9GxtZfvpeUms1Rk UqUTPY2UPWfuvsMxblWhIB09DLCeqnQzb0Ihp70q FGT9hNztJ3Wqt7Xql3GysNmjqgEnDkRtKGUzVzCF Ak1KVdtqfUOjthR2zrBxgUYdocTenUSiRDNxYlLF FM4YGRenlI5lyiFxsTYcQTMrHITdwdFsOUjiLQ1o es2tA7pomWffBWFmew2= MICROSCOPIC DESCRIPTION (test code = o5tnmNWjQHUztYPtRqHyRCRgQOTlx6 [place] [address]) PcJyAxSvOnOoRgjfwLVcNRGkGpUhe4zhx691lMFv c2ecIKFvEmF0cQBbOTIbsVBlV273n3oqw7diixMa vXM2WWNkPXN1HRqlvkDcdoP1GBqpzAUjHiR4CCzz roUnRBqqydSxpaWmAcg2LRZhG505ZKT1kJqcb4hw OIY5TKNkMQVtEgRyXl6hhIAgU389NPXtMDHOSUVr sWm6AYZacoSutkRqqPKGp839R083n9vvBJBajeGg dCnAkfcbb6ggG806MXKasNNonrAvJjJzEGEcmVJn dEQ7OFEtBR3nvbhdYcUnEF2dbxshMcNtWC7ziws4 NeSbEU5bmaxhMeRmHGpbPIMyyrdrUMBdr7Guhuru FX1fH7Eas5C1sL8wlGRsAHAbyIMpCiObPMWrvg0b dOOdBTkzu0WjGFU2feH5iGUxaGPpHGScDJ56Nvcv p4BvZecfVZZ1WSNwruZoe9Hza7ugOdXnuyXwI2ir I6VqZCTmARQbDLXpBkFizcDjm7Wat7JmfXFbwTc0 j5txIEOuVDLynGich0lvOYC0DUKfJ8C2eUBgh7ys TQzhDEMzeKX6ckuxHExzPFUfmaS7ymlwSJvlOHXs vHB8ijjsRLomXYFuKxU7kbmoXVneWCAlGUH7ZZjk g586USE1WAtjOgteIJxvYVOmmuBiqwFjhPttOTDf UGUkUVslVSQkFFmmUNFaVSLgWtKntCstkEshcJ5j BlOjBwCkAVwtED7cPGGiX5gsmYNaAVMdBIJtK5cd YsTajB3dbPljXRbosyDaHKPyldLonf9pAR1dmIXf fQ== SPECIAL STUDIES (test code = 3376) n2phsGMqVKAlkBKzLdTvXLEdNRFpk5fi ZGVmbGFu AkQoKuOtNeFmOpnqqDXkXNCpZtXwo3xgc973wWWv u0piHDNtEeX9uOImSDBrrIHgP343IOOcCXxhg7li e0WuMTIifINiq2Z6KTIWWUpwLuSxU995WORiZXbf h2pzq2AcUHUquLBcz5T1UACMcmolePx9jGazR76p p6J6WlqoM9zxQXTyUWEiN2PgIV6nFRMrOoc4IVY1 OGO6KMPiIBHgJ2KyJF6xTNCtwPNiFKd7e3aytEld MBOjGWB5l7phDIkbdrN6TV6jem1owJk1r3owwxVk KERoUJGawVPKZFVcN7XfnHezYi4ymTs2n9wbAfih oiA6kDUmLwBfPqXxDOnltZBrbbscSDCaXYU7xDSC NRv5X322s0nwRFOsvsGopUbZqiavf2qtJ695GJDj aGHnlaYeBzOtJFKukDZedGI5KLDeWJ8rbdkjJyAy BG0xhmzvLxPnZL8quea3WhZaHX0ghttuMySlSLao CQPwqgyzRPXpk3LxpylmZJ9cS9Vjn2B5zH8wbFOw CMCplUKqGsQmHWOota6vdQJiGVazWYC3CMVudvTn b5Nlq5bnRtRwznKaO4dmH2DcQUZpYROiOHOcTxMd ttGxe0Wyv2TkrUPnmEz0w7kjSDYvZHUzvCmlk3vw FYK5XGUgS7F4hXRno8ciLEmbUCDdeEO1lncsPVgi JPSaikG6vzchAPctHOMobYV5kriyDYboBCGgXeO2 zwbsSLonJOPjNAA3AOonp694NIR4WSnpJnawLXnv XHBnbmNvbnRccGduZGVjXHBsYWluXHBsYWluXGYw PVKqUiTaiWeljXysnC7tHxSrSrHoKxawZM3qMPLk P9rikZXcPTIwFXWcA9zgWgBlqM3jyZueRKsoKvTp YgGtLqOWqSLzdN06WDEbjxN2VBBbp50ae1AxbYhq ocThMXGkGPpyQ2d6CNFjQKVgPQH9t7Dfg5RhmI4n qP2tgAcjuW6unDPldJA6tdazw4Duy2OsX0sysSQo dGFpbnMuXHBsYWluXGYxXGZzMjJcbGFuZzEwMzNc tJezkBinHMxeDvYiYGFoQJlqM0esTbOjA4JuBHYf QtCfdCWyU5eujGGtEIEyxbpmvJCnkgzwWKgdieJu YDobqjkrTZNmBRftV5mqGrAeMJVzlLhrOObgj4Am LSFyLYSpOytbxdHzHKApsuTha0dxA8kcPPBtCGQ4 VL0mgpCpLlRkGU0szK50x6Ndk89wv08wbN5ujJSp inGqN20jrADtkKFyg6UaBFLkowMztEY7JYRvRQgj zyofs8m0pTS8iJJlwHStmMO7kGUshCEuQATZfRFa YNHjq659ev9uUANfdLWvitPcqZ6dUIbooucadCLk OR4cOLSgRKXbDPZkLY40jsKoPS4beERvj5zmkdTq fMSzz8HvgZK9QBVvhNJbrcbhDb6iCA52RLTfVWqe uB4uoCIqduNjJK8rDU1wK6C3mQReLVIjplBuu9yu LKrjFR4jYUCuzAnzWaabRERtTLXgjrCztVE1LXFf iUthxL7jGwKfZeCoGwjrWY1uLXMmT2ufkOEuHWWa FMJdJ4tbMzSegR4ylVvpOPdxOgMkIzGaYizgnWXk zJatPUKbxTayiG8uNaYlHsGtEaloWH7uOHCzY1tn pMMoLIRiSNIvC3lkZwCasA3miPmdQJliXmJxXbJa MiAgXHBsYWluXGYxXGZzMjJcbGFuZzEwMzNcaGlj fMjzGPrlYcPrMXFhYKkyN3ttHtWrB1ZvGPVlHyAk fRPpT3aczNUnQJZzHUwkSQGwBWXeWxLxjMJuDwSf MtHyoNmgePhtCSseZpBkVXInNOnvI6cmNjYbE9Mj YDScMbYgMN0fuY3vcIfefN6wqVHsgVD6jiitcSBs hF5cW2RnSEVkd7Libnhnb8TpXEVwnqHyri2vWJZg nRQZOUvrg4TfA2RkCXo3p1AzzPbqxC1nAwChXvMg DguuCW1hCACfK3bjeBLgWOCoJVKfB3phBtYkjK3f oCpgLFsgUkLfIsNaGzj5VMXiAxQuTzkhDOWjMBmw XGYxXGZzMjJcbGFuZzEwMzNcaGljaFxmMVxkYmNo IDSoDPnoV8wnJzOzA6NgWHJyDrJmaoKKHGBbE3Yy VSJildFiyyhwTDN0jB2cv6g3RQolZt5mAGNciqxu c1rwpbHpyXOfp5WgHUMzngBxb6OlTTAzaxZzmFBd DQQbbxTuxs3enePyMREoLMPpC3DutsclhQwuhdT7 WMBuEPIwlSOcxVjsJGGfTKe7NByfdwSow7LgUxMo caSulTKebfWuYY4sBNVzqLVfenQoKYF8PFTeNDFB OqEbQIYzi1McZQ2uHTKhgGzcYSFdmX2oc9TlVSGq m28dVXAjVPKISCStlECtAZZstSUieCasZMBasNjy sPHibZQyXYAqNOXlMT2iMEJxmlCmpNCny8EyzQJb iwBlk9DmukSoKLAwQTK1WxGLtKLynRKlrIYvvqM3 i5AvBJFhhsGamJgkzOBobCHtyUKki9Jtwo6iSPDi s6mpjVagOZ3wpTEhYQQoJXguyyQoORCsutXxtpRf x1MxJ8A3uR7kRIepf3YqUl3wFCQem2BykvJxCyBA iDlwESwrGv6kNQZptvquoGAuZ4PbwYlgkRAgPWPr TWCnJIIkLAWYkIqjaUKocSHLVETennQ5k9T2FMlr mEElyyGqNZ22IIBmCE6skCJiuWDyf6BvEZj4UPJe W6hTYO64SUpoNOMdzGOexRhvxALsBZJePVZrwoSj hb6inVcrvKWxp58dmZR1zEC3VOTgbH2sV5QzJJag Pj1nJCPudnidqZLbyJmjIp0bqTypzB6qVgSdGxWl RkszTQ0sEFLrK9cqxMYjPLSqSVBgL2qrYpYraK8p aFxmMlxmczIyXHBhclxwYXJkXHBsYWluXGYwXGZz EpCzgAlpyS3qZrHeLbZtLHdfTXA8 Gross assessment was performed at (test [facility] enter, code = 2777) Department of Pathology, [address] [place] [address], Technical component was performed at [facility] er, (test code = 2778) Department of Pathology, [address] [place] [id number], Professional component was performed at [facility] enter, (test code = 2779) Department of Pathology, [address] [place] [address], [facility] [id number] 16:10:00Surgical Pathology Report Case: [id number] Authorizing Provider: Gurinder Delgado MD Collected: 07/08/2019 1003 Ordering Location: [facility] Received: 07/08/2019 1306 SERVICES Pathologist: Love Hernandez MD Specimen: Ad renal, Left, Left adrenal gland A. ADRENAL GLAND,LEFT, ADRENALECTOMY: - BENIGN ADRENAL GLAND WITH NO SIGNIFICANT DIAGNOSTIC ALTERATION. - HEMORRHAGE, ORGANIZING THROMBOSIS AND VASCULAR RECANALIZATION ADJACENT TO THE ADRENAL GLAND. - NOMALIGNANCY IDENTIFIED. Signing Pathologist Direct Phone Line: [phone] signedby Love Hernandez MD on 07/11/2019 at 4:10 [id number] and postop diagnosis: adrenal massLeft adrenal glandReceived [...] is peguero yellow to guo and smooth. Kiln [employer] sections are submitted. Section code: A1-A5, customer field representative of one full cross section of [...] evaluated Immunohistochemistry technical testing was performed at [facility], Pathology Laboratory where it was developed [...] as qualified to perform high complexity clinicallaboratory testing.[facility], Department of Pathology, [address] [place] [id number], [facility] [address] [place] [address], [facility], [address] [place] [address], [employer] Metabolic [id number] 06:54:00 Test Item Value Reference Range Interpretation Comments Sodium (test code = 139 meq/L 316-241 2719-2) Potassium (test code 3.7 meq/L 3.5-5.1 = 2823-3) Chloride (test code = 109 meq/L 98-107 H 2075-0) CO2 (test code = 22 meq/L 22-29 2028-9) BUN (test code = 7 mg/dL 7-21 3094-0) Creatinine (test code 0.81 mg/dL 0.57-1.25 = 2160-0) Glucose (test code = 86 mg/dL 70-105 2345-7) Calcium (test code = 8.6 mg/dL 8.4-10.2 60006-7) EGFR (test code = [place] [address]-6) CLINICAL DATA T O CALCULATE ESTIMATED GFR. FLORINDA (test code = FLORINDA) [employer]flight [employer] ID - GALAP Lab Interpretation Abnormal (test code = 82928-1) [facility]OL[facility] [id number] 06:54:00 Test Item Value Reference Range Interpretation [...] 1092) DATA TO CALCULA TE ESTIMATED GFR. [employer]flight [employer] ID - GALAPCBC with platelet count + automated [id number] 05:35:00 Test Item Value Reference Range Interpretation [...] 450 K/CU MM MPV (test code = 92454-2) 10.4 fL 9.4-12.4 nRBC (test code = [...] 2801) Lab Interpretation (test code = Abnormal 59368-3) [facility] W/PLT COUNT & AUTO [id number] 05:35:00 Test Item Value Reference Range Interpretation [...] (BEAKER) (test code = 2801) BASIC METABOLIC [id number] 10:13:00 Test Item Value Reference Range Interpretation [...] 1092) DATA TO CALCULA TE ESTIMATED GFR. [employer] Inflight Services ID - FARNAZ FCBC W/PLT COUNT & AUTO [id number] 09:50:00 Test Item Value Reference Range Interpretation [...] (BEAKER) (test code = 2801) BASIC METABOLIC [id number] 11:58:00 Test Item Value Reference Range Interpretation [...] 1092) DATA TO CALCULA TE ESTIMATED GFR. [employer] Att[employer] Inflight Services ID - TRIPOLI FHemoglobin and [id number] 11:41:00 Test Item Value Reference Range Interpretation Comments Hemoglobin (test code = 11.7 13.7- 17.5 GM/DL L 786-4) Hematocrit (test code = 34.9 % 40.1-51 L 4544-3) FLORINDA (test code = FLORINDA) Flight Attendant Inflight Services ID - [id number] Lab Interpretation (test Abnormal code = 85705-3) [facility] FranciscoHEMOGLOBIN AND [id number] 11:41:00 Test Item Value Reference Range Interpretation Comments HEMOGLOBIN (BEAKER) (test code = 11.7 GM/DL 13.7-17.5 L 410) HEMATOCRIT (BEAKER) (test code = 34.9 % 40.1-51.0 L 411) [employer] Inflight Services ID - [id number], [id number] 07:44:00 Test Item Value Reference Range Interpretation Comments ABO Grouping (test code = 2588) O Rh Factor (test code = 2589) POS [facility] FranciscoType and screen, [id number] 07:08:00 Test Item Value Reference Range Interpretation Comments ABO/RH AUTOMATED (BEAKER) (test O POSITIVE code = 2260) Ab Scrn (test code = 890-4) NEGATIVE [facility] FranciscoUrine [id number] 11:35:00 Test Item Value Reference Range Interpretation Comments Result (test code = 6463-4) No growth [facility] Francisco[facility]INE [id number] 11:35:00 Test Item Value Reference Range Interpretation Comments CULTURE (BEAKER) (test code = 1095) No growth Urinalysis w/Microscopic + Reflex to [id number] 14:23:00 Test Item Value Reference Range Interpretation Comments Color, UA (test code = Yellow 5778-6) Clarity, UA (test code Clear = 5767-9) Specific [place], UA 1.005 1.001-1.035 (test code = 5811-5) pH, UA (test code = 7.0 5.0-8.0 5803-2) Protein, UA (test code Negative Negative = 20505-3) Glucose, UA (test code Negative Negative = 365) Ketones, UA (test code Negative Negative = 2514-8) Bilirubin, UA (test Negative Negative code = 16981-1) Blood, UA (test code = Negative Negative 88406-8) Nitrite, UA (test code Negative Negative = 5802-4) Leukocytes, UA (test Negative Negative code = 5799-2) Urobilinogen, UA (test 0.2 mg/dL 0.2-1 code = 70203-4) RBC, UA (test code = <1 /HPF 98648-8) WBC, UA (test code = 2 /HPF 5821-4) Bacteria, UA (test code Rare = 35180-2) Specimen Source (test code = 2795) FLORINDA (test code = FLORINDA) [employer] Inflight Services ID - [auto]Flight Attendant Inflight Services ID - tech [facility]ALYSIS W/ REFLEX URINE [id number] 14:23:00 Test Item Value Reference Range Interpretation [...] 517) Rare SOURCE(BEAKER) (test code = 2795) [employer] Inflight [employer] ID - [auto]F[employer] Attendant Inflight Services ID - techComprehensive metabolic [id number] 13:52:00 Test Item Value Reference Range Interpretation Comments Protein, Total 7.3 6.0- 8.3 gm/dL (test code = 2885-2) Albumin (test code 4.4 g/dL 3.5-5 = 81020-6) Alkaline 73 U/L 40-150 Phosphatase (test code = 6768-6) Total Bilirubin 0.8 mg/dL 0.2-1.2 (test code = 1975-2) Sodium (test code = 137 meq/L 259-854 0064-2) Potassium (test 3.9 meq/L 3.5-5.1 code = 2823-3) Chloride (test code 104 meq/L 98-107 = 5-0) CO2 (test code = 26 meq/L 22-29 2027-) BUN (test code = 11 mg/dL 7- 3094-0) Creatinine (test 0.96 mg/dL 0.57-1.25 code = 2160-0) Glucose (test code 96 mg/dL 70-105 = 2345-7) Calcium (test code 9.9 mg/dL 8.4-10.2 = 69016-7) AST (test code = 23 U/L 5-34 1920-8) ALT (test code = 25 U/L 6-55 1742-6) EGFR (test code = [place] [address]-7) CLINICAL DATA T O CALCULATE ESTIM ATED GFR. FLORINDA (test code = Flight Attendant Inflight Services ID - FLORINDA) [facility] [id number] 13:52:00 Test Item Value Reference Range Interpretation [...] = 355) BLOOD UREA NITROGEN 11 mg/dL 7- (BEAKER) (test code = 354) CREATININE (BEAKER) [...] 1092) DATA TO CALCULA TE ESTIMATED GFR. Flight Attendant Inflight Services ID - ROSIANGCBC W/PLT COUNT & AUTO [id number] 13:10:00 Test Item Value Reference Range Interpretation [...]
[2020-03-25 17:35] LABS: Absolute Lymphocytes (CBC) 0.6 K/uL (0.7-4.9); Basophils % 0.2 % (0-1.3); Hematocrit 37.9 % (39.6-49.0); Lymphocytes % 5.2 % (15.3-44.8); Protime INR 1.09; RBC Red Blood Cell Count 4.19 M/uL (4.33-5.43)
[2020-03-25] MEDS ORDERED: NA CHLORIDE 0.9% 1,000 ML ONE ×3 (17:35→19:16)
[2020-03-25] MEDS ORDERED: ACETAMINOPHEN 500 MG TAB ONE (17:43)
[2020-03-25 17:48] LABS: ALT/SGPT 24 U/L (12-78); AST/SGOT 19 U/L (15-37); Albumin 3.8 g/dL (3.4-5.0); Alkaline Phosphatase 71 U/L (45-117); BUN Blood Urea Nitrogen 14 mg/dL (7-18); Bicarbonate 24 mmol/L (21-32); Bilirubin Direct 0.1 mg/dL (0-0.2); Bilirubin Total 0.7 mg/dL (0.2-1.0); Glucose Level 92 mg/dL (74-106); Magnesium 1.5 mg/dL (1.8-2.4); Potassium 4.3 mmol/L (3.5-5.1); Protein, Total 7.1 g/dL (6.4-8.2); Sodium Level 138 mmol/L (136-145); Troponin (Emerg Dept Use Only) < 0.02 ng/mL (0.0-0.045)
[2020-03-25 17:57] LABS: Urine Bacteria <20 /HPF (NONE SEEN); Urine Culture Reflex Order NOT NEEDED; Urine Mucus 1+ /HPF (NONE SEEN); Urine RBC TNTC /HPF (NONE SEEN)
--- NOTE | 2020-03-25 18:04 | RAD REPORT ---
EXAM DESCRIPTION: RAD - Chest Single View - 03/25/2020 5:37 pm CLINICAL HISTORY: FEVER Chest pain. COMPARISON: Chest Single View dated 02/09/2020; Chest Single View dated 09/23/2019; Chest Single View d ated 03/10/2019; Chest Pa And Lat (2 Views) dated 10/07/2018 FINDINGS: Portable technique limits examination quality. Linear atelectasis is present at the left lung base. The lungs are otherwise clear. The heart is norm al in size. Tortuous thoracic aorta.
[2020-03-25] MEDS ORDERED: CEFTRIAXONE/SWI 1gm 1 GM/10 ML SYR ONE (18:22)
--- NOTE | 2020-03-25 18:35 | RAD REPORT ---
EXAM DESCRIPTION: CT - Stone Protocol - 03/25/2020 6:16 pm CLINICAL HISTORY: Flank pain. HEMATURIA COMPARISON: Abdomen Pelvis W/Wo Contrast dated 04/11/2019 TECHNIQUE: Axial images were obtained without oral or IV contrast. Lack of contrast limits solid org an and vascular assessment. The [id number]-[id number] spans the entirety of the system partially obscuring uppermost abdomen and lung bases. Coronal reformatted images were obtained and reviewed. All CT scans are performed using dose optimization technique as appropriate and may include automated exposure control or mA/KV adjustment according to patient size. FINDINGS: The lower lung cha are clear. Imaged portions of the liver and spleen show no suspicious findings on non-contrast imaging. The panc reas and adrenal glands are normal. No pathologic lymphadenopathy in the abdomen or pelvis. No urinary tract stones or obstructive uropathy. 10 mm cyst anterior superior left kidney, likely david ign. No bowel obstruction, free air, free fluid or abscess. Normal appendix noted. No significant bony abnormality. Moderate prostatomegaly. IMPRESSION: No urinary tract stones or obstructive uropathy. Moderate prostatomegaly.
[2020-03-25] MEDS ORDERED: Meropenem 1 GM/100 ML BAG ONE (19:16)
[2020-03-25] MEDS ORDERED: Magnesium Sulfate 2gm IVPB 2 G/50 ML BAG IV ONE (19:29)
--- NOTE | 2020-03-25 19:37 | EDPHYS ---
Physician Documentation [facility] Name: Jesus Rodriguez Age: 69 yrs Sex: Male : 1950 Arrival Date: 03/25/2020 Time: 15:34 Bed 15 Private MD: ED Physician Huber Solis HPI: 03/25 16:17 This 69 yrs old Black Male presents to ER via Ambulatory with complaints of Fever. cp 16:17 The patient reports fever, that was measured at 103 degrees Fahrenheit. Onset: The cp symptoms/episode began/occurred today. 16:17 Associated signs and symptoms: Pertinent positives: chills, hematuria. Severity of cp symptoms: in the emergency department the symptoms are unchanged despite home interventions. 16:17 Patient reports having biopsy of prostate performed yesterday by DR Mattson in [facility]. Currently taking Cipro after procedure. Started running fever today and having chills, noticed grossly bloody urine. Historical: - Allergies: 15:43 No Known Allergies; jd3 - PMHx: 15:43 Gout; Hypertension; jd3 - PSHx: 15:43 mass removed from head; parathyroidectomy; cyst removed from spine; adrenal gland mass; jd3 - Immunization history:: Adult Immunizations up to date. - Social history:: Smoking status: Patient/guardian denies using tobacco, but has a distant history of tobacco abuse. ROS: 16:20 Constitutional: Positive for body aches, chills, fever, Negative for poor PO intake. cp 16:20 Eyes: Negative for injury, pain, redness, and discharge. cp 16:20 ENT: Negative for ear pain, sore throat, difficulty swallowing, difficulty handling secretions. 16:20 Cardiovascular: Negative for chest pain, edema, palpitations. 16:20 Respiratory: Negative for cough, shortness of breath, wheezing. 16:20 Abdomen/GI: Negative for abdominal pain, nausea, vomiting, and diarrhea. 16:20 Back: Negative for radiated pain. 16:20 : Positive for hematuria, Negative for flank pain, testicular pain 16:20 Neuro: Negative for altered mental status, headache, syncope, weakness. 16:20 All other systems are negative. Exam: 16:25 Constitutional: The patient appears in no acute distress, alert, awake, cp non-diaphoretic, non-toxic, well developed, well nourished. 16:25 Head/Face: Normocephalic, atraumatic. cp 16:25 Eyes: Periorbital structures: appear normal, Conjunctiva: normal, no exudate, no injection, Sclera: no appreciated abnormality, Lids and lashes: appear normal, bilaterally. 16:25 ENT: External ear(s): are unremarkable, Nose: is normal, Posterior pharynx: Airway: no evidence of obstruction, patent. 16:25 Neck: ROM/movement: is normal, is supple, without pain, no range of motions limitations, no meningismus, no nuchal rigidity. 16:25 Chest/axilla: Inspection: normal, Palpation: is normal, no crepitus, no tenderness. 16:25 Cardiovascular: Rate: tachycardic, Rhythm: regular, Edema: is not appreciated, JVD: is not appreciated. 16:25 Respiratory: the patient does not display signs of respiratory distress, Respirations: normal, no use of accessory muscles, no retractions, labored breathing, is not present, Breath sounds: are clear throughout, no decreased breath sounds, no stridor, no wheezing. 16:25 Abdomen/GI: Inspection: abdomen appears normal, Bowel sounds: active, all quadrants, Palpation: soft, in all quadrants, mild abdominal tenderness, in the suprapubic area, rebound tenderness, is not appreciated, voluntary guarding, is not appreciated, involuntary guarding, is not appreciated. 16:25 Back: CVA tenderness, is absent. 16:25 Skin: no rash present. 16:25 Neuro: Orientation: to person, place \T\ time. Mentation: is normal, Motor: moves all fours, strength is normal. 17:25 ECG was reviewed by the Attending Physician. cp Vital Signs: 15:43 BP 130 / 80; Pulse 110; Resp 17 S; Temp 99.3(O); Pulse Ox 98% on R/A; Weight 106.14 kg jd3 (R); Height 6 ft. 0 in. (182.88 cm) (R); Pain 8/10; 17:27 BP 97 / 67; Pulse 104; Resp 20; Temp 101.2(O); Pulse Ox 97% on R/A; ca1 17:37 BP 95 / 60; Pulse 97; Resp 20 S; Pulse Ox 100% on R/A; ca1 18:30 BP 94 / 63; Pulse 94; Resp 18 S; Pulse Ox 98% on R/A; ca1 19:19 Temp 99.8(O); ca1 19:30 BP 98 / 62; Pulse 92; Resp 20 S; Pulse Ox 100% on R/A; ca1 20:30 BP 102 / 70; Pulse 87; Resp 20 S; Pulse Ox 99% on R/A; ca1 21:30 BP 109 / 83; Pulse 87; Resp 20 S; Pulse Ox 99% on R/A; ca1 22:36 BP 107 / 65; Pulse 86; Resp 20 S; Temp 98.6(O); Pulse Ox 99% on R/A; jd3 15:43 Body Mass Index 31.74 (106.14 kg, 182.88 cm) jd3 MDM: 16:07 Patient medically screened. 19:15 Physician consultation: was called at 18:50, was contacted at 18:50, regarding consult, patient's condition, DR Mattson, urologist who performed biopsy, wants patient started on Meropenum and admitted to our facility for management. 19:30 Data reviewed: vital signs, nurses notes, lab test result(s), EKG, radiologic studies, cp CT scan, I have discussed the patient's presentation/case with the attending Emergency Department Physician;. 19:30 Physician consultation: Tin PEGUERO was contacted at 19:30, regarding admission, to the medical/surgical unit. patient's condition. 03/25 16:17 Order name: Urine Microscopic Only; Complete Time: 18:03 03/25 16:17 Order name: Urine Culture 03/25 16:17 Order name: Basic Metabolic Panel; Complete Time: 17:51 03/25 16:17 Order name: CBC with Diff; Complete Time: 20:06 03/25 18:23 Interpretation: Normal except: RBC 4.19; HGB 12.9; HCT 37.9; DUYEN% 93.2; LYM% 5.2; MN% cp 1.1; NEUT A 9.8; LYMA 0.6. 03/25 16:17 Order name: LFT's; Complete Time: 17:51 03/25 16:17 Order name: Magnesium; Complete Time: 17:51 03/25 16:17 Order name: PT-INR; Complete Time: 18:23 cp 03/25 16:17 Order name: Troponin (emerg Dept Use Only); Complete Time: 17:51 cp 03/25 16:17 Order name: Blood Culture Adult (2) cp 03/25 16:17 Order name: Procalcitonin; Complete Time: 18:23 cp 03/25 16:17 Order name: Lactate; Complete Time: 17:51 cp 03/25 19:52 Order name: Manual Differential; Complete Time: 20:06 EDMS 03/25 21:36 Order name: SARS-COV-2 RT PCR EDMS 03/25 16:17 Order name: Urine Dipstick-Ancillary (obtain specimen); Complete Time: 17:27 cp 03/25 16:17 Order name: XRAY Chest (1 view); Complete Time: 18:23 cp 03/25 16:17 Order name: EKG; Complete Time: 16:17 cp 03/25 16:17 Order name: Cardiac monitoring; Complete Time: 17:29 cp 03/25 16:17 Order name: EKG - Nurse/Tech; Complete Time: 17:29 cp 03/25 16:17 Order name: IV Saline Lock; Complete Time: 16:58 cp 03/25 16:17 Order name: Labs collected and sent; Complete Time: 16:58 cp 03/25 16:17 Order name: O2 Per Protocol; Complete Time: 16:58 cp 03/25 17:52 Order name: CT Stone Protocol; Complete Time: 18:41 cp 03/25 16:17 Order name: O2 Sat Monitoring; Complete Time: 16:58 cp 03/25 16:17 Order name: Bladder Scanner: pre and post void; Complete Time: 17:27 cp EC:25 Rate is 105 beats/min. Rhythm is regular. GA interval is normal. QRS interval is cp normal. QT interval is normal. T waves are Inverted in lead aVR. Interpreted by me. Reviewed by me. Administered Medications: 17:27 Drug: NS 0.9% 1000 ml Route: IV; Rate: 1 bolus; Site: right antecubital; ca1 18:30 Follow up: Response: No adverse reaction; IV Status: Completed infusion; IV Intake: ca1 1000ml 18:30 Follow up: Response: No adverse reaction; IV Status: Completed infusion; IV Intake: ca1 1000ml 17:34 Drug: Tylenol 1000 mg Route: PO; ca1 21:00 Follow up: Response: No adverse reaction; Temperature is decreased ca1 18:10 Drug: NS 0.9% 1000 ml Route: IV; Rate: 1 bolus; Site: right antecubital; ca1 20:10 Follow up: Response: No adverse reaction; IV Status: Completed infusion; IV Intake: ca1 1000ml 18:11 Drug: Rocephin - (cefTRIAXone) 1 grams Route: IVPB; Infused Over: 30 mins; Site: right ca1 antecubital; 18:30 Follow up: Response: No adverse reaction; IV Status: Completed infusion ca1 19:00 Drug: NS 0.9% 1000 ml Route: IV; Rate: 1 bolus; Site: right forearm; ca1 20:20 Follow up: Response: No adverse reaction; IV Status: Completed infusion; IV Intake: ca1 1000ml 19:12 Drug: Meropenem 1 grams Route: IV; Rate: calculated rate; Site: right forearm; ca1 19:42 Follow up: Response: No adverse reaction; IV Status: Completed infusion ca1 19:19 Drug: Magnesium Sulfate 2 grams Route: IVPB; Infused Over: 2 hrs; Site: right ca1 antecubital; 21:20 Follow up: Response: No adverse reaction; IV Status: Completed infusion; IV Intake: [id number] Disposition: 03/26 07:12 Co-signature as Attending Physician, Huber Solis MD I agree with the assessment and kdr plan of care. Disposition: 03/25/20 19:36 Hospitalization ordered by Alondra Hartmann for Inpatient Admission. Preliminary diagnosis are Acute prostatitis, Other sepsis. - Bed requested for Telemetry/MedSurg (Inpatient). - Status is Inpatient Admission. jd3 - Condition is Stable. - Problem is new. - Symptoms have improved. Signatures: Dispatcher [employer] EDMS Shama Anne RN RN mw Rittger, Kevin, MD MD kdr Roszak, Josh, PA PA [id number] Jaylan Calderon PA PA cp Davies, Jonathon, RN RN jd3 Funmilayo Bustamante RN RN ca1 Corrections: (The following items were deleted from the chart) 03/25 20:38 19:58 CORONAVIRUS+MR.LAB.BRZ ordered. EDMS EDMS 21:59 19:36 Hospitalization Ordered by Alondra Hartmann MD for Inpatient Admission. Preliminary mw diagnosis is Acute prostatitis; Other sepsis. Bed requested for Telemetry/MedSurg (Inpatient). Status is Inpatient Admission. Condition is Stable. Problem is new. Symptoms have improved. cp 23:00 21:59 03/25/2020 19:36 Hospitalization Ordered by Alondra Hartmann MD for Inpatient jd3 Admission. Preliminary diagnosis is Acute prostatitis; Other sepsis. Bed requested for Telemetry/MedSurg (Inpatient). Status is Inpatient Admission. Condition is Stable. Problem is new. Symptoms have improved. mw
--- NOTE | 2020-03-25 19:37 | ER ---
Nurse's Notes [facility] Name: Jesus Rodriguez Age: 69 yrs Sex: Male : 1950 Arrival Date: 03/25/2020 Time: 15:34 Bed 15 Private MD: Diagnosis: Acute prostatitis;Other sepsis Presentation: 03/25 15:42 Chief complaint: Patient states: "he has some biopsies done yesterday and his doc told jd3 him to watch for sings of bleeding and he started running a fever.". Coronavirus screen: fever, Client presents with at least one sign or symptom that may indicate coronavirus-19. Standard/surgical mask placed on the client. Provider contacted for isolation considerations. Ebola Screen: Patient negative for fever greater than or equal to 101.5 degrees Fahrenheit, and additional compatible Ebola Virus Disease symptoms. Initial Sepsis Screen: Does the patient meet any 2 criteria? No. Patient's initial sepsis screen is negative. Does the patient have a suspected source of infection? No. Patient's initial sepsis screen is negative. Risk Assessment: Do you want to hurt yourself or someone else? Patient reports no desire to harm self or others. Onset of symptoms was March 25, 2020. 15:42 Method Of Arrival: Ambulatory jd3 15:42 Acuity: THERON 3 jd3 Historical: - Allergies: 15:43 No Known Allergies; jd3 - PMHx: 15:43 Gout; Hypertension; jd3 - PSHx: 15:43 mass removed from head; parathyroidectomy; cyst removed from spine; adrenal gland mass; jd3 - Immunization history:: Adult Immunizations up to date. - Social history:: Smoking status: Patient/guardian denies using tobacco, but has a distant history of tobacco abuse. Screenin:02 Abuse screen: Denies threats or abuse. Denies injuries from another. Nutritional ca1 screening: No deficits noted. Tuberculosis screening: No symptoms or risk factors identified. Fall Risk IV access (20 points). Assessment: 16:02 General: Appears in no apparent distress. comfortable, Behavior is calm, cooperative, ca1 appropriate for age. General: Reports fever for 0-12 hours. Pain: Denies pain. Neuro: Level of Consciousness is awake, alert, obeys commands, Oriented to person, place, time, situation. Cardiovascular: Heart tones S1 S2 present Capillary refill < 3 seconds Patient's skin is warm and dry. Rhythm is sinus rhythm. Respiratory: Airway is patent Respiratory effort is even, unlabored, Respiratory pattern is regular, symmetrical, Breath sounds are clear bilaterally. GI: Abdomen is round non-distended, Bowel sounds present X 4 quads. Abd is soft and non tender X 4 quads. : Urine is blood tinged, Reports this is expected after the prostate biopsy yesterday. EENT: No signs and/or symptoms were reported regarding the EENT system. Derm: Skin is intact, is healthy with good turgor, Skin is pink, warm \\T\\ dry. Musculoskeletal: Circulation, motion, and sensation intact. Capillary refill < 3 seconds. 17:02 Reassessment: Patient appears in no apparent distress at this time. Patient and/or ca1 family updated on plan of care and expected duration. Pain level reassessed. Patient is alert, oriented x 3, equal unlabored respirations, skin warm/dry/pink. 18:00 Reassessment: Patient appears in no apparent distress at this time. Patient and/or ca1 family updated on plan of care and expected duration. Pain level reassessed. Patient is alert, oriented x 3, equal unlabored respirations, skin warm/dry/pink. 19:00 Reassessment: Patient appears in no apparent distress at this time. Patient and/or ca1 family updated on plan of care and expected duration. Pain level reassessed. Patient is alert, oriented x 3, equal unlabored respirations, skin warm/dry/pink. 20:00 Reassessment: Patient appears in no apparent distress at this time. Patient and/or ca1 family updated on plan of care and expected duration. Pain level reassessed. Patient is alert, oriented x 3, equal unlabored respirations, skin warm/dry/pink. 21:00 Reassessment: Patient appears in no apparent distress at this time. Patient and/or ca1 family updated on plan of care and expected duration. Pain level reassessed. Patient is alert, oriented x 3, equal unlabored respirations, skin warm/dry/pink. 22:36 Reassessment: Patient appears in no apparent distress at this time. No changes from jd3 previously documented assessment. Patient and/or family updated on plan of care and expected duration. Pain level reassessed. Patient is alert, oriented x 3, equal unlabored respirations, skin warm/dry/pink. Vital Signs: 15:43 BP 130 / 80; Pulse 110; Resp 17 S; Temp 99.3(O); Pulse Ox 98% on R/A; Weight 106.14 kg jd3 (R); Height 6 ft. 0 in. (182.88 cm) (R); Pain 8/10; 17:27 BP 97 / 67; Pulse 104; Resp 20; Temp 101.2(O); Pulse Ox 97% on R/A; ca1 17:37 BP 95 / 60; Pulse 97; Resp 20 S; Pulse Ox 100% on R/A; ca1 18:30 BP 94 / 63; Pulse 94; Resp 18 S; Pulse Ox 98% on R/A; ca1 19:19 Temp 99.8(O); ca1 19:30 BP 98 / 62; Pulse 92; Resp 20 S; Pulse Ox 100% on R/A; ca1 20:30 BP 102 / 70; Pulse 87; Resp 20 S; Pulse Ox 99% on R/A; ca1 21:30 BP 109 / 83; Pulse 87; Resp 20 S; Pulse Ox 99% on R/A; ca1 22:36 BP 107 / 65; Pulse 86; Resp 20 S; Temp 98.6(O); Pulse Ox 99% on R/A; jd3 15:43 Body Mass Index 31.74 (106.14 kg, 182.88 cm) jd3 ED Course: 15:34 Patient arrived in ED. as 15:43 Triage completed. jd3 15:46 Arm band placed on. jd3 16:02 Patient has correct armband on for positive identification. Placed in gown. Bed in low ca1 position. Call light in reach. Side rails up X2. bus monitor on. Pulse ox on. NIBP on. 16:06 Jaylan Calderon PA is PHCP. cp 16:06 Huber Solis MD is Attending Physician. cp 16:35 Funmilayo Bustamante, ANGELES is Primary Nurse. ca1 16:58 Inserted saline lock: 20 gauge in right antecubital area, using aseptic technique. ca1 Blood collected. 16:58 Initial lab(s) drawn, by me, sent to lab. First set of blood cultures drawn by me. ca1 17:28 Inserted saline lock: 22 gauge in right forearm, using aseptic technique. Blood ca1 collected. 17:28 First set of blood cultures drawn by me. ca1 17:37 XRAY Chest (1 view) In Process Unspecified. EDMS 18:17 CT Stone Protocol In Process Unspecified. EDMS 19:36 Alondra Hartmann MD is Hospitalizing Provider. cp 22:18 No provider procedures requiring assistance completed. Patient admitted, IV remains in jd3 place. Administered Medications: 17:27 Drug: NS 0.9% 1000 ml Route: IV; Rate: 1 bolus; Site: right antecubital; ca1 18:30 Follow up: Response: No adverse reaction; IV Status: Completed infusion; IV Intake: ca1 1000ml 18:30 Follow up: Response: No adverse reaction; IV Status: Completed infusion; IV Intake: ca1 1000ml 17:34 Drug: Tylenol 1000 mg Route: PO; ca1 21:00 Follow up: Response: No adverse reaction; Temperature is decreased ca1 18:10 Drug: NS 0.9% 1000 ml Route: IV; Rate: 1 bolus; Site: right antecubital; ca1 20:10 Follow up: Response: No adverse reaction; IV Status: Completed infusion; IV Intake: ca1 1000ml 18:11 Drug: Rocephin - (cefTRIAXone) 1 grams Route: IVPB; Infused Over: 30 mins; Site: right ca1 antecubital; 18:30 Follow up: Response: No adverse reaction; IV Status: Completed infusion ca1 19:00 Drug: NS 0.9% 1000 ml Route: IV; Rate: 1 bolus; Site: right forearm; ca1 20:20 Follow up: Response: No adverse reaction; IV Status: Completed infusion; IV Intake: ca1 1000ml 19:12 Drug: Meropenem 1 grams Route: IV; Rate: calculated rate; Site: right forearm; ca1 19:42 Follow up: Response: No adverse reaction; IV Status: Completed infusion ca1 19:19 Drug: Magnesium Sulfate 2 grams Route: IVPB; Infused Over: 2 hrs; Site: right ca1 antecubital; 21:20 Follow up: Response: No adverse reaction; IV Status: Completed infusion; IV Intake: [id number] Intake: 18:30 IV: 1000ml; Total: 1000ml. ca1 18:30 IV: 1000ml; Total: 2000ml. ca1 20:10 IV: 1000ml; Total: 3000ml. ca1 20:20 IV: 1000ml; Total: 4000ml. ca1 21:20 IV: 50ml; Total: 4050ml. ca1 Outcome: 19:36 Decision to Hospitalize by Provider. cp 22:18 Admitted to Med/surg accompanied by tech, via wheelchair, room 230, with chart, Report gerald called to Court REY[facility] 22:18 Condition: stable 22:18 Instructed on the need for admit, Demonstrated understanding of instructions. 23:00 Patient left the ED. gerald Signatures: Dispatcher [employer] Ivonne Chandra Corey, PA PA cp Davies, Jonathon, RN RN Funmilayo Story RN RN ca1 Corrections: (The following items were deleted from the chart) 22:39 22:36 BP 107 / 65; Pulse 86bpm; Resp 20bpm; Spontaneous; Pulse Ox 99% RA; gerald duarte
[2020-03-25 19:52] LABS: Blood Morphology Comment NOT SEEN (NOT SEEN); Platelet Estimate ADEQ
--- NOTE | 2020-03-25 22:23 | P.INFCA ---
Sepsis Focused Assessment - Focused Assessment Complete? Sepsis Focused Assessment Completed?: Yes - Sepsis Screen Result Severe Sepsis: Negative Septic Shock: Negative - Evaluation Current stage of sepsis: Ruled out Reason for ruling out sepsis: Negative WBC, Negative Procal, Negative Lactate....Hemodynamically stable - Vital Signs Reviewed: Yes Temperature: 99.8 F Heart rate: 87 Blood Pressure: 109/83 Respiratory Rate: 20 O2 Sat by Pulse Oximetry: 99 (RA) - Examination Date exam was performed: 03/25/20 Time exam was performed: 21:00 Heart: Regular rate/rhythm Lungs: Clear bilaterally Peripheral pulses: 3+ Normal Peripheral pulse location: Radial Capillary refill: <2 Seconds Skin examination: Normal turgor Comments: Well appearing and in no acute distress
[2020-03-25 23:19] VITALS: BMI 32.0
[2020-03-25] MEDS ORDERED: MORPHINE 2 MG/ML SYR IV PRN (23:30)
[2020-03-25] MEDS ORDERED: ONDANSETRON 4 MG/2 ML VIAL IV PRN (23:30)
[2020-03-26] MEDS: NA CHLORIDE 0.9% 1,000 ML IV SCH ×3 (00:04→19:30)
[2020-03-26] MEDS: ACETAMINOPHEN 325 MG TABLET PO PRN ×2 (01:11→11:23)
--- NOTE | 2020-03-26 01:20 | P.HP ---
Certification for Inpatient Patient admitted to: Inpatient With expected LOS: >2 Midnights Patient will require the following post-hospital care: None Practitioner: I am a practitioner with admitting privileges, knowledge of patient current condition, hospital course, and medical plan of care. Services: Services provided to patient in accordance with Admission requirements found in Title 42 Section 412.3 of the Code of Federal Regulations Patient History Date of Service: 03/26/20 Primary Care Provider: Dr. Zamora Reason for admission: Acute Prostatitis History of Present Illness: This is a 69-year-old patient that presented to the emergency room today after sudden onset of fever and chills and lower abdominal discomfort with hematuria that started today. Patient stated that yesterday he had a biopsy by his urologist and [place]. They were concerned because he had an elevation in his PSA and wanted rule out prostate cancer. Patient stated that the procedure was uncomplicated at that time and was discharged home. Upon presentation the emergency room patient was found to be febrile with a heart rate of 104 and mild hypotension of 97/67. Patient had no white cell count, no procalcitonin elevation, no lactate elevation. Patient was given fluids and antipyretics and antibiotics in the emergency room. Upon assessment from Internal Medicine. Patient was doing very well and hemodynamically stable at this time. Emergency room had contacted the patient's urologist who did the procedure. Noted at that time that they did not think he needed to be transferred for an uncomplicated prostatitis secondary to instrumentation. Stated that they wanted him started on meropenem which we will continue in the hospital. Patients Urologist is Dr. Mattson ([phone]). Allergies No Known Allergies Allergy (Unverified 03/10/19 14:29) Home medications list reviewed: Yes Home Medications: Allopurinol 1 tab PO DAILY 03/11/19 Amlodipine Besylate/Benazepril [Lotrel 10-20 mg Capsule] 1 tab PO DAILY 03/11/19 Aspirin [Ecotrin 81 MG] 1 tab PO DAILY 03/11/19 Doxazosin [Cardura*] 1 tab PO BID 03/11/19 Losartan/Hydrochlorothiazide [Hyzaar 100-25 Tablet] 1 tab PO DAILY 03/11/19 Metoprolol Succinate [Toprol Xl] 1 tab PO DAILY 03/11/19 - Past Medical/Surgical History Has patient received pneumonia vaccine in the past: Yes Diabetic: No -: HTN -: Gout -: Glaucoma -: Aortic Aneurysm -: Cyst back of head 2009 -: thyroidectomy-2017 -: Laminectomy 2018 -: Adrenal mass removal left kidney . - Family History Family History: Reviewed- Non-Contributory - Family History Father -: Other (see notes) Notes: Glaucoma Mother -: Heart disease, Diabetes, Other (see notes) Notes: Arthritis - Social History Smoking Status: Former smoker Smoking therapy provided: No Alcohol use: Yes CD- Drugs: Yes Caffeine use: Yes Place of Residence: Home Review of Systems General: Fever, Chills Eyes: Unremarkable ENT: Unremarkable Respiratory: Unremarkable Cardiovascular: Unremarkable Gastrointestinal: Abdominal Pain (Lower) Genitourinary: Urgency, Hematuria Musculoskeletal: Unremarkable Integumentary: Unremarkable Neurological: Unremarkable Lymphatics: Unremarkable Physical Examination - Vital Signs Temperature: 99.3 F Blood Pressure: 109/83 Pulse: 87 Respirations: 20 Pulse Ox (%): 99 (RA) - Physical Exam General: Alert, In no apparent distress, Oriented x3 HEENT: PERRLA, Mucous membr. moist/pink, EOMI Neck: Supple, 2+ carotid pulse no bruit, JVD not distended, No Thyromegaly Respiratory: Clear to auscultation bilaterally, Normal air movement Cardiovascular: No edema, Normal pulses, Regular rate/rhythm, Normal S1 S2, No gallops, No rubs, No murmurs Capillary refill: <2 Seconds Gastrointestinal: Normal bowel sounds, Soft and benign, Non-distended, No ascites, No tenderness, No masses, No rebound, No guarding Musculoskeletal: No clubbing, No swelling, No contractures, No erythema, No tenderness, No warmth Integumentary: No rashes, No breakdown, No significant lesion, No tenderness/swelling, No erythema, No warmth, No cyanosis Neurological: Normal gait, Normal speech, Normal strength at 5/5 x4 extr, Normal tone, Sensation intact, Cranial nerves 3-12 intact, Normal affect Lymphatics: No axilla or inguinal lymphadenopathy - Studies Laboratory Data (last 24 hrs) 03/25/20 16:55: PT 12.8 H, INR 1.09 03/25/20 16:55: WBC 10.6, Hgb 12.9 L, Hct 37.9 L, Plt Count 218 03/25/20 16:55: Sodium 138, Potassium 4.3, BUN 14, Creatinine 1.20, Glucose 92, Magnesium 1.5 L, Total Bilirubin 0.7, AST 19, ALT 24, Alkaline Phosphatase 71 Assessment and Plan - Problems (Diagnosis) (1) Hypertension Current Visit: Yes Status: Chronic Plan: Patient's blood pressure and other vital signs will be monitored. Patient's blood pressure will be treated if if necessary for a systolic greater than 160 or diastolic greater than 100. Qualifiers: Hypertension type: essential hypertension Qualified Code(s): I10 - Essential (primary) hypertension (2) Benign prostatic hyperplasia Current Visit: Yes Status: Chronic Plan: Patient is home meds will be reconciled and will start patient on tamsulosin. Qualifiers: Lower urinary tract symptom presence: symptoms present Lower urinary tract symptom detail: nocturia Qualified Code(s): N40.1 - Benign prostatic hyperplasia with lower urinary tract symptoms; R35.1 - Nocturia (3) Fever Current Visit: Yes Status: Acute Plan: Antipruritics will be given for fevers. Qualifiers: Fever type: post-procedural Qualified Code(s): R50.82 - Postprocedural fever (4) Acute prostatitis Current Visit: Yes Status: Acute Plan: Patient started on meropenem and will continue on meropenem t.i.d. for acute prostatitis secondary to instrumentation. The patient will have vitals and labs assessed in the morning to ensure that white cell count remains normal and patient does not turn septic. We will consult his urologist by phone as needed if there is any further complications. Patient will continue to be hydrated via IV as well. Discharge Plan: Home Plan to discharge in: 48 Hours - Advance Directives Does patient have a Living Will: No Does patient have a Durable POA for Healthcare: No - Code Status/Comfort Care Code Status Assessed: Yes Code Status: Full Code Critical Care: No Time Spent Managing Pts Care (In Minutes): 60
[2020-03-26] MEDS ORDERED: IBUPROFEN 600 MG TAB PO ONE (02:14)
[2020-03-26] MEDS ORDERED: Meropenem 1 GM/100 ML BAG ONE (02:28)
[2020-03-26] MEDS: Meropenem 1,000 MG in NA CHLORIDE 0.9% 100 ML IV SCH ×3 (02:32→17:08)
[2020-03-26] MEDS ORDERED: Meropenem 1000 MG/VIAL IV SCH (03:00)
[2020-03-26] MEDS ORDERED: ACETAMINOPHEN 500 MG TAB PO ONE ×2 (06:00→17:00)
[2020-03-26 06:07] LABS: Absolute Lymphocytes (CBC) 0.3 K/uL (0.7-4.9); Basophils % 0.1 % (0-1.3); Hematocrit 36.3 % (39.6-49.0); Lymphocytes % 2.7 % (15.3-44.8); MPV 9.3 fL (7.6-11.3); RBC Red Blood Cell Count 4.02 M/uL (4.33-5.43)
[2020-03-26 06:26] LABS: Potassium 4.1 mmol/L (3.5-5.1)
[2020-03-26] MEDS ORDERED: TRAMADOL 37.5mg/APAP 325mg PER TAB PO ONE (17:00)
[2020-03-26] MEDS: ACETAMINOPHEN 500 MG TAB PO SCH ×2 (17:00→22:39)
[2020-03-26] MEDS ORDERED: HYDROCORTISONE SUC 100 MG INJ IV ONE (17:00)
[2020-03-26] MEDS ORDERED: NA CHLORIDE 0.9% 500 ML IV ONE (17:00)
[2020-03-26] MEDS ORDERED: Levofloxacin500mg IV 500 MG/100 ML BAG IV SCH (19:00)
[2020-03-26] MEDS ORDERED: NA CHLORIDE 0.9% 250 ML ONE (20:06)
[2020-03-26] MEDS ORDERED: VANCOMYCIN 1 GM/VIAL ONE (20:12)
[2020-03-26] MEDS ORDERED: VANCOMYCIN 500 MG/VIAL ONE (20:13)
[2020-03-26] MEDS: VANCOMYCIN 1.25 GM in NA CHLORIDE 0.9% 250 ML IVPB SCH (21:03)
[2020-03-27] MEDS: Meropenem 1,000 MG in NA CHLORIDE 0.9% 100 ML IV SCH ×3 (00:14→16:04)
[2020-03-27] MEDS: NA CHLORIDE 0.9% 1,000 ML IV SCH ×2 (00:17→16:02)
[2020-03-27] MEDS: ACETAMINOPHEN 500 MG TAB PO SCH ×4 (04:48→22:23)
--- NOTE | 2020-03-27 09:28 | RAD REPORT ---
EXAM DESCRIPTION: CT - Pelvis W/Cont - 03/27/2020 7:12 am CLINICAL HISTORY: Scrotal swelling and pain COMPARISON: March 25, 2020 cat scan TECHNIQUE: Computed axial tomography of the pelvis was obtained. Coronal and sagittal reconstruction performed All CT scans are performed using dose optimization technique as appropriate and may include automated exposure control or mA/KV adjustment according to patient size. FINDINGS: The prostate gland is mildly enlarged. There is no evidence of diverticulitis. Prominent veins are present within the right scrotum likely a varicocele. Moderate right hydrocele is present. Two small penile calcifications are present. IMPRESSION: Probable right varicocele. Moderate right hydrocele Testicular ultrasound recommended for further evaluation
[2020-03-27] MEDS: VANCOMYCIN 1.25 GM in NA CHLORIDE 0.9% 250 ML IVPB SCH (10:27)
--- NOTE | 2020-03-27 14:40 | P.PN ---
Subjective Date of Service: 03/26/20 Patient remains febrile with a temp of a 103. The patient's symptoms are not really improving. Patient still having some tenderness especially in the testicle. I will get a CT of that area especially on the right testicle which seems to be enlarged. Patient's blood cultures are positive for gram-negative rods. Continue with meropenem. He may need IV meropenem pending blood culture results. Patient has had ESBL E coli in his urine in the past. However, it does appear that it may be growing in the blood stream as well. He gets riders whenever his temp goes up. Continue with Tylenol scheduled. Review of Systems 10-point ROS is otherwise unremarkable Physical Examination - Vital Signs Temperature: 98.4 F Blood Pressure: 141/78 Pulse: 88 Respirations: 18 Pulse Ox (%): 99 - Physical Exam General: Alert, In no apparent distress, Oriented x3 Respiratory: Clear to auscultation bilaterally, Normal air movement Cardiovascular: Regular rate/rhythm, Normal S1 S2, Systolic murmur Gastrointestinal: Normal bowel sounds, Soft and benign, Non-distended, No tenderness Musculoskeletal: No clubbing, No swelling, No tenderness Integumentary: No rashes Neurological: Sensation intact, Cranial nerves 3-12 intact External genitalia: Tenderness (Tenderness in the right testicle) Rectal: Tenderness (Prostate tenderness) - Studies Microbiology Data (last 24 hrs): 03/25/20 17:18 Clean Catch Urine [place] Count - Final BETWEEN 10,000 & 100,000 CFU/ML 03/25/20 17:18 Clean Catch Urine - Final Escherichia Coli Esbl 03/25/20 16:55 Blood - Blood Blood Culture Gram Stain - Final 03/25/20 16:55 Blood - Blood Gram Stain - Final 03/25/20 17:12 Blood - Blood Blood Culture Gram Stain - Final 03/25/20 17:12 Blood - Blood Gram Stain - Final Medications List Reviewed: Yes Assessment & Plan - Problems (Diagnosis) (1) Testicle tenderness Current Visit: Yes Status: Acute (2) Acute prostatitis Current Visit: Yes Status: Acute (3) Fever Current Visit: Yes Status: Acute Qualifiers: Fever type: post-procedural Qualified Code(s): R50.82 - Postprocedural fever (4) Benign prostatic hyperplasia Current Visit: Yes Status: Chronic Qualifiers: Lower urinary tract symptom presence: symptoms present Lower urinary tract symptom detail: nocturia Qualified Code(s): N40.1 - Benign prostatic hyperplasia with lower urinary tract symptoms; R35.1 - Nocturia (5) Hypertension Current Visit: Yes Status: Chronic Qualifiers: Hypertension type: essential hypertension Qualified Code(s): I10 - Essential (primary) hypertension - Plan 1. Continue with IV hydration 2. Continue with IV antibiotics 3. Continue with pain control 4. Advanced diet as tolerated 5. Continue outpatient Urology follow-up 6. Serial H&H, and we will monitor CBC, BMP, LFTs, procalcitonin, and await culture results from the blood. 7. CT of the pelvis as well. 8. GI and DVT prophylaxis Discharge Plan: Home Plan to discharge in: Greater than 2 days - Advance Directives Does patient have a Living Will: No Does patient have a Durable POA for Healthcare: No - Code Status/Comfort Care Code Status: Full Code Critical Care: No Time Spent Managing PTS Care (In Minutes): 30
--- NOTE | 2020-03-27 14:40 | P.PN ---
Subjective Date of Service: 03/27/20 Patient clinically feeling a little bit better today. His ultrasound of the scrotum and Doppler of lower extremities are pending. Still having some tenderness and swelling there. CT scan revealed variocele and hydrocele on the right testicle. Review of Systems 10-point ROS is otherwise unremarkable Physical Examination - Vital Signs Temperature: 98.4 F Blood Pressure: 141/78 Pulse: 88 Respirations: 18 Pulse Ox (%): 99 - Physical Exam General: Alert, In no apparent distress, Oriented x3 Respiratory: Clear to auscultation bilaterally, Normal air movement Cardiovascular: Regular rate/rhythm, Normal S1 S2, No murmurs Gastrointestinal: Normal bowel sounds, Soft and benign, Non-distended, No tenderness Musculoskeletal: No clubbing, No swelling External genitalia: Edema, Tenderness - Studies Microbiology Data (last 24 hrs): 03/25/20 17:18 Clean Catch Urine [place] Count - Final BETWEEN 10,000 & 100,000 CFU/ML 03/25/20 17:18 Clean Catch Urine - Final Escherichia Coli Esbl 03/25/20 16:55 Blood - Blood Blood Culture Gram Stain - Final 03/25/20 16:55 Blood - Blood Gram Stain - Final 03/25/20 17:12 Blood - Blood Blood Culture Gram Stain - Final 03/25/20 17:12 Blood - Blood Gram Stain - Final Medications List Reviewed: Yes Assessment & Plan - Problems (Diagnosis) (1) Testicle tenderness Current Visit: Yes Status: Acute (2) Acute prostatitis Current Visit: Yes Status: Acute (3) Fever Current Visit: Yes Status: Acute Qualifiers: Fever type: post-procedural Qualified Code(s): R50.82 - Postprocedural fever (4) Benign prostatic hyperplasia Current Visit: Yes Status: Chronic Qualifiers: Lower urinary tract symptom presence: symptoms present Lower urinary tract symptom detail: nocturia Qualified Code(s): N40.1 - Benign prostatic hyperplasia with lower urinary tract symptoms; R35.1 - Nocturia (5) Hypertension Current Visit: Yes Status: Chronic Qualifiers: Hypertension type: essential hypertension Qualified Code(s): I10 - Essential (primary) hypertension - Plan Continue with plan of care as mentioned below: 1. Continue with IV hydration 2. Continue with IV antibiotics 3. Continue with pain control 4. Advanced diet as tolerated 5. Continue outpatient Urology follow-up 6. Serial H&H, and we will monitor CBC, BMP, LFTs, procalcitonin, and await culture results from the blood. 7. US scrotum and Doppler of the lower extremity pending. 8. GI and DVT prophylaxis Discharge Plan: Home Plan to discharge in: Greater than 2 days - Advance Directives Does patient have a Living Will: No Does patient have a Durable POA for Healthcare: No - Code Status/Comfort Care Code Status: Full Code Critical Care: No Time Spent Managing PTS Care (In Minutes): 35
[2020-03-27] MEDS ORDERED: FUROSEMIDE 20 MG/ 2ML VIAL IV ONE (17:23)
--- NOTE | 2020-03-27 20:01 | RAD REPORT ---
EXAM DESCRIPTION: USExtrem Venous W Compress Bil03/27/2020 7:55 pm CLINICAL HISTORY: Bilateral leg swelling COMPARISON: none FINDINGS: The common femoral, superficial femoral, popliteal and posterior tibial veins bilaterally are compressible and demonstrate augmentation. Doppler demonstrates good flow. IMPRESSION: No evidence of deep venous thrombosis involving either lower extremity.
--- NOTE | 2020-03-27 20:55 | RAD REPORT ---
EXAM DESCRIPTION: US - Scrotum Testicles - 03/27/2020 7:55 pm CLINICAL HISTORY: Testicular pain FINDINGS: Right testicle measures 4.7 x 2.4 x 3.6 centimeters. Echotexture is mildly inhomogeneous. Normal blood flow Left testicle measures 4 x 1.9 x 3 centimeters. Echotexture is mildly inhomogeneous. Normal blood víctor w The right epididymis is enlarged with increased blood flow. Left epididymis normal size and blood víctor w. Moderate right hydrocele Right varicocele. IMPRESSION: Right epididymitis Right spermatocele Moderate right hydrocele
[2020-03-27] MEDS: FAMOTIDINE 20 MG TAB PO SCH (21:04)
[2020-03-27] MEDS: DOXAZOSIN 2 MG TAB PO SCH (21:08)
[2020-03-28] MEDS: Meropenem 1,000 MG in NA CHLORIDE 0.9% 100 ML IV SCH ×3 (00:15→16:00)
[2020-03-28] MEDS: NA CHLORIDE 0.9% 1,000 ML IV SCH ×2 (01:51→11:07)
[2020-03-28] MEDS: ACETAMINOPHEN 500 MG TAB PO SCH (05:17)
[2020-03-28 06:05] LABS: Basophils % 0.3 % (0-1.3); Hematocrit 32.7 % (39.6-49.0); Lymphocytes % 17.1 % (15.3-44.8); MPV 8.7 fL (7.6-11.3); RBC Red Blood Cell Count 3.64 M/uL (4.33-5.43)
[2020-03-28 06:23] LABS: ALT/SGPT 24 U/L (12-78); AST/SGOT 18 U/L (15-37); Albumin 2.8 g/dL (3.4-5.0); Alkaline Phosphatase 72 U/L (45-117); BUN Blood Urea Nitrogen 9 mg/dL (7-18); Bicarbonate 26 mmol/L (21-32); Bilirubin Total 0.4 mg/dL (0.2-1.0); Glucose Level 89 mg/dL (74-106); Magnesium 2.2 mg/dL (1.8-2.4); Phosphorus 1.9 mg/dL (2.5-4.9); Potassium 3.6 mmol/L (3.5-5.1); Protein, Total 6.4 g/dL (6.4-8.2); Sodium Level 139 mmol/L (136-145)
[2020-03-28] MEDS: ASPIRIN EC 81 MG TAB PO SCH (08:14)
[2020-03-28] MEDS: VITAMIN E 400 IU CAP PO SCH (08:14)
[2020-03-28] MEDS: CETIRIZINE HCL 5 MG TABLET PO SCH (08:14)
[2020-03-28] MEDS: METOPROLOL XL 100 MG TAB PO SCH (08:15)
[2020-03-28] MEDS: FAMOTIDINE 20 MG TAB PO SCH ×2 (08:15→21:41)
[2020-03-28] MEDS: ASCORBIC ACID 500 MG TABLET PO SCH (08:15)
[2020-03-28] MEDS: LOSARTAN/HCTZ 50-12.5 PO SCH (08:16)
[2020-03-28] MEDS: VITAMIN D 1000 UNIT TAB PO SCH (08:16)
--- NOTE | 2020-03-28 15:32 | P.PN ---
Subjective Date of Service: 03/28/20 Patient is clinically doing much better. Patient is afebrile. Testicle pain is better. She did appear to have epididymitis. DVT of the lower extremity was negative. Ultrasound of the scrotum did show the infection of the epididymis. She has ESBL E coli in his blood from his urine. Continue with IV antibiotics times 10 more days. Can probably switch to InVance 1 g daily at the time of discharge so it will be easier to give at home. Review of Systems 10-point ROS is otherwise unremarkable Physical Examination - Vital Signs Temperature: 97.8 F Blood Pressure: 129/72 Pulse: 74 Respirations: 20 Pulse Ox (%): 95 - Physical Exam General: Alert, In no apparent distress, Oriented x3 Respiratory: Clear to auscultation bilaterally, Normal air movement Cardiovascular: Regular rate/rhythm, Normal S1 S2 Gastrointestinal: Normal bowel sounds, Soft and benign, Non-distended Musculoskeletal: No clubbing, No swelling Neurological: Normal gait, Normal speech, Normal strength at 5/5 x4 extr - Studies Microbiology Data (last 24 hrs): 03/25/20 17:12 Blood - Blood Aerobic Blood Culture - Final Escherichia Coli Esbl 03/25/20 17:12 Blood - Blood Blood Culture Gram Stain - Final 03/25/20 17:12 Blood - Blood Anaerobic Blood Culture - Final 03/25/20 17:12 Blood - Blood Gram Stain - Final 03/25/20 16:55 Blood - Blood Aerobic Blood Culture - Final Escherichia Coli Esbl 03/25/20 16:55 Blood - Blood Blood Culture Gram Stain - Final 03/25/20 16:55 Blood - Blood Anaerobic Blood Culture - Final 03/25/20 16:55 Blood - Blood Gram Stain - Final Medications List Reviewed: Yes Assessment & Plan - Problems (Diagnosis) (1) Testicle tenderness Current Visit: Yes Status: Acute (2) Acute prostatitis Current Visit: Yes Status: Acute (3) Fever Current Visit: Yes Status: Acute Qualifiers: Fever type: post-procedural Qualified Code(s): R50.82 - Postprocedural fever (4) Benign prostatic hyperplasia Current Visit: Yes Status: Chronic Qualifiers: Lower urinary tract symptom presence: symptoms present Lower urinary tract symptom detail: nocturia Qualified Code(s): N40.1 - Benign prostatic hyperplasia with lower urinary tract symptoms; R35.1 - Nocturia (5) Hypertension Current Visit: Yes Status: Chronic Qualifiers: Hypertension type: essential hypertension Qualified Code(s): I10 - Essential (primary) hypertension (6) Acute epididymitis Current Visit: Yes Status: Acute (7) ESBL (extended spectrum beta-lactamase) producing bacteria infection Current Visit: Yes Status: Acute (8) Bacteremia due to Escherichia coli Current Visit: Yes Status: Acute - Plan Continue with plan of care as mentioned below: 1. Diet as tolerated; awaiting PICC line placement 2. 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 Since he is bacteremic he will need aggressive treatment 3. Continue with pain control as needed 4. Advanced diet as tolerated 5. Continue outpatient Urology follow-up to get the results of his prostate biopsy 6. Labs are stable. 7. GI and DVT prophylaxis Discharge Plan: Home Plan to discharge in: Greater than 2 days - Advance Directives Does patient have a Living Will: No Does patient have a Durable POA for Healthcare: No - Code Status/Comfort Care Code Status: Full Code Critical Care: No Time Spent Managing PTS Care (In Minutes): 35
[2020-03-28] MEDS: DOXAZOSIN 2 MG TAB PO SCH (21:41)
[2020-03-29] MEDS: Meropenem 1,000 MG in NA CHLORIDE 0.9% 100 ML IV SCH ×2 (00:54→08:34)
[2020-03-29] MEDS: VITAMIN E 400 IU CAP PO SCH (08:29)
[2020-03-29] MEDS: CETIRIZINE HCL 5 MG TABLET PO SCH (08:29)
[2020-03-29] MEDS: METOPROLOL XL 100 MG TAB PO SCH (08:29)
[2020-03-29] MEDS: ASCORBIC ACID 500 MG TABLET PO SCH (08:30)
[2020-03-29] MEDS: FAMOTIDINE 20 MG TAB PO SCH (08:30)
[2020-03-29] MEDS: VITAMIN D 1000 UNIT TAB PO SCH (08:30)
[2020-03-29] MEDS: ASPIRIN EC 81 MG TAB PO SCH (08:30)
--- NOTE | 2020-03-29 08:35 | P.DS ---
Admission Date: 03/25/20 Discharge Date: 03/29/20 Primary Care Provider: Dr. Zamora Disposition: ROUTINE DISCHARGE Discharge Condition: GOOD Reason for Admission: Acute Prostatitis Consultations: Infectious Disease-Dr. Fischer Procedures: COVID: Negative CT Ab: FINDINGS: The lower lung cha are clear. Imaged portions of the liver and spleen show no suspicious findings on non- contrast imaging. The pancreas and adrenal glands are normal. No pathologic lymphadenopathy in the abdomen or pelvis. No urinary tract stones or obstructive uropathy. 10 mm cyst anterior superior left kidney, likely benign. No bowel obstruction, free air, free fluid or abscess. Normal appendix noted. No significant bony abnormality. Moderate prostatomegaly. IMPRESSION: No urinary tract stones or obstructive uropathy. Moderate prostatomegaly. CT Pelvis: FINDINGS: The prostate gland is mildly enlarged. There is no evidence of diverticulitis. Prominent veins are present within the right scrotum likely a varicocele. Moderate right hydrocele is present. Two small penile calcifications are present. IMPRESSION: Probable right varicocele. Moderate right hydrocele Testicular ultrasound recommended for further evaluation Venous doppler: FINDINGS: The common femoral, superficial femoral, popliteal and posterior tibial veins bilaterally are compressible and demonstrate augmentation. Doppler demonstrates good flow. IMPRESSION: No evidence of deep venous thrombosis involving either lower extremity. Scrotal US: FINDINGS: Right testicle measures 4.7 x 2.4 x 3.6 centimeters. Echotexture is mildly inhomogeneous. Normal blood flow Left testicle measures 4 x 1.9 x 3 centimeters. Echotexture is mildly inhomogeneous. Normal blood flow The right epididymis is enlarged with increased blood flow. Left epididymis normal size and blood flow. Moderate right hydrocele Right varicocele. IMPRESSION: Right epididymitis Right spermatocele Moderate right hydrocele PICC placement: To the RUE Medical Problem List: Fever, abdominal pain secondary to acute prostatitis/bacteremia with recent instrumentation-prostate biopsy complicated with history of ESBL, Urine/blood culture positive for E coli-ESBL BPH with recent biopsy Right epididymitis, right spermatocele, moderate right hydrocele noted on scrotal ultrasound Hypertension Right spermatocele and moderate right hydrocele Brief History of Present Illness: 69-year-old male presented to the emergency room with fever, chills and lower abdominal pain. Patient had recent prostate biopsy. Patient found to have acute prostatitis secondary to instrumentation. Patient admitted for further evaluation and treatment. Hospital Course: Patient presented with fever, abdominal pain patient found to have acute prostatitis/bacteremia with recent instrumentation-prostate biopsy. Patient was admitted for further evaluation and treatment. Patient with history of ESBL in the past. Patient was placed on IV antibiotic therapy. Sepsis was ruled out. Patient also found to have epididymitis. During the course of his stay his condition improved. Patient found to have E coli-ESBL in the urine and blood. At discharge white count and pro calcitonin within normal range. Arrangements for home antibiotics have been arranged by social work case manager. PICC line also in place. At discharge patient will continue with Invanz 1 g IV daily for 10 days. Patient will continue with home antibiotic therapy and PICC line care. Recommend to recheck urine and blood cultures after that time to monitor resolution. If unremarkable PICC line can be removed. Education on the ESBL will be provided. Recommend follow up with urology in 1 week to monitor his care. Recommend follow up with PCP in 1 week to follow up this hospitalization and continue antibiotics. Patient with history of BPH. Scrotal ultrasound also showed right spermatocele and moderate right hydrocele. At discharge patient will continue with his current medication of Cardura 1 mg daily. Recommend follow up with urology in 1-2 weeks to follow up this hospitalization and continue his care. Patient will need a follow up with recent biopsy report of the prostate. Patient with hypertension. This has remained stable. At discharge patient will continue with losartan/hydrochlorothiazide 100/12.5 mg daily, Toprol XL 10 mg daily, and Lotrel 10/20 mg 1 pill daily. Recommend to maintain blood pressure less than 130/80. Further adjustment in medication can be done by his PCP. Patient with GERD. At discharge patient will continue with Pepcid 20 mg 1 pill twice daily. Patient will continue with his other medications including vitamin-C, vitamin-E, Vitamin D, and aspirin daily. Vital Signs/Physical Exam: Temp Pulse Resp BP Pulse Ox 98.4 F 88 18 141/78 H 99 03/29/20 06:39 03/29/20 06:39 03/29/20 06:39 03/29/20 06:39 03/29/20 06:39 General: Alert, In no apparent distress, Oriented x3, Cooperative HEENT: Atraumatic Neck: Supple Respiratory: Clear to auscultation bilaterally, Normal air movement Cardiovascular: Normal pulses, Regular rate/rhythm Gastrointestinal: Normal bowel sounds, Soft and benign, Non-distended, No tenderness, No masses, No rebound, No guarding Musculoskeletal: No erythema, No tenderness, No warmth Neurological: Normal speech, Normal strength at 5/5 x4 extr, Normal tone, Normal affect Laboratory Data at Discharge: WBC 5.8 K/uL (4.3-10.9) D 03/28/20 05:34 Hgb 10.9 g/dL (13.6-17.9) L 03/28/20 05:34 Hct 32.7 % (39.6-49.0) L 03/28/20 05:34 Plt Count 184 K/uL (152-406) 03/28/20 05:34 PT 12.8 SECONDS (9.5-12.5) H 03/25/20 16:55 INR 1.09 03/25/20 16:55 Sodium 139 mmol/L (136-145) 03/28/20 05:39 Potassium 3.6 mmol/L (3.5-5.1) 03/28/20 05:39 BUN 9 mg/dL (7-18) 03/28/20 05:39 Creatinine 0.77 mg/dL (0.55-1.3) 03/28/20 05:39 Glucose 89 mg/dL (74-106) 03/28/20 05:39 Phosphorus 1.9 mg/dL (2.5-4.9) L 03/28/20 05:39 Magnesium 2.2 mg/dL (1.8-2.4) D 03/28/20 05:39 Total Bilirubin 0.4 mg/dL (0.2-1.0) 03/28/20 05:39 AST 18 U/L (15-37) 03/28/20 05:39 ALT 24 U/L (12-78) 03/28/20 05:39 Alkaline Phosphatase 72 U/L (45-117) 03/28/20 05:39 Home Medications: Amlodipine Besylate/Benazepril [Lotrel 10-20 mg Capsule] 1 tab PO DAILY 03/11/19 Doxazosin [Cardura*] 1 tab PO BEDTIME 03/11/19 Losartan/Hydrochlorothiazide [Hyzaar 100-25 Tablet] 1 tab PO DAILY 03/11/19 Metoprolol Succinate [Toprol Xl] 1 tab PO DAILY 03/11/19 Ascorbic Acid [Vitamin C*] 1,000 mg PO DAILY 03/26/20 Aspirin [Low Dose Aspirin EC] 81 mg PO DAILY 03/26/20 Cetirizine HCl [Zyrtec*] 10 mg PO DAILY 03/26/20 Cholecalciferol (Vitamin D3) [Vitamin D 1000 Iu Tab*] 2,000 mg PO DAILY 03/26/20 Famotidine [Pepcid*] 20 mg PO BID 03/26/20 Vitamin E 400 mg PO DAILY 03/26/20 Patient Discharge Instructions: 1. Recommend follow up with PCP in 1 week to follow up this hospitalization. 2. Patient presented with fever, abdominal pain patient found to have acute prostatitis with a recent instrumentation- prostate biopsy. Patient was admitted for further evaluation and treatment. Patient with history of ESBL in the past. Patient was placed on IV antibiotic therapy. Sepsis was ruled out. Patient also found to have epididymitis. During the course of his stay his condition improved. Patient found to have E coli-ESBL in the urine and blood. Arrangements for home antibiotics have been arranged by social work case manager. PICC line also in place. At discharge patient will continue with Invanz 1 g IV daily for 10 days. Patient will continue with home antibiotic therapy and PICC line care. Recommend to recheck urine and blood cultures after that time to monitor resolution. If unremarkable PICC line can be removed. Education on the ESBL will be provided. Recommend follow up with urology in 1 week to monitor his care. Recommend follow up with PCP in 1 week to follow up this hospitalization and continue antibiotics. 3. Patient with history of BPH. Scrotal ultrasound also showed right spermatocele and moderate right hydrocele. At discharge patient will continue with his current medication of Cardura 1 mg daily. Recommend follow up with urology in 1-2 weeks to follow up this hospitalization and continue his care. Patient will need a follow up with recent biopsy report of the prostate. 4. Patient with hypertension. This has remained stable. At discharge patient will continue with losartan/hydrochlorothiazide 100/12.5 mg daily, Toprol XL 10 mg daily, and Lotrel 10/20 mg 1 pill daily. Recommend to maintain blood pressure less than 130/80. Further adjustment in medication can be done by his PCP. 5. Patient with GERD. At discharge patient will continue with Pepcid 20 mg 1 pill twice daily. 6. Patient will continue with his other medications including vitamin- C, vitamin-E, Vitamin D, and aspirin daily. Diet: AHA Activity: Ad urby Followup: Jesse Zamora DO, DO [Primary Care Provider] - Time spent managing pt's care (in minutes): 55
[2020-03-29] MEDS ORDERED: TRAMADOL HCL 50 MG TAB PO PRN (08:53)
[2020-03-29] MEDS: LOSARTAN/HCTZ 50-12.5 PO SCH (09:26)
--- NOTE | 2020-03-29 11:28 | RAD REPORT ---
EXAM DESCRIPTION: RAD - Chest Single View - 03/29/2020 12:07 am CLINICAL HISTORY: The patient is 69 years old and is Male; picc line insertion verification TECHNIQUE: Frontal view of the chest. COMPARISON: No relevant prior studies available. FINDINGS: LUNGS: Unremarkable. No consolidation. PLEURAL SPACE: Unremarkable. No pneumothorax. HEART: Unremarkable. No cardiomegaly. MEDIASTINUM: Unremarkable. BONES/JOINTS: There are degenerative changes of the bones. TUBES, LINES AND DEVICES: A right upper extremity PICC is present with the tip in the SVC. IMPRESSION: A right upper extremity PICC is present with the tip in the SVC. Electronically signed by: Adelaide Calhoun MD 03/29/2020 12:20 AM INCOME TAX AUDITOR Due to temporary technical issues with the PACS/Fluency reporting system, reports are being signed by the in house radiologist without review as a courtesy to ensure prompt reporting. The interpreting r adiologist is fully responsible for the content of the report.
[2020-03-29 11:58] VITALS: O2SAT 97
--- NOTE | 2020-03-29 15:13 | CON ---
History Of Present Illness: This is a 69-year-old male, coming in with urinary tract infection and b acteremia secondary to E coli ESBL infection. He is started on meropenem. This is the third time th is year to get urine infection. Last 2 times, he had just urinary tract infection, at this time terrence garcia with fevers and chills. The patient also had burning urination with blood in urine. The patient had a biopsy done by urologist a day prior to coming to the hospital. Denies any other problems. Feeling much better today. Has a PICC line placed. 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 Social History: Nonsmoker, nondrinker. Family History: Diabetes mellitus, heart disease. Medications: Tylenol, vitamin C, aspirin, Zyrtec, vitamin D, Cardura, Pepcid, Hyzaar, meropenem, Top rol, Zofran, Ultram, vitamin E. Allergies: NO KNOWN DRUG ALLERGIES. Review of Systems: A 10-point review was performed. Physical Examination: General: This is a 69-year-old male, lying in bed, not in any acute cardiopulmonary distress. Vital Signs: Temperature 97.5, pulse 78, respirations 17, blood pressure 139/83. HEENT: Unremarkable. Neck: Supple. Lungs: Basal crackles. Heart: S1, S2. Regular. Abdomen: Soft, nontender. Bowel sounds present. Extremities: No edema. Laboratory Data: Shows WBC 5.8 down from 11.2, hemoglobin 10.9, platelets are 184. Chemistry shows sodium 139, potassium 3.6, chloride 106, bicarb 26, BUN 9, creatinine 0.77, glucose 89. Albumin is 2 .8. Procalcitonin is 13.3 down to today. Chest x-ray shows a PICC line in place, no infi ltrate. A pelvis CT scan showed the patient has right varicocele and moderate right hydrocele. A sc rotal ultrasound showed the patient has right epididymitis, right spermatocele, and moderate right hy drocele. Extremity venous Doppler shows no evidence of DVT. Abdominal CT scan done on 03/25/2020 sh ows no urinary tract stone or obstructive uropathy, moderate prostatomegaly. Micro data showing E co li ESBL in the urine and in blood. Assessment And Plan: This is a 69-year-old male, coming in with third urinary tract infection of thi s year, at this time causing him to have Escherichia coli bacteremia with ESBL, resistant pattern, cu rrently being treated with meropenem and responding well. We will recommend to treat total of 2 week s with antibiotic, meropenem. Continue supportive care and also recommend to get an intravenous pyel ogram as an outpatient after discussing case with export agent. We will follow the patient as needed in the a.m. Dr. Conrad and Dr. Hartmann for consult. NF/MODL Voice ID: [id number] Report ID: [id number]
[2020-03-29] MEDS ORDERED: ERTAPENEM SODIUM 1 GM VIAL IVPB ONE (15:18)
[2020-03-29] MEDS ORDERED: ERTAPENEM NA 1 GM in NA CHLORIDE 0.9% 100 ML IVPB ONE (15:30)
[2020-03-29 17:12] VITALS: BP 146/89; TEMP 97.9
== END 2020-03-29 18:30 | disposition home or self-care (01) | DRG 728 ==
LOC: ER 15:32 → ERHOLD 20:09 → 2ND 22:23
PROVIDERS: ADMIT Hospitalist; ATTEND Family Medicine
PROC: 02HV33Z Insertion of Infusion Device into Superior Vena Cava, Percutaneous Approach (ICD-10-PCS; principal; 2020-03-29)
DX: N41.0 Acute prostatitis (principal); Z16.12 Extended spectrum beta lactamase (ESBL) resistance; R78.81 Bacteremia; N39.0 Urinary tract infection, site not specified; I10 Essential (primary) hypertension; N40.1 Benign prostatic hyperplasia with lower urinary tract symptoms; R35.1 Nocturia; K21.9 Gastro-esophageal reflux disease without esophagitis; N45.1 Epididymitis; N43.3 Hydrocele, unspecified; N43.40 Spermatocele of epididymis, unspecified; N50.819 Testicular pain, unspecified; M10.9 Gout, unspecified; B96.20 Unspecified Escherichia coli [E. coli] as the cause of diseases classified elsewhere; R31.9 Hematuria, unspecified; R50.82 Postprocedural fever; Z87.891 Personal history of nicotine dependence; Z79.82 Long term (current) use of aspirin; Z79.899 Other long term (current) drug therapy; Z20.828 Contact with and (suspected) exposure to other viral communicable diseases
CPT/HCPCS: 36415; 36569; 71045; 72193; 74176; 76377; 76870; 80048; 80053; 80076; 81015; 83605; 83735; 84100; 84145; 84153; 84484; 85025; 85610; 87040; 87077; 87086; 87088; 87186; 87205; 93005; 93970; 99285; J0696; J1335; J1720; J1940; J2185; J3370; J3475; J7030; J7040; J7050; Q9967; U0003

== ENCOUNTER → 2020-04-16 | Day surgery (SDC) | payer OTHER ==
--- OUTSIDE RECORDS SUMMARY | 2020-04-16 11:14 | XMS REPORT | Clinical Summary ---
:1950 Author Organization [facility] Address [address] [place] [address] Care Team Providers Name Role Phone Jonathan [...] vascular disease 04/18/2016 Coronary artery disease involving [place] heart without angina pectoris 04/18/2016 Encounters Date Type Specialty Care Team Description 09/09/2019 Telemedicine Cardiology Sina Jaquez MD Thoracic aortic aneurysm without rupture (HCC) (Primary Dx); Essential hyper tension; Coronary artery disease involving [place] coronary artery of [place] heart without angina pectoris 09/08/2019 Travel 08/22/2019 Travel 05/01/2019 Refill Cardiology Sina Jaquez MD Med Refi ll after 04/16/2019 Immunizations Name Administration Dates Next Due FLUZONE HIGH-DOSE PF 02/06/2019 Surgical History Surgery Date Site/Laterality Comments INCISION AND REMOVAL, CYST, 05/21/2010 - occi pital area SEBACEOUS 05/20/2011 EXPLORATION, NECK, WITH 01/11/2018 Neck/N/A Procedur e: PARATHYROIDECTOMY PARATHYROIDECT WINTER WITH INTRAOPERATIVE U LTRASOUND; Surgeon: Zack burgos MD; Location: [facility]; Service: General ; Laterality: N/A; Medical devices from this surgery are in t he Implants section. LAMINECTOMY, LUMBAR, WITH 07/26/2018 Back/Posterior Proced ure: LUMBAR FORAMINOTOMY OR FACETECTOMY, GONZALEZ INECTOMY, MEDIAL 1 LEVEL FACETECTOMY, AND FORAMINOTOMY AT RIGHT L3-L4, EMG; Ivan geon: Joce Min MD; [facility]; Service: Neuros urgery; Laterality: Post erior; [...] COLONOSCOPY SCREENING 2002 SHINGLES VACCINES (#1) 2002 65+ PNEUMOCOCCAL VACCINE Completed 02/24/2019, 01/28/2019 INFLUENZA VACCINE Completed 01/23/2020, 02/19/2019, 2018, Additional history exists Implants Implanted Type Area Hand Ii Tube Bender Device Shelf Model / Identifier Expiration Serial / Date Lot Clip Ligtng Weck Hemoclip Plus W/ Tape Ti Med - [id number] Medic al [employer] [id number] / Implanted: Qty: 2 on 01/11/2018 by Zack Driscoll MD at [facility] Clips for / Internal Use Clip Ligtng Weck Hemoclip Plus W/ Tape Ti Sm - [id number] Medical WECK CLOSURE [id number] / Implanted: Qty: 2 on 01/11/2018 by Zack Driscoll MD at [facility] Clips for SYSTEMS / Internal Use Results Not on fileafter 04/16/2019 Insurance Payer Benefit Plan / Subscriber ID Effective Dates Phone Addre ss Type Group MEDICARE MEDICARE PART A AND [id number] 2017-Senthil [facility] [place] Medicare B t AETNA AETNA [facility] [id number] 2000-Senthil [place] [phone] (Work) Advance Directives For more information, please contact: [phone] Type Date Recorded 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
--- OUTSIDE RECORDS SUMMARY | 2020-04-16 11:15 | XMS REPORT | Clinical Summary ---
:1950 Author Organization [facility] Address [address] [place] [address] Care Team Providers Name Role Phone Unavailable [...] Encounter Pre-Admission Link, Gurinder Tomlinson MD after 04/16/2019 Social History Tobacco Use Types Packs/Day Years Used Date Former Smoker Quit: 06/25/19 10 Smokeless Tobacco: Never Used Alcohol Use Drinks/Week oz/Week Comments Yes occasional Sex Assigned at Date Recorded Not on file Last Filed Vital Signs Vital Sign Reading Time Taken Comments Blood Pressure 157/87 07/10/2019 8:00 AM METAPHYSICIAN Pulse 87 07/10/2019 8:00 AM METAPHYSICIAN Temperature 36.8 C (98.2 F) 07/10/2019 8:00 AM METAPHYSICIAN Respiratory Rate 18 07/10/2019 8:00 AM METAPHYSICIAN Oxygen Saturation 97% 07/10/2019 8:00 AM METAPHYSICIAN Inhaled Oxygen Concentration - - Weight 105.5 kg (232 lb 9.4 oz) 07/08/2019 5:41 AM METAPHYSICIAN Height 182.9 cm (6') 07/08/2019 5:41 AM METAPHYSICIAN Body Mass Index 31.54 07/08/2019 5:41 AM METAPHYSICIAN Plan of Treatment Health Maintenance Due Date Last Done Comments COLON CANCER SCREENING COLONOSCOPY 1950 MEDICARE ANNUAL WELLNESS (YEAR 2 or FIRST 07/20/2018 YEAR if no IPPE) INFLUENZA VACCINE (#1) 2020 02/06/2019 PNEUMOCOCCAL 65+ YRS Completed 02/24/2019, 01/28/2019 Procedures Procedure Name Priority Date/Time Associated Comments Diagnosis RHYTHM STRIP - SCAN 07/15/2019 9:22 AM METAPHYSICIAN CBC W/PLT COUNT & GAIL 07/10/2019 4:34 Result s for this AUTO DIFFERENTIAL AM METAPHYSICIAN procedure are in the results section. BASIC METABOLIC PANEL GAIL 07/10/2019 4:34 Re sults for this (7) AM METAPHYSICIAN procedure are i n the results section. CBC W/PLT COUNT & GAIL 07/10/2019 4:34 Result s for this AUTO DIFFERENTIAL AM METAPHYSICIAN procedure are in the results section. TRANSFUSION SERVICE 07/09/2019 5:51 REPORT - SCAN PM METAPHYSICIAN CBC W/PLT COUNT & GAIL 07/09/2019 8:43 Result s for this AUTO DIFFERENTIAL AM METAPHYSICIAN procedure are in the results section. BASIC METABOLIC PANEL GAIL 07/09/2019 8:43 Re sults for this (7) AM METAPHYSICIAN procedure are i n the results section. CBC W/PLT COUNT & GAIL 07/09/2019 8:43 Result s for this AUTO DIFFERENTIAL AM METAPHYSICIAN procedure are in the results section. BASIC METABOLIC PANEL STAT 07/08/2019 11:15 Re sults for this (7) AM METAPHYSICIAN procedure are i n the results section. HEMOGLOBIN AND STAT 07/08/2019 11:15 Results f or this HEMATOCRIT AM METAPHYSICIAN procedure are i n the results section. TISSUE EXAM AP Routine 07/08/2019 10:03 Results for this AM METAPHYSICIAN procedure are i n the results section. LAPAROSCOPY,ADRENALEC 07/08/2019 7:15 Adrenal mass (H CC) SAIDA AM METAPHYSICIAN Case Notes 4 HRS Special Needs (3D SCOPE, [place]) ABORH, MANUAL STAT 07/08/2019 6:19 AM METAPHYSICIAN Res ults for this procedure are i n the results section . TYPE AND SCREEN, AUTOMATED Routine 07/08/2019 5:52 AM METAPHYSICIAN Results for this procedure are i n the results section . CBC W/PLT COUNT & AUTO Routine 06/25/2019 12:53 PM METAPHYSICIAN Results for this DIFFERENTIAL procedure are i n the results section . COMPREHENSIVE METABOLIC Routine 06/25/2019 12:53 PM METAPHYSICIAN Results for this PANEL procedure are i n the results section . CBC W/PLT COUNT & AUTO Routine 06/25/2019 12:53 PM METAPHYSICIAN Results for this DIFFERENTIAL procedure are i n the results section . URINALYSIS W/ REFLEX URINE Routine 06/25/2019 12:53 PM METAPHYSICIAN Results for this CULTURE procedure are i n the results section . URINE CULTURE Routine 06/25/2019 12:53 PM METAPHYSICIAN Res ults for this procedure are i n the results section . after 04/16/2019 Results RHYTHM STRIP - SCAN (07/15/2019 9:22 AM METAPHYSICIAN) Narrative Performed At This result has an attachment that is no t available. CBC with platelet count + automated diff (07/10/2019 4:34 AM METAPHYSICIAN)Only the most recent of3 resultswithin the time period is included. Pathologist Sig nature WBC 5.6 3.5 - 10.5 [facility] K/L [facility] RBC 3.64 (L) 4.63 - 6.08 [facility] M/L [facility] Hemoglobin 11.1 (L) 13.7 - 17.5 [facility] GM/DL [facility] Hematocrit 34.5 (L) 40.1 - 51.0 % [facility] MCV 94.8 (H) 79.0 - 92.2 fL [facility] MCH 30.5 25.7 - 32.2 pg [facility] MCHC 32.2 (L) 32.3 - 36.5 [facility] GM/DL [facility] RDW 13.5 11.6 - 14.4 % [facility] Platelets 239 150 - 450 K/CU [facility] MPV 10.4 9.4 - 12.4 fL [facility] nRBC 0 0 - 0 /100 WBC [facility] % Neutros 64 % [facility] % Lymphs 25 % [facility] % Monos 8 % [facility] % Eos 3 % [facility] % Baso 0 % [facility] # Neutros 3.55 1.78 - 5.38 [facility]/L [facility] # Lymphs 1.40 1.32 - 3.57 [facility]/L [facility] # Monos 0.46 0.30 - 0.82 [facility] # Eos 0.15 0.04 - 0.54 [facility]/L [facility] # Baso 0.02 0.01 - 0.08 [facility]/L [facility] Immature 0 0 - 1 % [facility] Granulocytes-Relative [facility] Specimen Blood Performing Organization Address City/[facility]/Zipcode Phone Number [facility] [address] [place] [address] [place] Basic Metabolic Panel (07/10/2019 4:34 AM METAPHYSICIAN)Only the most recent of3 results within the time period is included. Sodium 139 136 - 145 [facility] meq/[facility], [facility] Potassium 3.7 3.5 - 5.1 [facility] meq/[facility], [facility] Chloride 109 (H) 98 - 107 meq/L [facility] CO2 22 22 - 29 meq/L [facility] BUN 7 7 - 21 mg/dL [facility] Creatinine 0.81 0.57 - 1.25 [facility] mg/dL [facility] Glucose 86 70 - 105 mg/dL [facility] Calcium 8.6 8.4 - 10.2 [facility] mg/dL [facility] EGFR Comment: INSUFFICIENT [facility] CLINICAL DATA TO [facility] CALCULATE ESTIMATED CENTER GFR. Specimen Blood Narrative Performed At Tomato Pulper Operator [facility] ICAL [place] Performing Organization Address City/State/Zipcode Phone Number [facility] [address] [place] [address] [place] TRANSFUSION SERVICE REPORT - SCAN (07/09/2019 5:51 PM METAPHYSICIAN) Narrative Performed At This result has an attachment that is no t available. Hemoglobin and hematocrit (07/08/2019 11:15 AM METAPHYSICIAN) Pathologist Sig nature Hemoglobin 11.7 (L) 13.7 - 17.5 GM/DL [facility] Hematocrit 34.9 (L) 40.1 - 51.0 % [facility] Specimen Blood Narrative Performed At Tomato Pulper Operator ID - [id number] [facility] MED ICAL CENTER Performing Organization Address City/State/Zipcode Phone Number [facility] [address] [place] [address] CENTER Tissue Exam (07/08/2019 10:03 AM METAPHYSICIAN) Case Report Surgical Pathology Report Case: [id number] [facility] Authorizing Provider: Gurinder Ford MD Collected: 07/08/[address] [facility] Ordering Location: [facility] PERIOPERATIVE Received: 07/08/2019 1306 [facility] CENTER SERVICES Pathologist: Love Hernandez MD Specimen: Adrenal, Left , Left adrenal gland DIAGNOSIS [facility] Electronically A. ADRENAL GLAND, LEFT, ADRENALECTOMY: HE [facility] signed by David, - BENIGN ADRENAL GLAND WITH NO SIGNIFICANT D IAGNOSTIC ALTERATION. [facility] MD Love on - HEMORRHAGE, ORGANIZING THROMBOSIS AND VASCULAR R ECANALIZATION 07/11/2019 at 4:10 ADJACENT TO THE ADRENAL GLAND. PM - NO MALIGNANCY IDENTIFIED. Signing Pathologist Direct Phone Line: [phone] CPT Code(s) 27467 [facility] CLINICAL HISTORY Pre and postop diagnosis: [facility] adrenal mass [facility] SPECIMEN SOURCE Left adrenal gland [facility] GROSS DESCRIPTION Received fresh labeled with the patient's name, accession number and "adrenal, left" is a 58 gm, 7 x 4.7 x 4 cm adrenal gland surfaced by a glistening membrane. The outer surface is inked blue, and the [facility] specimen is serially section ed to reveal a well-circumscribed, mostly hemorrhagic mass with a central area of pale yellow, sorensen to guo solid area. The mass is 5.5 x 4.7 x 4 cm and is completely encased [facility] within the cortex. The deejay quach adrenal gland is peguero yellow to guo and smooth. Internal Carver sections are submitted. [facility] Section code: A1-A5, represe ntative of one full cross section of mass; A6-A7, mass to outer surface; A8-A9, uninvolved adrenal glands. CG/pl MICROSCOPIC Performed. [facility] MEDICAL [place] SPECIAL STUDIES The interpretation of this c ase included the use of immunohistochemistry or special stains. [facility] Control Slides Examined: In -house known positive controls were evaluated along with the test tissue. These control slides run alongside of the patients sample show appropriate staining. [facility] cathy and negative controls when available are evaluated Immunohistochemistry technic donaldo testing was performed at [facility], Pathology Laboratory where it was developed and its performance characteristics were determined. It has not be en cleared or approved by [facility] U.S. Food and Drug Administration. The FDA has determined that such clearance or approval is not necessary. The test is used for clinical purposes. It should not be regarde d as investigational or for research. This laboratory is certified under the Clinical Laboratory Improvement Amendments of 1988 (CLIA-88) as qualified to perform high complexity clinical laboratory testing. Gross assessment [facility] was performed at [facility] Pathology, [address] [place] [id number], Technical [facility] component was [facility] performed at Pathology, [address] [place] [id number], Professional [facility] component was [facility] performed at [address] [address], Specimen Tissue - Structure of left adrenal gland (body structure) Performing Organization Address City/State/Zipcode Phone Number [facility] MEDICAL [address] [place] [address] [phone] CENTER [place], manual (07/08/2019 6:19 AM METAPHYSICIAN) Pathologist Sig nature ABO Grouping O [facility] Rh Factor POS [facility] Specimen Blood Performing Organization Address City/[facility]/Zipcode Phone Number [facility] [address] [place] [address] Type and screen, automated (07/08/2019 5:52 AM METAPHYSICIAN) Pathologist Sig nature ABO/RH AUTOMATED O POSITIVE [facility] Ab Scrn NEGATIVE [facility] Specimen Blood Performing Organization Address [facility]/Zipcode Phone Number [facility] [address] [place] [address] Urinalysis w/Microscopic + Reflex to Culture (06/25/2019 12:53 PM METAPHYSICIAN) Pathologist Sig nature Color, UA Yellow [facility] Clarity, UA Clear [facility] Specific [place], UA 1.005 1.001 - 1.035 [facility] pH, UA 7.0 5.0 - 8.0 [facility] Protein, UA Negative Negative [facility] Glucose, UA Negative Negative [facility] Ketones, UA Negative Negative [facility] Bilirubin, UA Negative Negative [facility] Blood, UA Negative Negative [facility] Nitrite, UA Negative Negative [facility] Leukocytes, UA Negative Negative [facility] Urobilinogen, UA 0.2 0.2 - 1.0 mg/dL [facility] RBC, UA <1 /HPF [facility] WBC, UA 2 /HPF [facility] Bacteria, UA Rare [facility] Specimen Source [facility] Specimen Urine - Urine (substance) Narrative Performed At Tomato Pulper Operator ID - [auto] [facility] Tomato Pulper Operator ID - tech Performing Organization Address [facility]/Zipcode Phone Number [facility] [address] [place] [address] [place] Urine culture (06/25/2019 12:53 PM METAPHYSICIAN) Pathologist Sig nature Result No [facility] Specimen Urine - Urine specimen collection, clean catch (procedure) Performing Organization Address City/State/Zipcode Phone Number [facility] [address] [place] [address] [place] Comprehensive metabolic panel (06/25/2019 12:53 PM METAPHYSICIAN) Protein, Total 7.3 6.0 - 8.3 [facility] gm/dL [facility] Albumin 4.4 3.5 - 5.0 [facility] g/dL [facility] Alkaline 73 40 - 150 U/L [facility] Phosphatase [facility] Total Bilirubin 0.8 0.2 - 1.2 [facility] mg/dL [facility] Sodium 137 136 - 145 [facility] meq/L [facility] Potassium 3.9 3.5 - 5.1 [facility] meq/L [facility] Chloride 104 98 - 107 [facility] meq/L [facility] CO2 26 22 - 29 [facility] meq/L [facility] BUN 11 7 - 21 mg/dL [facility] Creatinine 0.96 0.57 - 1.25 [facility] mg/dL [facility] Glucose 96 70 - 105 [facility] mg/dL [facility] Calcium 9.9 8.4 - 10.2 [facility] mg/dL [facility] AST 23 5 - 34 U/L [facility] ALT 25 6 - 55 U/L [facility] EGFR Comment: [facility] CLINICAL DATA TO MEDICAL CENTER CALCULATE ESTIMATED GFR. Specimen Blood - Entire left upper arm (body stru cture) Narrative Performed At Tomato Pulper Operator ID - [id number] RAFAT [facility] Performing Organization Address City/State/Zipcode Phone Number [facility] MED[facility] [address] [place] [address] CENTER after 04/16/2019 Insurance Payer Benefit Plan / Subscriber ID Effective Dates Phone Addre ss Type Group MEDICARE MEDICARE A B [id number] 2017-Present Medicare AETNA - MGD CARE AETNA INDEMNITY [id number] 2017-Present Comm NON CONTR
--- OUTSIDE RECORDS SUMMARY | 2020-04-16 11:16 | XMS REPORT | Continuity of Care Document ---
:1950 Author Organization [facility] t Address [address] [place] [address] Care Team Providers Name Role Phone Noah TAYLOR Castillo Primary Care Physician Michael Jaquez MD Attending Clinician Kerrie Delgado MD Attending Clinician DWAIN DELGADO Attending Clinician Unavailable Dwain Delgado MD Attending Clinician Wes Nava MD Attending Clinician DWAIN DELGADO Admitting Clinician Unavailable Payers Payer Name Policy Type Policy Effective Date Expiration Date Sour ce Number MEDICAREMEDICARE PART [id number] 2017-07-19 Cm rebollar A AND 00:00:00 Yarsani PrzubquoCT578/05/2017[place] [id number] 2000-05-21 [facility] 00:00:00 Yarsani [id number]/-PresentIndemnit y MEDICAREMEDICARE A [id number] 2017-07-19 [place]AT [place] SbslhfaxQN860/05/2017- 00:00:00 - Shawna gilical [facility] AETNA - MGD CAREAETNA [id number] 2017-07-19 RAFAT Watson INDEMNITY NON 00:00:00 - Medical [id number] Mp ter 8-PresentComm Problems Condition Condition Condition Status Onset Resolution Last Treating Co mments Source Name Details Category Date Date Treatment Clinician Date Adrenal Adrenal Disease Active [facility] mass mass 2-18 [facility] - 00:00: Medical [...] aorta 00 Aortic Aortic Disease Active 2015-05 [place] valve valve 06-18 [facility] regurgitat regurgitat 00:00: st ion ion 00 Essential Essential Disease Active 2015-05 Darshana ston hypertensi hypertensi 06-18 Me thodi on on 00:00: st 00 Peripheral Peripheral Disease Active 2015-05 H j[place] vascular vascular 06-18 Method i disease disease 00:00: st 00 Coronary Coronary Disease Active 2015-05 [place] artery artery 06-18 [facility] disease disease 00:00: st involving involving 00 morongo morongo heart heart without without angina angina pectoris pectoris Allergies, Adverse Reactions, Alerts This patient has no known allergies or adverse reactions. Family History Family Member Diagnosis Comments Start Date Stop Date Source Natural mother Heart attack [place] Y[facility]ani Other Heart attack [place] Meth odist Social History Social Habit Start Date Stop Date Quantity Comments Source Sex Assigned At [facility] Tobacco use and 2019-07-08 2019-07-08 Never used [facility] - exposure 00:00:00 00:00:00 [facility] Alcohol intake 2019-07-08 2019-07-08 Current drinker [facility] [place] - 00:00:00 00:00:00 [facility] (finding[facility] Alcohol Comment 2019-06-25 2019-06-25 occasional [facility] - 00:00:00 00:00:00 [facility] Cigarettes smoked 2018-07-29 2018-07-29 [place] current (pack per 00:00:00 00:00:[address] day) - Reported Cigarette 2018-07-29 2018-07-29 [place] pack-years 00:00:00 00:00:00 Yarsani Tobacco Comment 2018-01-01 2018-01-01 stopped 2009 [place] 00:00:00 00:00:00 Yarsani History of tobacco 2009-06-25 [facility] Smoking Status Start Date Stop Date Source Former smoker 2019-07-08 00:00:00 2019-07-08 00:00:[address] [facility] Medications Ordered Filled Start Stop Current Ordering Indication Dosage Frequency Signature Comments Components Source Medication Medication Date Date Medication? Clinician (SIG) Name Name allopurinol 2020-0 Yes 300mg QD Take [address] (ZYLOPRIM) 2-20 mg by [facility] - 300 MG 09:20: mouth Medical tablet 49 daily. [place] amlodipine- 2020-0 Yes 1{capsu QD Take [address] benazepril 2-20 le} capsule by Mariaa es - (LOTREL) 09:20: mouth Medical 10-20 mg 49 daily. [place] per capsule doxazosin 2020-0 Yes 2mg Q.5D Take [address] (CARDURA) 2 2-20 by mouth 2 Geovanna kes - MG tablet 09:20: (two) Medical 49 times Center daily. metoprolol 2020-0 Yes 200mg QD Take [address] (TOPROL-XL) 2-20 mg by [facility] - 200 MG 24 09:20: mouth Medical hr tablet 49 daily. [place] losartan 2020-0 Yes 100mg QD Take [address] (COZAAR) 2-20 mg by [facility] - 100 MG 09:20: mouth Medical tablet 49 daily. [place] zinc 2020-0 Yes 50mg QD Take [address] gluconate 2-20 by mouth [facility] - 50 mg 09:20: daily. Medical tablet 49 [place] vitamin E 2020-0 Yes 400U QD Take [address] 400 UNIT 2-20 Units by [facility] - capsule 09:20: mouth Medical 49 daily. [place] cholecalcif 2020-0 Yes 2000U QD Take 2,[address] myrna, 2-20 Units by [facility] - vitamin D3, 09:20: mouth Medic al 2,000 unit 49 daily. [place] Tab magnesium 2020-0 Yes QD Take by [...] HIGH-DOSE PF 2019-02-06 Completed [place] 00:00:00 Y[facility]ani Vital Signs Vital Name Observation Time Observation Value Comments Source Systolic blood 2019-07-10 08:00:00 157 mm[Hg] [facility] Diastolic blood 2019-07-10 08:00:00 87 mm[Hg] [facility] Heart rate 2019-07-10 08:00:00 87 /min [facility] Body temperature 2019-07-10 08:00:00 36.78 Kristie [facility] Respiratory rate 2019-07-10 08:00:00 18 /min [facility] Oxygen saturation in 2019-07-10 08:00:00 97 /min [facility] Arterial blood by Medical Ce nter Pulse oximetry Body height 2019-07-08 05:41:[address] [facility] Body weight 2019-07-08 05:41:[address] [facility] BMI 2019-07-08 05:41:00 31.54 kg/m2 [facility] Procedures Procedure Date / Time Performed Performing Clinician Sour e RHYTHM STRIP - SCAN 2019-07-15 09:22:16 Provider, Default [facility] BASIC METABOLIC PANEL (7) 2019-07-10 04:34:00 Leroy Workman [facility] CBC W/PLT COUNT & AUTO 2019-07-10 04:34:00 Leroy Workman [facility] S [facility] TRANSFUSION SERVICE 2019-07-09 17:51:44 Provider, Default [facility] - REPORT - SCAN [facility] BASIC METABOLIC PANEL (7) 2019-07-09 08:43:00 Leroy Workman CH [facility] CBC W/PLT COUNT & AUTO 2019-07-09 08:43:00 Leroy Workman [facility] S [facility] HEMOGLOBIN AND HEMATOCRIT 2019-07-08 11:15:00 Luther Santo CH [facility] BASIC METABOLIC PANEL (7) 2019-07-08 11:15:00 Luther Santo [facility] TISSUE EXAM 2019-07-08 10:03:00 Gurinder Delgado [facility] LAPAROSCOPY,ADRENALECTOMY 2019-07-08 07:15:[address] [facility] ABORH, MANUAL 2019-07-08 06:19:00 Morelia Leo [facility] TYPE AND SCREEN, 2019-07-08 05:52:00 Luther Santo [facility] s - AUTOMATED [facility] URINE CULTURE 2019-06-25 12:53:00 Gurinder Delgado [facility] URINALYSIS W/ REFLEX 2019-06-25 12:53:00 Gurinder Delgado [facility] URINE CULTURE [facility] COMPREHENSIVE METABOLIC 2019-06-25 12:53:00 Gurinder Delgado [facility] CBC W/PLT COUNT & AUTO 2019-06-25 12:53:00 Gurinder Delgado [facility] Plan of Care Planned Activity Planned Date Details Comments Source Future Scheduled 2020-01-[address] [facility] - Test 00:00:00 (#1) [code = Medical Center INFLUENZA VACCINE (#1)] Future Scheduled 2018-07-[address] [facility] - Test 00:00:00 WELLNESS (YEAR 2 or Medical Center FIRST YEAR if no IPPE) [code = MEDICARE ANNUAL WELLNESS (YEAR 2 or FIRST YEAR if no IPPE)] Future Scheduled 2002 COLONOSCOPY SCREENING [place] [facility] Test 00:00:00 [code = COLONOSCOPY SCREENING] Future Scheduled 2002 SHINGLES VACCINES [place] [facility] Test 00:00:00 (#1) [code = SHINGLES VACCINES (#1)] Future Scheduled [address] [facility] - Test 00:00:00 malignant neoplasm of Medica l Center colon (procedure) [code = 564652904] Encounters Start End Encounter Admission Attending Care Care Encounter Source Date/Time Date/Time Type Type Clinicians Facility Department ID 2019-09-09 2019-09-09 Outpatient [facility] [id number] [place] 00:00:00 00:00:[address] 2019-07-23 2019-07-23 Office OSIEL Delgado [id number] 50 15:02:12 16:42:42 Visit Gurinder Kerrie AMBULATOR [id number] Y [id number] 300 Results Test Description Test Time Test Comments Results Result Comments Source Tissue Exam 2019-07-11 16:10:00 Test Item Value Reference Range Interpretation Comme nts Case Report (test code = 104) Surgical Pathology Report Case: [id number] Authorizing Provider: Gurinder Delgado MD Collected: 07/08/2019 1003 Ordering Location: [facility] PERIOPERATIVE Received: 07/08/2019 1306 SERVICES Pathologist: Love Hernandez MD Specimen: Adrenal, Left, Left adrenal gland DIAGNOSIS (test code = 3220) [id number]kImNgNkBkKa pc zLAxTFmawfSiJSsxj8LxT2VkNfLvBSvlpoVdDQJg LvcwyfdkZGEfUYK3meJhWXWbYAbsBXOoUObpOo3f pHGnpQzwWpCfYCKrp2wfinEEiymenGo3s5wjDTSy MbUxvTYrYJngX1wqydJhmUWvJUAyQPa0qBpvXhZf ARSzs0kwwdKpOoZmWXBrXAEvGPNgcDDkM738n5po k5yqpaHwrSX6ARJdIEBqH7VzFZ2yEUTscRJrEMmb rnMpIcB2TBqfMOHnNmG5WDNhsPOkSHVsO9deVOJm GJmuaiQnysK0VXBbbQGpPVT3jZhop5M2wUOrvTDl iThrCiTmZlNeWWHCo4WmYHi4yCvkN7YbFRIzYaO5 nAQxPLFdJAlmDINcGOJnzpK2aC14BBibtnP0dDBv e0Whi48ec666aP8hpNPwNZM8TFMvJYNpdWBmXZDk BRT4VRPabYVnF1a1DqXloLYoV1L9ZfToxLOpE6Y0 BiNclYHkO4Y0QyEztCOoBYMnxMGoWa2meRBauRSi hu0gqe03LNB2d6JecFabVWG3OQT8WpCuPp3xyRLr YEDhXI3zJiUqjQXtCDEvjm93bBfoXKsgdpUbyT2p NyHzMA4tyKdld29wSTOmOM4ytS2roa3giqCsWVma qWFayTZ2qrlqKDU8QBUeodTpr6Uir6hcBgKfgrBq R9nnY9IaFHDmUHMnZCCpPuNpcfIxh7Yyv0NvgYCr vIc9r8ylQADtTPSvqOykm7xnSQJ4FOAqY5Y5iHYv r8kjDWqlXPPnpJP1ewkoONspJAUlnxX8cdklTVwb CWGktMV1niidPIunXSKiFnK7nhzfGStwPRKfGOE9 KXxxz679FOP0IMsxUlfyVHhmNGIctsCuafOpnRft ZGVjXHBsYWluXHBsYWluXGYwXGZzMjBccWxccGxh xQ1zTfFzAmTlZFcpfGQzggojFBaohyFgNOPurgPY EnDWBCKCDpHWZPdLWA4ATENZEAGQESNSNZMUUlWJ CKMQR39YZmqdTDBbZUPoUQ0gSpUIYGyLGBSHVxEO AByaF2dVDgNqI9ySDHEfoArvtX2wBoMrGyWwIJoq VF9jVLFkE0vtxGJqQUPnOSLtJ5imCzCuaZ7mlLwo VYwqJmGeAhGhQJkcrTWygRFEHfWMEUpGSAFFG0KX AIGSJUCREy0JCAcGQCERXLMVHXOIT53xkCauhL4e QeExUrXfXHuiRY5nUZMsR2xucBBaNURlNEMuA4un TdEtxH6oeVuuLesnHdXhVtZeAZGrAOItGFauNSTl WBCjCpUppWGjYHVuEOHjRFlFHA3PIqqOD6ArVN6U L6HHJKmAEahhIOkMM97UM4FNMsDEMrZmGvNMG5UY GKUfIvRNYS4ZQIfvHCWLQ62uFJVbpnIeOXZjIOUR WJcXS2QQWHFLLaBOSXEaZEZAYK1FLJNTQDXBQT9h kBLcSDAmKCTdBO8WOI4TSWcZOuEQG9fpKYOMReHT IvgVMG5luZEtzQzmyoUjUMpnh1VqYZpzRPNiBZ6g xVtcOWHcYN3cHRKnS2rhkT3dpgp6VtHjHNTqBnY9 UDYbydK9Jlb4PPRjQTpmi4pod9HbRMHlELv0kYmk QbHxYWEgy2ywwxElUgNjSRKkYHYbIGBmtIApB772 z8tbp7cukaIdlYD0IHJnEPW5CCzwyqDjeeP4AObt oKPxWmM0ZKwcciNpYTvsbzAkggGsFlx1UHInK517 MNJ4oJncb7pcCSG4MKMtDMPgAsRlAj1qsHIiG357 ODHlRKYNKSNzsPn9GABssiPyznPpbCIAx155X188 f8hwUXQcfdLubJuImzgvz3fxT082QZUxdROxotQr SzLtYMBnuNBbnES2STOqUS9tuhmrLXraHGwuJGJt ilV0WZQivBZtI9ZcYZJxPT1ptsknWWU0VKzrAJLv JHH3XlKbOBGsu8Owigk0TwUlzy4drx85JLN7p3Fz zZpjIHU8YCN0PjNkJj1shOSpXLZlPE3rCfQpqLSr HWEwrq33zAclGHjoULR7DFOynkQor0Fkb1ysSzFa wdXsP1fpF6DpZKSuJANpPDLpHzZabwRmh5Agj3Eq fYIinQc1t6biQVHxFULayYcrk1xbLVN5YRCnwLPr D5aszU6kNPOxJH3uuabbe1ngCCglOXtvNDZziFK8 xwC0ZPOzfUWvQ8PjhK7jWLGzXFheGHMppin8KwRi Lh3ryNFerZbzIQuyDhezOWpbHYPnjaAvftGuvMjp ZGVjXHBsYWluXHBsYWluXGYwXGZzMjRccWxcbGFu OaXyTmBaaRxtcIluRHydNmDcQJNkYPprS2qhXqAe GrJnMhr8MWUgrPAsQQSdKxd5CXLatYXvLRWVwLtc xB5xKMUwfOqlkB9khET8NWZkaaMzaTHHoL0uZOXR pG4eZcA1YCKhCbs0AZLjDrPayFZjkK8= CPT Code(s) (test code = 3357) e3nytMSxPOVscERbAyCmZIDjQWPol2iqYJMx bGFu WwHzOzOeGpLbFgvqvFBpWYRgHiZgt2gsk682dPOm y3mpLDXjPaG1qWHsAJAhxNCiE343q0rcy6gdeqCp aHU6OEYhKLT1ISigrcEpskP1GExwxIRgIfP6ZNlw akFoVYghggZdwoCcPeo6RVGzN127PAL9qYcac2qm BHP5JQGlKWRoRyDgVn9roKHtD308XUXeIQCLPTRa aFq5WJPgpbTugiEknQWFc744O471f3cvMIFmxeHw vIxKzgjik0oqX072LNSofSAdbfZqJcJbTWVleWZd sJY8LYAdRG9lvhppSxQmQE2yzvslClRvCS7gmbe5 GhXyHR8obittPdVrCDhgGKGhgslwPGDlv3Rmcrpu FH3gK9Pmd5N3vV5bqSGtPCSlzSMoLySoYDVudb5k aGZeUZqtr0IsJZP2czZ2gDTipVJsNVBrAX45Jwuy n5WxZyaaZSW1AZEflrFhj2Wta7laKuSvryVlH1mu U6LgRLZoMVVdKMLeWhNncpMxo0Grv7EkwPDyeCn2 r3zsMGKoOEBagFndv9jtYJF6WHSiQ9C7aUFqh9na XMuqDSJfkGK8cvdpFTwtIKNlyfI7blpoNVtaEJJz mGO7zsemCIcvRSIuAfX7oahvGTbgJEUyQSV2OPsh v359XBZ7PIgwZfthKFfqUOVmxlGhqgUttNblHJNz JIPrPEefDJOkOWwiJXBuOTBiTkKezFcpkEdqhO7a KbAeOoJkJPvdHQ1iLZYlI7uefPVqZCNgWRRxS2nh OdOhwI2erVncLBefsbGeQMw6SnT4OFDgld7= CLINICAL HISTORY (test code = 3356) y2tywWAqOIUeaYKjWxSnDGPhYDXio2b cZGVmbGFu IpFcNkSuGlKvGotmgYKeXVUwSmJux9ryt502fHJq a8krXEIpOmY1jQNdLZHiaMNrL159SXKeYIwon0lf p9AxHKQkaBOau1S1MGLDzemnyJr2jTlnO10rg8N8 XwciO0uwTTRoENfbCDLcFFwwyUYoTJW6RXFpOKA9 MUmpkhGlgqE0QRvwmUJeVmS4PSy0s4fupKpuLGJd CND2z3jyYJglajJiFZ9cea9qxYo2j0vcmwNcDERd DQYkyHSPGDHqL1AurZgsYn6crQy8hDtaNjjiOQN0 Osn6AI1pis22aqs6wRfyDDQkxhdqFhL7JTxjYIGx mjapYMn5YMzsNLMdnSakCOubBYTpmqtzYUxiGLWp jKnyGVovWQMoAlahBEuhZIRgZIO1SZduw189PSR3 QZrfw2yng4yryJBtDvi9NLVbAlXbBiwhOQqvp8Pg o4cnLDZvea9nGKD4rCHckFfne4U5jZIyCFJfoSUv fhOzCIOsInZ2UIdrAC0yhp60POQfEGH1xm3pgKNy fOcjecOpcLOhLBljQ4IqISCbu687AIWfQ9UmLQLx o1H0umRbZmNkZQPdbID7yeM3VIPrMWh8hEKdriE5 dcCtwGQlJ1mxeI51PmCldYXaK4CgnM35ZiNwpBUy O2WreD76KeVoqHGpQ5WqwO41QmHddZYnSMPrhKRm Bu9nyILwjCCqr0RawGOcZOmtI45jc391TVPhfrVu O6slxCSwvqajpMEuccjcZHoduiGcIBEcRICdGNxw APKsRNElZgRxtYrdtD8zQdFhBpNxZGOZrvUoCA8g RSQio6JswQNowWBexv8ofNJ7EGJvycWsIKejgNWd l5rrKKA3 SPECIMEN SOURCE (test code = 3377) i0syoFSxOZOqrOUuYrAsBNYwOEIbw2tx ZGVmbGFu TqRrYaQlDrUdZpmwnAFwMQJcKtRlq8weo935oCZi n2tbQJIsZcA0zGLjRZCkbLGuB067r0zwn6kuimSw bIN4XNLoJFJ3JAprblCrbiC8OOnbtMBaYyO1QOjl hsMeTJmcneAsioHvFve0FHKrO664YIH2pYviz4ie IQB9RLVqHQAsNgWmUk9oyFQfL056QIPmVPQEAKYv pSa9CFTtucFujcXvvKVYm299C852w0mvWGXapuGq oIxFogkfk6xfM639FWNngLGmjaYcZkAdDNRqoPMe uNI6EQGpGO0uucqmXpReXZ3vonqiCcDeHC7vmue9 SaPlZP3ezmqdCcReAGpqDZUgxwddKXMza3Zoatcj GO8aS9Jyj6I0bQ0wlCWiCIBblOVyJrNeBOIxit4k wWNvMDixh5HvGIN0gxJ5bIZhzCBfUWCqQP47Rrjt y4WvKgloDFX5MGIjtzCap1Val3aiVaXishFxC7lm M2BtPVOnTJGrAMWyQbOzqmKpu5Zxf1WmtCBnfHi1 r5cwEWOvXVQtwFgxe2sjEGD9XAAiF9E7pURvi6hu CHqyMQVpgSS4yiqrWSzkLZTtziN5xzqfLDeoXRYy sGD1uedqCKpmNFPyZmE5auzuUKfzZKPsFNW2JClk q866QSU9DQpqHrtvGZafYZUbjzAbflDabLerFJNy INZdEVddFULvQLmvWQPhWIOlAwSmyIsjfXwqhK3s UmWhAmVmDTcpGW1bHXOeN6ibtWWhFGOqVBMqR0vp KjJqtQ1iiNwvPZsimsZmCMzgQvNuOBPuOL4jjMTe bGFuZFxwYXJ9 GROSS DESCRIPTION (test code = 3366) d3fdnRAlSHQwkHYoFeQfKTQfLIOhg6 lcZGVmbGFu KhQlZmWrPmTnXdbdcUReIMXuOvSmg4xep844oRRb w8gkTFWxHtV4pFFyVJAnuSHwW992XGNdBUneq7kp p0GlAEWunGIrt5N0YHPHmibkoJo4cGtqY90gp9M6 AuruE4fyMUQsIXpnUFOnWWgfwLDiEXP6IELfCPX7 AUstaeJhdrT4UUtuqUNoIfR6SUr8i3rjhLccTQDt CUQ8u9dpDDnaocBwDG1ozb9xbYt5d5xadqAyUTSs QJBxbLCCEJZbH8XvnKfjIu5lvOm2zMbkPlacSKW8 Bee4AK5mth77vnt9cTsnCBIpthhhMaX9PYlbMKCu qdjpOCb1BTknRCInrGxyRNxmCQXqzaajXKcmEQQz bSplEHpxMVGmAdlpSFkhNMIbOPY7HUdnr149FUE0 YJhfs1suj6asxHFoXbx4FTZaOtXbWwmdYIlti2Yt c6xhCGEjsv0aJQK0fPRlmLwee5W1aGAhZSYzlVXv ddWcKDTwBzN9RXkfCB3kio66VSCoZAR9qm7llDDu vHstzuEmvXVwHIkwY2VrGHOih318GWBpG7CdRWAl w4H2moQiWvZwLAYpeHI6xaB0FARgVHn4zRRwojP3 xlJjpKNjR4cgcH10WjGiqTMtN6BqsC70AuKxiCLh L1SyfL42WbNywABqC4RemV15VgYgmEPeTDRaaZQn Tq7dkOAtzEUvl2CxxLJiLMkhH01gn570UURrjnRq O7dgkAQdtxnkbIUizrptDKdfbvHwWSYoDJKvTVos AAZqYWGoHlFdaBxisR9qXvBrXcDuHINBGLNvwYZu ZCBmcmVzaCBsYWJlbGVkIHdpdGggdGhlIHBhdGll yeXvblEkMO0mIBMwY7Tch8Iwa52ejqJwZyRyREVd GVYkJKOgLK3seEqxyHVbpNMpqEQiXCX1XNBgrEjd FfK4UEZbUpT6JSUnJ07nPBOdKL8mwWGcbSAvKESi bRKyAVKnYITteXAzZEmnaLE4GP6dmudfcBOwGtLo sqGpFLFvGHAwaDKngeAffPQmWZIbSZadCKiou5Zc QEPpfIHoEZJaUTL1nKEuv8EmT6soRB0muOPxt3Lc mPUkrVpeu9NvjUsmhwHcCRWiFOJubsYeaNKaPIjo hGqrA4zbO7Ehc1DktDBvBBvzaV8ksMa9OLqmgW1j tmteE6ccIO2ph7Sli2s5jQKbZSChkvCyBAlvVRSg WTOtKrXwYDwbTYlawKkakxrtF2DpfUJ8ldS9NB5k b08mtAFsSHQpNC4sWAlnHV3jc4RwvEBkZD56QKdz ND23RKjgQBRxvAUgetZthTDeY49ddTbkaPCgoIYd cqQbp1OnZPkbhHgejsC5qZPdX85txWJ7HdPGwJWp svUdSTuaxK9kNWAieyRuGVixU2ppusYzpYTcW14f UQLiIClarBkbapH3mbX0QO0kGZ4tHRDnf059aD0h ZoXjhwOsKI50BWBbmzEen8RlhAfckcSfKXOvAVN1 Hi9bgCBiEY3yVIPqwxeqNDQrH6QwhDxqrdYqy1Yp MtXBEK2XVAwsxiOmnqAgSF06GYBoqeKkx2Xni12e EWV0kFbfX0Bsb5Nju6ClfLcexgWpKbCyMCGcOjOE Ib2PBjeuzJXrwgC9vjIjyTBuqvNimUMvAYXwCaHQ BI1UJPehbW3bezPfyBAhPGIyWKSaloKbFFbdUE4c dx6uQ6plhZtmQZBxje2= MICROSCOPIC DESCRIPTION (test code = [place]at[place] [id number] LaOoYcFwZgOrClbovBEkUGFdXnVuz3azi576qMBl o8hgAQNxYhJ3gKNbYUSgtITcJ014c4slg7kkozXb uVH0DJApRBY8JTsihdKdmpI3IYinhVJiVdH8ROvo ncJkHQfrrrTawxDmExb8YHGaF574WRX3vSjej2sj TCP0GBXwPQHhApKgIx7ocBXtI927MAQkOQHHAYRi oIy4ASNazqWaaoJkoKYBc126Z000k2gsJUNrypAf aHkIewaff1brA269QWCzbOYhdnTsCpAyZKYhaCUc wBD7BVSqSM5cnhwmXxPmIV8ysfjsNfYbKB6medl3 JuTgGW2flvngCzSqTXavVSSzuzdeOLRcj6Bjjpuh UX3dK6Bxm8O8rN4wyYFjULDqaLYyBcYeMLTuhz9b mJIrZOhit5NjCPF7foG3pNYtjNApTJUpIV88Bkyj k5QfLvfgCIK9TYUemvPgl6Ual2ybFiEaekVpR2bp L1HgMFOpMCDyQFYmHbPraeRoe6Fij4DjuFXbkKo9 g6cgPBHoBDAxcWcsv5iuNFT4PHZtV1V2hGJom7vm SVbcVFVraXB2nbheLLzlVVQumuI7vgqdUYsdESUh xBF4pffwEFgcREFoMtZ4nospBFuoTVGgHVR0UBfu p029ILJ8JSxnPizuIPlbKKFbnlBhdzGwhPycTLKs RZSzFEjsUXCkMPmaFMGgOVOaPcGyzBhgpCvxbK9q BcBgQbKyKOfrHY0kTFIpD3ixtMQzOABvSHTaI2nv OwUrjU8kqXufISemxjPiGXYzvaJqxg5bMX6ngYFw fQ== SPECIAL STUDIES (test code = 3376) t0rtaBTbQZZhwIYtFhItPXBnSNMyk6md ZGVmbGFu EtZsNbFsQwBpJqnstUGjDWLdBcGrx7fkx022bTGk b0ckFMHpLrR6xLCpPNWykKOtS752ISDjJUtml1py n3XoZRUssAItj1G9EBUUILzrNxQmV807VBJoBLoz d4moy6EtRQBtzTCtt1V0APCKkqgfjCm1dIpxN49z t2F3OsmiA1uoKSHiVYCtX7AgTN7oKTZjQjd4TVY7 IGZ8NDMeCURiB5JzYX0jEJJhgVGlQAl7k5erjWis VHQhQOI5r3ixXGrwcmV6RC6dfl4geDa0y6bzbcFn JRLrHFKldWYZMCSzY5GvpHwaIp4seOs0i5sdIzeu wfM7sNUoLcVyZgFiQDvvhZGkspqfLXMmVCE2uQZG TFz1D043i3okFAPippLelVoLvwpgi0wnE328UKMh aJVsvlShOaUzTYKpuARitJA5GVUkVD1ujlwkQzWw ZK1xugdfZaGqED5faxg9GjClTU3vljwtDpIsLYlm FEKorodzRSBfs7AjeqxjVW4qB0Fyj5B5lY3wrTEk BYFzzBWrAsMaTAQwjj1hzVSoTFcoKII6TYKwfcXn n0Vno1iiMhIuubAhA1eyR9RkFWBaIWUiSXGdAjRc btCih1Wvh0JdqPAjcUx8r9fkBODgFYAvjXlzh1jm VQS8ZULkH9V7sIEhn2bxFJodQTRelCW4btqpADda ZISflnE1gtjsCAyeVXQmbYT1ppxkBMdrQEFwHtG1 xkufKXriFDPtFIW3JQkzw606GXK6AUfqRowxSNjt XHBnbmNvbnRccGduZGVjXHBsYWluXHBsYWluXGYw VKImUjTavClirUlmaP3xRoMuCvVaQrirPI3nACUq D3ferUVpDPBgRDPdL5wxEiUuaQ2kqNjhXXipFfKa TmSqGfDNiWVmfN40UOAdzyI2SZMur73ld5BywRlv rzLfSYTwLLcvL1s8VKRmTGRgNBR4b2Xwv7CnuJ4c bP4ohRrwhD2dlRMhiYP6txvkn2Ncp0SfU5vziOLt dGFpbnMuXHBsYWluXGYxXGZzMjJcbGFuZzEwMzNc eFwvqGldDLozScQcZCLzJYyfB1gvDxAwT4NyTSKf LpXqyCCdU0djzVXrPYWtmzlugKRbjrrdFEoovfBd NXxvkionIKGgXEyuQ6beCsPiRLEvbGgySWhwa6Oh BMWnLXJeJxmknfAmIVRfraIfv2ymW9auUVHbYOF9 AW2zoxZeYnCrZU1veG63q0Xgh23ju93xjI8zfXVs vdHpY46liWNpfJCmz4IuKFIgkiXcwGA0ZDDxGOak xlvva4k4rEZ8aGZkpNMccGI8uIFfoBJmDGVTgTPk KGWsv951xr1qOLFicDYkrzWthM6qKZawmuftsKHf VO4sFTJvPEHwYFGqAD40vjOqJI5lnIUwz8pkluXb kDJwr2TntKO0KYOooEWhevroRl4nWX77ZBKxZUcn rS1abODriyOpWL2wSV2uN0X3hUYhFEEmzgXxa1nc OPnrOM8zUWSlsRrcNqxmWNUnCHJrubZjfPG3XSXy dGzlaR5oFeZuIeIhChdvTI3mTBIpL0ggcSJlLIZp KYKiZ4bjUkWahM0fjMjuYOjrBwMcVmWhSpnosXCs gZneTAKsiAyqdR3uUzGhTgPyYfowVI1fDZCuH2ta jXImUDUqJFCqZ0vjFnRrsJ3xoJytFWasBbWyMmIs MiAgXHBsYWluXGYxXGZzMjJcbGFuZzEwMzNcaGlj dAvdKIadLkCnZBRgKCwcX2koOjSoN1VsBLBiLtAb mOMcM3ozjXPyBOZcSAjoRQVeURJwYlKrtZXpKiGa FqZumXihnDkzTJhlPeEbXWSrNRmsD7dnVnQsV0Pu UECbQdVuAF3wtR9ykVvuoH6ouJXtwWV3ssluvJLq oW8hK8GjMOFdw0Tbvnfpb6PtAUZgbdPgvr3eCBOg pNDELOmhm3ZiM4NoHAv2k7DtcRyhfI6dOhIiQeZp SoawUW2eTAScR6amgIObPQGpBEGcV0eoEvOoiA5k nBlyMSbtUvWpPlGoMci5DEUxVgJbNcloBHQuKOgx XGYxXGZzMjJcbGFuZzEwMzNcaGljaFxmMVxkYmNo QVHjCXijI4hpHcMvA5VpDRPhSaXujbDQGUXdI0Wu WPWytsGtnbydGAF5gH7qo4r7GJhzJu0xSGJqwrou g3kkabZxjEHvt2EiCXRvhtWnv1GrNDHngbAvcWWx HSKcgvPlmd9iyjXaBQKmZDCdZ5BvzlnbaSuthbF7 LPVkGCWdyRRooZwrDBWdZWf0QDgkrwMhv7VaPnCp xwRnnAEkeySvOF8gIOHrdZIbrcSnECV4DMIgCJIA BfEyFCWje7MeQP4kJVCprDyeQAHzbC9jf9QqFBNz w17wGGGzSNIZSYCcxGBfUGFbsJLriOuaIDLutGyu eHSkhWGuRUMtTVRnMI1lWDPdmeEkzJImw7AozSPv zkXpc5PztdGxYIDuRWE5XfWOuYSoiZCdcOWatiB4 u4IzFXLjccKdkWaahSQruPZpfTYpf4Jkvn8dHCAr s1oofNbqND1kfPTzSSGmJTihkePvNHKcbbInyaSn u5RxV7K0wY4kSXmak7IzRl0uXLScz4WubbNbBiCJ uJwyVMeuYn0uAKIkqwuvbPUcU6FkoLzkgEAdKQOg RWYnHJBjGEEOeLeuoKKweYWCEYPfuqD1n8W2NRfz sGBgpkZtJL46SKXxJY8teSFuzHOvy3PuMEm3PQTv F2sWKK04ZXgdTRCadBXvmPoymIXsFMXuCYOukzPp fo3vcUecaWIoa01itOO0rKO2GXSgyW1lB5KqQEzt Qf3pOTYsluxuoHGwdNqtDp2tiVxsfW5yLdKqTiEi IsvjDW7eOYFzR9oqgFCgHTRkTXNfM4zlHgTskG0g aFxmMlxmczIyXHBhclxwYXJkXHBsYWluXGYwXGZz XeNkzBoiwF2cNsEhRbPqVEsrQNA3 Gross assessment was performed at (test [facility] enter, code = 2777) Department of Pathology, [address] [place] [address], Technical component was performed at [facility] er, (test code = 2778) Department of Pathology, [address] [place] [id number], Professional component was performed at [facility] enter, (test code = 2779) Department of Pathology, [address] [place] [address], [facility] [id number] 16:10:00Surgical Pathology Report Case: [id number] Authorizing Provider: Gurinder Delgado MD Collected: 07/08/2019 1003 Ordering Location: [facility] PERIOPERATIVE Received: 07/08/2019 1306 SERVICES Pathologist: Love Hernandez MD Specimen: Ad renal, Left, Left adrenal gland A. ADRENAL GLAND,LEFT, ADRENALECTOMY: - BENIGN ADRENAL GLAND WITH NO SIGNIFICANT DIAGNOSTIC ALTERATION. - HEMORRHAGE, ORGANIZING THROMBOSIS AND VASCULAR RECANALIZATION ADJACENT TO THE ADRENAL GLAND. - NOMALIGNANCY IDENTIFIED. Signing Pathologist Direct Phone Line: [phone] signedby Love Hernandez MD on 07/11/2019 at 4:10 [id number] and postop diagnosis: adrenal massLeft adrenal glandReceived [...] is peguero yellow to guo and smooth. [employer] sections are submitted. Section code: A1-A5, school admissions representative of one full cross section of [...] evaluated Immunohistochemistry technical testing was performed at [facility], Pathology Laboratory where it was developed [...] as qualified to perform high complexity clinicallaboratory testing.[facility], Department of Pathology, [address] [place] [address], [facility] of [facility], [address] [place] [address], [facility]qnagcKind[facility], Department of Pathology, [address] [place] [address], [employer]outp Metabolic [id number] 06:54:00 Test Item Value Reference Range Interpretation Comments Sodium (test code = 139 meq/L 975-284 6443-2) Potassium (test code 3.7 meq/L 3.5-5.1 = 2823-3) Chloride (test code = 109 meq/L 98-107 H 2074-0) CO2 (test code = 22 meq/L 22-29 8-9) BUN (test code = 7 mg/dL 7-21 3094-0) Creatinine (test code 0.81 mg/dL 0.57-1.25 = 2160-0) Glucose (test code = 86 mg/dL 70-105 2345-7) Calcium (test code = 8.6 mg/dL 8.4-10.2 42877-2) EGFR (test [place] = [place] [address]-4) CLINICAL DATA T O CALCULATE ESTIMATED GFR. FLORINDA (test code = FLORINDA) Structural Iron Erector ID - GALAP Lab Interpretation Abnormal (test code = 12091-7) [facility] [id number] 06:54:00 Test Item Value Reference Range Interpretation [...] 1092) DATA TO CALCULA TE ESTIMATED GFR. Structural Iron Erector ID - GALAPCBC with platelet count + automated [id number] 05:35:00 Test Item Value Reference Range Interpretation [...] 450 K/CU MM MPV (test code = 43993-1) 10.4 fL 9.4-12.4 nRBC (test code = [...] 2801) Lab Interpretation (test code = Abnormal 34280-9) [facility] W/PLT COUNT & AUTO [id number] 05:35:00 Test Item Value Reference Range Interpretation [...] (BEAKER) (test code = 2801) BASIC METABOLIC [id number] 10:13:00 Test Item Value Reference Range Interpretation [...] 1092) DATA TO CALCULA TE ESTIMATED GFR. Structural Iron Erector ID - [place] FCBC W/PLT COUNT & AUTO [id number] 09:50:00 Test Item Value Reference Range Interpretation [...] (BEAKER) (test code = 2801) BASIC METABOLIC [id number] 11:58:00 Test Item Value Reference Range Interpretation [...] 1092) DATA TO CALCULA TE ESTIMATED GFR. Structural Iron Erector ID - [place] FHemoglobin and [id number] 11:41:00 Test Item Value Reference Range Interpretation Comments Hemoglobin (test code = 11.7 13.7- 17.5 GM/DL L 786-4) Hematocrit (test code = 34.9 % 40.1-51 L 4544-3) FLORINDA (test code = FLORINDA) Structural Iron Erector ID - [id number] Lab Interpretation (test Abnormal code = 17286-9) [facility] HospitalHEMO[facility]IN AND [id number] 11:41:00 Test Item Value Reference Range Interpretation Comments HEMOGLOBIN (BEAKER) (test code = 11.7 GM/DL 13.7-17.5 L 410) HEMATOCRIT (BEAKER) (test code = 34.9 % 40.1-51.0 L 411) Structural Iron Erector ID - [id number], [id number] 07:44:00 Test Item Value Reference Range Interpretation Comments ABO Grouping (test code = 2588) O Rh Factor (test code = 2589) [facility], [id number] 07:08:00 Test Item Value Reference Range Interpretation Comments ABO/RH AUTOMATED (BEAKER) (test O POSITIVE code = 2260) Ab Scrn (test code = 890-4) NEGATIVE [facility] [id number] 11:35:00 Test Item Value Reference Range Interpretation Comments Result (test code = 6463-4) No growth [facility] [id number] 11:35:00 Test Item Value Reference Range Interpretation Comments CULTURE (BEAKER) (test code = 1095) No growth Urinalysis w/Microscopic + Reflex to [id number] 14:23:00 Test Item Value Reference Range Interpretation Comments Color, UA (test code = Yellow 5778-6) Clarity, UA (test code Clear = 5767-9) Specific [place], UA 1.005 1.001-1.035 (test code = 5811-5) pH, UA (test code = 7.0 5.0-8.0 5803-2) Protein, UA (test code Negative Negative = 11174-6) Glucose, UA (test code Negative Negative = 365) Ketones, UA (test code Negative Negative = 2514-8) Bilirubin, UA (test Negative Negative code = 14536-5) Blood, UA (test code = Negative Negative 48832-3) Nitrite, UA (test code Negative Negative = 5802-4) Leukocytes, UA (test Negative Negative code = 5799-2) Urobilinogen, UA (test 0.2 mg/dL 0.2-1 code = 24022-1) RBC, UA (test code = <1 /HPF 63908-6) WBC, UA (test code = 2 /HPF 5821-4) Bacteria, UA (test code Rare = 70790-8) Specimen Source (test code = 2795) FLORINDA (test code = FLORINDA) Structural Iron Erector ID - [auto]Structural Iron Erector ID - tech [facility]/ REFLEX URINE [id number] 14:23:00 Test Item Value Reference Range Interpretation [...] 517) Rare SOURCE(BEAKER) (test code = 2795) Structural Iron Erector ID - [auto]Structural Iron Erector ID - techComprehensive metabolic [id number] 13:52:00 Test Item Value Reference Range Interpretation Comments Protein, Total 7.3 6.0- 8.3 gm/dL (test code = 2885-2) Albumin (test code 4.4 g/dL 3.5-5 = 83992-3) Alkaline 73 U/L 40-150 Phosphatase (test code = 6768-6) Total Bilirubin 0.8 mg/dL 0.2-1.2 (test code = 1975-2) Sodium (test code = 137 meq/L 666-726 2079-2) Potassium (test 3.9 meq/L 3.5-5.1 code = 2823-3) Chloride (test code 104 meq/L 98-107 = 2075-0) CO2 (test code = 26 meq/L 22-29 2027-9) BUN (test code = 11 mg/dL 7- 3094-0) Creatinine (test 0.96 mg/dL 0.57-1.25 code = 2160-0) Glucose (test code 96 mg/dL 70-105 = 2345-7) Calcium (test code 9.9 mg/dL 8.4-10.2 = 56480-0) AST (test code = 23 U/L 5-34 1920-8) ALT (test code = 25 U/L 6-55 1742-6) EGFR (test code = [place] [address]-2) CLINICAL DATA T O CALCULATE ESTIM ATED GFR. FLORINDA (test code = Structural Iron Erector ID - FLORINDA) [facility] CenterCOM[facility] METABOLIC [id number] 13:52:00 Test Item Value Reference Range Interpretation [...] = 382) CO2 (BEAKER) (test 26 meq/L code = 355) BLOOD UREA NITROGEN 11 [...] 1092) DATA TO CALCULA TE ESTIMATED GFR. Structural Iron Erector ID - ROSIANGCBC W/PLT COUNT & AUTO [id number] 13:10:00 Test Item Value Reference Range Interpretation [...]
--- OUTSIDE RECORDS SUMMARY | 2020-04-16 11:27 | XMS REPORT | Clinical Summary ---
:1950 Author Organization [facility] Address [address] [place] [address] Care Team Providers Name Role Phone Unavailable [...] Comments Blood Pressure 157/87 07/10/2019 8:00 AM GLAZE WIPER Pulse 87 07/10/2019 8:00 AM GLAZE WIPER Temperature 36.8 C (98.2 F) 07/10/2019 8:00 AM GLAZE WIPER Respiratory Rate 18 07/10/2019 8:00 AM GLAZE WIPER Oxygen Saturation 97% 07/10/2019 8:00 AM GLAZE WIPER Inhaled Oxygen Concentration - - Weight 105.5 kg (232 lb 9.4 oz) 07/08/2019 5:41 AM GLAZE WIPER Height 182.9 cm (6') 07/08/2019 5:41 AM GLAZE WIPER Body Mass Index 31.54 07/08/2019 5:41 AM GLAZE WIPER Plan of Treatment Health Maintenance Due Date Last Done Comments COLON CANCER SCREENING COLONOSCOPY 1950 MEDICARE ANNUAL WELLNESS (YEAR 2 or FIRST 07/20/2018 YEAR if no IPPE) INFLUENZA VACCINE (#1) 2020 02/06/2019 PNEUMOCOCCAL 65+ YRS Completed 02/24/2019, 01/28/2019 Procedures Procedure Name Priority Date/Time Associated Comments Diagnosis RHYTHM STRIP - SCAN 07/15/2019 9:22 AM GLAZE WIPER CBC W/PLT COUNT & GAIL 07/10/2019 4:34 Result s for this AUTO DIFFERENTIAL AM GLAZE WIPER procedure are in the results section. BASIC METABOLIC PANEL GAIL 07/10/2019 4:34 Re sults for this (7) AM GLAZE WIPER procedure are i n the results section. CBC W/PLT COUNT & GAIL 07/10/2019 4:34 Result s for this AUTO DIFFERENTIAL AM GLAZE WIPER procedure are in the results section. TRANSFUSION SERVICE 07/09/2019 5:51 REPORT - SCAN PM GLAZE WIPER CBC W/PLT COUNT & GAIL 07/09/2019 8:43 Result s for this AUTO DIFFERENTIAL AM GLAZE WIPER procedure are in the results section. BASIC METABOLIC PANEL GAIL 07/09/2019 8:43 Re sults for this (7) AM GLAZE WIPER procedure are i n the results section. CBC W/PLT COUNT & GAIL 07/09/2019 8:43 Result s for this AUTO DIFFERENTIAL AM GLAZE WIPER procedure are in the results section. BASIC METABOLIC PANEL STAT 07/08/2019 11:15 Re sults for this (7) AM GLAZE WIPER procedure are i n the results section. HEMOGLOBIN AND STAT 07/08/2019 11:15 Results f or this HEMATOCRIT AM GLAZE WIPER procedure are i n the results section. TISSUE EXAM AP Routine 07/08/2019 10:03 Results for this AM GLAZE WIPER procedure are i n the results section. LAPAROSCOPY,ADRENALEC 07/08/2019 7:15 Adrenal mass (H CC) SAIDA AM GLAZE WIPER Case Notes 4 HRS Special Needs (3D SCOPE, [place]) ABORH, MANUAL STAT 07/08/2019 6:19 AM GLAZE WIPER Res ults for this procedure are i n the results section . TYPE AND SCREEN, AUTOMATED Routine 07/08/2019 5:52 AM GLAZE WIPER Results for this procedure are i n the results section . CBC W/PLT COUNT & AUTO Routine 06/25/2019 12:53 PM GLAZE WIPER Results for this DIFFERENTIAL procedure are i n the results section . COMPREHENSIVE METABOLIC Routine 06/25/2019 12:53 PM GLAZE WIPER Results for this PANEL procedure are i n the results section . CBC W/PLT COUNT & AUTO Routine 06/25/2019 12:53 PM GLAZE WIPER Results for this DIFFERENTIAL procedure are i n the results section . URINALYSIS W/ REFLEX URINE Routine 06/25/2019 12:53 PM GLAZE WIPER Results for this CULTURE procedure are i n the results section . URINE CULTURE Routine 06/25/2019 12:53 PM GLAZE WIPER Res ults for this procedure are i n the results section . after 04/16/2019 Results RHYTHM STRIP - SCAN (07/15/2019 9:22 AM GLAZE WIPER) Narrative Performed At This result has an attachment that is no t available. CBC with platelet count + automated diff (07/10/2019 4:34 AM GLAZE WIPER)Only the most recent of3 resultswithin the time period is included. Pathologist Sig nature WBC 5.6 3.5 - 10.5 [facility] K/L [facility] RBC 3.64 (L) 4.63 - 6.08 [facility] M/L [facility] Hemoglobin 11.1 (L) 13.7 - 17.5 [facility] GM/DL [facility] Hematocrit 34.5 (L) 40.1 - 51.0 % [facility] MCV 94.8 (H) 79.0 - 92.[address] [facility] MCH 30.5 25.7 - 32.[address] [facility] MCHC 32.2 (L) 32.3 - 36.5 [facility] GM/DL [facility] RDW 13.5 11.6 - 14.4 % [facility] Platelets 239 150 - 450 K/CU [facility] MPV 10.4 9.4 - 12.[address] [facility] nRBC 0 0 - 0 /[address] [facility] % Neutros 64 % [facility] % Lymphs 25 % [facility] % Monos 8 % [facility] % Eos 3 % [facility] % Baso 0 % [facility] # Neutros 3.55 1.78 - 5.38 [facility]/L [facility] # Lymphs 1.40 1.32 - 3.57 [facility]/L [facility] # Monos 0.46 0.30 - 0.82 [facility] # Eos 0.15 0.04 - 0.54 [facility]/L [facility] # Baso 0.02 0.01 - 0.08 [facility]/L [facility] Immature 0 0 - 1 % [facility] Granulocytes-Relative [facility] Specimen Blood Performing Organization Address City/[facility]/Zipcode Phone Number [facility] [address] [place] [address] [place] Basic Metabolic Panel (07/10/2019 4:34 AM GLAZE WIPER)Only the most recent of3 results within the time period is included. Sodium 139 136 - 145 [facility] meq/[facility] Potassium 3.7 3.5 - 5.1 [facility] meq/[facility] Chloride 109 (H) 98 - 107 meq/L [facility] CO2 22 22 - 29 meq/L [facility] BUN 7 7 - 21 mg/dL [facility] Creatinine 0.81 0.57 - 1.25 [facility] mg/dL [facility] Glucose 86 70 - 105 mg/dL [facility] Calcium 8.6 8.4 - 10.2 [facility] mg/dL [facility] EGFR Comment: INSUFFICIENT [facility] CLINICAL DATA TO [facility] CALCUL[facility] ESTIMATED [facility] GFR. Specimen Blood Narrative Performed At Face Man MATTHEW - PAOLA [facility] ICAL [place] Performing Organization Address City/State/Zipcode Phone Number [facility] [address] [place] [address] [place] TRANSFUSION SERVICE REPORT - SCAN (07/09/2019 5:51 PM GLAZE WIPER) Narrative Performed At This result has an attachment that is no t available. Hemoglobin and hematocrit (07/08/2019 11:15 AM GLAZE WIPER) Pathologist Sig nature Hemoglobin 11.7 (L) 13.7 - 17.5 GM/DL [facility] Hematocrit 34.9 (L) 40.1 - 51.0 % [facility] Specimen Blood Narrative Performed At Face Man ID - 6000 [facility] Performing Organization Address City/State/Zipcode Phone Number [facility] [address] [place] [address] CENTER Tissue Exam (07/08/2019 10:03 AM GLAZE WIPER) Case Report Surgical Pathology Report Case: [id number] [facility] Authorizing Provider: Gurinder Ford MD Collected: 07/08/2019 1003 [facility] Ordering Location: [facility] PERIOPERATIVE Received: 07/08/2019 1306 [facility] SERVICES Pathologist: Love Hernandez MD Specimen: Adrenal, Left , Left adrenal gland DIAGNOSIS [facility] Electronically A. ADRENAL GLAND, LEFT, ADRENALECTOMY: HE [facility] signed by David, - BENIGN ADRENAL GLAND WITH NO SIGNIFICANT D IAGNOSTIC ALTERATION. [facility] MD Love on - HEMORRHAGE, ORGANIZING THROMBOSIS AND VASCULAR R ECANALIZATION 07/11/2019 at 4:10 ADJACENT TO THE ADRENAL GLAND. PM - NO MALIGNANCY IDENTIFIED. Signing Pathologist Direct Phone Line: [phone] CPT Code(s) [address]73 [facility] CLINICAL HISTORY Pre and postop diagnosis: [facility] adrenal mass [facility] SPECIMEN SOURCE Left adrenal gland [facility] GROSS DESCRIPTION Received fresh labeled with the patient's name, accession number and "adrenal, left" is a 58 gm, 7 x 4.7 x 4 cm adrenal gland surfaced by a glistening membrane. The outer surface is inked blue, and the [facility] specimen is serially section ed to reveal a well-circumscribed, mostly hemorrhagic mass with a central area of pale yellow, sorensen to guo solid area. The mass is 5.5 x 4.7 x 4 cm and is completely encased [facility] within the cortex. The deejay quach adrenal gland is peguero yellow to guo and smooth. Property Man sections are submitted. [facility] Section code: A1-A5, represe ntative of one full cross section of mass; A6-A7, mass to outer surface; A8-A9, uninvolved adrenal glands. CG/pl MICROSCOPIC Performed. [facility] MEDICAL [place] SPECIAL STUDIES The interpretation of this c ase included the use of immunohistochemistry or special stains. [facility] Control Slides Examined: In -house known positive controls were evaluated along with the test tissue. These control slides run alongside of the patients sample show appropriate staining. [facility] cathy and negative controls when available are evaluated Immunohistochemistry technic donaldo testing was performed at [facility], Pathology Laboratory where it was developed and its performance characteristics were determined. It has not be en cleared or approved by [facility] U.S. Food and Drug Administration. The FDA has determined that such clearance or approval is not necessary. The test is used for clinical purposes. It should not be regarde d as investigational or for research. This laboratory is certified under the Clinical Laboratory Improvement Amendments of 1988 (CLIA-88) as qualified to perform high complexity clinical laboratory testing. Gross assessment [facility] was performed at [facility] Pathology, [address] [place] [id number], Technical [facility] component was [facility] performed at Pathology, [address] [place] [id number], Professional [facility] component was [facility] performed at [address] [address], Specimen Tissue - Structure of left adrenal gland (body structure) Performing Organization Address City/State/Zipcode Phone Number [facility] MEDICAL [address] [place] [phone] CENTER ABORH, manual (07/08/2019 6:19 AM GLAZE WIPER) Pathologist Sig nature ABO Grouping O [facility] Rh Factor POS [facility] Specimen Blood Performing Organization Address City/[facility]/Zipcode Phone Number [facility] [address] [place] [address] Type and screen, automated (07/08/2019 5:52 AM GLAZE WIPER) Pathologist Sig nature ABO/RH AUTOMATED O POSITIVE [facility] Ab Scrn NEGATIVE [facility] Specimen Blood Performing Organization Address [facility]/Zipcode Phone Number [facility] [address] [place] [address] Urinalysis w/Microscopic + Reflex to Culture (06/25/2019 12:53 PM GLAZE WIPER) Pathologist Sig nature Color, UA Yellow [facility] Clarity, UA Clear [facility] Specific [place], UA 1.005 1.001 - 1.035 [facility] pH, UA 7.0 5.0 - 8.0 [facility] Protein, UA Negative Negative [facility] Glucose, UA Negative Negative [facility] Ketones, UA Negative Negative [facility] Bilirubin, UA Negative Negative [facility] Blood, UA Negative Negative [facility] Nitrite, UA Negative Negative [facility] Leukocytes, UA Negative Negative [facility] Urobilinogen, UA 0.2 0.2 - 1.0 mg/dL [facility] RBC, UA <1 /HPF [facility] WBC, UA 2 /HPF [facility] Bacteria, UA Rare [facility] Specimen Source [facility] Specimen Urine - Urine (substance) Narrative Performed At Face Man ID - [auto] [facility] Face Man ID - tech Performing Organization Address [facility]/Zipcode Phone Number [facility] [address] [place] [address] [place] Urine culture (06/25/2019 12:53 PM GLAZE WIPER) Pathologist Sig nature Result No growth [facility] Specimen Urine - Urine specimen collection, clean catch (procedure) Performing Organization Address City/State/Zipcode Phone Number [facility] [address] [place] [address] [place] Comprehensive metabolic panel (06/25/2019 12:53 PM GLAZE WIPER) Protein, Total 7.3 6.0 - 8.3 [facility] gm/dL [facility] Albumin 4.4 3.5 - 5.0 [facility] g/dL [facility] Alkaline 73 40 - 150 U/L [facility] Phosphatase [facility] Total Bilirubin 0.8 0.2 - 1.2 [facility] mg/dL [facility] Sodium 137 136 - 145 [facility] meq/L [facility] Potassium 3.9 3.5 - 5.1 [facility] meq/L [facility] Chloride 104 98 - 107 [facility] meq/L [facility] CO2 26 22 - 29 [facility] meq/L [facility] BUN 11 7 - 21 mg/dL [facility] Creatinine 0.96 0.57 - 1.25 [facility] mg/dL [facility] Glucose 96 70 - 105 [facility] mg/dL [facility] Calcium 9.9 8.4 - 10.2 [facility] mg/dL [facility] AST 23 5 - 34 U/L [facility] ALT 25 6 - 55 U/L [facility] EGFR Comment: [facility] CLINICAL DATA TO MEDICAL CENTER CALCULATE ESTIMATED GFR. Specimen Blood - Entire left upper arm (body stru cture) Narrative Performed At Face Man ID - KRISTYG RAFAT [facility] Performing Organization Address City/State/Zipcode Phone Number [facility] [address] [place] [address] CENTER after 04/16/2019 Insurance Payer Benefit Plan / Subscriber ID Effective Dates Phone Addre ss Type Group MEDICARE MEDICARE A B [id number] 2017-Present Medicare AETNA - MGD CARE AETNA INDEMNITY [id number] 2017-Present Comm NON CONTR
--- OUTSIDE RECORDS SUMMARY | 2020-04-16 11:27 | XMS REPORT | Clinical Summary ---
:1950 Author Organization [facility] Address [address] [place] [address] Care Team Providers Name Role Phone Jonathan [...] vascular disease 04/18/2016 Coronary artery disease involving [place] heart without angina pectoris 04/18/2016 Encounters Date Type Specialty Care Team Description 09/09/2019 Telemedicine Cardiology Sina Jaquez MD Thoracic aortic aneurysm without rupture (HCC) (Primary Dx); Essential hyper tension; Coronary artery disease involving [place] coronary artery of [place] heart without angina pectoris 09/08/2019 Travel 08/22/2019 [...] U LTRASOUND; Surgeon: Zack burgos MD; [place] [facility] [place]; Service: General ; Laterality: N/A; Medical devices from this surgery are in t he Implants section. LAMINECTOMY, LUMBAR, WITH 07/26/2018 Back/Posterior Proced ure: LUMBAR FORAMINOTOMY OR FACETECTOMY, GONZALEZ INECTOMY, MEDIAL 1 LEVEL FACETECTOMY, AND FORAMINOTOMY AT RIGHT L3-L4, EMG; Ivan geon: Joce Min MD; Location: [facility] [place]; Service: Neuros urgery; Laterality: Post erior; [...] Additional history exists Implants Implanted Type Area Burlap Bag Sewer Device Shelf Model / Identifier Expiration Serial / Date Lot Clip Ligtng Weck Hemoclip Plus W/ Tape Ti Med - [id number] Medic al [employer] [id number] / Implanted: Qty: 2 on 01/11/2018 by Zack Driscoll MD at [facility] Clips for / Internal Use Clip Ligtng Weck Hemoclip Plus W/ Tape Ti Sm - [id number] Medical WECK CLOSURE [id number] / Implanted: Qty: 2 on 01/11/2018 by Zack Driscoll MD at [facility] Clips for SYSTEMS / Internal Use Results Not on fileafter 04/16/2019 Insurance Payer Benefit Plan / Subscriber ID Effective Dates Phone Addre ss Type Group MEDICARE MEDICARE PART A AND [id number] 2017-Senthil [facility] [place] Medicare B t AETNA AETNA [facility] [id number] 2000-Senthil douglas [phone] (Work) Advance Directives For more information, please contact: [phone] Type Date Recorded 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
--- OUTSIDE RECORDS SUMMARY | 2020-04-16 11:28 | XMS REPORT | Continuity of Care Document ---
:1950 Author Organization [facility] t Address [address] [place] [place] [address] Care Team Providers Name Role Phone Noah TAYLOR Castillo Primary Care Physician Michael Jaquez MD Attending Clinician Kerrie Delgado MD Attending Clinician DWAIN DELGADO Attending Clinician Unavailable Dwain Delgado MD Attending Clinician Wes Nava MD Attending Clinician DWAIN DELGADO Admitting Clinician Unavailable Payers Payer Name Policy Type Policy Effective Date Expiration Date Sour ce Number MEDICAREMEDICARE PART [id number] 2017-07-19 Cm rebollar A AND 00:00:00 [facility] [id number]/05[place] [id number] 2000-05-21 [facility] 00:00:00 Congregation [id number] y MEDICAREMEDICARE A [id number] 2017-07-19 [place]AT [place] [id number]/05/2017- 00:00:00 - [facility]a gilical [facility] AETNA - MGD CAREAETNA [id number] 2017-07-19 RAFAT Watson INDEMNITY NON 00:00:00 - Medical [id number]/ Mp ter 8-PresentComm Problems Condition Condition Condition Status Onset Resolution Last Treating Co mments Source Name Details Category Date Date Treatment Clinician Date Adrenal Adrenal Disease Active [facility] - [facility]: Medical [...] aorta 00 Aortic Aortic Disease Active 2015-05 [facility] valve valve 06-18 [facility] regurgitat regurgitat 00:00: st ion ion 00 Essential Essential Disease Active 2015-05 Darshana ston hypertensi hypertensi 06-18 Me thodi on on 00:00: st 00 Peripheral Peripheral Disease Active 2015-05 H jimmie vascular vascular 06-18 Method i disease disease 00:00: st 00 Coronary Coronary Disease Active 2015-05 [place] artery artery 06-18 [facility] disease disease 00:00: st involving involving 00 anvik anvik heart heart without without angina angina pectoris pectoris Allergies, Adverse Reactions, Alerts This patient has no known allergies or adverse reactions. Family History Family Member Diagnosis Comments Start Date Stop Date Source Natural mother Heart attack [facility] Other Heart attack [facility] Meth odist Social History Social Habit Start Date Stop Date Quantity Comments Source Sex Assigned At [facility] Tobacco use and 2019-07-08 2019-07-08 Never used [facility] - exposure 00:00:00 00:00:00 [facility] Alcohol intake 2019-07-08 2019-07-08 Current drinker [facility] [place] - 00:00:00 00:00:00 [facility] ([facility] Alcohol Comment 2019-06-25 2019-06-25 occasional [facility] - 00:00:00 00:00:00 [facility] Cigarettes smoked 2018-07-29 2018-07-29 Mar Lin current (pack per 00:00:00 00:00:[address] day) - Reported Cigarette 2018-07-29 2018-07-29 Mar [facility] pack-years 00:00:00 00:00:00 [facility] Tobacco Comment 2018-01-01 2018-01-01 stopped 2009 [facility] 00:00:00 00:00:00 [facility] History of tobacco 2009-06-[address] [facility] Smoking Status Start Date Stop Date Source Former smoker 2019-07-08 00:00:00 2019-07-08 00:00:[address] [facility] [address] [facility] Medications Ordered Filled Start Stop Current Ordering Indication Dosage Frequency Signature Comments Components Source Medication Medication Date Date Medication? Clinician (SIG) Name Name allopurinol 2020-0 Yes 300mg QD Take [address] (ZYLOPRIM) 2-20 mg by [facility] - 300 MG 09:20: mouth Medical tablet 49 daily. [place] amlodipine- 2020-0 Yes 1{capsu QD Take [address] benazepril 2-20 le} capsule by Mariaa es - (LOTREL) 09:20: mouth Medical 10-20 mg 49 daily. [place] per capsule doxazosin 2020-0 Yes 2mg Q.5D Take [address] (CARDURA) 2 2-20 by mouth 2 Geovanna kes - MG tablet 09:20: (two) Medical 49 times Center daily. metoprolol 2020-0 Yes 200mg QD Take [address] (TOPROL-XL) 2-20 mg by [facility] - 200 MG 24 09:20: mouth Medical hr tablet 49 daily. [place] losartan 2020-0 Yes 100mg QD Take [address] (COZAAR) 2-20 mg by [facility] - 100 MG 09:20: mouth Medical tablet 49 daily. [place] zinc 2020-0 Yes 50mg QD Take [address] gluconate 2-20 by mouth [facility] - 50 mg 09:20: daily. Medical tablet 49 [place] vitamin E 2020-0 Yes 400U QD Take [address] 400 UNIT 2-20 Units by [facility] - capsule 09:20: mouth Medical 49 daily. [place] cholecalcif 2020-0 Yes 2000U QD Take 2,[address] myrna, 2-20 Units by [facility] - vitamin D3, 09:20: mouth Medic al 2,000 unit 49 daily. [place] Tab magnesium 2020-0 Yes QD Take by [...] HIGH-DOSE PF 2019-02-06 Completed [place] 00:00:00 [facility] Vital Signs Vital Name Observation Time Observation Value Comments Source Systolic blood 2019-07-10 08:00:00 157 mm[Hg] [facility] Diastolic blood 2019-07-10 08:00:00 87 mm[Hg] [facility] Heart rate 2019-07-10 08:00:00 87 /min [facility] Body temperature 2019-07-10 08:00:00 36.78 Kristie [facility] Respiratory rate 2019-07-10 08:00:00 18 /min [facility] Oxygen saturation in 2019-07-10 08:00:00 97 /min [facility] Arterial blood by Medical Ce nter Pulse oximetry Body height 2019-07-08 05:41:00 182.9 cm [facility] Body weight 2019-07-08 05:41:00 105.5 kg [facility] BMI 2019-07-08 05:41:00 31.54 kg/m2 [facility] Procedures Procedure Date / Time Performed Performing Clinician Sour e RHYTHM STRIP - SCAN 2019-07-15 09:22:16 Provider, Default [facility] BASIC METABOLIC PANEL (7) 2019-07-10 04:34:00 Leroy Workman [facility] CBC W/PLT COUNT & AUTO 2019-07-10 04:34:00 Leroy Workman [facility] S [facility] TRANSFUSION SERVICE 2019-07-09 17:51:44 Provider, Default [facility] - REPORT - SCAN [facility] BASIC METABOLIC PANEL (7) 2019-07-09 08:43:00 Leroy Workman CH [facility] CBC W/PLT COUNT & AUTO 2019-07-09 08:43:00 Leroy Workman [facility] S [facility] HEMOGLOBIN AND HEMATOCRIT 2019-07-08 11:15:00 Luther Santo [facility] BASIC METABOLIC PANEL (7) 2019-07-08 11:15:00 Luther Santo [facility] TISSUE EXAM 2019-07-08 10:03:00 Gurinder Delgado [facility] LAPAROSCOPY,ADRENALECTOMY 2019-07-08 07:15:[address] [facility] ABORH, MANUAL 2019-07-08 06:19:00 Morelia Leo [facility] TYPE AND SCREEN, 2019-07-08 05:52:00 Luther Santo [facility] - AUTOMATED [facility] URINE CULTURE 2019-06-25 12:53:00 Gurinder Delgado [facility] URINALYSIS W/ REFLEX 2019-06-25 12:53:00 Gurinder Delgado [facility] URINE CULTURE [facility] COMPREHENSIVE METABOLIC 2019-06-25 12:53:00 Gurinder Delgado [facility] CBC W/PLT COUNT & AUTO 2019-06-25 12:53:00 Gurinder Delgado [facility] Plan of Care Planned Activity Planned Date [...] Future Scheduled 2002 COLONOSCOPY SCREENING [place] [facility] Test 00:00:00 [code = COLONOSCOPY SCREENING] Future Scheduled 2002 SHINGLES VACCINES [place] [facility] Test 00:00:00 (#1) [code = SHINGLES VACCINES (#1)] Future Scheduled [address] - Test 00:00:00 malignant neoplasm of Medica l Center colon (procedure) [code = 228079233] Encounters Start End Encounter Admission Attending Care Care Encounter Source Date/Time Date/Time Type Type Clinicians Facility Department ID 2019-09-09 2019-09-09 Outpatient [facility] [id number] [facility] 00:00:00 00:00:[address] 2019-07-23 2019-07-23 Office OSIEL Delgado [id number] 15:02:12 16:42:42 Visit Gurinder Kerrie AMBULATOR [id number] Y [id number] 300 Results Test Description Test Time Test Comments Results Result Comments Source Tissue Exam 2019-07-11 16:10:00 Test Item Value Reference Range Interpretation Comme nts Case Report (test code = 104) Surgical Pathology Report Case: [id number] Authorizing Provider: Gurinder Delgado MD Collected: 07/08/2019 1003 Ordering Location: [facility] PERIOPERATIVE Received: 07/08/2019 1306 SERVICES Pathologist: Love Hernandez MD Specimen: Adrenal, Left, Left adrenal gland DIAGNOSIS (test code = 3220) t7ervCOrDQAve0clLOBegGRhYhGiPjYqHiHyHm pc jUPgBOvriiFoJHfaz5SaU9SoHbUrKHpbcuStMAOw JqlmyribOPRdVYP6ayIoGITyELhaGWJoLRwyLd5n oMDzpKzsOfEbKXHam1pczmBPffydgCo0x7whPVDe HoBdcCKiDAlrO3drihUsnFMpRTWcKLj0pGfbUtMn DHExv6lqveJwKrQaDXRyJATrFWIilQBtQ035m7ww x0egurCbzYU1PLGgXHAxD2LjBN1rOBOjpBOiMQar htBnAnR6QWzeBRNfJoN5UNIdyVZsBNYxP1reRKJp ZSomwmPybmQ9POIwdPOcXAZ4jPpog9W0hGRefJVx hZlrVjYcNmNjGHYRf2KnXWw1eOakZ3PdWDVrOlR2 tJEtFXYfEXzlSJSgRLEekdG2wB69TVrtiqG5gNFv u3Gvn87ev431kI8xkAAiYUF6UQWdZHNdgNFrTCCy ZUM1ULEmiYNyO1l5SnKrvLDsN2W5DdLokRUoF7Z3 BxYtwGOpK3M6OhEuvAOwTILbxDOrSb4hxXQygVNt sz6nbs16EOR1k0PasEytBDY4URV7TtYyLx1btZTt XYJfNF4pRyHpnCSeOIMoxi52vNboTBfxonCzrJ5k ThVqRD8mrNgos79cAQOjQD3wuZ9bvf1rwxSbUHzi gCOxeGK9afrxSVI5JFZfqaBiy6Mtz3kqMnDorwLu W2xlE5LpCSBuMUPuGKTfDlCmpbKgx2Jdp3LjgMWv sNy7v1ygVWGkGZOhjCwlz9odTJZ5EPRfV8Y3xUKl y3xqMCabBJZkbEC9optiCZuaRYYjovP2necmBRnu MSNthIV2zjghEJntJLIkAbV6ldomVThhNCOmXLP8 DIhfv696CCE4GFxjFwhkHPljBRQnqfSfbfWzlOwg ZGVjXHBsYWluXHBsYWluXGYwXGZzMjBccWxccGxh yX3mUzLiFqSbLVqfnODxmxjnRIswmqGpKASmzhGC ZlKKJLORPsQQKWjMQQ7YMAFRZKUUVBFZJXIMOzXE NDUUV80LApvaXVQnNSRuGY9iCmTKKFiFYTOQWuHB EVypH9dFJwAvZ3cOHRGfbVjpwC6wVuBeBiIkUFuw EZ6aBOEtU9vhdKDnAKGzMLSeA5ptGdNonP7puMsj SYttKyIdOwWkZXurdNAzvPWXBpMZRWpEJBYGH9RN NGTCNNNGSr6LDExXDNLTXSQUPYYUO31zaVgaaQ0k WvHsXsOtPWhhUG2jVEGnC8vmwVTaYFOoYBAbU1ki CfNsiV8ahIwtJvaaYmAsQwQdTYYfBMRsVPgwNQTx BFXqMmFvnQAmFSUiHKMaNOwLUE0SZenYV2OkKU0X L5PPZPmLVhhkUNnJY09MR8XCOgKBAzWdVgQYI0SS ERJqLrKHKB8JCEmaZFLPY32nVIRectNpCHTrINUU CKvLN5ZVUCLGJwOKCMUpWWLRWS8FNMMESGDVCH1g oEHeCLToTEFkJV8ODX8FTMvDMeBYC3rbCPHDBzFZ YgwVQT8bpGRufWbdnjVcAQwde4FeTKjeIKJiRZ0t dMmdRSEsHF4wWQGoZ3bkrT5alzf9PhBdOZGqVyM1 UEBkqnO6Sgh6NCDdJOjux2bju3JmZQCzJVs2tXll DyAgHDLkf6puesIdDeEfLGEoGIVuOTSsdXJeA700 g7nmm8cmgrYkdRF0NJGkXKM9EXmfxbDqwlA1RAqy xOYcDtX7QJplxhRtUUkaniGczcNkPac4YAEoB917 OZX3cLxcy2lcCZS4EPGiSMSkGqDaCx2suOCgH044 ZWKxWBOQNEIjgVh8UMZquzYqhbGhlGMXb472R855 a4pmDJFhfbEfqWoBepauf1wsR490DYLrnLEfmzIa FoJnBOGzvBUhwOH0XWYqRC1wsqijEKpgXZkoKETt leZ1QWFitRBcA2WbFQWeWQ1nxrqaILL0SIrzEQHb JVB6FyXtIGFqi6Wvmla8NvKyrj6dsy86UAR8y5Jb yLiuJDF1LIV8LhCvPz7xnJZmYGMiXZ1fVgAliPEa NESafq83jMybBQcpTDG7KRFbjkCqo8Xtx1uiRyAj gxNsM5sqO5KlWFKzNBKlPNOwElBxheAjn3Wkf8Ag zWEtmSl7q1biGKKaVWUgqGlkx3ayBSV5LEScqELz J7ryaA5mKQLzWF4fbifau0jmGTeyIXfqGRSibWH7 pyH5KJZjkDQiV5BcqB2hDGSoCEpaSIIugqt3FqDm Cu4tgFRibKbqTWfyBsbuEYqyXGBstrCrerYsdPsn ZGVjXHBsYWluXHBsYWluXGYwXGZzMjRccWxcbGFu BxMuPqIoeOzoxYgtXKhuZnKlKYYkDLigS1ouJwCr RvQsAdj9KZKymRAiHONxVdj9LYLpaSCsOYCFrDcu qO1bMGVclRmnnG2svRH8NHMizdEijHEAyG9hXGWL lE4iKvY6HHKgHwn1QQGnOiIkzLVziX2= CPT Code(s) (test code = 3357) b3cxpIAnNBQvnDHfUlInGURkIIQgs5wtJUJx bGFu OcZzOfJwMvEfGchufUHtVIPzAyUjm6qfw614aJUb p8scHNOmIcO4jNQmEBNtbBBjZ819i9aiv2eahbGr fYH3FIBeXYM1ASpkoaExbcC2IAgewYXeSsZ8DYtm yhZiVGococBbacCkToz2PLEiK616TPS9xHomm8fr MEM7OBIvNWWiXfUnCc6clOKnU458QDFdVVFCZTCj dEa5SSQngjCggwPesMXEt258A516r9dzDAEutqOn kJqLycjhw1bdO334NPUzmPRwetKoGjPvFELqrMEu tKU6RNTrDR8bbkqpHdMzRE4ybltnWmPkSS0gwap3 AvIyJY3ekpduQxGdWHapFZJujnjlPXMae3Cfdapq OV9rT3Gok9F9lG0hzLYaGUXspZRmVqHmKQLtiz2i pINfNCses4CgHRT6sjJ2vMLhmCOoKFNsHG89Bmfh y5GoHluiBIF1YGZdusWvw7Nwb3vzDdFfkfQyV6cj I6VnDKWuLBHqOHWtUcVlfmJzf5Bno9AvyJHftHx0 j3kkVGIsORPnsHwlf6agEUB6QAKfX7B6vCAip3zc QDvgRUGuoWN4qjvjLDnlYNMzmyI7qkaeUKjpDINk aZT4qtgiDNwcMIEcHnD3bcigZFjrJBDwGWF0JDlh i308SCS2TTixVdycAXikJNDxdgXnjzCeyLchPCNy UBFgXAycYWDjQGrlLDIyBAUaHuWinExejNylfB0m EvJkLsPpRPmsTL8sLEBjZ5jjfVPqVGQpKVChN7ul JsHrdS0liTscWOplmrDgZZk6GyC6JLMqje3= CLINICAL HISTORY (test code = 3356) v2fvrSAtSFJjlAWlJcHtHJUtNFFgm4b cZGVmbGFu CqEnZsFpMmZrGxtgyHLtIUPzDsZoc1upx849vKYt j6gtGIGbFoY4rOOpQAPhsDUxX190GZQqHPcgf0bj s5RsRRNxoHUbz7L8RRCDvohvoRg1hVyrC23hd1K8 UyyoN9haRZEeEPqpNWAjBZjhoORgYWN4XVUpGBP0 UKjciwQvgyB1FQrwmASzDqE0HOp1f7otbRmeUJNj KOE1i2guRHlnsbWlQF4ktg3pfRu2k7qfnmSqCODs EYSpgXRVWBCjN6QjrCihZr3fkIx2nKqeUvvxIOG8 Apk7JJ7zmk38zqq7eKijNWFidpkvCvN9SZrvSITc rnjxXRn8IQpcHYQcnOycFVffGPXqdqxaKWbtASYz rYtxBQlhGTSfQztxOTrhXVXqUJO3XWonq263WVV5 WVzgu3bgn9twpLBpFmf4SBNdWnSfQqcpPCvnu6Wy c6vhENRanj8oADL4zOObfVnyb0J0bGVpWJHrwDQq xdMxIWOvPsV2VXuaEQ6ksd38NSEqSIE0db1gzIPa aWdveoKvqXEgPAteD6UxAWJmr863YAQzW2EaPWMt x1X4seRwXfXbXABkgHO8myA0BNKuHNq2zMLbtvL3 goHxoEWiG9ezwS31EzMfuVVgN5XpsR85QlBmvWHa A7OtyB09PtDcbJSbB9OutF64IiMlbJWyZXZemGUl Zd3zwVGzrJRdo5WesKFrNFdfH01cy687MABsefJy Q3lnjIGyepakrPIoyskjIUhmllZlDVQmHMOtHPgz ZDEhICUnCrKhmTuybV5mWpFwDcTyCKIEuqVfWP3t MVVlf5QjpFHknGGxnk0pkEI6DHOnpfOsCFrppGFl y3utZGE2 SPECIMEN SOURCE (test code = 3377) r6treHAbWPIreSYcXvFgMQMoKSLhx2gf ZGVmbGFu FiYgZfHrQiXxJcgynEQyPAXwXjAuz0ofg155eQSe m3cmNOGfBoG0jJIcXFEhnTTsA922b2cpu8arjvCd uFS5OUJoMYV1XFwsspWbsiL8YCljzUXiXzK3IVxj agGqGRxddhLlmqKaKug8OGEyK654RCU9qRhmv7zw EOR7IYIrTEHoSiYcFw5prUMsM195FFWfGZYPBPLf iYq2OKRcxwTgllGjkMEXh174O237j6lmOBInriEc dMeBpapom0cyN357QSSpdSBcnxYuTjAlJUCzhQXy kLS2BEDpBF9ekzjsIcPeGD2lemdyNwGeJC0cbee6 IcSxUL8pxrihUiCqLViuANQeohpnKUTma4Bzzirt RP0uH9Lio3Y3eA2rtQJsKZNciXFiGrByGAXjjs2r rCAePAkyt1MiLBF7ubL1xENzkSFyWJTtVI52Vmfl g0RiBijmVXH0NQVdnwJhi3Vqd0fzHjPauwTvA6pc C1WaUHRkXVIaUYNrQzKxqlDgd1Iys3YrvPYopUe8 b5gjPBBbQKHvzJyim4yeWOW0XKTdW5V6dZQdv4ts LEkjZGCgyXQ3ikcdSVgtTCPxtfG1lnffACdeUXHw pVD8qfsuCUwmJDFzMvT1apzyKQdtVXZgGFQ0BElt u147ONC5DSavSsvcZDloHYJwqlAqrrEiyOobZKHy RRHmGErdBMAdVLqnSEHaKACuPmUgjHdshRaekH3o HdKzGvBsOBnlUI5qRXBrZ6cxtNRbOLQwUKAfX6hq XxLazP6vaRspGOajnzXqWSkwKhAhYUEpBT3tqFYo bGFuZFxwYXJ9 GROSS DESCRIPTION (test code = 3366) o6iswAGpFXGqyLVdAqUyLJFjEWQlr0 lcZGVmbGFu PlIyJkNyIaBuVpblfFGgITJxEqHwk3xfq177zGBk a3emEZBlCpF9zJVbABEncSHpA345LDFpDBgbz4ui x3TkGQJjhNWpa1M4CMVXtpdocBl8dMqlS74ir7D0 GenjA3xwWUZsWYawFKBnSAmfvYYaCFD2VHJpSHL5 FMbmtxPvrhV0UCarpTBkMjF9RFh8y8ghxHucAJJf MBL1z8zcELyjqiFxGI1dvi1ciVc8m7snzsMzDNJi UMRtoWDZVLXgM6TzhRdqQz3imWg2pYhbDmxaQRW7 Xbd5PH0pdq71rld7xQigSXWxfxhkHjR1XNrnRVOk ugaeTIu1WVtnQEQitGjaLRhnTPXxpyvbDScbSMVv yUobNZhlCKJzBkhvKSyjJSKyIBG5NMwed481UDK1 BOtnd9lsm2humBKeVaa0AQDhKgPuTjzlFUwtl7Ye w9dsJUKbpn0tBCX7pQTzeOjqd9Q5fLFePKCppZSk tdGgBDCqJwV1ZLnwBM2iup91QNLvXWX8mh4epBNr oDhdscSefLSlAWtpF4OkTXOla712LPKyN3EgMVAq g7M5ncJsMcWcUXNyrET4ypE8HDPiBFd9oIAtpjN0 pdTuzUXrP1xeeG64YmQxqZXkN2YipO93JfXmgHZw R3JkuU48HhDudEQqN6LlaG39LyQisMCnVUMlwTOx Tm7sxVLstLHju8NxpXVxQVvmC07yy290THXnycUe Q3liqHLenlhbuPPyhsjaRIeogvPxTIWgRIGdTCyc WFBdLXUkNoRtjIuzrS2iLmPaTaZrNJHBRQRsyWZy ZCBmcmVzaCBsYWJlbGVkIHdpdGggdGhlIHBhdGll eqXjhbVyFV4uFDXtB0Csh4Dik16tslNrGgJyWJHo VLOvIQBaWN8fzQzadRSdlLDelZOcIKV3CEZuiBva ZiU7MUEeSjH8DRGkH04bSJLfLR1mfRTavQLiTPJs lWPhONNcTPJvcUKiJInmmKA6JN6emgjyoCFiMpGt ozUqTNQuVXIslFFhodIahXSxVYGlYPgdTMrug8Jn WAPytUChLCAmEFT1nOBhi7LqQ3xdPR1nmWNpi3Dg uDRyaItkw0VuuQkuugLpXYIrALVtwzWarXMmKYbz hWeqV9sqW8Ago9VjuOPkWPzuvS9goOg6QYtmlQ3o jbkxD4laPK3ef3Vda7i4uKXmCTJjwiQkSCcpQRRv IVKoErEjDEkfUPlbsRshythjO8LqnDV6izQ7GM4c v08jqGPnMYHeJV8xOJwoHG1la5OxmDUaAK28FEvc JL08QCpuYQWgdDXolmQifJIhF67ouDrnfVOiuTNc xlNox0PaDTumbQcybbI3zOOlV08oeSZ1LlDKsORo lnInNOwegV9qXBWwmlSmGUdxQ8hjshGnlDMbC61y AMCuHXwtsGtgfpS0psB2UX1oZU7uZUJvb478wQ8f DaTtttBkPD96UGPbawLuu7CjwMwoecNfDDUyYOP1 Iv4oxUTqMO3jKLJfldnqDDBoB9ZymHftlrOdn8Js EvPOLV8PXBvshrYygsCvLN84ZYQdtpRhw8Xpa67m JGT8kHzdZ4Zmu6Ozu6OglFlsalZjQwPeCGXoPmQQ Tq4JFezdiAIlmrE5hzKhbSGoehOueFIwNKGbOfWE MF3LAZrnnB1trsRskTTnQJYnOBDmjuYqNMoqZQ3a oh6xN0ihuPnbKVBkpu2= MICROSCOPIC DESCRIPTION (test code = t3xnbUNoRPXloOChDoQuLALkAKDiw9 [place] [address] QcMdRpBrTsYqNxdjbSTrNUTjSoGph1opd927dADu w6kuZQIvFmQ0hDCtUNSnbFUiQ242k1nln3rttvMw sUE6GPGxWME7VIjcxeRjgfF9LOnhrCLlBpD5OPsr swPkTQvqhvXgmcFuIhc5OTYtT463FNW8cMxyo1ir QES1HIShJZLuTqScVc4pwPErO677EWOmAMZXCWMh pWs1HGHrgpPyvmZcyVZVs295J143l1keAXVbwyIw tKhBqtnqo1rdX366XWVwqCLrmtOuNhAxSGTxsIEn kSL6MUKnDX9hyvgcBfDoSS3yicvjDkNvRJ3kcos2 EzNzWE9lujiuMaCfTUtrFAKgmqeaYBBan4Fdxytt AC5tC4Qlg1M6vJ2vgJFwKAJtzZCcXdCtPVLjjz0m dYKiUOxmm0UyFOW3jrV1qERlwXOqFGUtVS40Ublm m3YnMncvHQZ7JQNonnZso9Ant0xfCxNcdhFvX8eo S2CgIGQiAELiYBDbEhWfqfNgy9Tja2YydTJgcIn7 k2ddGKMsAWNfcLdgq7duITF5SYIvK2V2aLWav8fz DZtjJLGklIR5dxldLXowDPWnqnF2mesvQVopYXDh yAV2zvgzBUdzNJXoCuN0chuvPXfzUTSoQPM8FGjg k308LZF6LSenEmlpNXsvPKKqgxBfgjGkbGudLBCq APXaPEbjUFZlBXlxKVPaREZuPhVcyNwofSgttH7b WlJlVjTaJTyeVE6kSIBuZ3dnqADgEUOlFOTmQ1fz SiOwxO1txSvsJMfdyhRxCZStpjGjdk5lZR1kaGOu fQ== SPECIAL STUDIES (test code = 3376) f9pquFYpZYFumUPjMwThJINsKDMfh9sq ZGVmbGFu LlMtCfIjAuNqQdaooAKwPIXzTzFrb6kbh686kRUb k2jjGRGpSiZ0oKZbIVJqeCYpB185OYFjGTiri5vd p5ToXMLtjCIkj3C3HGCIBKcbNpNoR250TKIjXLfp l1dje7GpHMSrnPNeu2Z4QHZRrfgjhFv6tSceJ15t e7S3QqawK4zdLVNlXZNfI5SyDO8yEOTnRed6FGP2 MOK5TPXpYWPhU3NkSW1cQQHsmGRiTIc1k1bcxDmc QUQcFJS6i5ubWEptfoE3UY6ngf5glEo8n0olbiWk XZYcRNMreWAMZWZnE7RhjGwxZu6jlJc7h9pmSuds lsI6sGZbBrOoLxNoQEnloCKqloouAYVkIOL3rAVU IOr6H831p3slIQGyrzAisMpLbhbdo9dcD740OJDx qNVridGdNkZjBGEmaSMllBR1IHBeAJ8lzrhjOkDw CL2jhhdsNkHiXN7pnfv6AjVgCU7tjotgNdBpXKcq OKGtuuxmDSYtz6XpqstuPQ7nA5Eqp9J4pY3wqNBn OUBeiXYxSjWeEYGfwm9fgSGoPWheTAJ5UDFlodDp e0Eba4ylUdQuxfIzK2psE6VcGPNlNDZbHUUxXbVb adPip7Nbr7HpuPKxjOj4d4fgXBNdRXIyvYmhw3vj UQF2JOAuL5Y7sNEwe9fwKVdrWUGntYE5kxvlIVyh EVNfyyI0lzgqMOryHYPetNQ5xmjxFGyvCJDjYgM5 lcllJSjdWUYiOZF0EPxej035OKW3PZpxVfatSYgx XHBnbmNvbnRccGduZGVjXHBsYWluXHBsYWluXGYw ONVyRjKfvOxymSoisF7fRkHpPyMoJyjlCF7sOWGe I1eqmWMgVRZfECBwL2mhQaPtqF1jbOwaRJgeRjCo OvJtKsYObHXatG83DJErnqN6KEHhy11eh5IbnKea uzTpYRGwIAghH4f2WMTrCHVcSXN4h4Ifb3QjnZ3p sI0dlVbjpK5zgMScePF1hwfyq0Get7DxF3dqeLHh dGFpbnMuXHBsYWluXGYxXGZzMjJcbGFuZzEwMzNc nYgmkWhgFCsuVxBkGRIrELbcC5csMdCvK1CeHDOm AcHqyVArY8helZUtXHVhztkmaGTxuzviLJgpfqWn GLdtrqoyEVHtQVciE3jeWiJcQVSanIsaQVnsp1Uw CIKuMIIhRnpcecQyJJJnjeOml5dnL3quSEWkXHT1 IP4ilwKnGeKwRS1pgN57l9Ojy13hp83tgE1deVEk xpZnW11ogUTabBNqh2VmWXWkzpZjwSK0CPXkJRlq ukpdu6c4vRI4uXHpxXEtqSK8tEWpoBHhJFERoOLg JYMtx638ip3bIFNmmOPkyvQnzX7yUYpbtfhtaJHv UL7hLSPiEQXuBUTeZX74fhGbCV9lgRTvl2ortkKu oRZfu1NqoSS8BLTznCObrxpySn6hNW09XSBgPShs rC7fmIHwozDcEP0jWB0yS8W2dQGuCKHxoiYok9cp SFlmZV8sGFSckPgtHqpsHLHzOPRbtlDfuXX1ECYj zVqeqM3tKjWaGwKxIejcZB0kEJKsH5piyPLlNFRx UIUdV9xbLnNaqR6rfXkrMVczItFpApYqXtiecDGf rBasEKEfpOzvmK1iUrZrIjCcGypdOS9aVRXuP5wv sXTsHYGjTBTqA5ccJuUjuM2wuVdyPMvrUbKqOaJx MiAgXHBsYWluXGYxXGZzMjJcbGFuZzEwMzNcaGlj zBgjCSdsAvSpHWKeCJzlO7xbBiZmE9TiBBZbMoVo jESzX7ktgLTwDKToUIqhWDCnNKQgUmTfqTVfEeMb OtNbaHmatYsbBSwkItRwIMSjOQrvE3ggZhQkS2Ih MLDpOuVkLO5whR3kcGxuuO5ijEWisJL3nwujeRCp fQ6kT9QcRLRxo4Rrilsjx6VdOVEuszNfkz5rVZQa tPPLGAaky3PvT8RgYIy1l4RdxYhdoL0nOoPpAfHx RlzhHU6uSFNvI1ueuLCbDWYfYTWkW4iiOrDmiW8j qYffKQleVrIqPnSbXpv7JAQlKwYqLgkmWTEhMSan XGYxXGZzMjJcbGFuZzEwMzNcaGljaFxmMVxkYmNo SBCkAEpsE9xvUaOkD9FuJPNaLjDrerNTWREtT8Fk QDZfyiWrqlbvSWH9mP4oy6w0SRpjBa8fVNHjrwgp q4ncrpJpmUFru4SeDWXikoFnr6YuYTRjifDbtIZv AGZprqOylj1texTaVGTxWXYpW6QelosvdWrcuqD8 SWEyGTJfiPIugLvyDQKgRDe2TAsfhhWim0JoDvQj esKicBPjplIoIF5iNTOymMYrhaEkEVF8FZNjAWHA AhJuMSRcg2CyOO5tPJVyyLpiSLBbpC2uu1CyALPm z60dGKCwFALXOYLgsQCsUKZddZSnxBwqLGDyvGtt uSOiuXVzSFOaMNHjGK9fSLHpltGxjCDdy3PfkBAe rfJkw5GztqNqXRUiFMN0KtSFhYQwmQWnzBXdfuY5 q2JhXIIifuGaySuquGUcfKCcgUIyc8Dalt7pAWQo v5mhrFdjGZ0emFNhURSwUHrwqgLcUDVjghWhouJt n7DgF2G0oM5gNScfn9OdHy0rLXToq7IgqyRrXjCW lIouKLlgDy2oHPKmkqyavKRvK9FhuViskFRpDSIb HLUhEVChVGWDjNkghOVlzACBRXGmgmT1g8C9VWdb bGLnukKiXU20RXItXA9bpJMybVUnk3PqDTx5XIQn P4tILG92VWjwCWToyLBquUapyNHsYOLfHJJvcmOl ho1jdLqlkWPze17hdRD6uWZ8FOBviH9xB6DtQDxh Wo6yBTJqiztceQUnpLtuMe6fgWmwuT5iIcHpMvAz UxvxUU6yRTQzD6puuFShUVZrLHXrQ5ypQjGemN3e aFxmMlxmczIyXHBhclxwYXJkXHBsYWluXGYwXGZz GqIgrTstcC4oRdNdIrZsUHzsGHV8 Gross assessment was performed at (test [facility] enter, code = 2777) Department of Pathology, [address] [place] [address], Technical component was performed at [facility] er, (test code = 2778) Department of Pathology, [address] [place] [id number], Professional component was performed at [facility] enter, (test code = 2779) Department of Pathology, [address] [place] [address], [facility] [id number] 16:10:00Surgical Pathology Report Case: [id number] Authorizing Provider: Gurinder Delgado MD Collected: 07/08/2019 1003 Ordering Location: [facility] PERIOPERATIVE Received: 07/08/2019 1306 SERVICES Pathologist: Love Hernandez MD Specimen: Ad renal, Left, Left adrenal gland A. ADRENAL GLAND,LEFT, ADRENALECTOMY: - BENIGN ADRENAL GLAND WITH NO SIGNIFICANT DIAGNOSTIC ALTERATION. - HEMORRHAGE, ORGANIZING THROMBOSIS AND VASCULAR RECANALIZATION ADJACENT TO THE ADRENAL GLAND. - NOMALIGNANCY IDENTIFIED. Signing Pathologist Direct Phone Line: [phone] signedby Love Hernandez MD on 07/11/2019 at 4:10 [id number] and postop diagnosis: adrenal massLeft adrenal glandReceived [...] is peguero yellow to guo and smooth. Architect sections are submitted. 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 full cross section [...] evaluated Immunohistochemistry technical testing [place] [facility] [place] it was developed and [...] as qualified to perform high complexity clinicallaboratory testing.[facility] [place], [address] [place] [address], [facility], [address] [place] [address], [facility], Department of [facility], [address] [place] [address], [facility] Metabolic [id number] 06:54:00 Test Item Value Reference Range Interpretation Comments Sodium (test code = 139 meq/L 286-981 9670-2) Potassium (test code 3.7 meq/L 3.5-5.1 = 2823-3) Chloride (test code = 109 meq/L 98-107 H 2074-0) CO2 (test code = 22 meq/L 22-29 8-9) BUN (test code = 7 mg/dL 7-21 3094-0) Creatinine (test code 0.81 mg/dL 0.57-1.25 = 2160-0) Glucose (test code = 86 mg/dL 70-105 2345-7) Calcium (test code = 8.6 mg/dL 8.4-10.2 35968-3) EGFR ([place] = [place] [address]-2) CLINICAL DATA T O CALCULATE ESTIMATED GFR. FLORINDA (test code = FLORINDA) Game Protector ID - GALAP Lab Interpretation Abnormal (test code = 01912-2) [facility] [id number] 06:54:00 Test Item Value Reference Range Interpretation [...] 1092) DATA TO CALCULA TE ESTIMATED GFR. Game Protector ID - GALAPCBC with platelet count + automated [id number] 05:35:00 Test Item Value Reference Range Interpretation [...] 450 K/CU MM MPV (test code = 77081-5) 10.4 fL 9.4-12.4 nRBC (test code = [...] 2801) Lab Interpretation (test code = Abnormal 98024-0) [facility] W/PLT COUNT & AUTO [id number] 05:35:00 Test Item Value Reference Range Interpretation [...] (BEAKER) (test code = 2801) BASIC METABOLIC [id number] 10:13:00 Test Item Value Reference Range Interpretation [...] 1092) DATA TO CALCULA TE ESTIMATED GFR. Game Protector ID - [place] FCBC W/PLT COUNT & AUTO [id number] 09:50:00 Test Item Value Reference Range Interpretation [...] (BEAKER) (test code = 2801) BASIC METABOLIC [id number] 11:58:00 Test Item Value Reference Range Interpretation [...] 1092) DATA TO CALCULA TE ESTIMATED GFR. Game Protector ID - [place] FHemoglobin and [id number] 11:41:00 Test Item Value Reference Range Interpretation Comments Hemoglobin (test code = 11.7 13.7- 17.5 GM/DL L 786-4) Hematocrit (test code = 34.9 % 40.1-51 L 4544-3) FLORINDA (test code = FLORINDA) Game Protector ID - [id number] Lab Interpretation (test Abnormal code = 36610-3) [facility] [id number] 11:41:00 Test Item Value Reference Range Interpretation Comments HEMOGLOBIN (BEAKER) (test code = 11.7 GM/DL 13.7-17.5 L 410) HEMATOCRIT (BEAKER) (test code = 34.9 % 40.1-51.0 L 411) Game Protector ID - [id number], [id number] 07:44:00 Test Item Value Reference Range Interpretation Comments ABO Grouping (test code = 2588) O Rh Factor (test code = 2589) POS Public [facility] screen, [id number] 07:08:00 Test Item Value Reference Range Interpretation Comments ABO/RH AUTOMATED (BEAKER) (test O POSITIVE code = 2260) Ab Scrn (test code = 890-4) NEGATIVE [facility] [id number] 11:35:00 Test Item Value Reference Range Interpretation Comments Result (test code = 6463-4) No growth [facility] HospitalURINE [id number] 11:35:00 Test Item Value Reference Range Interpretation Comments CULTURE (BEAKER) (test code = 1095) No growth Urinalysis w/Microscopic + Reflex to [id number] 14:23:00 Test Item Value Reference Range Interpretation Comments Color, UA (test code = Yellow 5778-6) Clarity, UA (test code Clear = 5767-9) Specific [place], UA 1.005 1.001-1.035 (test code = 5811-5) pH, UA (test code = 7.0 5.0-8.0 5803-2) Protein, UA (test code Negative Negative = 91719-1) Glucose, UA (test code Negative Negative = 365) Ketones, UA (test code Negative Negative = 2514-8) Bilirubin, UA (test Negative Negative code = 33292-2) Blood, UA (test code = Negative Negative 44715-1) Nitrite, UA (test code Negative Negative = 5802-4) Leukocytes, UA (test Negative Negative code = 5799-2) Urobilinogen, UA (test 0.2 mg/dL 0.2-1 code = 36501-7) RBC, UA (test code = <1 /HPF 57036-7) WBC, UA (test code = 2 /HPF 5821-4) Bacteria, UA (test code Rare = 76510-4) Specimen Source (test code = 2795) FLORINDA (test code = FLORINDA) Game Protector ID - [auto]Game Protector ID - tech [facility]IS W/ REFLEX URINE [id number] 14:23:00 Test Item Value Reference Range Interpretation [...] 517) Rare SOURCE(BEAKER) (test code = 2795) Game Protector ID - [auto]Game Protector ID - techComprehensive metabolic [id number] 13:52:00 Test Item Value Reference Range Interpretation Comments Protein, Total 7.3 6.0- 8.3 gm/dL (test code = 2885-2) Albumin (test code 4.4 g/dL 3.5-5 = 57344-1) Alkaline 73 U/L 40-150 Phosphatase (test code = 6768-6) Total Bilirubin 0.8 mg/dL 0.2-1.2 (test code = 1975-2) Sodium (test code = 137 meq/L 684-394 2114-2) Potassium (test 3.9 meq/L 3.5-5.1 code = 2823-3) Chloride (test code 104 meq/L 98-107 = 2075-0) CO2 (test code = 26 meq/L 22-29 2027-9) BUN (test code = 11 mg/dL 7- 3094-0) Creatinine (test 0.96 mg/dL 0.57-1.25 code = 2160-0) Glucose (test code 96 mg/dL 70-105 = 2345-7) Calcium (test code 9.9 mg/dL 8.4-10.2 = 14291-0) AST (test code = 23 U/L 5-34 1920-8) ALT (test code = 25 U/L 6-55 1742-6) EGFR (test code = [place] [address]-3) CLINICAL DATA T O CALCULATE ESTIM ATED GFR. FLORINDA (test code = Game Protector ID - FLORINDA) [facility]COMPREHENS[facility] METABOLIC [id number] 13:52:00 Test Item Value Reference Range Interpretation [...] 1092) DATA TO CALCULA TE ESTIMATED GFR. Game Protector ID - ROSIANGCBC W/PLT COUNT & AUTO [id number] 13:10:00 Test Item Value Reference Range Interpretation [...]
--- OUTSIDE RECORDS SUMMARY | 2020-04-16 11:29 | XMS REPORT | Clinical Summary ---
:1950 Author Organization [facility] Address [address] [place] [address] Care Team Providers Name Role Phone Unavailable [...] Comments Blood Pressure 157/87 07/10/2019 8:00 AM OFFICE SUPPORT Pulse 87 07/10/2019 8:00 AM OFFICE SUPPORT Temperature 36.8 C (98.2 F) 07/10/2019 8:00 AM OFFICE SUPPORT Respiratory Rate 18 07/10/2019 8:00 AM OFFICE SUPPORT Oxygen Saturation 97% 07/10/2019 8:00 AM OFFICE SUPPORT Inhaled Oxygen Concentration - - Weight 105.5 kg (232 lb 9.4 oz) 07/08/2019 5:41 AM OFFICE SUPPORT Height 182.9 cm (6') 07/08/2019 5:41 AM OFFICE SUPPORT Body Mass Index 31.54 07/08/2019 5:41 AM OFFICE SUPPORT Plan of Treatment Health Maintenance Due Date Last Done Comments COLON CANCER SCREENING COLONOSCOPY 1950 MEDICARE ANNUAL WELLNESS (YEAR 2 or FIRST 07/20/2018 YEAR if no IPPE) INFLUENZA VACCINE (#1) 2020 02/06/2019 PNEUMOCOCCAL 65+ YRS Completed 02/24/2019, 01/28/2019 Procedures Procedure Name Priority Date/Time Associated Comments Diagnosis RHYTHM STRIP - SCAN 07/15/2019 9:22 AM OFFICE SUPPORT CBC W/PLT COUNT & GAIL 07/10/2019 4:34 Result s for this AUTO DIFFERENTIAL AM OFFICE SUPPORT procedure are in the results section. BASIC METABOLIC PANEL GAIL 07/10/2019 4:34 Re sults for this (7) AM OFFICE SUPPORT procedure are i n the results section. CBC W/PLT COUNT & GAIL 07/10/2019 4:34 Result s for this AUTO DIFFERENTIAL AM OFFICE SUPPORT procedure are in the results section. TRANSFUSION SERVICE 07/09/2019 5:51 REPORT - SCAN PM OFFICE SUPPORT CBC W/PLT COUNT & GAIL 07/09/2019 8:43 Result s for this AUTO DIFFERENTIAL AM OFFICE SUPPORT procedure are in the results section. BASIC METABOLIC PANEL GAIL 07/09/2019 8:43 Re sults for this (7) AM OFFICE SUPPORT procedure are i n the results section. CBC W/PLT COUNT & GAIL 07/09/2019 8:43 Result s for this AUTO DIFFERENTIAL AM OFFICE SUPPORT procedure are in the results section. BASIC METABOLIC PANEL STAT 07/08/2019 11:15 Re sults for this (7) AM OFFICE SUPPORT procedure are i n the results section. HEMOGLOBIN AND STAT 07/08/2019 11:15 Results f or this HEMATOCRIT AM OFFICE SUPPORT procedure are i n the results section. TISSUE EXAM AP Routine 07/08/2019 10:03 Results for this AM OFFICE SUPPORT procedure are i n the results section. LAPAROSCOPY,ADRENALEC 07/08/2019 7:15 Adrenal mass (H CC) SAIDA AM OFFICE SUPPORT Case Notes 4 HRS Special Needs (3D SCOPE, [place]) ABORH, MANUAL STAT 07/08/2019 6:19 AM OFFICE SUPPORT Res ults for this procedure are i n the results section . TYPE AND SCREEN, AUTOMATED Routine 07/08/2019 5:52 AM OFFICE SUPPORT Results for this procedure are i n the results section . CBC W/PLT COUNT & AUTO Routine 06/25/2019 12:53 PM OFFICE SUPPORT Results for this DIFFERENTIAL procedure are i n the results section . COMPREHENSIVE METABOLIC Routine 06/25/2019 12:53 PM OFFICE SUPPORT Results for this PANEL procedure are i n the results section . CBC W/PLT COUNT & AUTO Routine 06/25/2019 12:53 PM OFFICE SUPPORT Results for this DIFFERENTIAL procedure are i n the results section . URINALYSIS W/ REFLEX URINE Routine 06/25/2019 12:53 PM OFFICE SUPPORT Results for this CULTURE procedure are i n the results section . URINE CULTURE Routine 06/25/2019 12:53 PM OFFICE SUPPORT Res ults for this procedure are i n the results section . after 04/16/2019 Results RHYTHM STRIP - SCAN (07/15/2019 9:22 AM OFFICE SUPPORT) Narrative Performed At This result has an attachment that is no t available. CBC with platelet count + automated diff (07/10/2019 4:34 AM OFFICE SUPPORT)Only the most recent of3 resultswithin the time period is included. Pathologist Sig nature WBC 5.6 3.5 - 10.5 [facility] K/L [facility] RBC 3.64 (L) 4.63 - 6.08 [facility] M/L [facility] Hemoglobin 11.1 (L) 13.7 - 17.5 [facility] GM/DL [facility] Hematocrit 34.5 (L) 40.1 - 51.0 % [facility] MCV 94.8 (H) 79.0 - 92.2 fL [facility] MCH 30.5 25.7 - 32.2 pg [facility] MCHC 32.2 (L) 32.3 - 36.5 [facility] GM/DL [facility] RDW 13.5 11.6 - 14.4 % [facility] Platelets 239 150 - 450 K/CU [facility] MPV 10.4 9.4 - 12.4 fL [facility] nRBC 0 0 - 0 /100 WBC [facility] % Neutros 64 % [facility] % Lymphs 25 % [facility] % Monos 8 % [facility] % Eos 3 % [facility] % Baso 0 % [facility] # Neutros 3.55 1.78 - 5.38 [facility]/L [facility] # Lymphs 1.40 1.32 - 3.57 [facility]/L [facility] # Monos 0.46 0.30 - 0.82 [facility] # Eos 0.15 0.04 - 0.54 [facility]/L [facility] # Baso 0.02 0.01 - 0.08 [facility]/L [facility] Immature 0 0 - 1 % [facility] Granulocytes-Relative [facility] Specimen Blood Performing Organization Address City/[facility]/Zipcode Phone Number [facility] [address] [place] [address] [place] Basic Metabolic Panel (07/10/2019 4:34 AM OFFICE SUPPORT)Only the most recent of3 results within the time period is included. Sodium 139 136 - 145 [facility] meq/[facility] Potassium 3.7 3.5 - 5.1 [facility] meq/[facility] Chloride 109 (H) 98 - 107 meq/L [facility] CO2 22 22 - 29 meq/L [facility] BUN 7 7 - 21 mg/dL [facility] Creatinine 0.81 0.57 - 1.25 [facility] mg/dL [facility] Glucose 86 70 - 105 mg/dL [facility] Calcium 8.6 8.4 - 10.2 [facility] mg/dL [facility] EGFR Comment: INSUFFICIENT [facility] CLINICAL DATA TO [facility] CALCULATE ESTIMATED CENTER GFR. Specimen Blood Narrative Performed At Occupational Therapy Co Director [facility] ICAL [place] Performing Organization Address City/State/Zipcode Phone Number [facility] [address] [place] [address] [place] TRANSFUSION SERVICE REPORT - SCAN (07/09/2019 5:51 PM OFFICE SUPPORT) Narrative Performed At This result has an attachment that is no t available. Hemoglobin and hematocrit (07/08/2019 11:15 AM OFFICE SUPPORT) Pathologist Sig nature Hemoglobin 11.7 (L) 13.7 - 17.5 GM/DL [facility] Hematocrit 34.9 (L) 40.1 - 51.0 % [facility] Specimen Blood Narrative Performed At Occupational Therapy Co Director ID - [id number] [facility] Performing Organization Address City/State/Zipcode Phone Number [facility] [address] [place] [address] CENTER Tissue Exam (07/08/2019 10:03 AM OFFICE SUPPORT) Case Report Surgical Pathology Report Case: [id number] [facility] Authorizing Provider: Gurinder Ford MD Collected: 07/08/2019 1003 [facility] Ordering Location: [facility] PERIOPERATIVE Received: 07/08/2019 1306 [facility] SERVICES Pathologist: Love Hernandez MD Specimen: Adrenal, Left , Left adrenal gland DIAGNOSIS [facility] Electronically A. ADRENAL GLAND, LEFT, ADRENALECTOMY: HE [facility] signed by David, - BENIGN ADRENAL GLAND WITH NO SIGNIFICANT D IAGNOSTIC ALTERATION. [facility] MD Love on - HEMORRHAGE, ORGANIZING THROMBOSIS AND VASCULAR R ECANALIZATION 07/11/2019 at 4:10 ADJACENT TO THE ADRENAL GLAND. PM - NO MALIGNANCY IDENTIFIED. Signing Pathologist Direct Phone Line: CPT Code(s) 80338 [facility] CLINICAL HISTORY Pre and postop diagnosis: [facility] adrenal mass [facility] SPECIMEN SOURCE Left adrenal gland [facility] GROSS DESCRIPTION Received fresh labeled with the patient's name, accession number and "adrenal, left" is a 58 gm, 7 x 4.7 x 4 cm adrenal gland surfaced by a glistening membrane. The outer surface is inked blue, and the [facility] specimen is serially section ed to reveal a well-circumscribed, mostly hemorrhagic mass with a central area of pale yellow, sorensen to guo solid area. The mass is 5.5 x 4.7 x 4 cm and is completely encased [facility] within the cortex. The deejay quach adrenal gland is peguero yellow to guo and smooth. Conductor/Engineer sections are submitted. [place] Section code: A1-A5, represe ntative of one full cross section of mass; A6-A7, mass to outer surface; A8-A9, uninvolved adrenal glands. CG/pl MICROSCOPIC Performed. [facility] MEDICAL [place] SPECIAL STUDIES The interpretation of this c ase included the use of immunohistochemistry or special stains. [facility] Control Slides Examined: In -house known positive controls were evaluated along with the test tissue. These control slides run alongside of the patients sample show appropriate staining. [facility] cathy and negative controls when available are evaluated Immunohistochemistry technic donaldo testing was performed at [facility], Pathology Laboratory where it was developed and its performance characteristics were determined. It has not be en cleared or approved by [facility] U.S. Food and Drug Administration. The FDA has determined that such clearance or approval is not necessary. The test is used for clinical purposes. It should not be regarde d as investigational or for research. This laboratory is certified under the Clinical Laboratory Improvement Amendments of 1988 (CLIA-88) as qualified to perform high complexity clinical laboratory testing. Gross assessment [facility] was performed at [facility] Pathology, [address] [place] [id number], Technical [facility] component was [facility] performed at Pathology, [address] [place] [id number], Professional [facility] component was [facility] performed at [address] [address], Specimen Tissue - Structure of left adrenal gland (body structure) Performing Organization Address City/State/Zipcode Phone Number [facility] MEDICAL [address] [place] [address] [phone] CENTER ABORH, manual (07/08/2019 6:19 AM OFFICE SUPPORT) Pathologist Sig nature ABO Grouping O [facility] Rh Factor POS [facility] Specimen Blood Performing Organization Address City/[facility]/Zipcode Phone Number [facility] [address] [place] [address] Type and screen, automated (07/08/2019 5:52 AM OFFICE SUPPORT) Pathologist Sig nature ABO/RH AUTOMATED O POSITIVE [facility] Ab Scrn NEGATIVE [facility] Specimen Blood Performing Organization Address [facility]/Zipcode Phone Number [facility] [address] [place] [address] Urinalysis w/Microscopic + Reflex to Culture (06/25/2019 12:53 PM OFFICE SUPPORT) Pathologist Sig nature Color, UA Yellow [facility] Clarity, UA Clear [facility] Specific [place], UA 1.005 1.001 - 1.035 [facility] pH, UA 7.0 5.0 - 8.0 [facility] Protein, UA Negative Negative [facility] Glucose, UA Negative Negative [facility] Ketones, UA Negative Negative [facility] Bilirubin, UA Negative Negative [facility] Blood, UA Negative Negative [facility] Nitrite, UA Negative Negative [facility] Leukocytes, UA Negative Negative [facility] Urobilinogen, UA 0.2 0.2 - 1.0 mg/dL [facility] RBC, UA <1 /HPF [facility] WBC, UA 2 /HPF [facility] Bacteria, UA Rare [facility] Specimen Source [facility] Specimen Urine - Urine (substance) Narrative Performed At Occupational Therapy Co Director ID - [auto] [facility] Occupational Therapy Co Director ID - tech Performing Organization Address [facility]/Zipcode Phone Number [facility] [address] [place] [address] [place] Urine culture (06/25/2019 12:53 PM OFFICE SUPPORT) Pathologist Sig nature Result No growth [facility] Specimen Urine - Urine specimen collection, clean catch (procedure) Performing Organization Address City/State/Zipcode Phone Number [facility] [address] [place] [address] [place] Comprehensive metabolic panel (06/25/2019 12:53 PM OFFICE SUPPORT) Protein, Total 7.3 6.0 - 8.3 [facility] gm/dL [facility] Albumin 4.4 3.5 - 5.0 [facility] g/dL [facility] Alkaline 73 40 - 150 U/L [facility] Phosphatase [facility] Total Bilirubin 0.8 0.2 - 1.2 [facility] mg/dL [facility] Sodium 137 136 - 145 [facility] meq/L [facility] Potassium 3.9 3.5 - 5.1 [facility] meq/L [facility] Chloride 104 98 - 107 [facility] meq/L [facility] CO2 26 22 - 29 [facility] meq/L [facility] BUN 11 7 - 21 mg/dL [facility] Creatinine 0.96 0.57 - 1.25 [facility] mg/dL [facility] Glucose 96 70 - 105 [facility] mg/dL [facility] Calcium 9.9 8.4 - 10.2 [facility] mg/dL [facility] AST 23 5 - 34 U/L [facility] ALT 25 6 - 55 U/L [facility] EGFR Comment: [facility] CLINICAL DATA TO MEDICAL CENTER CALCULATE ESTIMATED GFR. Specimen Blood - Entire left upper arm (body stru cture) Narrative Performed At Occupational Therapy Co Director ID - KRISTYG RAFAT [facility] Performing Organization Address City/State/Zipcode Phone Number [facility] [address] [place] [address] CENTER after 04/16/2019 Insurance Payer Benefit Plan / Subscriber ID Effective Dates Phone Addre ss Type Group MEDICARE MEDICARE A B [id number] 2017-Present Medicare AETNA - MGD CARE AETNA INDEMNITY [id number] 2017-Present Comm NON CONTR
--- OUTSIDE RECORDS SUMMARY | 2020-04-16 11:29 | XMS REPORT | Clinical Summary ---
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; Service: General ; Laterality: N/A; Medical devices from this surgery are in t he Implants section. LAMINECTOMY, LUMBAR, WITH 07/26/2018 Back/Posterior Proced ure: LUMBAR FORAMINOTOMY OR FACETECTOMY, GONZALEZ INECTOMY, MEDIAL 1 LEVEL FACETECTOMY, AND FORAMINOTOMY AT RIGHT L3-L4, EMG; Ivan geon: Joce Min MD; Location: [facility] OR; Service: Neuros urgery; Laterality: Post erior; [...] Additional history exists Implants Implanted Type Area Special Delivery Clerk Device Shelf Model / Identifier Expiration Serial / Date Lot Clip Ligtng Weck Hemoclip Plus W/ Tape Ti Med - [id number] Medic al [employer] [id number] / Implanted: Qty: 2 on 01/11/2018 by Zack Driscoll MD at [facility] Clips for / Internal Use Clip Ligt[employer] Weck Hemoclip Plus W/ Tape Ti Sm - [id number] Medical WECK CLOSURE [id number] / Implanted: Qty: 2 on 01/11/2018 by Zack Driscoll MD at [facility] H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
--- OUTSIDE RECORDS SUMMARY | 2020-04-16 11:30 | XMS REPORT | Continuity of Care Document ---
:1950 Author Organization [facility] t Address [address] [place] [address] Care Team Providers Name Role Phone Noah TAYLOR Castillo Primary Care Physician Michael Jaquez MD Attending Clinician Kerrie Delgado MD Attending Clinician DWAIN DELGADO Attending Clinician Unavailable Dwain Delgado MD Attending Clinician Wes Nava MD Attending Clinician DWAIN DELGADO Admitting Clinician Unavailable Payers Payer Name Policy Type Policy Effective Date Expiration Date Sour ce Number MEDICAREMEDICARE PART [id number] 2017-07-19 Cm rebollar A AND 00:00:00 [place] OmomnxyvOQ318/05[place] [id number] 2000-05-[address] [facility] 00:00:00 [place]ari [id number]/-PresentIndemnit y MEDICAREMEDICARE A [id number] 2017-07-19 RAFAT [place] TyxeohljBV325/05/2017- 00:00:00 - Shawna gilical PresentMed[facility]are [facility] AETNA - MGD CAREAETNA [id number] 2017-07-19 RAFAT Watson INDEMNITY NON 00:00:00 - Medical [id number]/ Mp ter 8-PresentComm Problems Condition Condition Condition Status Onset Resolution Last Treating Co mments Source Name Details Category Date Date Treatment Clinician Date Adrenal Adrenal Disease Active [facility] mass mass 2-18 [facility] - 00:00: Medical [...] aorta 00 Aortic Aortic Disease Active 2015-05 [place] valve valve 06-18 [facility] regurgitat regurgitat 00:00: st ion ion 00 Essential Essential Disease Active 2015-05 [place] ston hypertensi hypertensi 06-18 Me thodi on on 00:00: st 00 Peripheral Peripheral Disease Active 2015-05 [place] vascular vascular 06-18 [facility] i disease disease 00:00: st 00 Coronary Coronary Disease Active 2015-05 [place] artery artery 06-18 [facility] disease disease 00:00: st involving involving 00 [place] heart heart without without angina angina pectoris pectoris Allergies, Adverse Reactions, Alerts This patient has no known allergies or adverse reactions. Family History Family Member Diagnosis Comments Start Date Stop Date Source Natural mother Heart attack [place]astaf[place] Other Heart attack [place] Meth odist Social History Social Habit Start Date Stop Date Quantity Comments Source Sex Assigned At [facility] Tobacco use and 2019-07-08 2019-07-08 Never used [facility] - exposure 00:00:00 00:00:00 [facility] Alcohol intake 2019-07-08 2019-07-08 Current drinker [facility] [place] - 00:00:00 00:00:00 [facility] ([facility] Alcohol Comment 2019-06-25 2019-06-25 occasional [facility] - 00:00:00 00:00:00 [facility] Cigarettes smoked 2018-07-29 2018-07-29 [place] current (pack per 00:00:00 00:00:[address] day) - Reported Cigarette 2018-07-29 2018-07-29 [place] pack-years 00:00:00 00:00:00 [place] Tobacco Comment 2018-01-01 2018-01-01 stopped 2009 [place] 00:00:00 00:00:00 [place]ast[facility] History of tobacco 2009-06-[address] [facility] Smoking Status Start Date Stop Date Source Former smoker 2019-07-08 00:00:00 2019-07-08 00:00:[address] [facility] Medications Ordered Filled Start Stop Current Ordering Indication Dosage Frequency Signature Comments Components Source Medication Medication Date Date Medication? Clinician (SIG) Name Name allopurinol 2020-0 Yes 300mg QD Take [address] (ZYLOPRIM) 2-20 mg by [facility] - 300 MG 09:20: mouth Medical tablet 49 daily. [place] amlodipine- 2020-0 Yes 1{capsu QD Take [address] benazepril 2-20 le} capsule by Mariaa es - (LOTREL) 09:20: mouth Medical 10-20 mg 49 daily. [place] per capsule doxazosin 2020-0 Yes 2mg Q.5D Take [address] (CARDURA) 2 2-20 by mouth 2 Geovanna kes - MG tablet 09:20: (two) Medical 49 times Center daily. metoprolol 2020-0 Yes 200mg QD Take [address] (TOPROL-XL) 2-20 mg by [facility] - 200 MG 24 09:20: mouth Medical hr tablet 49 daily. [place] losartan 2020-0 Yes 100mg QD Take [address] (COZAAR) 2-20 mg by [facility] - 100 MG 09:20: mouth Medical tablet 49 daily. [place] zinc 2020-0 Yes 50mg QD Take [address] gluconate 2-20 by mouth [facility] - 50 mg 09:20: daily. Medical tablet 49 [place] vitamin E 2020-0 Yes 400U QD Take [address] 400 UNIT 2-20 Units by [facility] - capsule 09:20: mouth Medical 49 daily. [place] cholecalcif 2020-0 Yes 2000U QD Take 2,[address] myrna, 2-20 Units by [facility] - vitamin D3, 09:20: mouth Medic al 2,000 unit 49 daily. [place] Tab magnesium 2020-0 Yes QD Take by [...] HIGH-DOSE PF 2019-02-06 Completed [place] 00:00:00 [place] Vital Signs Vital Name Observation Time Observation Value Comments Source Systolic blood 2019-07-10 08:00:00 157 mm[Hg] [facility] Diastolic blood 2019-07-10 08:00:00 87 mm[Hg] [facility] Heart rate 2019-07-10 08:00:00 87 /min [facility] Body temperature 2019-07-10 08:00:00 36.78 Kristie [facility] Respiratory rate 2019-07-10 08:00:00 18 /min [facility] Oxygen saturation in 2019-07-10 08:00:00 97 /min [facility] Arterial blood by Medical Ce nter Pulse oximetry Body height 2019-07-08 05:41:00 182.9 cm [facility] Body weight 2019-07-08 05:41:00 105.5 kg [facility] BMI 2019-07-08 05:41:00 31.54 kg/m2 [facility] Procedures Procedure Date / Time Performed Performing Clinician Sour e RHYTHM STRIP - SCAN 2019-07-15 09:22:16 Provider, Default [facility] BASIC METABOLIC PANEL (7) 2019-07-10 04:34:00 Leroy Workman [facility] CBC W/PLT COUNT & AUTO 2019-07-10 04:34:00 Leroy Workman [facility] S [facility] TRANSFUSION SERVICE 2019-07-09 17:51:44 Provider, Default [facility] - REPORT - SCAN [facility] BASIC METABOLIC PANEL (7) 2019-07-09 08:43:00 Leroy Workman [facility] CBC W/PLT COUNT & AUTO 2019-07-09 08:43:00 Leroy Workman [facility] S [facility] HEMOGLOBIN AND HEMATOCRIT 2019-07-08 11:15:00 Luther Santo [facility] BASIC METABOLIC PANEL (7) 2019-07-08 11:15:00 Luther Santo [facility] TISSUE EXAM 2019-07-08 10:03:00 Gurinder Delgado [facility] LAPAROSCOPY,ADRENALECTOMY 2019-07-08 07:15:[address] [facility] ABORH, MANUAL 2019-07-08 06:19:00 Morelia Leo [facility] TYPE AND SCREEN, 2019-07-08 05:52:00 Luther Santo [facility] s - AUTOMATED [facility] URINE CULTURE 2019-06-25 12:53:00 Gurinder Delgado [facility] URINALYSIS W/ REFLEX 2019-06-25 12:53:00 Gurinder Delgado [facility] URINE CULTURE [facility] COMPREHENSIVE METABOLIC 2019-06-25 12:53:00 Gurinder Delgado [facility] CBC W/PLT COUNT & AUTO 2019-06-25 12:53:00 Gurinder Delgado [facility] Plan of Care Planned Activity Planned Date [...] Future Scheduled 2002 COLONOSCOPY SCREENING [place] Test 00:00:00 [code = COLONOSCOPY SCREENING] Future Scheduled 2002 SHINGLES VACCINES [place] Test 00:00:00 (#1) [code = SHINGLES VACCINES (#1)] Future Scheduled [address] [facility] - Test 00:00:00 malignant neoplasm of Medica l Center colon (procedure) [code = 772028678] Encounters Start End Encounter Admission Attending Care Care Encounter Source Date/Time Date/Time Type Type Clinicians Facility Department ID 2019-09-09 2019-09-09 Outpatient [facility] [id number] [place] 00:00:00 00:00:[address] 2019-07-23 2019-07-23 Office OSIEL Delgado [id number] 15:02:12 16:42:42 Visit Gurinder Kerrie AMBULATOR [id number] Y [id number] 300 Results Test Description Test Time Test Comments Results Result Comments Source Tissue Exam 2019-07-11 16:10:00 Test Item Value Reference Range Interpretation Comme nts Case Report (test code = 104) Surgical Pathology Report Case: [id number] Authorizing Provider: Gurinder Delgado MD Collected: 07/08/2019 1003 Ordering Location: [facility] PERI[facility]IVE Received: 07/08/2019 1306 SERVICES Pathologist: Love Hernandez MD Specimen: Adrenal, Left, Left adrenal gland DIAGNOSIS (test code = 3220) [id number] pc fRDrENiegoIfUTvjx1BmD7WsMeZjXKwhohUyYKDz YzuzqdosQZUqHCR2rdWkTCXpVTbhVJJtARgmBj5r aNEcoPlaNjIdXITew6ueliROsyijtYj7z8hvZVSe QxTgjZMhOYssY4fbgpUcaCWwSKCyVFo6oUmtGvOs MASie9hspgJbLyRcBYTwQTEeWYOqcHVmW690n6un e1zouaGarCU6NPPkECLzB3PgGY7jMRYoiEGiISfe zaChHiV2IEreEVFlEfJ1QIZjpCHeVYJwJ0rdQDLp WMhgqsUqmnQ7PLXhhYZgXAT6bIjnq8C5hRAkhEFu fDqqEoYcEiIvRQASw9BtBSv5vHlpK6XbBPLuQbM7 eFHxMOOoTGjpECPhAXIrthM8hB20XRnfjqT4wVDr p7Qzm23vk308lH6wbOJwPQI0FMSyZEEpvDWfXEVm AFS8NIAzbGJrR9i8HqZupCKjV4B8LyDdjGYnM5D3 MuGhkRLrC2N8SnUbvNNpVHLpkEPiEe4riSVcsDPj fs4pia90GBM3f9XheUslRPY0KYJ4DhOiPg2gtJTg PXJwMI3gUgKtwDIeOOLrzu12hUbjTGbhjjUegT8a WrDoPB9ipRcnn62bFXNhVB4asJ4ihi9hwkYcKWqk dDEhkSC8vmyqUZN0BZEipzWnk8Eyh7kkZpDwnmOs O1gzF7VxETYlOBJkDPMtZdYfgwTyy3Ykf2UjcAMw xLe0k2tgPFGqLBPujQlom0fgGAQ6DREgC1T3qAHl o5zlSLgnAZImqNR6rwkbJUlbPSAppfD1aklrCAtz QCCqiSJ4kghbQKkgLTGxZfN0xtdtKTxwSCIrUHZ3 NHjxz277GSK1VKsnBsohKJvjKCAcgbDsroNqmWgh ZGVjXHBsYWluXHBsYWluXGYwXGZzMjBccWxccGxh eA0rSwQlMhWjJBpmwYFjqzvvLNkaenWnQMGxzsAK WzTNPSXAWjFCYMmUYS5SRPRYRZENQCPZUURISrLV USLUP00DDqquWGBjGEOpZS7hNvLARAyWOWDIEtZI ITscQ2nPXsZlT0sHLADlzPhgqV0jLiGjAyTmQVrf DL8qQQKsO8rrxXQqYYNfLSJtP5zfXqLpkX9leCzv WPahAeQbZrQeYItajVGgdWYEQlEPYLoGAWAYD8CC RNRFWKVOYs0SSLxZIGYYAPSGMICEN02xoKtdxX8a FbEbSuNoVKkyEH4hWTEhK0cgpMIbTOXnJCEqJ9gu CyYzhC9nbYeoSusxZfWxIpSkRCPqECEdDSbbJDMl WSOiArFyqDXdGMOrVILfLAoJDO6OWeiCE8SeXR6I O0STCLhKZstdTWdJA69TY2MRJxWYTwMwIqMJS5LM ZFLfXrYVVZ9IEQsgJTMOP96qJASnmyCzORZoAUMD PUuMO3JSDHXKOnWZJYWtOAEYPV8OJEDVASJBNV4i iGDuWGWvBBHoNJ9DSX4IHVnTRgFXA6ekBABNWrKB CcoGAT2crEOcvVrtneEyUTvvo5RmRPenAPEwUO1h uHudVQRgLL3iEXVpV3qfzO9bmiq1LrZdCGDxSgN9 VLGkoaA3Gpf4AGVvTMbrv8rex5YdJCKjUCj4nRwk CkTuMLZke7qsyfSkViVbTNFbWQEeVKAaaRDaO832 j2uze5oyxlWmhGG8GXDnBEN0EUipvhGwpkN5JCfm kXPwIeC0IPhahqDlMLilsrQabhQwWyn0KLKrL447 JQV5hZeak2ifLCW3KFSpJUFtAfJsNq9foGDwY274 PACmWQDFGQBqpVu8GQCczoQdvsCjwFXDg249D889 f2osTTOpmpMmcJoCkbivo4ogF106VMKimVPfscJf ApUrWOZcvYIvuNJ8JBYvBG6gwdyiFMjwFCmtBHIh ruI0NDIqlFAlY7ByERFyWP2uinblMHE9NYqpCUBa OYK6JqXuCBSfs5Gtgqm2QiJypt9wcd31MFB4l0Ib eVwsJZQ6QTM4VfEqSs2nrFLsCWNoGN1gAyEqcYGv FXJgws75fFfsICpxJSX7UFScvhVto1Oud4onVuQl ioInA0zzJ6QvUVEwJYZgGEIsZcLacxCrw2Qtl3Lg hDIhhWu3m8caZYHpFSVjeTaxz0cgKKF0AMSohVPr H0htsO7xNNDjAP8ciozoq8qsOVbdRMoyRVJygPR7 aoN2PQGvfKWcX9ZihO4lLPOwCUnqBUVycmb7BjOj Xs4zgNMciNpiPAyvNssqGXkxUMUlpeZvytQfaZve ZGVjXHBsYWluXHBsYWluXGYwXGZzMjRccWxcbGFu IxGsQwSmgGbbfIcdWTlbCgHbDVJtEBjxF7txCbPs MaQpMrq8WPOltXDdKFRtJkd0NIDpjLMqWYYTtZom zS6yUBZlwFtlzR1aoHS9WDOspfMixURPkW9sTVML fF0eTzX2ZECiGtj1PMAaAvOhiKCviW2= CPT Code(s) (test code = 3357) u4stzLKhNLJifIXoPnYiBSOcVNPvo6ltSADg bGFu HiMiRgNcYbDyLhvetCNzPJZkRuLbm5tts861dTKz r9gyIEXgEvH0gIPnCFDetGUfX917w4igs9wgelEw eNH6EWCuQYT7FCseyhQxowJ7TLylwUQmFnC0YQnw aaBjLSguokJwdwRgHbc5GELaY643KHA0hEqsn7ma TLP8CBUjRDBtOdMtTg4teFXuT150KJAjHTSVALMd nIm6XXNzpaSzzsNvsDEZt058Z884s3ynXXJwyrAw nZmXdvbky4uhX011YAPjuFQmfnDsCvOfTMOliTEh pXY1IJTvFW4opemlMtBmBM1dulqyUvMkZB9nuyh9 TxByMM5iibddDdGkJVxmEXJvmeujEAWsl7Weksoc SB0bJ0Ccb9W8dX4xmYWaGUNwbBRwJtUlZFQueu9a aJRlKYljs8IzAWX4rmQ4yGSgsVHcSSLgUS95Zfpd e0GuLnpmFLO5GWNgcaCtb3Vyx9peCuBmcqSvI1au R8EoFTLqRVCpVICdOfKozqJix2Gfv9UtiIKlzQh4 m1owTTXoEIIrwXlwt7zyPQX5KTMqH2O4zVQks9yh JCzbTUVuyMK5vofjARkaIBBmmmC7waxbYFbiOUSc fKB5zknoTMcsKMOjGuS8qerdJCafRYTcWTG0EVrc l466WLB2WVrbRbfmEZljGWLjkyHakuOheHtdZSDl FFEqUZubPCNzERnyTEUjZQKrUpJmlTittXhqdJ2n ZlElVkIjPQtiOZ3fUUTxN2csyNAjXULeTWCwX7ac EsXvpJ5hjGerPJbhjgLaIBm9TdZ0GRYicn2= CLINICAL HISTORY (test code = 3356) g1kdyVHnKDXeoKLgSeQjOKItPVRbl1t cZGVmbGFu JdHiGqBoIgIvToynxPWeNRPjUcLay0thu860vSKl x3rxDRLeZvQ2sAKdIGMshRPtT794TDRgYYtez4db b3MfOXBaiGDkf7G7GVSIywcbeXs7xAdpC23jo7T1 DreaE3scFICiUCpmHLQlTDbolLJxIME9FDTrBZH0 TGrrthWrhsJ5CDccbHFuNpK1QCy5g0eyiBwaMWIj TTE6r4kmGUzljnMmLT0nqs5wiIz0p9izioDsYLLl WTBnqRANPVHhK6JkfLewJr2qaUp2gQcuYoyoEJZ2 Gnc1VR2exs67naw6jYovCCXhcjcaCqX9UTlmIMHz yyvrEIo4QZgcSNVctQkbWEstFWGfuiyaPZrbBJXw iXmaIDbhLQJcGsojKPwjHXMdTIW4DBybu010NZB8 AWtok8mwa2vspWXwNkb2RETvRcBrRrozNKumq7Ky w2weYMKdat7tEQW2fSWdvYemp1C0rNGkREIekMXt rjBaOVBaDyS7OMeaEM9nws34XOYrTWE5xk9afJVx yLiyxaNsdALhFNgjW0SxVEGsn000PPPpD3IeDCWu a0F3zySlWiRbFIGkaSN7bhC5PUFyIXe1jNJtvtG4 cgPvoINhF1qebQ12RbXzjWBmV5MqiA31UtRmqLGl U8ZkrG65VvSjfHPjA6ZnrR58MeBalWXoMGIksASt Pa4luZFtlWEul9OipLEbLRwvA99xq820EDAmswTi M7ecoWZyxksmsFWpkzhcOOkgogWfDEHuTNJeWRat DHDuZETyKpGczAbnsB5dHqVmIeOmCASQnvYlDZ8z XOXdw0PmcZMzjJWphq4ukJE7SLPnelPkVHgufXCq t6shBGJ9 SPECIMEN SOURCE (test code = 3377) k4brdJUkNENbbFOtIdDrNLJqWVTkt7og ZGVmbGFu OcGbFhUzTdGgDccslYQfVCSwMcEwi4hii635jXJi p1sjQCJgAyQ2jDMcRLNqlNEsJ593j4xyu0nbtnDx jEO1ASXeXGK6XJxwgyKxsaT1PFpiyQLhGeV5DLki lpGtIVxkzhDpzdLeKmm0RHYwB427XAC3hWkxe1kb NWG3OPTtINJuFuRzUs0nqFGoV650XKImOLUFMTAh jXi2EZFohbYdtfYlzGOCy162W234p1twUHGmgvCu yCvLbavpg6jtS623WUZhxBIfxsQqPfNsBGShgRHp vEV6WRMvYM0chxpfQxLkEI7cthraJoRrHM6uuad7 RhObEZ8hguojTpEaPUxrPGJchszpQOSix4Ysgjdk TC5bC7Cgr0V5tX1hdBFwGGBjnAHoCaVbGNSgni0t qKYyDMfny3QfRBW2zrV3rMHsjVHpWAFtFW13Tktc c2EyNxijUEN3SEMdsfIty4Olr4adJiWivhIpE1lb S8WrXADvHCWiVSWfSrTtstMcd2Cio0RvgKEdyRe7 l8joCAKuMCEvdBdty7yhRGB7QYLiG5K0iRYnb7hc VUziQYOsrSO3btnyJZrxYPBswjE6bwwxETfsBBMr xOU6ldqyNRmzAZEgGnU4phleMLxwUTVaSAH5TIln t816MQN9FJdsMjatMPidDOFnxeTzjnZocXjzGPFr WSFbWCsuXNLmHIxfXMYaCSLxEkVyrZyjfJnbzW2r QjZjUqDcRKmjOR4lKMYpK1sucVKxRLOeYMCzY6ze BdGwnV2paVtiIXcrcvCzHUcxWaTbZRAnXJ0gjVDk bGFuZFxwYXJ9 GROSS DESCRIPTION (test code = 3366) f9irjXBuCKGupXKxLnLjIMEvQWJgz7 lcZGVmbGFu LeNqHwJpRvLcHxkmdTCjWDGzXyLtj0jvv621bCRp o0fkUIDkPvQ4uSHkAWQaqGOuF612CUFjGYjml3sq w4BeWBJmxQHus8I4KQVWczcnfEj4fTduW73mw4G9 ByipZ7loEWAsXYtfVSEuKClddPUaHPG0GSLkAEN4 FHfmspQtqzF4KDtzuDSdZjC2HNr4o4hsuKddVHVr UGL3c7tdTKrwslKeOA8yrj3vlBh9h0whmhZiYBMt UJUanQIFJRVuN3YhhZgpRx0tsMu6iKlgKjvhGCN4 Vyy1BT6avt21tcz5bDcmOIVikaxcBcB7OZphXHPk odqlWDr6QEpiXGFkuMobXGemOQPvqmjyWAbjCKDx qNpjNXhzNJFbRtimGGttUODgPXQ5QCjua670WXY1 CSeto1dth6goiAFnTbr4MCIxMnLsNazsXBqcg5Vl i8aeMDKdid8aGRH4fPIddGtun6B9eVBiGJWkwCEh uzRwWJGpRjZ1YLemYZ6oov89SBVwAFM8kf4pkBPp wObxevLojNJgZFqlR1BgJNEar132ZXRhD3EoDLGa w7J9xoEsIiRcLILsfVW6wbR1WNSoEBq8wJSuwiY6 syTbzTIoN1byzQ74IiXrjNYkN6IhkT54KxZmhRIz A3TnoO71FhFpeUXkM4ExjX38GtSzeFZqJJXzmULw Nk9bfJSeeUXjv9TzbHZrDDfvV38sl848CZRtmrPz D9gzkOCpsqlzwQLnhkmdDTxowmCsBILkGXGwZLkq VWOiDCJjNeCpzDxcpI5sUbWkVlRwUXTDTNBtkFTb ZCBmcmVzaCBsYWJlbGVkIHdpdGggdGhlIHBhdGll ltNvtcXzBG0lEZKvE3Izc7Kvu48xyeNgArFvUREu CSGcNBVoRL0bbIymmANpgBSptQNuPQW9CKKnbOfb QuC0EJAiRvT5PEZoL17hJNCmCE4wrZPjaOXtEFSj sCAfHSAqMGDlcCBxSDhstCB0DD1lnbjjfRHgCbTp tnSzLENpSTQylDWagnPxtUEyEPJzRXknAEjuy9Ro WJIbxQLqAIXhOOM2aXMjo0XrC4jgMO9jwBRlw6Sh hROonZlyk3QwhZuneoKrWUKyGKDntwCkdHHnPRhn rOywS0coO0Hsh6EcbEDeJTkruQ2kvSk1VBceyF8g ghrjC3heTN1so2Rvm9a1xRSjPGJqyqIfLPziBFVf KPTkDkVhLYmbPOgcrNkvqvbnJ7DmoVH6bdO2NY9j m51vpCHkTAOjUT0pXKdhDL9oq4WsdFMbJS57OUwc TO02ADuiDBAhnBVfrxQnsYPuF34soLiabURhgLEr nwPkj6HsNHfqxNubyjG1bNQlX20grPB3QhLQtORc bmNfKRuwlD6eMGNhxuPfRNioX7rkkeZdtJVtI54m UAAlHHbqnRorgdP0ufX8CF3fDT0qTEVcu992nV2m UnSfxgLxBE53RPKuwhUrc2XwkNcxbsNqEJRfKGY8 Cy8mpZLjVD8bHVZeqmsvWSSqY8CktRbccuXpf6Gm LrMSCK3MHEgrnoZvjaUbLH26IHDyqmQmu8Ozd18r TKQ5sGepM3Spl8Fyx3JbsVvzzhKiBvUyWUJuVmUQ Mz3JOaiosESrbfC9qeIjdINuclFxvZEdTOPdLoON LY4EULyutM5lqyFuaRPkSAVjIJUmaiYpTIpcNW5h sr9sX4wbqBblCCRupw0= MICROSCOPIC DESCRIPTION (test code = b2szrKNmQSBbmHYsVfSjWHJlHEWam2 [place] [address] XnPwFtIfAzKiFjnynWKwMGCxHjMbc9hct712sCNl g7kfJBHrAqI2gKKeBICjtSRbI011u8fco7ckceIp aRJ4KOEjVOT8MNtgvvUyhzZ2RXgrlUVwEbM7LXsn qmGuQXdoirXfzuGpQoq5KZRxW121PPW1gLoeo0jp KFI6SXQgQRYrVaTsSa2hpFZpT690KCNlBCRVTBHw gXb6VFOuosWxwbGpfRKCa106Q239v3ycWRQwaqWn vPnLltrft6ktT251KNXnnTCzrmPlGdEkFBRvbKHa kDK0JIXvUC2ewtkjBgAxIG0dgtllVdLtKI0ibhm3 XzPhEY7eshdrLjTlSTgwULWpxhdxDBLji0Yafiyz YG0gO0Zef5K9yB1umRDjHBJpkXMzYxSkMSPjfk4o xSLiDJifp0QrZQW5ztN6xUIenHWiTFHuKO32Utfo j5BnLctmZOZ9TIToewZgs6Zek8mnHfAyjmYwH4tj S7LjWHSdMDDiELIySbRjqhWjp3Tgo0MpdTQtwDh5 x0weEDDyJSBwzAfwn2jwQHZ4WHCxF0W3cWWgv3nh GTsnLHEzoXN0fdcoEJcaALIbdnH7mprxBDooQZPi qGR4syoqVFbwOPJrShM3lxyoUAmoESUzCFF3MXbw r851VVF0CJryVdoeKMbuUQAfzbWscwKpgNlvPOVq NCHfRYneUULrYMbiUGVaAXGoXtIehLfvsEwxvK4y SwPfHxByNDfoRJ8oBVPsC1mpnWVbPQUwNQTbD8nd FhJtnY5vmAvwWGzavnCaNKZgyzFflc0yEC6iwMWw fQ== SPECIAL STUDIES (test code = 3376) h5udcNBmYVTwjWYiJvMiSWBkWWZud1tx ZGVmbGFu RuIvAwUxUuGbNuzbiLKpCDLmWtGqv3rca162iULi w0bmORXsBoY1lWLrIPFogPKhV718CKXwXVxxn3ie f9BaBCUxdIVgt4X3IXHALCndKfOkQ758ICHhEPmp y7hqt9IsDLFoiOSly6A0BRSSanilgIk9rZkdM85a c4K2KqrnY5rvOHRrKHBkN5ZnGB2vPCWoWtf7SUZ6 ZRJ4QVYaSCHdS5LeKK9fVAPjrRAgAHm8h9ggfExz FYCgDRS0j2evWVdvdvQ3JN3fbg8hkJl3h7gmvrEv ZJReCHPhjYBMQLSqH5PrxHmnOq3lqRu6i0cjDztc tkE9eQAeSnGaTwFyOZwqoWVdnbloMPSxUZI9jBRV BRr9G902u5slMUDollEihRmXtnnnp9hwQ700SVBz qEOgwjQwIsSqJGOanAEzzDU8BIPsAC6buqpfFaJi NH0drhtoQaRvDV8kaut1UyTcNM0lelpnNtEyMUmj YVXihxnmRCRmx7SimoxbUA3wN5Izt2Y4dJ0ntWDu TGCtcFSuVqZdHAUwqt3teRNmCVsjKMV4AZOzqaZb z5Qki1bgCrGrssJjR6lrL8NnVDFoYGPsGGMrYeDd keJqy4Yjg3HgbWNppTa3t8ctKCWjFXXhiYwny7ml OWE1IIAeX2G0kKOoi5ogLHtaVSBdaBO2gbpwPOcy SFFkndS6iryzMVcgSQOwjZB9vpiiOFluMYRyLdB9 tmpjPIwbUSAxVAV2HKygi045SLC1GZcqFgpqKLan XHBnbmNvbnRccGduZGVjXHBsYWluXHBsYWluXGYw NTQxJePepNjcsMzotG9hEeJfPpVvDhmvAH9yILYp H6xbpOYqOCApZECnC7bzGdChsC8dvPppQPjmTqNi JtDhOaVMeAQkgA21LZYipwV4TOFdf33pp2LktXvl pnAeGOBmJAfkU6u9RCFbMFFgVYI2t8Lgi4GzxZ5x uW1kwKfowP8msTSegEC0fqujl3Tco5LbG4qozSCd dGFpbnMuXHBsYWluXGYxXGZzMjJcbGFuZzEwMzNc pYccpJmbGSkkOtVjAFFiKXsvC7ikZhYkR0QmMFQo SyJpyHDdN2xtnCIbWJJzjpjivXFvjqhaJTovjiGb SEbrbvipZUAfQFyvL3gnDeNfWPVclOtbAWace2Ya CXLtVKTiBjciyiGiLOJwemVki6wbM4ayXVTdRIH5 FM2jolYaTaRyMW9jdB21r8Zsw92qc93bcH4rcXHn siMcO54peIAeiVWpz7ZxTVBvktJmvGX0JFGsFMav pzlbv7p7iNQ9gCTkkHDnwWQ4bRFvjZLnVCHSkXAt QWRrl064jc7hYNKnbZBpqzUlsB3hOWvfmjlpqHFh NH6wFRQzNSGbCEFhDR65yaUpQN6fqEKqo3jafhJi uLItq0QrlMP7ENNdqZMolctfQp6gWT35EHOsPMqh zA5mrDCnxuRaPM6yEE3pI5N7sXKvNERcimDsi8zn HNiuOK7mOULifIxqOvvmEHRuNLZeeeIthQR0NVBa fNnvgJ9sGoVxIpJoQvddZP5sWTWbM1smcQOsUOWa BMPcN9hdJwSfzK0ixOhmXNznRxOxSmZgUtlbjYXt rVlaLAXlqJdfnX8vHiRrXxOrPvifIF7aKEUpL0ky uDIvUJRuSEWrE9sgQqQgbT7pzJrpJCopHzLcMqLt MiAgXHBsYWluXGYxXGZzMjJcbGFuZzEwMzNcaGlj nWrxLFoqZlChWXMnXAemV5lwHnFnV5RwUDPoJpSh tXBcI4ctcMNjLXOyMGqnCTEaIAIxLmPjmNGyYwUt EwMwwHqriQajYLeoXuXhRIFeSQddT2njAePlR6Nk PJAbQjPvHR6uoP7gpIvseU5lvNUgxQN7jvkzhETo sQ1yH3ClPYNoe9Dyvdsem3GvCNMngsYjex2jJKQa kXETUUews4KhW6TdLGg0s8QkwExrvG9nBmQdOlQz JhcqQR5qTUGhP1zkjNPfQZBpWXPmH3cyBjJqhC0m pChcUBfcEpDiHoBsKyh9QHGhEoTgCurnUMSaDEai XGYxXGZzMjJcbGFuZzEwMzNcaGljaFxmMVxkYmNo RULwPXuiN5axMhNcA6JqEDNhZbFzusJRVLKnI7Hl UXWbhcAzmpwsBYJ4cH5mj7s3GNveUn4kCGLkvnfj y4bhneJxoKHft1HrMBQyoiInk9TaJQRrwdMhgFCr CHWjhpBjeg3tljMnIOXiYGXqG7ErcijazYygosX8 OWDwMJKyvELkhJbtKWPmXFe1TCycdvUpv5AoGmLn bjPnlUMoerBlXK3xPAExtMHjgmSuSVJ0VFJqLEEA CiEdWSHbv5XuZG9eNHEgdHduEPSbxG2vx7DeOFIo a41aWHPbBCPBAZZxiFOiSPKkwLSsyCadCXXaxKji wNEhgOTpUPEmFFAvTM7wKLXjqlOxkITdf2YuwWBc ulUet0PcpwLpHHSuKTE3MiLFzGTjvALawKCmynO3 a0OrIPMqrlTycDpcaCUfeVPpgBLwe7Wval8cDABy f7vfvJpaRK0clLZxYAFqWBdxddMeXYEbhxAdxuVg y9IdQ6F2cW4aGZusf4AbZk5xUKVtw1QepmMbDeZI dZmiGAbpTs8nNFYukxzraGNxS1GqwAncfEQmSIUt QOQsMLIuYVJOlKnexLBvoVYLFREbmhN8b2C2RPpw hLQgykZsSE30GBJrKB7gnWBzpPBok4UzIDj6GNVm Y0xHBV23ITpgZEPcjPVezHkomASxTMQpFIPnlxKl ap5wdTiyhANdr37olGG2wWV9VNUceK4eW8ApYMys Aj7hUCXlroyzpJVsiMfgZg3inNjazO9oSjIpNpMh SspaHQ0eNQDaH7exmGHjONMxHLShD7buRsIloA9a aFxmMlxmczIyXHBhclxwYXJkXHBsYWluXGYwXGZz BvJuwPoigT2jAuNnDaHcJSjkLZE6 Gross assessment was performed at (test [facility] enter, code = 2777) Department of Pathology, [address] [place] [address], Technical component was performed at [facility] er, (test code = 2778) Department of Pathology, [address] [place] [id number], Professional component was performed at [facility] enter, (test code = 2779) Department of Pathology, [address] [place] [address], [place] [facility] HospitalT[facility] [id number] 16:10:00Surgical Pathology Report Case: [id number] Authorizing Provider: Gurinder Delgado MD Collected: 07/08/2019 1003 Ordering Location: [facility] Received: 07/08/2019 1306 SERVICES Pathologist: Love Hernandez MD Specimen: Ad renal, Left, Left adrenal gland A. ADRENAL GLAND,LEFT, ADRENALECTOMY: - BENIGN ADRENAL GLAND WITH NO SIGNIFICANT DIAGNOSTIC ALTERATION. - HEMORRHAGE, ORGANIZING THROMBOSIS AND VASCULAR RECANALIZATION ADJACENT TO THE ADRENAL GLAND. - NOMALIGNANCY IDENTIFIED. Signing Pathologist Direct Phone Line: [phone] signedby Love Hernandez MD on 07/11/2019 at 4:10 [id number] and postop diagnosis: adrenal massLeft adrenal glandReceived [...] is peguero yellow to guo and smooth. Oil Well Directional Surveyor sections are submitted. Section code: A1-A5, agricultural sales representative of one full cross section [...] evaluated Immunohistochemistry technical testing was performed at [facility], Pathology Laboratory where it was [...] as qualified to perform high complexity clinicallaboratory testing.[facility], Department of Pathology, [address] [place] [address], [facility], [facility], [address] [place] [address], [facility]wcg[facility], Department of Pathology, [address] [place] [address], Zcqyf Metabolic [id number] 06:54:00 Test Item Value Reference Range Interpretation Comments Sodium (test code = 139 meq/L 205-151 9140-2) Potassium (test code 3.7 meq/L 3.5-5.1 = 2823-3) Chloride (test code = 109 meq/L 98-107 H 2074-0) CO2 (test code = 22 meq/L 22-29 8-9) BUN (test code = 7 mg/dL 7-21 3094-0) Creatinine (test code 0.81 mg/dL 0.57-1.25 = 2160-0) Glucose (test code = 86 mg/dL 70-105 2345-7) Calcium (test code = 8.6 mg/dL 8.4-10.2 98493-3) EGFR ([place] = [place] [address]-4) CLINICAL DATA T O CALCULATE ESTIMATED GFR. FLORIDNA (test code = FLORINDA) Ship Washer ID - GALAP Lab Interpretation Abnormal (test code = 19989-9) [facility] [id number] 06:54:00 Test Item Value Reference Range Interpretation [...] 1092) DATA TO CALCULA TE ESTIMATED GFR. Ship Washer ID - GALAPCBC with platelet count + automated [id number] 05:35:00 Test Item Value Reference Range Interpretation [...] 450 K/CU MM MPV (test code = 02912-8) 10.4 fL 9.4-12.4 nRBC (test code = [...] 2801) Lab Interpretation (test code = Abnormal 14534-8) [facility] W/PLT COUNT & AUTO [id number] 05:35:00 Test Item Value Reference Range Interpretation [...] (BEAKER) (test code = 2801) BASIC METABOLIC [id number] 10:13:00 Test Item Value Reference Range Interpretation [...] 1092) DATA TO CALCULA TE ESTIMATED GFR. Ship Washer ID - [place] FCBC W/PLT COUNT & AUTO [id number] 09:50:00 Test Item Value Reference Range Interpretation [...] (BEAKER) (test code = 2801) BASIC METABOLIC [id number] 11:58:00 Test Item Value Reference Range Interpretation [...] 1092) DATA TO CALCULA TE ESTIMATED GFR. Ship Washer ID - [place] FHemoglobin and [id number] 11:41:00 Test Item Value Reference Range Interpretation Comments Hemoglobin (test code = 11.7 13.7- 17.5 GM/DL L 786-4) Hematocrit (test code = 34.9 % 40.1-51 L 4544-3) FLORINDA (test code = FLORINDA) Ship Washer ID - 6000 Lab Interpretation (test Abnormal code = 68326-8) [facility] HospitalHEMOGLOBIN AND [id number] 11:41:00 Test Item Value Reference Range Interpretation Comments HEMOGLOBIN (BEAKER) (test code = 11.7 GM/DL 13.7-17.5 L 410) HEMATOCRIT (BEAKER) (test code = 34.9 % 40.1-51.0 L 411) Ship Washer ID - 6000ABORH, [id number] 07:44:00 Test Item Value Reference Range Interpretation Comments ABO Grouping (test code = 2588) O Rh Factor (test code = 2589) POS [place] [facility], [id number] 07:08:00 Test Item Value Reference Range Interpretation Comments ABO/RH AUTOMATED (BEAKER) (test O POSITIVE code = 2260) Ab Scrn (test code = 890-4) NEGATIVE [facility] [id number] 11:35:00 Test Item Value Reference Range Interpretation Comments Result (test code = 6463-4) No growth [place] [facility] [id number] 11:35:00 Test Item Value Reference Range Interpretation Comments CULTURE (BEAKER) (test code = 1095) No growth Urinalysis w/Microscopic + Reflex to [id number] 14:23:00 Test Item Value Reference Range Interpretation Comments Color, UA (test code = Yellow 5778-6) Clarity, UA (test code Clear = 5767-9) Specific [place], UA 1.005 1.001-1.035 (test code = 5811-5) pH, UA (test code = 7.0 5.0-8.0 5803-2) Protein, UA (test code Negative Negative = 96935-2) Glucose, UA (test code Negative Negative = 365) Ketones, UA (test code Negative Negative = 2514-8) Bilirubin, UA (test Negative Negative code = 66579-9) Blood, UA (test code = Negative Negative 00762-1) Nitrite, UA (test code Negative Negative = 5802-4) Leukocytes, UA (test Negative Negative code = 5799-2) Urobilinogen, UA (test 0.2 mg/dL 0.2-1 code = 54710-0) RBC, UA (test code = <1 /HPF 88726-8) WBC, UA (test code = 2 /HPF 5821-4) Bacteria, UA (test code Rare = 87123-3) Specimen Source (test code = 2795) FLORINDA (test code = FLORINDA) Ship Washer ID - [auto]Ship Washer ID - tech [place] [facility]YSIS W/ REFLEX URINE [id number] 14:23:00 Test Item Value Reference Range Interpretation [...] 517) Rare SOURCE(BEAKER) (test code = 2795) Ship Washer ID - [auto]Ship Washer ID - techComprehensive metabolic [id number] 13:52:00 Test Item Value Reference Range Interpretation Comments Protein, Total 7.3 6.0- 8.3 gm/dL (test code = 2885-2) Albumin (test code 4.4 g/dL 3.5-5 = 70318-4) Alkaline 73 U/L 40-150 Phosphatase (test code = 6768-6) Total Bilirubin 0.8 mg/dL 0.2-1.2 (test code = 1975-2) Sodium (test code = 137 meq/L 561-878 0813-2) Potassium (test 3.9 meq/L 3.5-5.1 code = 2823-3) Chloride (test code 104 meq/L 98-107 = 2075-0) CO2 (test code = 26 meq/L 22-29 2027-9) BUN (test code = 11 mg/dL 7- 3094-0) Creatinine (test 0.96 mg/dL 0.57-1.25 code = 2160-0) Glucose (test code 96 mg/dL 70-105 = 2345-7) Calcium (test code 9.9 mg/dL 8.4-10.2 = 30865-0) AST (test code = 23 U/L 5-34 1920-8) ALT (test code = 25 U/L 6-55 1742-6) EGFR (test [place] = [place] [address]-0) CLINICAL DATA T O CALCULATE ESTIM ATED GFR. FLORINDA (test code = Ship Washer ID - FLORINDA) [facility]HENS[facility] METABOLIC [id number] 13:52:00 Test Item Value Reference Range Interpretation [...] 1092) DATA TO CALCULA TE ESTIMATED GFR. Ship Washer ID - ROSIANGCBC W/PLT COUNT & AUTO [id number] 13:10:00 Test Item Value Reference Range Interpretation [...]

== ENCOUNTER 2020-10-14 17:40 | Emergency (ER) | payer OTHER ==
--- OUTSIDE RECORDS SUMMARY | 2020-10-14 17:44 | XMS REPORT | Continuity of Care Document ---
:1950 Author Organization [facility] t Address [address] [place] [address] Care Team Providers Name Role Phone Zamoraadriana TAYLOR Jonathan Primary Care Physician YAKELIN Attending Clinician Unavailable Macy DAVID Attending Clinician Unavailable Link Kerrie RUIZ Attending Clinician DWAIN EDLGADO Attending Clinician Unavailable DWAIN DELGADO Admitting Clinician Unavailable Payers Payer Name Policy Type Policy Effective Date Expiration Date Sour ce Number MEDICAREMEDICARE PART [id number] 2017-07-19 Cm Puga AND 00:00:00 Bahai [id number]/05/2017- [facility]SESTEFANIABEN FRANK[place], TXMediuc [facility] AETNAAETNA [id number] 2000-05-21 [facility] 00:00:00 [place]ai [id number]/ 05/2000-PresentIndemni ty Problems Condition Condition Condition Status Onset Resolution Last Treating Co mments Source Name Details Category Date Date Treatment Clinician Date Adrenal Adrenal Disease [facility] Hyperparat Hyperparat Disease Active [place] hyroidism, hyroidism, 8-24 [facility] primary primary 00:00: st 00 Irregular Irregular Disease Active Darshana genao heart beat heart beat 7-17 Me thodi 00:00: st 00 Abdominal Abdominal Disease Active 2015-05 Darshana ston aortic aortic 1-29 [facility] aneurysm aneurysm 00:00: st (AAA) (AAA) 00 Aneurysm Aneurysm Disease Active 2015-05 [place] of of 06-18 [facility] thoracic thoracic 00:00: st aorta aorta 00 Aortic Aortic Disease Active 2015-05 [place] valve valve 06-18 [facility] regurgitat regurgitat 00:00: st ion ion 00 Coronary Coronary Disease Active 2015-05 [place] arterioscl arterioscl 06-18 [facility] erosis erosis 00:00: st 00 Essential Essential Disease Active 2015-05 Darshana ston hypertensi hypertensi 06-18 Me [facility] on on 00:00: st 00 Peripheral Peripheral Disease Active 2015-05 [place] vascular vascular 06-18 Method i disease disease 00:00: st 00 Allergies, Adverse Reactions, Alerts Allergy Allergy Status Severity Reaction(s) Onset Inactive Treating Comm ents Source Name Type Date Date Clinician Delores Gordon Active Other (See [facility] ty to Comments) 07-22 [facility] adverse 00:00: st reaction 00 s to drug Family History Family Member Diagnosis Comments Start Date Stop Date Source Natural mother Heart attack [place] Bahai Other Heart attack [place] Meth odist Social History Social Habit Start Date Stop Date Quantity Comments Source Sex Assigned At [facility] Cigarettes smoked 2018-07-29 2018-07-29 [place] current (pack per 00:00:00 00:00:00 [facility] ) - Reported Cigarette 2018-07-29 2018-07-29 [place] pack-years 00:00:00 00:00:00 Bahai Tobacco use and 2018-07-29 2018-07-29 Never used [place] exposure 00:00:00 00:00:00 [place] Alcohol intake 2018-07-29 2018-07-29 Current drinker [place] 00:00:00 00:00:00 of alcohol Bahai (finding) Tobacco Comment 2018-01-01 2018-01-01 stopped 2009 00:00:00 00:00:00 [place] Alcohol Comment 2016-04-18 2016-04-18 occasional [place] 00:00:00 00:00:00 [place] History of tobacco 2009-06-[address] [facility] Smoking Status Start Date Stop Date Source Former smoker 2018-07-29 00:00:00 2018-07-29 00:00:00 [place] [facility]ai Medications Ordered Filled Start Stop Current Ordering Indication Dosage Frequency Signature Comments Components Source Medication Medication Date Date Medication? Clinician (SIG) Name Name fluticasone Yes fluticason [place] (FLONASE) 4-20 e 50 [facility] 50 11:00: mcg/actuat st mcg/actuati 35 ion nasal on nasal spray,susp spray ension PRN flaxseed Yes QD Take by [place] powder 4-20 mouth [facility] 11:00: daily. st 35 multivitami Yes 1{capsu QD Take 1 [place] capsule 4-20 le} capsule by Meth trell 11:00: mouth st 35 daily. vitamin E Yes 400U QD Take 400 [place] 400 UNIT 4-20 Units by [facility] capsule 11:00: mouth st 35 daily. zinc 50 mg Yes 1{tbl} QD Take 1 Darshana ston tablet 4-20 tablet by [facility] 11:00: mouth st 35 daily. cholecalcif Yes 2000U QD Take 2,000 [place] myrna, 4-20 Units by [facility] vitamin D3, 11:00: mouth st (VITAMIN 35 daily. D3) 2,000 unit capsule capsule meloxicam Yes 15mg QD Take 15 mg [place] (MOBIC) 15 4-20 by mouth Metho di mg tablet 11:00: daily. st 35 iron Yes Take by [place] fum/vit 4-20 mouth. [facility] C/ascorbate 11:00: st sod (IRON 35 PLUS VITAMIN C ORAL) omega Yes Take by [place] 3-dha-epa-f 4-20 mouth. Method i radha-turmeri 11:00: st c 417 35 mg-120 mg- 276 mg-600 mg capsule calcium Yes 1{tbl} Q.5D Take 1 [place] carbonate-v 4-20 tablet by Met hodi itamin D3 11:00: mouth 2 st 500 mg-200 35 (two) unit per times a tablet day with meals. MAGNESIUM 2020- No 500mg QD Take 500 [place] ORAL 1-13 01-13 mg by Methodi 14:25: 00:[address] 39 :00 daily. gabapentin 2020- No 600mg Take 600 [place] (NEURONTIN) 1-13 01-13 mg by Method i 600 mg 14:25: 00:[address] tablet 35 :00 needed. metoprolol 2020-0 Yes 200mg QD Take 1 [place] succinate 1-13 tablet Method[facility] XL 00:00: ([address] (TOPROL-XL) 00 total) by 200 mg 24 mouth hr tablet daily. allopurinol 2020-0 Yes 300mg QD Take [address] (ZYLOPRIM) 2-20 mg by [facility] - 300 MG 09:20: mouth Medical tablet 49 daily. Ethel amlodipine- 2020-0 Yes 1{capsu QD Take [address] benazepril 2-20 le} capsule by Mariaa es - (LOTREL) 09:20: mouth Medical 10-20 mg 49 daily. Ethel per capsule doxazosin 2020-0 Yes 2mg Q.5D Take [address] [facility] (CARDURA) 2 2-20 by mouth 2 Geovanna kes - MG tablet 09:20: (two) Medical 49 times Center daily. metoprolol 2020-0 Yes 200mg QD Take [address] (TOPROL-XL) 2-20 mg by [facility] - 200 MG 24 09:20: mouth Medical hr tablet 49 daily. Ethel losartan 2020-0 Yes 100mg QD Take [address] (COZAAR) 2-20 mg by [facility] - 100 MG 09:20: mouth Medical tablet 49 daily. Ethel zinc 2020-0 Yes 50mg QD Take [address] gluconate 2-20 by mouth [facility] - 50 mg 09:20: daily. Medical tablet 49 Ethel vitamin E 2020-0 Yes 400U QD Take [address] 400 UNIT 2-20 Units by [facility] - capsule 09:20: mouth Medical 49 daily. Ethel cholecalcif 2020-0 Yes 2000U QD Take 2,[address] myrna, 2-20 Units by [facility] - vitamin D3, 09:20: mouth Medic al 2,000 unit 49 daily. Ethel Tab magnesium 2020-0 Yes QD Take by [facility] t chloride 2-20 mouth [facility] - (SLOW-MAG) 09:20: daily. Medic al 71.5 mg 49 Ethel TbE omeprazole 2020-0 Yes 20mg QD Take [address] (PRILOSEC) 2-20 by mouth [facility] - 20 MG 09:20: daily. Medical capsule 49 Ethel aspirin 81 2020-0 Yes 81mg QD Take [...] needed. Center ELLIPTA) 200-25 mcg/dose DsDv doxylamine/ Yes Take by [facility] phenylephri 2-20 mouth as Luke s - ne HCl 09:20: needed. Medical (POLY HIST 49 Center FORTE ORAL) metoprolol 2018-05- No TAKE 1 [place] succinate 2-12 06-02 TABLET BY Meth trell XL 00:00: 00:[address] (TOPROL-XL) 00 :00 EVERY DAY 200 mg 24 hr tablet IBU 800 mg Yes 800mg Q6H Take 800 [place] tablet 4-22 mg by Methodi 00:00: mouth st 00 every 6 (six) hours as needed. tiZANidine 2020- No 4mg Q8H Take 4 mg [place] (ZANAFLEX) 09-02 by mouth Meth trell 4 MG tablet 00:00: 00:[address] 00 :00 (eight) hours as needed. doxazosin 2017-05 Yes 2mg Q.5D 2 mg 2 [place] (CARDURA) 2 0-25 (two) [facility] MG tablet 00:00: times a st 00 day. losartan Yes 100mg QD Take 100 [place] (COZAAR) 5-23 mg by Methodi 100 MG 00:00: mouth st tablet 00 daily. amlodipine- 2015-05 Yes 1{capsu QD Take 1 [place] benazepril 1-18 le} capsule by Met hodadriana (LOTREL) 00:00: mouth st 10-20 mg 00 daily. per capsule allopurinol 2016-0 Yes 300mg QD Take 300 [place] (ZYLOPRIM) 9-14 mg by Day 300 MG 00:00: mouth once st tablet 00 daily. Immunizations Ordered Immunization Filled Immunization Date Status Commen ts Source Name Name FLUZONE HIGH-DOSE PF 2019-02-06 Completed Justin pena 00:00:00 [place] Vital Signs Vital Name Observation Time Observation Value Comments Source Body weight 2020-09-09 10:17:00 106.595 kg Kal Acevedo BMI 2020-09-09 10:17:00 31.87 kg/m2 Kal Acevedo Body height 2020-09-09 10:17:00 182.9 cm Kal Acevedo Procedures Procedure Date / Time Performed Performing Clinician [facility] e CT ANGIOGRAM CHEST W WO 2020-09-09 10:52:56 Diane Hamlin CONTRAST CHOLESTEROL 2020-09-07 11:43:00 Diane Hamlin odlon HDL CHOLESTEROL 2020-09-07 11:43:00 Diane Hamlin odist TRIGLYCERIDES 2020-09-07 11:43:00 Diane Hamlin LDL-CHOLESTEROL (REFLEX 2020-09-07 11:43:00 Diane Hamlin QUE[facility]) Plan of Care Planned Activity Planned Date Details Comments Source Future Scheduled 2021-01-[address] [facility] - Test 00:00:00 (Season Ended) [code Medical Center = INFLUENZA VACCINE (Season Ended)] Future Scheduled 2020-12-19 INFLUENZA VACCINE Eleuterio sanchez Bahai Test 00:00:00 [code = INFLUENZA VACCINE] Future Scheduled 2020-05-[address] [facility] - Test 00:00:00 (12+) [code = Medical Center DEPRESSION SCREENING (12+)] Future Scheduled 2018-07-[address] [facility] - Test 00:00:00 WELLNESS (YEAR 2 or Medical Center FIRST YEAR if no IPPE) [code = MEDICARE ANNUAL WELLNESS (YEAR 2 or FIRST YEAR if no IPPE)] Future Scheduled 2002 COLONOSCOPY SCREENING [place] [facility] Test 00:00:00 [code = COLONOSCOPY SCREENING] Future Scheduled 2002 SHINGLES VACCINES [place] [facility] Test 00:00:00 (#1) [code = SHINGLES VACCINES (#1)] Future Scheduled 2002 SHINGLES VACCINES ([address] [facility] - Test 00:00:00 of 2) [code = Medical Center SHINGLES VACCINES (1 of 2)] Future Scheduled 1971-07-26 DTAP/TDAP/TD VACCINES [facility] Test 00:00:00 (1 - Tdap) [code = Medical C enter DTAP/TDAP/TD VACCINES (1 - Tdap)] Future Scheduled 1970 Hepatitis C screening [place] Test 00:00:00 (procedure) [code = 111205467] Future Scheduled 1970 HEPATITIS C [facility]CREENING [facility] Test 00:00:00 [code = HEPATITIS C Medical Center SCREENING] Future Scheduled 1964 COVID-19 VACCINE (1) Darshana ston Bahai Test 00:00:00 [code = COVID-19 VACCINE (1)] Future Scheduled 1964 COVID-19 VACCINE (1) [facility] - Test 00:00:00 [code = COVID-[address] VACCINE (1)] Future Scheduled [address] [facility] - Test 00:00:00 malignant neoplasm of Medica l Center colon (procedure) [code = 079869970] Encounters Start End Encounter Admission Attending Care Care Encounter Source Date/Time Date/Time Type Type Clinicians Facility Department ID 2020-09-09 2020-09-09 [facility] [id number] [place] 00:00:00 00:00:00 DIANE [address] 2020-09-07 2020-09-07 [facility] [id number] [place] 00:00:00 00:00:[address] DIANE [address] 2020-09-07 2020-09-07 Outpatient [facility] [id number] [place] 00:00:00 00:00:[address] DIANE [address] 2019-09-09 2019-09-09 Outpatient [facility] [id number] [place] 00:00:00 00:00:[address] DIANE [address] 2019-07-23 2019-07-23 Office Link, [facility] [id number] 15:02:12 16:42:42 Visit Gurinder Sy AMBULATOR 350.1.13.21 Y [id number] Results Test Description Test Time Test Comments Results Result Comments Source Cholesterol 2020-09-08 07:11:00 Test Item Value Reference Range Interpretation Comme nts Cholesterol, total (test code = 140 mg/dL <200 3-3) RAC (test code = RAC) Performing Organization Information: Site ID: [facility] Name: [facility] Address: [address] [place] [address] Director: Alfonso AcevedoHDL [id number] 07:11:00 Test Item Value Reference Range Interpretation Comments HDL cholesterol 51 mg/dL See_Comment [Automated (test code = message] The 2085-01) system which generated this result transmitted reference range : > OR = 40. The reference range was not used to interpret this result as normal/abnormal . RAC (test code = Performing RAC) Organization Information: Site ID: [facility] Name: [facility] Address: [address] [place] [address] Director: Alfonso AcevedoTriglycerides2021-04-21 07:11:00 Test Item Value Reference Range Interpretation Comments Triglycerides (test 85 mg/dL <150 code = 2571-8) RAC (test code = RAC) Performing Organization Information: Site ID: [facility] Name: [facility] Address: [address] [place] [id number] Director: Alfonso AcevedoLDL-CHOLESTEROL (REFLEX QUEST)2020-09-08 07:11:00 Test Item Value Reference Range Interpretation Comments LDL cholesterol 72 mg/dL (calc) Reference ra nge: calculated (test <100 Desira ble code = 73123-8) range <100 m g/dL for primary prevention; <7 0 mg/dL for patients with C HD or diabetic patients with > or = 2 CHD risk factors. LDL-C is now calculated using the Amber calculation, which is a validated novel method providin g better accuracy than the Friedewald equation in the estimation of LDL-C. Darrel Townsend S et al. DENA. 2013;310(19): 4366-5079 (http://educati on .MotistaDiagnosti Ariisto .com/faq/MCT627 ) RAC (test code = Performing RAC) Organization Information: Site ID: [facility] Name: [facility] Address: [address] [place] [address] Director: Alfonso AmadoristCHOL/HDLC RATIO (REFLEX QUEST)2020-09-08 07:11:00 Test Item Value Reference Range Interpretation Comments Cholesterol/HD 2.7 See_Comment [Automated L ratio (test message] The s ystem code = 9830-1) which generat ed this result transmitted reference range : <5.0 (calc). Th e reference range was not used to interpret this result as normal/abnormal . RAC (test code Performing = RAC) Organization Information: Site ID: [facility] Name: [facility] Address: [address] [place] [address] Director: Alfonso Stewart HDL CHOLESTEROL (REFLEX QUEST)2020-09-08 07:11:00 Test Item Value Reference Range Interpretation Comments Non-HDL 89 See_Comment For patients wi th cholesterol (test diabetes p katharine 1 code = 33502-0) major ASCVD risk factor, treatin g to a non-HDL-C goal of <100 mg/dL (LDL-C of <70 mg/dL) is considered a therapeutic option. [Automated message] The system which generated this result transmitted reference range : <130 mg/dL (calc). The reference range was not used to interpret this result as normal/abnormal . RAC (test code = Performing RAC) Organization Information: Site ID: [facility] Name: [facility] Address: [address] [place] [address] Director: Alfonso Velázquez [id number] 16:10:00Surgical Pathology Report Case: [id number] Authorizing Provider: Gurinder Delgado MD Collected: 07/08/2019 1003 Ordering Location: [facility] Received: 07/08/2019 1306 SERVICES Pathologist: Love Hernandez MD Specimen: Adrenal, Left, Left adrenal gland A. ADRENAL GLAND,LEFT, ADRENALECTOMY: - BENIGN ADRENAL GLAND WITH NO SIGNIFICANT DIAGNOSTIC ALTERATION. - HEMORRHAGE, ORGANIZING THROMBOSIS AND VASCULAR RECANALIZATION ADJACENT TO THE ADRENAL GLAND. - NOMALIGNANCY IDENTIFIED. Signing Pathologist Direct Phone Line: [phone] signedby Love Hernandez MD on 07/11/2019 at 4:10 [id number] and postop diagnosis: adrenal massLeft adrenal glandReceived [...] is peguero yellow to guo and smooth. Redevelopment Manager sections are submitted. Section code: A1-A5, sales representative raw fibers of one full cross section of mass; [...] evaluated Immunohistochemistry technical testing was performed at [facility], Pathology Laboratory where it was developed and its performance characteristics were determined. It has not been cleared or approved by the U.S. Food and Drug Administration. The FDA has determined that such clearance or approval is not necessary. The test is used for clinical purposes. It should not be regarded as investigational or for research. This laboratory is certified under the ClinicalLaboratory Improvement Amendments of 1988 (CLIA-88) as qualified to perform high complexity clinicallaboratory testing.[facility], Department of Pathology, [address] [place] [address], [facility], [facility] of [facility], [address] [place] [address], [facility], [facility] of [facility]ology, [address] [place] [address], [place] [address], TIWTA METABOLIC PANEL 2019-07-10 06:54:00 Test Item Value Reference Range Interpretation [...] 1092) DATA TO CALCULA TE ESTIMATED GFR. Physical Therapy Technician ID - GALAPCBC W/PLT COUNT & AUTO [id number] 05:35:00 Test Item Value Reference Range Interpretation [...] (BEAKER) (test code = 2801) BASIC METABOLIC [id number] 10:13:00 Test Item Value Reference Range Interpretation [...] 1092) DATA TO CALCULA TE ESTIMATED GFR. Physical Therapy Technician ID - CAROLINA FCBC W/PLT COUNT & AUTO [id number] 09:50:00 Test Item Value Reference Range Interpretation [...] (BEAKER) (test code = 2801) BASIC METABOLIC [id number] 11:58:00 Test Item Value Reference Range Interpretation [...] 1092) DATA TO CALCULA TE ESTIMATED GFR. Physical Therapy Technician ID - FARNAZ FHEMOGLOBIN AND [id number] 11:41:00 Test Item Value Reference Range Interpretation Comments HEMOGLOBIN (BEAKER) (test code = 11.7 GM/DL 13.7-17.5 L 410) HEMATOCRIT (BEAKER) (test code = 34.9 % 40.1-51.0 L 411) Physical Therapy Technician ID - MiguelURINE [id number] 11:35:00 Test Item Value Reference Range Interpretation Comments CULTURE (BEAKER) (test code = 1095) No growth URINALYSIS W/ REFLEX URINE [id number] 14:23:00 Test Item Value Reference Range Interpretation [...] 517) Rare SOURCE(BEAKER) (test code = 2795) Physical Therapy Technician ID - [auto]Physical Therapy Technician ID - techCOMPREHENSIVE METABOLIC [id number] 13:52:00 Test Item Value Reference Range Interpretation [...] 1092) DATA TO CALCULA TE ESTIMATED GFR. Physical Therapy Technician ID - ROSIANGCBC W/PLT COUNT & AUTO [id number] 13:10:00 Test Item Value Reference Range Interpretation [...]
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
[2020-10-14 18:50] VITALS: BP 121/79; TEMP 98.5; O2SAT 98
== END 2020-10-14 18:45 | disposition home or self-care (01) ==
LOC: ER 17:40
DX: S29.012A Strain of muscle and tendon of back wall of thorax, initial encounter (principal); V49.50XA Passenger injured in collision with unspecified motor vehicles in traffic accident, initial encounter; I10 Essential (primary) hypertension
CPT/HCPCS: 99283

== ENCOUNTER 2021-10-09 07:20 | Emergency (ER) | payer OTHER ==
--- OUTSIDE RECORDS SUMMARY | 2021-10-09 07:22 | XMS REPORT | Continuity of Care Document ---
:[address] [facility] t Address [address] [place] [address] Care Team Providers Name Role Phone YAKELIN Attending Clinician Unavailable Rosa Attending Clinician Unavailable Link Kerrie RUIZ Attending Clinician DWAIN FORD Attending Clinician Unavailable LINK, DWAIN Admitting Clinician Unavailable Payers Payer Name Policy Type Policy Number Effective Date Expiration Date S ource Problems Condition Condition Condition Status Onset Resolution Last Treating Co mments Source Name Details Category Date Date Treatment Clinician Date Adrenal Adrenal Disease Active [place] mass mass 1-07 [place] (HCCode) (HCCode) 00:00: of 00 Medicin e Allergies, Adverse Reactions, Alerts Allergy Allergy Status Severity Reaction(s) Onset Inactive Treating Comm ents Source Name Type Date Date Clinician Delores Doddi Active [facility] ty to 3-04 [place] adverse 00:00: of reaction 00 Medicin s to e drug NO KNOWN Allergy Active [facility] Social History Social Habit Start Date Stop Date Quantity Comments Source History [facility] Alcohol Frequency of Medi cine Sex Assigned At [facility] llege of Medicine Alcohol intake 2019-07-24 2019-07-24 Current drinker [facility] 00:00:00 00:00:00 of alcohol of Medicine (finding) History [facility] 2019-05-28 2019-05-[address] [facility] Alcohol Std Drinks 00:00:00 00:00:00 of Med icine History [facility] 2019-05-28 2019-05-[address] [facility] Alcohol Binge 00:00:00 00:00:00 of Medicine Smoking Status Start Date Stop Date Source Never smoker [facility] o f Medicine Medications Ordered Filled Start Stop Current Ordering Indication Dosage Frequency Signature Comments Components Source Medication Medication Date Date Medication? Clinician (SIG) Name Name Zinc 50 MG 2020-0 Yes 1{tbl} Take 1 Tab [place] TABS 3-04 by mouth. College 21:56: of 53 Medicin e vitamin E 2020-0 Yes 400U Take 400 [facility] 400 units 3-04 Units by Colleg e capsule 21:56: mouth. of 53 Medicin e Cholecalcif 2020-0 Yes 2000U Take 2,000 Jorge Luis myrna 3-04 Units by [place] (VITAMIN 21:56: mouth. of D3) 50 MCG 53 Medicin (2000 UT) e CAPS Magnesium 2020-0 Yes 500mg Take 500 [place] seth Cl-Calcium 3-04 mg by [place] Carbonate 21:56: mouth. of (SLOW-MAG 53 Medicin OR) e omeprazole 2019-0 Yes 20mg Take 20 mg [place] (PRILOSEC) 3-04 by mouth Colle ge 20 MG 21:56: daily. of capsule 53 Medicin e aspirin 81 2019-0 Yes 81mg Take 81 mg [facility] [place] MG tablet 3-04 by mouth Colleg e 21:56: daily. of 53 Medicin e metoprolol 2018-05 Yes TAKE 1 [place] [facility] (TOPROL-XL) 2-[address] [facility] lege 200 MG XL 00:00: MOUTH of tablet 00 EVERY DAY Medicin e doxazosin 2017-05 Yes 2mg 2 mg. [place] (CARDURA) 2 0-25 College MG tablet 00:00: of 00 Medicin e losartan Yes 100mg Take 100 [place] (COZAAR) 5-23 mg by [place] 100 MG 00:00: mouth. of tablet 00 Medicin e amlodipine- 2015- Yes 1{capsu Take 1 Cap Jorge Luis benazepril 1-18 le} by mouth. Jr ege (LOTREL) 00:00: of 10-20 MG 00 Medicin per capsule e allopurinol Yes 300mg Take 300 [place] (ZYLOPRIM) 9-14 mg by [place] 300 MG 00:00: mouth. of tablet 00 Medicin e Immunizations Ordered Immunization Filled Immunization Date Status Commen ts Source Name Name Pneumococcal 2019-02-24 Completed [facility] ge Polysaccharide 00:00:00 of Medicin e Pneumococcal 2019-01-28 Completed [place] [facility]le ge 13-valent Conjugate 00:00:00 of Tx dicine Vaccine Tetanus 2011-03-11 Completed [facility] 00:00:00 of Medicine Vital Signs Vital Name Observation Time Observation Value Comments Source Systolic blood 2019-07-23 21:56:00 124 mm[Hg] [facility] Medicine Diastolic blood 2019-07-23 21:56:00 85 mm[Hg] [facility] Medicine Heart rate 2019-07-23 21:56:00 73 /min [facility] ollege [facility] Body temperature 2019-07-23 21:56:00 36.56 [facility] Body height 2019-07-23 21:56:00 182.9 cm [facility] ollege of [facility] Body weight 2019-07-23 21:56:00 104.327 kg [facility] ollege of [facility] BMI 2019-07-23 21:56:00 31.19 kg/m2 [facility] Systolic blood 2019-07-23 21:56:00 124 mm[Hg] [facility] Medicine Diastolic blood 2019-07-23 21:56:00 85 mm[Hg] [facility] Medicine Heart rate 2019-07-23 21:56:00 73 /min [facility] ollege of [facility] Body temperature 2019-07-23 21:56:00 36.56 Kristie [facility] Body height 2019-07-23 21:56:00 182.9 cm [facility] ollege of [facility] Body weight 2019-07-23 21:56:00 104.327 kg [facility] BMI 2019-07-23 21:56:00 31.19 kg/m2 [facility] Procedures Procedure Date / Time Performed Performing Clinician Sour e POCT URINALYSIS 2019-07-23 00:00:00 Gurinder Ford [facility] quintin of [facility] Medicine Plan of Care Planned Activity Planned Date Details Comments Source Future Scheduled Test BMI FOLLOW UP PLAN [facility] [code = BMI FOLLOW UP Medici ne PLAN] Future Scheduled Test HEPATITIS C SCREENING [facility] [code = HEPATITIS C Medicine SCREENING] Future Scheduled Test MEDICARE AWV (Initial) [facility] [code = MEDICARE AWV Medicin e (Initial)] Future Scheduled Test FALL SCREEN [code = [facility] FALL SCREEN] Medicine Future Scheduled Test COLON CANCER SCREENING: [facility] COLONOSCOPY [code = Medicine COLON CANCER SCREENING: COLONOSCOPY] Future Scheduled Test TETANUS SHOT (ADULT) [facility] [code = TETANUS SHOT Medicin e (ADULT)] Encounters Start End Encounter Admission Attending Care Care Encounter Source Date/Time Date/Time Type Type Clinicians Facility Department ID 2020-09-09 2020-09-09 [id number] [address] [place] 00:00:00 00:00:[address] DIANE [address] 2020-09-07 2020-09-07 [facility] [id number] [address] [place] [address] 00:00:00 00:00:[address] DIANE [address] 2020-09-07 2020-09-07 [facility] [id number] [address] 00:00:00 00:00:00 DIANE 016 [address] i 2019-09-09 2019-09-09 [facility] [id number] [address] 00:00:00 00:00:[address] 2019-07-23 2019-07-23 Office Link, [facility] [id number] [place] [address] 15:02:12 16:42:42 Visit Gurinder Sy AMBULATOR [id number] College Y 0.2.7.2.686 of [id number] Medi wiley 300 e 2019-07-23 2019-07-23 Office Link, [facility] [id number] 15:02:12 16:42:42 Visit Gurinder E AMBULATOR [id number] Y 0.2.7.2.686 [id number] 300 Results Test Description Test Time Test Comments Results Result Sourc e Comments MRI PELVIS W/WO 2020-05-06 (PROSTATE) 12:57:48 [facility] IMAGINGName: AMEZQUITAMEKA : 1950 Sex: M CL INICAL INDICATION: C61 Malignant neoplasm of prostateMODALITY: Best Teacher 3T MRITECHNIQUE: Multiplanar, multiparametric MRI of the prostate is performed with T1, T2 and diffusion weighted imaging. Quantitative analysis is performed with FulhamaCAD. IV contrast is administered, 20.0 ml Dotarem Dynamic post-contrast imaging with DynaCAD quantitative analysis are accomplished.[id number] MR DynaCADIMPRESSION:No suspicious focal lesions are targeted. No evidence of high-grade tumor or extra prostatic malignancy.PI-RADS 1: Most probably benign.FINDINGS:ANTWAN RISON: NoneNormal regional marrow signal is observed. No suspicious osseous metastatic lesions.No common iliac, internal iliac, external iliac, inguinal or suspicious sahil-prostatic lymph nodes.Regional bowel appears unremarkable. No mural or intraluminal bladder mass. Anterior abdominal wall and pelvic floor are unremarkable. No evidence of ascites.Estimated prostate volume is 32 ml. No suspicious focal lesions are targeted. Mild BPH is noted.Seminal vesicles exhibit normal signal intensity. Neurovascular bundles are symmetric in appearance without definite tumor involvement. The prostate capsule is smooth in contour. POCT URINALYSIS [facility] 2019-07-23 00:00:00 Test Item Value Reference Range Interpretation Comme nts COLOR UA (test code = 5778-6) Jonna YELLOW/STRAW CLARITY UA (test code = 09021-0) Clear CLEAR GLUCOSE UA (test code = 5792-7) Negative NEGATIVE BILIRUBIN UA (test code = 5770-3) Negative NEGATIVE KETONES UA (test code = 99550-5) Negative NEGATIVE SPECIFIC GRAVITY UA (test code = 5811-5) 1.005-1.035 BLOOD UA (test code = 5794-3) Negative NEGATIVE PH UA (test code = 5803-2) 5-9 PROTEIN UA (test code = 5804-0) Negative NEGATIVE UROBILINOGEN UA (test code = 5818-0) 0.02 E.U/DL NORMAL MG/DL LEUKOCYTE ESTERASE UA (test code = 5799-2) Negative NEGATIVE NITRITE UA (test code = 5802-4) Negative NEGATIVE REDUCING SUBSTANCES URINE (test code = 55227-0) [id number] 16:10:00Surgical Pathology Report Case: [id number] Authorizing Provider: Gurinder Ford MD Collected: 07/08/2019 1003 Ordering Location: [facility] PERIOPERATIVE Received: 07/08/2019 1306 SERVICES Pathologist: Love Hernandez MD Specimen: Ad renal, Left, Left adrenal gland A. ADRENAL GLAND,LEFT, ADRENALECTOMY: - BENIGN ADRENAL GLAND WITH NO SIGNIFICANT DIAGNOSTIC ALTERATION. - HEMORRHAGE, ORGANIZING THROMBOSIS AND VASCULAR RECANALIZATION ADJACENT TO THE ADRENAL GLAND. - NOMALIGNANCY IDENTIFIED. Signing Pathologist Direct Phone Line: [phone] signedby Love Hernandez MD on 07/11/2019 at 4:10 [id number] and postop diagnosis: adrenal massLeft adrenal glandReceived [...] is peguero yellow to guo and smooth. Photonics Engineering Technologist sections are submitted. Section code: A1-A5, member service representative of one full cross section of [...] evaluated Immunohistochemistry technical testing was performed at [facility], Pathology Laboratory where it was developed and [...] as qualified to perform high complexity clinicallaboratory testing.[facility], Department of Pathology, [address] [place] [address], [facility], [address] [place] [address], [facility], [facility] of [facility], [address] [place] [address], LCFRJ METABOLIC [id number] 06:54:00 Test Item Value Reference Range Interpretation [...] 1092) DATA TO CALCULA TE ESTIMATED GFR. Senior Electrical Controls Engineer ID - GALAPCBC W/PLT COUNT & AUTO [id number] 05:35:00 Test Item Value Reference Range Interpretation [...] (BEAKER) (test code = 2801) BASIC METABOLIC [id number] 10:13:00 Test Item Value Reference Range Interpretation [...] 1092) DATA TO CALCULA TE ESTIMATED GFR. Senior Electrical Controls Engineer ID - [place] FCBC W/PLT COUNT & AUTO [id number] 09:50:00 Test Item Value Reference Range Interpretation [...] (BEAKER) (test code = 2801) BASIC METABOLIC [id number] 11:58:00 Test Item Value Reference Range Interpretation [...] 1092) DATA TO CALCULA TE ESTIMATED GFR. Senior Electrical Controls Engineer ID - FARNAZ FHEMOGLOBIN AND [id number] 11:41:00 Test Item Value Reference Range Interpretation Comments HEMOGLOBIN (BEAKER) (test code = 11.7 GM/DL 13.7-17.5 L 410) HEMATOCRIT (BEAKER) (test code = 34.9 % 40.1-51.0 L 411) Senior Electrical Controls Engineer ID - MiguelURINE [id number] 11:35:00 Test Item Value Reference Range Interpretation Comments CULTURE (BEAKER) (test code = 1095) No growth URINALYSIS W/ REFLEX URINE [id number] 14:23:00 Test Item Value Reference Range Interpretation [...] 517) Rare SOURCE(BEAKER) (test code = 2795) Senior Electrical Controls Engineer ID - [auto]Senior Electrical Controls Engineer ID - techCOMPREHENSIVE METABOLIC [id number] 13:52:00 Test Item Value Reference Range Interpretation [...] 1092) DATA TO CALCULA TE ESTIMATED GFR. Senior Electrical Controls Engineer ID - ROSIANGCBC W/PLT COUNT & AUTO [id number] 13:10:00 Test Item Value Reference Range Interpretation [...]
[2021-10-09] MEDS ORDERED: CEFTRIAXONE 1000 MG/VIAL ONE (08:08)
[2021-10-09] MEDS ORDERED: AZITHROMYCIN 500 MG INJ IVPB ONE (08:08)
[2021-10-09] MEDS ORDERED: IPRATROPIUM BROM 0.5MG/2.5ML ONE (08:08)
[2021-10-09] MEDS ORDERED: NA CHLORIDE 0.9% 250 ML ONE (08:08)
[2021-10-09] MEDS ORDERED: LEVALBUTEROL 1.25 MG/3 ML NEB ONE (08:08)
[2021-10-09] MEDS ORDERED: NA CHLORIDE 0.9% 100 ML IV ONE ×2 (08:09)
[2021-10-09] MEDS ORDERED: MAGNESIUM SULFATE 1 gm IVPB 1 GM/100 ML BAG IV ONE (08:09)
[2021-10-09 08:17] LABS: Absolute Lymphocytes (CBC) 1.3 K/uL (0.7-4.9); Hematocrit 37.6 % (39.6-49.0); Lymphocytes % 34.9 % (15.3-44.8); MPV 7.9 fL (7.6-11.3); RBC Red Blood Cell Count 4.14 M/uL (4.33-5.43)
[2021-10-09 08:26] LABS: Protime INR 0.94
[2021-10-09 08:35] LABS: ALT/SGPT 32 U/L (12-78); AST/SGOT 21 U/L (15-37); Albumin 3.8 g/dL (3.4-5.0); Alkaline Phosphatase 67 U/L (45-117); BUN Blood Urea Nitrogen 26 mg/dL (7-18); Bicarbonate 24 mmol/L (21-32); Bilirubin Total 0.2 mg/dL (0.2-1.0); Creatine Phosphokinase 972 U/L (39-308); Glomerular Filtration Rate 61 ml/min (=/>90); Glucose Level 102 mg/dL (74-106); Lipase 146 U/L (73-393); Magnesium 2.2 mg/dL (1.8-2.4); NT PRO-BNP 12 pg/mL (<125); Potassium 4.6 mmol/L (3.5-5.1); Protein, Total 7.5 g/dL (6.4-8.2); Sodium Level 138 mmol/L (136-145); Troponin High Sensitivity 13.9 pg/mL (<58.9)
--- NOTE | 2021-10-09 08:45 | RAD REPORT ---
EXAM DESCRIPTION: RAD - Chest Single View - 10/09/2021 8:22 am CLINICAL HISTORY: CONGESTION COMPARISON: Portable 03/28/2020 TECHNIQUE: AP portable chest image was obtained 10/09/2021 8:22 am . FINDINGS: Lungs are clear. Heart and vasculature are normal. No measurable pleural effusion and no p neumothorax. No acute bony abnormality seen. No acute aortic findings suspected. IMPRESSION: No acute cardiopulmonary process. No significant change from comparison study.
[2021-10-09 08:58] LABS: Bilirubin Direct < 0.1 mg/dL (0-0.2)
--- NOTE | 2021-10-09 09:42 | EDPHYS ---
[facility] Name: Jesus Rodriguez Age: 71 yrs Sex: Male : 1950 Arrival Date: 10/09/2021 Time: 07:21 Bed 5 Private MD: ED Physician Alondra Syed HPI: 10/09 07:46 This 71 yrs old Black Male presents to ER via Ambulatory with complaints of Cough, ma2 Congestion. 07:46 Onset: The symptoms/episode began/occurred gradually, 4 day(s) ago. Severity of ma2 symptoms: At their worst the symptoms were moderate, in the emergency department the symptoms are unchanged. Associated signs and symptoms: Pertinent negatives: ear ache, nausea, rhinorrhea, sore throat. Historical: - Allergies: 07:35 No Known Allergies; vg1 - Home Meds: 07:35 Metoprolol Tartrate Oral [Active]; gabapentin oral [Active]; losartan oral [Active]; vg1 amlodipine oral [Active]; Albuterol Inhl [Active]; Albuterol Nebulizer [Active]; - PMHx: 07:28 Gout; Hypertension; ss 07:35 Asthma; vg1 - Immunization history:: Client reports receiving the 2nd dose of the Covid vaccine. - Social history:: Smoking status: Patient denies any tobacco usage or history of. Patient/guardian denies using alcohol, street drugs, The patient lives with family. - Family history:: not pertinent. ROS: 07:46 Constitutional: Negative for fever, chills, and weight loss. ma2 07:46 All other systems are negative. Exam: 07:46 Constitutional: This is a well developed, well nourished patient who is awake, alert, ma2 and in no acute distress. Eyes: Pupils equal round and reactive to light, extra-ocular motions intact. Lids and lashes normal. Conjunctiva and sclera are non-icteric and not injected. Cornea within normal limits. Periorbital areas with no swelling, redness, or edema. ENT: Nares patent. No nasal discharge, no septal abnormalities noted. Tympanic membranes are normal and external auditory canals are clear. Oropharynx with no redness, swelling, or masses, exudates, or evidence of obstruction, uvula midline. Mucous membranes moist. Neck: Trachea midline, no thyromegaly or masses palpated, and no cervical lymphadenopathy. Supple, full range of motion without nuchal rigidity, or vertebral point tenderness. No Meningismus. Chest/axilla: Normal chest wall appearance and motion. Nontender with no deformity. No lesions are appreciated. Cardiovascular: Regular rate and rhythm with a normal S1 and S2. No gallops, murmurs, or rubs. Normal PMI, no JVD. No pulse deficits. Respiratory: expiratory wheez, otherwise Lungs have equal breath sounds bilaterally, clear to auscultation and percussion. No rales, rhonchi or wheezes noted. No increased work of breathing, no retractions or nasal flaring. Abdomen/GI: Soft, non-tender, with normal bowel sounds. No distension or tympany. No guarding or rebound. No evidence of tenderness throughout. Skin: Warm, dry with normal turgor. Normal color with no rashes, no lesions, and no evidence of cellulitis. MS/ Extremity: Pulses equal, no cyanosis. Neurovascular intact. Full, normal range of motion. Neuro: Awake and alert, GCS 15, oriented to person, place, time, and situation. Cranial nerves II-XII grossly intact. Motor strength 5/5 in all extremities. Sensory grossly intact. Cerebellar exam normal. Normal gait. Vital Signs: 07:32 BP 122 / 93; Pulse 80; Resp 18; Temp 98.2; Pulse Ox 100% ; Weight 106.59 kg; Height 6 vg1 ft. 0 in. (182.88 cm); Pain 0/10; 09:10 BP 105 / 79; Pulse 74; Resp 17; Pulse Ox 99% ; ll1 09:39 BP 99 / 75; Pulse 73; Resp 20; Pulse Ox 99% on R/A; ll1 09:57 BP 105 / 65; Pulse 70; Resp 19; Pulse Ox 99% on R/A; ll1 07:32 Body Mass Index 31.87 (106.59 kg, 182.88 cm) vg1 MDM: 07:25 Patient medically screened. ma2 07:46 Differential Diagnosis: Bronchitis Influenza Upper Respiratory Infection Sinusitis. ma2 Data reviewed: vital signs, nurses notes. 09:41 ED course: Symptom is improved, she would like to be discharged. ma2 09:49 Response to treatment: the patient's symptoms have markedly improved after treatment, ma2 Patient still has persistent cough however his lung sounds good with no wheeze chest x-ray is normal, patient stated that he is still having cough and would like solution,. Resolved, I offered to admit him as a COPD exacerbation for more breathing treatment, and evaluation by pulmonary. However he declined and he would like to go home with cough medicine. We will add another antibiotics and give return precautions, follow-up with Dr. Dawson pulmonary. 10/09 07:38 Order name: BMP [facility] 10/09 07:38 Order name: Blood Culture Adult (2) [facility] 10/09 07:38 Order name: CBC with Diff; Complete Time: 08:56 [facility] 10/09 07:38 Order name: CPK [facility] 10/09 07:38 Order name: Ckmb [facility] 10/09 07:38 Order name: Hepatic Function [facility] 10/09 07:38 Order name: Lipase [facility] 10/09 07:38 Order name: Magnesium [facility] 10/09 07:38 Order name: NT PRO-BNP [facility] 10/09 07:38 Order name: PT-INR; Complete Time: 08:56 [facility] 10/09 07:38 Order name: Ptt, Activated; Complete Time: 08:56 [facility] 10/09 07:38 Order name: SARS-COV-2 RT PCR (Document "Date of Onset" if Symptomatic) in10/09 07:38 Order name: Flu [facility] 10/09 07:38 Order name: Troponin High Sensitivity [facility] 10/09 07:38 Order name: XRAY CXR (1 view); Complete Time: 08:56 [facility] 10/09 07:38 Order name: EKG; Complete Time: 07:39 [facility] 10/09 07:38 Order name: Cardiac monitoring; Complete Time: 08:29 [facility] 10/09 07:38 Order name: EKG - Nurse/Tech; Complete Time: 08:29 [facility] 10/09 07:38 Order name: IV Saline Lock; Complete Time: 07:46 10/09 07:38 Order name: Labs collected and sent; Complete Time: 07:46 10/09 07:38 Order name: O2 Per Protocol; Complete Time: 07:46 10/09 07:38 Order name: O2 Sat Monitoring; Complete Time: 07:46 in Administered Medications: 08:14 Drug: AtroVENT (ipratropium) Aerosol 0.5 mg Route: Inhalation; ll1 08:14 Drug: Rocephin (cefTRIAXone) 1 grams Route: IV; Rate: calculated rate; Site: right ll1 forearm; 09:06 Follow up: Response: No adverse reaction; IV Status: Completed infusion; IV Intake: [id number] 08:14 Drug: Magnesium Sulfate 1 grams Route: IVPB; Infused Over: 1 hrs; Site: right forearm; ll1 09:06 Follow up: Response: No adverse reaction; IV Status: Completed infusion; IV Intake: [id number] 08:15 Drug: Xopenex (levalbuterol) 1.25 mg Route: Inhalation; ll1 09:05 Follow up: Response: No adverse reaction ll1 08:25 Drug: AtroVENT (ipratropium) Aerosol 0.5 mg Route: Inhalation; ll1 08:35 Drug: AtroVENT (ipratropium) Aerosol 0.5 mg Route: Inhalation; ll1 09:05 Follow up: Response: No adverse reaction 1 08:50 Drug: AZITHromycin 500 mg Route: IVPB; Infused Over: 1 hrs; Site: right forearm; ll1 09:59 Follow up: Response: No adverse reaction; IV Status: Completed infusion; IV Intake: ll1 250ml Disposition Summary: 10/09/21 09:41 Discharge Ordered Location: Home ma2 Condition: Stable ma2 Diagnosis - Acute bronchitis, unspecified ma2 Followup: ma2 - With: Private Physician - When: Tomorrow - Reason: Continuance of care Followup: ma2 - With: - When: Tomorrow - Reason: If symptoms return, Continuance of care Discharge Instructions: - Discharge Summary Sheet ma2 - Acute Bronchitis, Adult ma2 Forms: - Medication Reconciliation Form ma2 - Thank You Letter ma2 - Antibiotic Education ma2 - Prescription Opioid Use ma2 Prescriptions: - Atrovent nebulizing solution 5 mcg - take 5 microgram by NEBULIZATION route 3 times per day; 20 milliliter; Refills: ma2 0, Product Selection Permitted - BENZONTATE 100 MG - take 1 tablet by ORAL route 3 times per day; 21 tablet; Refills: 0, Product ma2 Selection Permitted - Doxycycline Hyclate 100 mg Oral Tablet - take 1 tablet by ORAL route every 12 hours; 20 tablet; Refills: 0, Product ma2 Selection Permitted Signatures: Dispatcher [employer] Cyn Truong, RN RN ss Alondra Syed MD MD ma2 Lita Green RN RN vg1 Lou Lynch RN RN ll1
--- NOTE | 2021-10-09 09:42 | ER ---
Nurse's Notes [facility] Name: Jesus Rodriguez Age: 71 yrs Sex: Male : 1950 Arrival Date: 10/09/2021 Time: 07:21 Bed 5 Private MD: Diagnosis: Acute bronchitis, unspecified Presentation: 10/09 07:32 Chief complaint: Patient states: cough and congestion x 2 weeks; spouse stated pt had a vg1 "coughing spell" yesterday and then "passed out for a couple of second". Pt denies CP; states took a breathing treatment [employer]. Coronavirus screen: Vaccine status: Patient reports receiving the 2nd dose of the covid vaccine. Client denies travel out of the [place] in the last 14 days. Ebola Screen: Patient denies exposure to infectious person. Patient denies travel to an Ebola-affected area in the 21 days before illness onset. Initial Sepsis Screen: Does the patient meet any 2 criteria? No. Patient's initial sepsis screen is negative. Does the patient have a suspected source of infection? No. Patient's initial sepsis screen is negative. Risk Assessment: Do you want to hurt yourself or someone else? Patient reports no desire to harm self or others. Onset of symptoms was September 26, 2021. 07:32 Method Of Arrival: Ambulatory 1 07:32 Acuity: THERON 3 vg1 Triage Assessment: 07:35 General: Appears comfortable, Behavior is calm, cooperative. Pain: Denies pain. vg1 Respiratory: Airway is patent Respiratory effort is even, unlabored. Historical: - Allergies: 07:35 No Known Allergies; vg1 - Home Meds: 07:35 Metoprolol Tartrate Oral [Active]; gabapentin oral [Active]; losartan oral [Active]; vg1 amlodipine oral [Active]; Albuterol Inhl [Active]; Albuterol Nebulizer [Active]; - PMHx: 07:28 Gout; Hypertension; ss 07:35 Asthma; vg1 - Immunization history:: Client reports receiving the 2nd dose of the Covid vaccine. - Social history:: Smoking status: Patient denies any tobacco usage or history of. Patient/guardian denies using alcohol, street drugs, The patient lives with family. - Family history:: not pertinent. Screenin:11 Abuse screen: Denies threats or abuse. Nutritional screening: No deficits noted. ll1 Tuberculosis screening: No symptoms or risk factors identified. Fall Risk IV access (20 points). Total Hoyt Fall Scale indicates No Risk (0-24 pts). Assessment: 08:30 Reassessment: No changes from previously documented assessment. Patient and/or family ll1 updated on plan of care and expected duration. Pain level reassessed. Patient is alert, oriented x 3, equal unlabored respirations, skin warm/dry/pink. Cardiovascular: No deficits noted. Respiratory: Reports shortness of breath cough that is Breath sounds are clear bilaterally. 09:11 Reassessment: No changes from previously documented assessment. Patient and/or family ll1 updated on plan of care and expected duration. Pain level reassessed. Patient is alert, oriented x 3, equal unlabored respirations, skin warm/dry/pink. Patient states feeling better. Cardiovascular: No deficits noted. 09:58 Reassessment: No changes from previously documented assessment. Patient and/or family ll1 updated on plan of care and expected duration. Pain level reassessed. Patient is alert, oriented x 3, equal unlabored respirations, skin warm/dry/pink. Cardiovascular: No deficits noted. Vital Signs: 07:32 BP 122 / 93; Pulse 80; Resp 18; Temp 98.2; Pulse Ox 100% ; Weight 106.59 kg; Height 6 vg1 ft. 0 in. (182.88 cm); Pain 0/10; 09:10 BP 105 / 79; Pulse 74; Resp 17; Pulse Ox 99% ; ll1 09:39 BP 99 / 75; Pulse 73; Resp 20; Pulse Ox 99% on R/A; ll1 09:57 BP 105 / 65; Pulse 70; Resp 19; Pulse Ox 99% on R/A; ll1 07:32 Body Mass Index 31.87 (106.59 kg, 182.88 cm) vg1 ED Course: 07:21 Patient arrived in ED. ds1 07:23 Alondra Syed MD is Attending Physician. ma2 07:35 Triage completed. vg1 07:35 Arm band placed on. vg1 07:45 Lou Lynch RN is Primary Nurse. ll1 07:50 Inserted saline lock: 22 gauge in right forearm, using aseptic technique. Blood ll1 collected. 08:23 XRAY CXR (1 view) In Process Unspecified. EDMS 09:11 Patient has correct armband on for positive identification. Bed in low position. Call ll1 light in reach. Side rails up X2. Client placed on continuous cardiac and pulse oximetry monitoring. NIBP monitoring applied. 09:41 Adeel Frank MD is Referral Physician. ma2 09:58 No provider procedures requiring assistance completed. IV discontinued, intact, ll1 bleeding controlled, No redness/swelling at site. Pressure dressing applied. Administered Medications: 08:14 Drug: AtroVENT (ipratropium) Aerosol 0.5 mg Route: Inhalation; ll1 08:14 Drug: Rocephin (cefTRIAXone) 1 grams Route: IV; Rate: calculated rate; Site: right ll1 forearm; 09:06 Follow up: Response: No adverse reaction; IV Status: Completed infusion; IV Intake: [id number] 08:14 Drug: Magnesium Sulfate 1 grams Route: IVPB; Infused Over: 1 hrs; Site: right forearm; ll1 09:06 Follow up: Response: No adverse reaction; IV Status: Completed infusion; IV Intake: [id number] 08:15 Drug: Xopenex (levalbuterol) 1.25 mg Route: Inhalation; ll1 09:05 Follow up: Response: No adverse reaction ll1 08:25 Drug: AtroVENT (ipratropium) Aerosol 0.5 mg Route: Inhalation; ll1 08:35 Drug: AtroVENT (ipratropium) Aerosol 0.5 mg Route: Inhalation; ll1 09:05 Follow up: Response: No adverse reaction ll1 08:50 Drug: AZITHromycin 500 mg Route: IVPB; Infused Over: 1 hrs; Site: right forearm; ll1 09:59 Follow up: Response: No adverse reaction; IV Status: Completed infusion; IV Intake: ll1 250ml Medication: 09:11 VIS not applicable for this client. ll1 Intake: 09:06 IV: 20ml; Total: 20ml. ll1 09:06 IV: 50ml; Total: 70ml. ll1 09:59 IV: 250ml; Total: 320ml. ll1 Outcome: :41 Discharge ordered by . ma2 09:58 Discharged to home ambulatory. ll1 09:58 Condition: stable 09:58 Discharge instructions given to patient, family, Instructed on discharge instructions, follow up and referral plans. medication usage, Demonstrated understanding of instructions, follow-up care, medications, Prescriptions given X 3. 09:59 Patient left the ED. ll1 Signatures: Dispatcher [employer] [facility] Lanny Rodriguez Shelby, RN RN ss Alondra Syed MD MD ma2 Lita Green RN RN vg1 Lou Lynch RN RN ll1
[2021-10-09 10:04] VITALS: TEMP 98.2
[2021-10-09 10:05] VITALS: O2SAT 99
[2021-10-09 10:08] VITALS: BP 105/65
--- NOTE | 2021-10-10 11:26 | EKG ---
Test Date: 2021-10-09 Test Time: 08:26:58 Manager Inpatient: SCOUT MEASUREMENT RESULTS: Intervals: Rate: 73 ID: [id number] QRSD: 88 QT: 380 QTc: 418 [place]: P: 51 ID: [id number] QRS: 26 T: 10 INTERPRETIVE STATEMENTS: Sinus rhythm with occasional premature ventricular complexes Septal infarct, age undetermined Abnormal ECG Compared to ECG 03/25/2020 17:19:36 Ventricular premature complex(es) now present Sinus tachycardia no longer present Myocardial infarct finding still present Electronically Signed On 10-10-21 11:23:35 CDT by Thomas Jaime
== END 2021-10-09 09:59 | disposition home or self-care (01) ==
LOC: ER 07:20
DX: J20.9 Acute bronchitis, unspecified (principal); I10 Essential (primary) hypertension; M10.9 Gout, unspecified; J45.909 Unspecified asthma, uncomplicated; Z20.822 Contact with and (suspected) exposure to COVID-19
CPT/HCPCS: 96365; 96367; 96368; 93005; 87040 ×2; 85025; 80048; 36415; 83735; 82550; 85610; 80076; 85730; 84484; 82553; 83690; 83880; 87804 ×2; 71045; 99284; U0003; J0456; J3475; J7050

== ENCOUNTER 2021-10-11 12:53 | Emergency (ER) | payer OTHER ==
--- OUTSIDE RECORDS SUMMARY | 2021-10-11 12:56 | XMS REPORT | Continuity of Care Document ---
:1950 [facility] Organization [facility] t Address [address] [place] [address] Care Team Providers Name Role Phone YAKELIN Attending Clinician Unavailable Rosa Attending Clinician Unavailable Link Kerrie RUIZ Attending Clinician DWAIN FORD Attending Clinician Unavailable LINKDWAIN Admitting Clinician Unavailable Payers Payer Name Policy Type Policy Number Effective Date Expiration Date S ource Problems Condition Condition Condition Status Onset Resolution Last Treating Co mments Source Name Details Category Date Date Treatment Clinician Date Adrenal Adrenal Disease Active [facility] 1-07 [facility] (HCCode) (HCCode) 00:00: of 00 Medicin e Allergies, Adverse Reactions, Alerts Allergy Allergy Status Severity Reaction(s) Onset Inactive Treating Comm ents Source Name Type Date Date Clinician Delores Propensi Active [facility] ty to 3-04 [facility] adverse 00:00: of reaction 00 Medicin s to e drug NO KNOWN Allergy Active [facility] Social History Social Habit Start Date Stop Date Quantity Comments Source History [facility] Alcohol Frequency of Medi cine Sex Assigned At [facility] llege of Medicine Alcohol intake 2019-07-24 2019-07-24 Current drinker [facility] 00:00:00 00:00:00 of alcohol of Medicine (finding) History [facility] 2019-05-28 2019-05-28 2 [facility] Alcohol Std Drinks 00:00:00 00:00:00 of Med icine History [facility] 2019-05-28 2019-05-28 4 [facility] Alcohol Binge 00:00:00 00:00:00 of Medicine Smoking Status Start Date Stop Date Source Never smoker [facility] o f Medicine Medications Ordered Filled Start Stop Current Ordering Indication Dosage Frequency Signature Comments Components Source Medication Medication Date Date Medication? Clinician (SIG) Name Name Zinc 50 MG 2020-0 Yes 1{tbl} Take 1 Tab [facility] TABS 3-04 by mouth. College 21:56: of 53 Medicin e vitamin E 2020-0 Yes 400U Take 400 [facility] or 400 units 3-04 Units by Colleg e capsule 21:56: mouth. of 53 Medicin e Cholecalcif 2020-0 Yes 2000U Take 2,000 [facility] myrna 3-04 Units by [facility] (VITAMIN 21:56: mouth. of D3) 50 MCG 53 Medicin (2000 UT) e CAPS Magnesium 2020-0 Yes 500mg Take 500 [place] seth Cl-Calcium 3-04 mg by [facility] Carbonate 21:56: mouth. of (SLOW-MAG 53 Medicin [...] 1 [facility] (TOPROL-XL) 2-12 TABLET BY [facility] lege 200 MG XL 00:00: MOUTH of tablet 00 EVERY DAY Medicin e doxazosin 2017-05 Yes 2mg 2 mg. Jorge Luis (CARDURA) 2 0-25 College MG tablet 00:00: of 00 Medicin e losartan Yes 100mg Take 100 [facility] or (COZAAR) 5-23 mg by [facility] 100 MG 00:00: mouth. of tablet 00 Medicin e amlodipine- 2015-05 Yes 1{capsu Take 1 Cap Jorge Luis benazepril 1-18 le} by mouth. Jr ege (LOTREL) 00:00: of 10-20 MG 00 Medicin per capsule e allopurinol Yes 300mg Take 300 B aylor (ZYLOPRIM) 9-14 mg by [facility] 300 MG 00:00: mouth. of tablet 00 Medicin e Immunizations Ordered Immunization Filled Immunization Date Status Commen ts Source Name Name Pneumococcal 2019-02-24 Completed [facility] ge Polysaccharide 00:00:00 of Medicin e Pneumococcal 2019-01-28 Completed [facility] 13-valent Conjugate 00:00:00 of Wi dicine Vaccine Tetanus 2011-03-11 Completed [facility] 00:00:00 of Medicine Vital Signs Vital Name Observation Time Observation Value Comments Source Systolic blood 2019-07-23 21:56:00 124 mm[Hg] [facility] pressure Medicine Diastolic blood 2019-07-23 21:56:00 85 mm[Hg] [facility] Medicine Heart rate 2019-07-23 21:56:00 73 /min [facility] ollege [facility] Body temperature 2019-07-23 21:56:00 36.56 Kristie [facility] Body height 2019-07-23 21:56:00 182.9 cm [facility] ollege of [facility] Body weight 2019-07-23 21:56:00 104.327 kg [facility] ol[facility] of [facility] BMI 2019-07-23 21:56:00 31.19 kg[facility]m2 [facility] Systolic blood 2019-07-23 21:56:00 124 mm[Hg] [facility] Medicine Diastolic blood 2019-07-23 21:56:00 85 mm[Hg] [facility] Medicine Heart rate 2019-07-23 21:56:00 73 /min [facility] ollege of [facility] Body temperature 2019-07-23 21:56:00 36.56 Kristie [facility] Body height 2019-07-23 21:56:00 182.9 cm [facility] ollege of [facility] Body weight 2019-07-23 21:56:00 104.327 kg [facility] BMI 2019-07-23 21:56:00 31.19 kg/m2 [facility] Procedures Procedure Date / Time Performed Performing Clinician Sour e POCT URINALYSIS 2019-07-23 00:00:00 Gurinder Ford [facility] quintin of DIPSTICK Medicine Plan of Care Planned Activity Planned Date Details Comments Source Future Scheduled Test BMI FOLLOW UP PLAN [facility] [code = BMI FOLLOW UP Medici ne PLAN] Future Scheduled Test HEPATITIS C SCREENING [facility] [code = HEPATITIS C Medicine SCREENING] Future Scheduled Test MEDICARE AWV (Initial) [facility] [code = MEDICARE AWV Medicin e (Initial)] Future Scheduled Test FALL SCREEN [code = [facility] FALL SCREEN] Medicine Future Scheduled Test COLON CANCER SCREENING: [facility] COLONOSCOPY [code = Medicine COLON CANCER SCREENING: COLONOSCOPY] Future Scheduled Test TETANUS SHOT (ADULT) [facility] [code = TETANUS SHOT Medicin e (ADULT)] Encounters Start End Encounter Admission Attending Care Care Encounter Source Date/Time Date/Time Type Type Clinicians Facility Department ID 2020-09-09 2020-09-09 [id number] [address] [place] 00:00:00 00:00:00 DIANE 730 Method i 2020-09-07 2020-09-07 [facility] [id number] 00:00:00 00:00:00 DIANE 076 Method i 2020-09-07 2020-09-07 [facility] [id number] [place] 00:00:00 00:00:00 DIANE 016 Method i 2019-09-09 2019-09-09 [facility] [id number] 00:00:00 00:00:00 DIANE 463 Method i 2019-07-23 2019-07-23 Office Link, [facility] [id number] 15:02:12 16:42:42 Visit Gurinder Sy AMBULATOR [id number] Y [id number] 2019-07-23 2019-07-23 Office [facility], [facility] [id number] [place] [address] 15:02:12 16:42:42 Visit Gurinder E AMBULATOR [id number] College Y [id number] [facility] wiley 300 e Results Test Description Test Time Test Comments Results Result Sourc e Comments MRI PELVIS W/WO 2020-05-06 (PROSTATE) 12:57:48 [facility] AMEZQUITA : 1950 Sex: M CL INICAL INDICATION: C61 Malignant neoplasm of prostateMODALITY: MiserWare 3T MRITECHNIQUE: Multiplanar, multiparametric MRI of the prostate is performed with T1, T2 and diffusion weighted imaging. Quantitative analysis is performed with DynaCAD. IV contrast is administered, 20.0 ml Dotarem Dynamic post-contrast imaging with DynaCAD quantitative analysis are accomplished.19026 MR DynaCADIMPRESSION:No suspicious focal lesions are targeted. [...] Jonna YELLOW/STRAW CLARITY UA (test code = 60266-8) Clear CLEAR GLUCOSE UA (test code = 5792-7) Negative NEGATIVE BILIRUBIN UA (test code = 5770-3) Negative NEGATIVE KETONES UA (test code = 44754-6) Negative NEGATIVE SPECIFIC GRAVITY UA (test code [...] NEGATIVE REDUCING SUBSTANCES URINE (test code = 96297-2) [facility] [id number] 16:10:00Surgical Pathology Report Case: [id number] Authorizing Provider: Gurinder Ford MD Collected: 07/08/2019 1003 Ordering Location: [facility] PERIOPERATIVE Received: 07/08/2019 1306 SERVICES Pathologist: Love Hernandez MD Specimen: Ad renal, Left, Left adrenal gland A. ADRENAL GLAND,LEFT, ADRENALECTOMY: - BENIGN ADRENAL GLAND WITH NO SIGNIFICANT DIAGNOSTIC ALTERATION. - HEMORRHAGE, ORGANIZING THROMBOSIS AND VASCULAR RECANALIZATION ADJACENT TO THE ADRENAL GLAND. - NOMALIGNANCY IDENTIFIED. Signing Pathologist Direct Phone Line: [phone] signedby Love Hernandez MD on 07/11/2019 at 4:10 [id number] and postop diagnosis: adrenal massLeft adrenal glandReceived [...] is peguero yellow to guo and smooth. Deck Mate sections are submitted. Section code: A1-A5, in home sales representative of one full cross section [...] evaluated Immunohistochemistry technical testing was performed at [facility], Pathology Laboratory where it was developed [...] as qualified to perform high complexity clinicallaboratory testing.[facility], Department of Pathology, [address] [place] [id number], [facility], [facility], [address] [place] [id number], [facility], Department of [facility]ology, [address] [place] [id number], YXIHC METABOLIC [id number] 06:54:00 Test Item Value Reference Range Interpretation [...] 1092) DATA TO CALCULA TE ESTIMATED GFR. Retail Merchandising Coordinator ID - GALAPCBC W/PLT COUNT & AUTO [id number] 05:35:00 Test Item Value Reference Range Interpretation [...] (BEAKER) (test code = 2801) BASIC METABOLIC [id number] 10:13:00 Test Item Value Reference Range Interpretation [...] 1092) DATA TO CALCULA TE ESTIMATED GFR. Retail Merchandising Coordinator ID - CAROLINA FCBC W/PLT COUNT & AUTO [id number] 09:50:00 Test Item Value Reference Range Interpretation [...] (BEAKER) (test code = 2801) BASIC METABOLIC [id number] 11:58:00 Test Item Value Reference Range Interpretation [...] 1092) DATA TO CALCULA TE ESTIMATED GFR. Retail Merchandising Coordinator ID - FARNAZ FHEMOGLOBIN AND [id number] 11:41:00 Test Item Value Reference Range Interpretation Comments HEMOGLOBIN (BEAKER) (test code = 11.7 GM/DL 13.7-17.5 L 410) HEMATOCRIT (BEAKER) (test code = 34.9 % 40.1-51.0 L 411) Retail Merchandising Coordinator ID - MiguelURINE [id number] 11:35:00 Test Item Value Reference Range Interpretation Comments CULTURE (BEAKER) (test code = 1095) No growth URINALYSIS W/ REFLEX URINE [id number] 14:23:00 Test Item Value Reference Range Interpretation [...] 517) Rare SOURCE(BEAKER) (test code = 2795) Retail Merchandising Coordinator ID - [auto]Retail Merchandising Coordinator ID - techCOMPREHENSIVE METABOLIC [id number] 13:52:00 Test Item Value Reference Range Interpretation [...] 1092) DATA TO CALCULA TE ESTIMATED GFR. Retail Merchandising Coordinator ID - ROSIANGCBC W/PLT COUNT & AUTO [id number] 13:10:00 Test Item Value Reference Range Interpretation [...]
--- NOTE | 2021-10-11 15:02 | RAD REPORT ---
EXAM DESCRIPTION: RAD - Chest Pa And Lat (2 Views) - 10/11/2021 2:40 pm CLINICAL HISTORY: SOB COMPARISON: Portable 10/09/2021 TECHNIQUE: Frontal and lateral views of the chest were obtained. FINDINGS: The lungs are clear. Scarring or atelectasis present in the left base. Hilar granulomatous calcifications again noted. Heart size is normal and central vasculature is within normal limits. N o pleural effusion or pneumothorax seen. No acute bony finding noted. No aortic abnormality. IMPRESSION: No acute cardiopulmonary process. No significant change from comparison study.
--- NOTE | 2021-10-11 15:27 | ER ---
Nurse's Notes [facility] Name: Jesus Rodriguez Age: 71 yrs Sex: Male : 1950 Arrival Date: 10/11/2021 Time: 12:54 Bed 12 Private MD: Jesse Zamora H Diagnosis: Acute upper respiratory infection, unspecified Presentation: 10/11 13:41 Chief complaint: Patient states: "I was just here the other day with coughing and aa5 shortness of breath and I am still having that issue". Pt was diagnosed with bronchitis last visit. Coronavirus screen: shortness of breath. Ebola Screen: No symptoms or risks identified at this time. Initial Sepsis Screen: Does the patient meet any 2 criteria? No. Patient's initial sepsis screen is negative. Does the patient have a suspected source of infection? No. Patient's initial sepsis screen is negative. Risk Assessment: Do you want to hurt yourself or someone else? Patient reports no desire to harm self or others. Onset of symptoms was September 2019. 13:41 Acuity: THERON 3 aa5 13:41 Method Of Arrival: Ambulatory aa5 Historical: - Allergies: 13:43 No steroids due to glaucoma; aa5 - PMHx: 13:43 Asthma; Gout; Hypertension; aa5 13:43 Glaucoma; aa5 - Immunization history:: Flu vaccine is up to date. - Social history:: Smoking status: Patient denies any tobacco usage or history of. Screenin:43 Abuse screen: Denies threats or abuse. Nutritional screening: No deficits noted. jb4 Tuberculosis screening: No symptoms or risk factors identified. Fall Risk None identified. Assessment: 15:19 General: Appears in no apparent distress. comfortable, Behavior is calm, cooperative, jb4 appropriate for age. Pain: Denies pain. Neuro: Level of Consciousness is awake, alert, obeys commands, Oriented to person, place, time, situation. Cardiovascular: Patient's skin is warm and dry. Respiratory: Airway is patent Respiratory effort is even, unlabored, Respiratory pattern is regular, symmetrical. GI: No signs and/or symptoms were reported involving the gastrointestinal system. : No signs and/or symptoms were reported regarding the genitourinary system. EENT: No signs and/or symptoms were reported regarding the EENT system. Derm: Skin is intact, Skin is pink, warm \\T\\ dry. Musculoskeletal: Circulation, motion, and sensation intact. Range of motion: intact in all extremities. Vital Signs: 13:41 BP 131 / 87; Pulse 70; Resp 18 S; Temp 98.6(O); Pulse Ox 98% on R/A; Weight 108.86 kg aa5 (R); Height 6 ft. 0 in. (182.88 cm) (R); 13:41 Body Mass Index 32.55 (108.86 kg, 182.88 cm) aa5 ED Course: 12:54 Patient arrived in ED. mr 12:54 Jesse Zamora DO is Private Physician. mr 13:08 Arm band placed on. aa5 13:43 Triage completed. aa5 14:14 Kristian Em MD is Attending Physician. rn 14:41 Chest Pa And Lat (2 Views) In Process Unspecified. EDNM 14:53 Zbigniew Smith NP is PHCP. rn 15:26 Jesse Zamora DO is Referral Physician. pm1 15:43 Jeremie Soler, ANGELES is Primary Nurse. jb4 15:43 Patient has correct armband on for positive identification. Bed in low position. Call jb4 light in reach. Side rails up X 1. 15:43 No provider procedures requiring assistance completed. Patient did not have IV access jb4 during this emergency room visit. Administered Medications: No medications were administered Medication: 15:43 VIS not applicable for this client. jb4 Outcome: 15:26 Discharge ordered by . pm1 15:43 Discharged to home ambulatory. jb4 15:43 Condition: stable 15:43 Discharge instructions given to patient, Instructed on discharge instructions, follow up and referral plans. Demonstrated understanding of instructions, follow-up care. 15:43 Patient left the ED. jb4 Signatures: Dispatcher [employer] [facility] Agnieszka Cavazos mr Kristian Em MD MD rn Calderon, Audri, RN RN aa5 Zbigniew Smith, KIANA MANAGER SUPPLIER pm1 Jeremie Soler RN RN jb4 Corrections: (The following items were deleted from the chart) 13:44 13:43 Allergies: No Known Allergies; aa5 aa5 13:45 13:41 BP 131 / 87; Pulse 70bpm; Resp 18bpm; Spontaneous; Pulse Ox 98% RA; 108.86 kg aa5 Reported; Height 6 ft. 0 in. Reported; BMI: 32.5; aa5
--- NOTE | 2021-10-11 15:27 | EDPHYS ---
Physician Documentation [facility] Name: Jesus Rodriguez Age: 71 yrs Sex: Male : 1950 Arrival Date: 10/11/2021 Time: 12:54 Bed 12 Private MD: Jesse Zamora H ED Physician Kristian Em HPI: 10/11 15:03 This 71 yrs old Black Male presents to ER via Ambulatory with complaints of Cough. pm1 15:03 The patient or guardian reports cough, that is intermittent. Onset: The pm1 symptoms/episode began/occurred 6 day(s) ago. Severity of symptoms: in the emergency department the symptoms have improved. Modifying factors: The symptoms are alleviated by nothing, the symptoms are aggravated by nothing. Associated signs and symptoms: Pertinent negatives: chest pain, fever, sore throat, Shortness of breath. The patient has not experienced similar symptoms in the past. The patient has been recently seen by a physician: the patient's primary care provider, Was seen complaint and given a prescription for Tussionex. Patient presenting to the ER today due to concerns that his coughing fits may cause an aneurysm to rupture. Patient reports that his shortness of breath has resolved and his cough and congestion has improved since his visit in the ER 2 days ago. Historical: - Allergies: 13:43 No steroids due to glaucoma; aa5 - PMHx: 13:43 Asthma; Gout; Hypertension; aa5 13:43 Glaucoma; aa5 - Immunization history:: Flu vaccine is up to date. - Social history:: Smoking status: Patient denies any tobacco usage or history of. ROS: 15:03 Constitutional: Negative for fever, chills, and weight loss, Cardiovascular: Negative pm1 for chest pain, palpitations, and edema. 15:03 Abdomen/GI: Negative for abdominal pain, nausea, vomiting, diarrhea, and constipation, Back: Negative for injury and pain, MS/Extremity: Negative for injury and deformity, Skin: Negative for injury, rash, and discoloration, Neuro: Negative for headache, weakness, numbness, tingling, and seizure. 15:03 Respiratory: Positive for cough, Negative for shortness of breath, sputum production. 15:03 All other systems are negative. Exam: 15:03 Constitutional: This is a well developed, well nourished patient who is awake, alert, pm1 and in no acute distress. Head/Face: Normocephalic, atraumatic. 15:03 Back: No spinal tenderness. No costovertebral tenderness. Full range of motion. Skin: Warm, dry with normal turgor. Normal color with no rashes, no lesions, and no evidence of cellulitis. MS/ Extremity: Pulses equal, no cyanosis. Neurovascular intact. Full, normal range of motion. 15:03 Eyes: Exam is negative for acute changes, Periorbital structures: appear normal, Extraocular movements: no acute changes, Conjunctiva: no acute changes, no injection. 15:03 ENT: Exam is negative for acute changes, Mouth: no acute changes, Lips: normal, moist, Oral mucosa: normal, pink and intact, moist. 15:03 Cardiovascular: Exam negative for acute changes, Rate: normal, Rhythm: regular, Pulses: no pulse deficits are appreciated, Heart sounds: normal. 15:03 Respiratory: Exam negative for acute changes, respiratory distress, shortness of breath, Breath sounds: are clear throughout. 15:03 Neuro: Exam negative for acute changes, Orientation: is normal, Mentation: is normal, Motor: is normal, moves all fours. Vital Signs: 13:41 BP 131 / 87; Pulse 70; Resp 18 S; Temp 98.6(O); Pulse Ox 98% on R/A; Weight 108.86 kg aa5 (R); Height 6 ft. 0 in. (182.88 cm) (R); 13:41 Body Mass Index 32.55 (108.86 kg, 182.88 cm) aa5 MDM: 14:14 Patient medically screened. rn 15:25 Data reviewed: vital signs. Data interpreted: Pulse oximetry: on room air is 98 %. pm1 Interpretation: normal. Counseling: I had a detailed discussion with the patient and/or guardian regarding: the historical points, exam findings, and any diagnostic results supporting the discharge/admit diagnosis, radiology results, the need for outpatient follow up, a family practitioner, to return to the emergency department if symptoms worsen or persist or if there are any questions or concerns that arise at home. 10/11 14:41 Order name: Chest Pa And Lat (2 Views); Complete Time: 15:03 EDMS Administered Medications: No medications were administered Disposition: 10/12 08:41 Co-signature as Attending Physician, Kristian Em MD. rn Disposition Summary: 10/11/21 15:26 Discharge Ordered Location: Home pm1 Problem: new pm1 Symptoms: have improved pm1 Condition: Stable pm1 Diagnosis - Acute upper respiratory infection, unspecified pm1 Followup: pm1 - With: Emergency Department - When: As needed - Reason: Worsening of condition Followup: pm1 - With: Jesse Zamora DO - When: 2 - 3 days - Reason: Recheck today's complaints, Continuance of care, Re-evaluation by your physician Discharge Instructions: - Discharge Summary Sheet pm1 - Upper Respiratory Infection, Adult pm1 - Cool Mist Vaporizer pm1 Forms: - Medication Reconciliation Form pm1 - Thank You Letter pm1 - Antibiotic Education pm1 - Prescription Opioid Use pm1 Signatures: Dispatcher [employer] [facility] Kristian Em MD MD rn Calderon, Audri, RN RN aa5 Zbigniew Smith NP [facility] pm1 Corrections: (The following items were deleted from the chart) 10/11 13:44 13:43 Allergies: No Known Allergies; aa5 aa5 14:41 13:45 Chest Single View+RAD.RAD.BRZ ordered. [facility] EDPR 10/12 01:29 10/11 15:03 This 71 yrs old Black Male presents to ER via Ambulatory with complaints of pm1 Shortness Of Breath, Cough, Congestion. pm1
[2021-10-11 15:48] VITALS: BP 131/87; TEMP 98.6; O2SAT 98
== END 2021-10-11 15:43 | disposition home or self-care (01) ==
LOC: ER 12:53
DX: J06.9 Acute upper respiratory infection, unspecified (principal); I10 Essential (primary) hypertension; J45.909 Unspecified asthma, uncomplicated
CPT/HCPCS: 71046; 99283

== ENCOUNTER 2021-10-23 05:02 | Observation (INO) | payer OTHER ==
--- OUTSIDE RECORDS SUMMARY | 2021-10-23 05:06 | XMS REPORT | Continuity of Care Document ---
:1950 Author Organization [facility] t Address [address] [place] [address] Care Team Providers Name Role Phone YAKELIN [...] Treatment Clinician Date Adrenal Adrenal Disease Active [facility] mass mass 1-07 [place] (HCCode) (HCCode) 00:00: of 00 Medicin e Allergies, Adverse Reactions, Alerts Allergy Allergy Status Severity Reaction(s) Onset Inactive Treating Comm ents Source Name Type Date Date Clinician Travdanielle Propensi Active [facility] ty to 3-04 [place] adverse 00:00: of reaction 00 Medicin s to e drug NO KNOWN Allergy Active [facility] Social History Social Habit Start Date Stop Date Quantity Comments Source History [facility] Alcohol Frequency of Medi cine Sex Assigned At [facility] l[facility] of Medicine Alcohol intake 2019-07-24 2019-07-24 Current drinker [facility] 00:00:00 00:00:00 of alcohol of Medicine (finding) History [facility] 2019-05-28 2019-05-28 2 [facility] Alcohol Std Drinks 00:00:00 00:00:00 of Med icine History [facility] 2019-05-28 2019-05-28 4 [facility] Alcohol Binge 00:00:00 00:00:00 of Medicine Smoking Status Start Date Stop Date Source Never smoker [facility] o f Medicine Medications Ordered Filled Start Stop Current Ordering Indication Dosage Frequency Signature Comments Components Source Medication Medication Date Date Medication? Clinician (SIG) Name Name Zinc 50 MG 2020-0 Yes 1{tbl} Take 1 Tab [facility] TABS 3-04 by mouth. College 21:56: of 53 Medicin e vitamin E 2020-0 Yes 400U Take 400 [facility] 400 units 3-04 Units by Colleg e capsule 21:56: mouth. of 53 Medicin e Cholecalcif 2020-0 Yes 2000U Take 2,000 [facility] myrna 3-04 Units by College (VITAMIN 21:56: mouth. of D3) 50 MCG 53 Medicin (2000 UT) e CAPS Magnesium 2020-0 Yes 500mg Take 500 [place] seth Cl-Calcium 3-04 mg by College Carbonate 21:56: mouth. of (SLOW-MAG 53 Medicin [...] 1 [place] (TOPROL-XL) 2-12 TABLET BY Col lege 200 MG XL 00:00: MOUTH of tablet 00 EVERY DAY Medicin e doxazosin 2017-05 Yes 2mg 2 mg. [facility] (CARDURA) 2 0-25 College MG tablet 00:00: of 00 Medicin e losartan 2017- Yes 100mg Take 100 [facility] (COZAAR) 5-23 mg by [place] 100 MG 00:00: mouth. of tablet 00 Medicin e amlodipine- 2015- Yes 1{capsu Take 1 Cap Jorge Luis benazepril 1-18 le} by mouth. Jr ege (LOTREL) 00:00: of 10-20 MG 00 Medicin per capsule e allopurinol Yes 300mg Take 300 B [facility] (ZYLOPRIM) 9-14 mg by [place] 300 MG 00:00: mouth. of tablet 00 Medicin e Immunizations Ordered Immunization Filled Immunization Date Status Commen ts Source Name Name Pneumococcal 2019-02-24 Completed [facility] ge Polysaccharide 00:00:00 of Medicin e Pneumococcal 2019-01-28 Completed [facility] ge 13-valent Conjugate 00:00:00 of Mo dicine Vaccine Tetanus 2011-03-11 Completed [facility] 00:00:00 of Medicine Vital Signs Vital Name Observation Time Observation Value Comments Source Systolic blood 2019-07-23 21:56:00 124 mm[Hg] [facility] Medicine Diastolic blood 2019-07-23 21:56:00 85 mm[Hg] [facility] Medicine Heart rate 2019-07-23 21:56:00 73 /min [facility] Body temperature 2019-07-23 21:56:00 36.56 Kristie [facility] Body height 2019-07-23 21:56:00 182.9 cm [facility] Body weight 2019-07-23 21:56:00 104.327 kg [facility] BMI 2019-07-23 21:56:00 31.19 kg/m2 [facility] Systolic blood 2019-07-23 21:56:00 124 mm[Hg] [facility] Medicine Diastolic blood 2019-07-23 21:56:00 85 mm[Hg] [facility] Medicine Heart rate 2019-07-23 21:56:00 73 /min [facility] Body temperature 2019-07-23 21:56:00 36.56 Kristie [facility] Body height 2019-07-23 21:56:00 182.9 cm [facility] Body weight 2019-07-23 21:56:00 104.327 kg [facility] BMI 2019-07-23 21:56:00 31.19 kg/m2 [facility] Procedures Procedure Date / Time Performed Performing Clinician Sour e POCT URINALYSIS 2019-07-23 00:00:00 Gurinder Ford [facility] Ab ribeiro of DIPSTICK Medicine Plan of Care Planned Activity Planned Date Details Comments Source Future Scheduled Test BMI FOLLOW UP PLAN [facility] [code = BMI FOLLOW UP Medici ne PLAN] Future Scheduled Test HEPATITIS C SCREENING [facility] [code = HEPATITIS C Medicine SCREENING] Future Scheduled Test MEDICARE AWV (Initial) [facility] [code = MEDICARE AWV Medicin e (Initial)] Future Scheduled Test FALL SCREEN [code = [employer] [facility] FALL SCREEN] Medicine Future Scheduled Test COLON CANCER SCREENING: [facility] COLONOSCOPY [code = Medicine COLON CANCER SCREENING: COLONOSCOPY] Future Scheduled Test TETANUS SHOT (ADULT) [facility] [code = TETANUS SHOT Medicin e (ADULT)] Encounters Start End Encounter Admission Attending Care Care Encounter Source Date/Time Date/Time Type Type Clinicians Facility Department ID 2020-09-09 2020-09-09 Outpatient [facility] [id number] [place] 00:00:00 00:00:00 [facility]ANE [address] 2020-09-07 2020-09-07 [facility] [id number] [place] 00:00:00 00:00:[address] [address] 2020-09-07 2020-09-07 [facility] [id number] [place] 00:00:00 00:00:[address] [facility]ANE [address] 2019-09-09 2019-09-09 [facility] [id number] [place] 00:00:00 00:00:00 DIANE [address] 2019-07-23 2019-07-23 Office Link, [facility] [id number] [place] [address] 15:02:12 16:42:42 Visit Gurinder Sy AMBULATOR [id number] College Y [id number] of [id number] Medi wiley 300 e 2019-07-23 2019-07-23 Office Link, [facility] [id number] 15:02:12 16:42:42 Visit Gurinder E AMBULATOR 350.1.13.21 Y 0.2.7.2.686 [id number] 300 Results Test Description Test Time Test Comments Results Result Sourc e Comments MRI PELVIS W/WO 2020-05-06 (PROSTATE) 12:57:48 [facility]QU[facility]KA : 1950 Sex: M CL INICAL INDICATION: C61 Malignant neoplasm of prostateMODALITY: Smile Family 3T MRITECHNIQUE: Multiplanar, multiparametric MRI of the prostate is performed with T1, T2 and diffusion weighted imaging. Quantitative analysis is performed with DynaCAD. IV contrast is administered, 20.0 ml Dotarem Dynamic post-contrast imaging with DynaCAD quantitative analysis are accomplished.[id number] MR DynaCADIMPRESSION:No suspicious focal lesions are targeted. [...] Jonna YELLOW/STRAW CLARITY UA (test code = 50505-0) Clear CLEAR GLUCOSE UA (test code = 5792-7) Negative NEGATIVE BILIRUBIN UA (test code = 5770-3) Negative NEGATIVE KETONES UA (test code = 39120-6) Negative NEGATIVE SPECIFIC GRAVITY UA (test code [...] NEGATIVE REDUCING SUBSTANCES URINE (test code = 18633-9) [id number] 16:10:00Surgical Pathology Report Case: [id number] Authorizing Provider: Gurinder Ford MD Collected: 07/08/2019 1003 Ordering Location: [facility] PERI[facility] Received: 07/08/2019 1306 SERVICES Pathologist: Love Hernandez MD Specimen: Ad renal, Left, Left adrenal gland A. ADRENAL GLAND,LEFT, ADRENALECTOMY: - BENIGN ADRENAL GLAND WITH NO SIGNIFICANT DIAGNOSTIC ALTERATION. - HEMORRHAGE, ORGANIZING THROMBOSIS AND VASCULAR RECANALIZATION ADJACENT TO THE ADRENAL GLAND. - NOMALIGNANCY IDENTIFIED. Signing Pathologist Direct Phone Line: [phone] signedby Love Hernandez MD on 07/11/2019 at 4:10 [id number] and postop diagnosis: adrenal massLeft adrenal glandReceived [...] is peguero yellow to guo and smooth. Refinery Operator Helper sections are submitted. Section code: A1-A5, sales training representative of one full cross section of [...] evaluated Immunohistochemistry technical testing was performed at [facility], Pathology Laboratory where it was developed [...] as qualified to perform high complexity clinicallaboratory testing.[facility], Department of Pathology, [address] [place] [id number], [facility], [address] [place] [phone], [facility], [facility] of [facility], [address] [place] [phone], DCMPX METABOLIC [id number] 06:54:00 Test Item Value Reference Range Interpretation [...] 1092) DATA TO CALCULA TE ESTIMATED GFR. Breaker Boss ID - GALAPCBC W/PLT COUNT & AUTO [id number] 05:35:00 Test Item Value Reference Range Interpretation [...] (BEAKER) (test code = 2801) BASIC METABOLIC [id number] 10:13:00 Test Item Value Reference Range Interpretation [...] 1092) DATA TO CALCULA TE ESTIMATED GFR. Breaker Boss ID - [place] FCBC W/PLT COUNT & AUTO [id number] 09:50:00 Test Item Value Reference Range Interpretation [...] (BEAKER) (test code = 2801) BASIC METABOLIC [id number] 11:58:00 Test Item Value Reference Range Interpretation [...] 1092) DATA TO CALCULA TE ESTIMATED GFR. Breaker Boss ID - FARNAZ FHEMOGLOBIN AND [id number] 11:41:00 Test Item Value Reference Range Interpretation Comments HEMOGLOBIN (BEAKER) (test code = 11.7 GM/DL 13.7-17.5 L 410) HEMATOCRIT (BEAKER) (test code = 34.9 % 40.1-51.0 L 411) Breaker Boss ID - MiguelURINE [id number] 11:35:00 Test Item Value Reference Range Interpretation Comments CULTURE (BEAKER) (test code = 1095) No growth URINALYSIS W/ REFLEX URINE [id number] 14:23:00 Test Item Value Reference Range Interpretation [...] 517) Rare SOURCE(BEAKER) (test code = 2795) Breaker Boss ID - [auto]Breaker Boss ID - techCOMPREHENSIVE METABOLIC [id number] 13:52:00 Test Item Value Reference Range Interpretation [...] 1092) DATA TO CALCULA TE ESTIMATED GFR. Breaker Boss ID - ROSIANGCBC W/PLT COUNT & AUTO [id number] 13:10:00 Test Item Value Reference Range Interpretation [...]
[2021-10-23 05:51] LABS: Absolute Lymphocytes (CBC) 1.8 K/uL (0.7-4.9); Hematocrit 37.3 % (39.6-49.0); Lymphocytes % 40.1 % (15.3-44.8); MPV 7.7 fL (7.6-11.3); RBC Red Blood Cell Count 4.05 M/uL (4.33-5.43)
[2021-10-23 06:08] LABS: Potassium 3.9 mmol/L (3.5-5.1); Troponin High Sensitivity 18.6 pg/mL (<58.9)
--- NOTE | 2021-10-23 07:54 | ER ---
Nurse's Notes [facility] Name: Jesus Rodriguez Age: 71 yrs Sex: Male : 1950 Arrival Date: 10/23/2021 Time: 05:05 Bed 13 Private MD: Diagnosis: Essential (primary) hypertension;Dyspnea;Cough;Cough variant asthma Presentation: 10/23 05:31 Chief complaint: Patient states: cough for 3 weeks, difficulty breathing when laying sm5 down. Coronavirus screen: Vaccine status: Patient reports receiving the 2nd dose of the covid vaccine. Ebola Screen: No symptoms or risks identified at this time. Initial Sepsis Screen: Does the patient meet any 2 criteria? No. Patient's initial sepsis screen is negative. Does the patient have a suspected source of infection? No. Patient's initial sepsis screen is negative. Risk Assessment: Do you want to hurt yourself or someone else? Patient reports no desire to harm self or others. Onset of symptoms was October 02, 2021. 05:31 Method Of Arrival: Ambulatory [facility] 05:31 Acuity: THERON 3 5 Triage Assessment: 05:33 General: Appears in no apparent distress. Behavior is cooperative. Pain: Complains of 5 pain in hip Pain began chronic. Neuro: No deficits noted. Armas Agitation-Sedation Scale (RASS): 0 - Alert and Calm Level of Consciousness is awake, alert, obeys commands, Oriented to person, place, time, situation. Cardiovascular: No deficits noted. Capillary refill < 3 seconds Patient's skin is warm and dry. Respiratory: Reports shortness of breath when laying down cough that is productive, Airway is patent Trachea midline Respiratory effort is even, unlabored, Onset: The symptoms/episode began/occurred 3 weeks ago, the patient has mild shortness of breath. Historical: - Allergies: 05:33 No steroids due to glaucoma; sm5 - Home Meds: 05:33 Metoprolol Tartrate Oral [Active]; losartan Oral [Active]; gabapentin Oral [Active]; sm5 amlodipine oral [Active]; Albuterol Inhl [Active]; - PMHx: 05:33 Asthma; Glaucoma; Gout; Hypertension; sm5 - Immunization history:: Client reports receiving the 2nd dose of the Covid vaccine. - Social history:: Smoking status: Patient/guardian denies using tobacco, the patient reports quitting approximately 12 years ago. Screenin:35 Abuse screen: Denies threats or abuse. Denies injuries from another. Nutritional 5 screening: No deficits noted. Tuberculosis screening: No symptoms or risk factors identified. Fall Risk None identified. Assessment: 05:47 Cardiovascular: Rhythm is sinus rhythm. Respiratory: Airway is patent Trachea midline 5 Respiratory effort is even, unlabored, Breath sounds are clear bilaterally. 07:15 General: Appears in no apparent distress. Behavior is calm, cooperative. 6 07:15 Respiratory: Airway is patent Trachea midline Respiratory effort is even, unlabored, jh6 Respiratory pattern is regular, Sputum is thin, white Breath sounds with wheezes bilaterally. in right upper lobe, left upper lobe, left posterior upper lobe and right posterior upper lobe Onset: The symptoms/episode began/occurred OVER THREE WEEKS AGO. Vital Signs: 05:31 BP 129 / 93; Pulse 81; Resp 19; Temp 98.2(O); Pulse Ox 97% on R/A; Weight 104.33 kg; 5 Height 6 ft. 0 in. (182.88 cm); 07:00 BP 121 / 77; Pulse 81; Resp 17; Pulse Ox 100% ; Pain 0/10; 6 08:00 BP 113 / 79; Pulse 80; Resp 16; Pulse Ox 100% ; jh6 09:06 BP 133 / 82; Pulse 79; Resp 17; Pulse Ox 99% ; Pain 0/10; jh6 05:31 Body Mass Index 31.19 (104.33 kg, 182.88 cm) 5 ED Course: 05:05 Patient arrived in ED. ja2 05:16 Rupesh Andrews DO is Attending Physician. ms3 05:32 Triage completed. 5 05:35 Ester Ordoñez, RN is Primary Nurse. 5 05:35 Arm band placed on right wrist. 5 05:35 Patient has correct armband on for positive identification. Bed in low position. Call 5 light in reach. Side rails up X2. Client placed on continuous cardiac and pulse oximetry monitoring. NIBP monitoring applied. 05:35 Inserted saline lock: 20 gauge in right antecubital area, using aseptic technique. 5 Blood collected. 06:30 XRAY Chest (1 view) In Process Unspecified. EDMS 07:02 Attending Physician role handed off by Rupesh Andrews DO ms3 07:02 Jaylan Caballero MD is Attending Physician. ms3 07:52 Alondra Hartmann MD is Hospitalizing Provider. [facility] 08:15 Mario Schmidt is Hospitalizing Provider. [facility] 10:50 X-ray(s) taken. 6 13:08 No provider procedures requiring assistance completed. 6 Administered Medications: 07:58 Drug: Xopenex (levalbuterol) 1.25 mg Route: Inhalation; 6 07:59 Drug: AtroVENT (ipratropium) Aerosol 0.5 mg Route: Inhalation; 6 07:59 Drug: SOLU-Medrol (methylPrednisoLONE) 125 mg Route: IVP; Site: right antecubital; 6 08:00 Drug: Xopenex (levalbuterol) 1.25 mg Route: Inhalation; 6 08:33 Drug: Tussionex Pennkinetic ER (chlorpheniramine-hydrocodone) Suspension 5 ml Route: PO;6 08:33 Drug: Magnesium Sulfate 2 grams Route: IVPB; Infused Over: 2 hrs; Site: right [facility] antecubital; Outcome: 07:53 Decision to Hospitalize by Provider. [facility] 13:07 Admitted to Med/surg accompanied by tech, via wheelchair, room 206. 6 13:07 Condition: stable [facility] 13:07 Instructed on the need for admit. 13:41 [address] the ED[address] [facility] Signatures: Dispatcher [employer] EDMS Jaylan Caballero MD MD cha Sims, Marcus, DO DO ms3 Modesta Sloan 2 Kristin Jack RN RN 6 Ester Ordoñez RN RN sm5 Corrections: (The following items were deleted from the chart) 05:56 05:47 Respiratory: Airway is patent Trachea midline Respiratory effort is even, sm5 unlabored, sm5 05:57 05:33 Respiratory: Reports shortness of breath when laying down cough that is sm5 non-productive, Airway is patent Trachea midline Respiratory effort is even, unlabored, Onset: The symptoms/episode began/occurred 3 weeks ago, the patient has mild shortness of breath sm5
--- NOTE | 2021-10-23 07:54 | EDPHYS ---
Physician Documentation [facility] Name: Jesus Rodriguez Age: 71 yrs Sex: Male : 1950 Arrival Date: 10/23/2021 Time: 05:05 Bed 13 Private MD: ED Physician Jaylan Caballero HPI: 10/23 05:50 This 71 yrs old Black Male presents to ER via Ambulatory with complaints of Cough, ms3 Chest Congestion, Wheezing < 1 Year. 05:50 The patient or guardian reports cough, that is intermittent. Onset: The ms3 symptoms/episode began/occurred 3 week(s) ago. Severity of symptoms: At their worst the symptoms were moderate, in the emergency department the symptoms are unchanged. Modifying factors: The symptoms are alleviated by nothing, the symptoms are aggravated by Laying down. Associated signs and symptoms: Pertinent negatives: fever, rhinorrhea. 71-year-old male with past medical history of asthma, glaucoma, gout, hypertension presents for cough and congestion has been ongoing for 3 weeks. Patient states he has been seen in the emergency department to previous times, urgent care 1 time, and his primary care physician. Patient states he has had testing performed for flu and COVID 2 times at were negative. Patient denies fevers, chills. Patient states symptoms are worse when laying down. Patient denies alleviating factors.. Historical: - Allergies: 05:33 No steroids due to glaucoma; sm5 - Home Meds: 05:33 Metoprolol Tartrate Oral [Active]; losartan Oral [Active]; gabapentin Oral [Active]; sm5 amlodipine oral [Active]; Albuterol Inhl [Active]; - PMHx: 05:33 Asthma; Glaucoma; Gout; Hypertension; sm5 - Immunization history:: Client reports receiving the 2nd dose of the Covid vaccine. - Social history:: Smoking status: Patient/guardian denies using tobacco, the patient reports quitting approximately 12 years ago. ROS: 05:50 Constitutional: Negative for fever, and chills. Neck: Negative for injury, pain, and ms3 swelling, Cardiovascular: Negative for chest pain, and palpitations. 05:50 Abdomen/GI: Negative for abdominal pain, nausea, vomiting, diarrhea, and constipation, MS/Extremity: Negative for injury and deformity, Skin: Negative for injury, rash, and discoloration, Neuro: Negative for headache, weakness, numbness, tingling. Hematologic/Lymphatic: Negative for swollen nodes, abnormal bleeding, and unusual bruising. 05:50 Respiratory: Positive for cough. Exam: 05:37 ECG was reviewed by the Attending Physician. ms3 05:50 Constitutional: This is a well developed, well nourished patient who is awake, alert, ms3 and in no acute distress. Head/Face: Normocephalic, atraumatic. Eyes: Pupils equal round and reactive to light, extra-ocular motions intact. Lids and lashes normal. Conjunctiva and sclera are non-icteric and not injected. Periorbital areas with no swelling, redness, or edema. Chest/axilla: Normal chest wall appearance and motion. Nontender with no deformity. Cardiovascular: Regular rate and rhythm with a normal S1 and S2. No gallops, murmurs, or rubs. Normal PMI, no JVD. No pulse deficits. Respiratory: Lungs have equal breath sounds bilaterally, clear to auscultation and percussion. No rales, rhonchi or wheezes noted. No increased work of breathing, no retractions or nasal flaring. Abdomen/GI: Soft, non-tender, with normal bowel sounds. No distension or tympany. No guarding or rebound. No evidence of tenderness throughout. Skin: Warm, dry with normal turgor. Normal color with no rashes, no lesions, and no evidence of cellulitis. Psych: Awake, alert, with orientation to person, place and time. Behavior, mood, and affect are within normal limits. Vital Signs: 05:31 BP 129 / 93; Pulse 81; Resp 19; Temp 98.2(O); Pulse Ox 97% on R/A; Weight 104.33 kg; [facility] Height 6 ft. 0 in. (182.88 cm); 07:00 BP 121 / 77; Pulse 81; Resp 17; Pulse Ox 100% ; Pain 0/10; jh6 08:00 BP 113 / 79; Pulse 80; Resp 16; Pulse Ox 100% ; jh6 09:06 BP 133 / 82; Pulse 79; Resp 17; Pulse Ox 99% ; Pain 0/10; jh6 05:31 Body Mass Index 31.19 (104.33 kg, 182.88 cm) [facility] MDM: 05:27 Patient medically screened. ms3 05:50 Differential Diagnosis: Bronchitis Upper Respiratory Infection Pneumonia Other ms3 Congestive heart failure. 07:01 Transition of care: After a detail discussion of the patient's case, care is ms3 transferred to Jaylan Caballero MD. 07:51 Data reviewed: vital signs, nurses notes, lab test result(s), EKG, radiologic studies, [facility] CT scan, plain films. Data interpreted: panel monitor: rate is 81 beats/min, rhythm is regular, Pulse oximetry: on room air is 97 %. Counseling: I had a detailed discussion with the patient and/or guardian regarding: the historical points, exam findings, and any diagnostic results supporting the discharge/admit diagnosis, lab results, radiology results, the need for further work-up and treatment in the hospital. 10/23 05:35 Order name: Basic Metabolic Panel; Complete Time: 06:14 ms3 10/23 05:35 Order name: CBC with Diff; Complete Time: 13:39 ms3 10/23 05:35 Order name: NT PRO-BNP; Complete Time: 06:14 ms3 10/23 05:35 Order name: Troponin HS; Complete Time: 06:14 ms3 10/23 05:56 Order name: CBC Smear Scan; Complete Time: 13:39 EDMS 10/23 07:47 Order name: SARS-COV-2 RT PCR (Document "Date of Onset" if Symptomatic); Complete Time: [facility] 13:39 05 05:35 Order name: XRAY Chest (1 view); Complete Time: 09:34 ms3 05 08:13 Order name: CT Chest For PE Angio [facility] 10/23 09:01 Order name: CT; Complete Time: 09:34 EDMS 05 10:34 Order name: Magnesium; Complete Time: 13:39 EDMS 05 05:35 Order name: EKG; Complete Time: 05:36 ms3 10/23 05:35 Order name: Cardiac monitoring; Complete Time: 05:46 ms3 10/23 05:35 Order name: EKG - Nurse/Tech; Complete Time: 05:45 ms3 10/23 05:35 Order name: IV Saline Lock; Complete Time: 05:35 ms3 10/23 05:35 Order name: Labs collected and sent; Complete Time: 05:45 ms3 10/23 05:35 Order name: O2 Per Protocol; Complete Time: 05:36 ms3 06 05:35 Order name: O2 Sat Monitoring; Complete Time: 05:36 ms3 EC:37 Rate is 77 beats/min. Rhythm is regular. QRS [place] is Normal. NH interval is normal. ms3 Clinical impression: Normal ECG. Interpreted by me. Administered Medications: 07:58 Drug: Xopenex (levalbuterol) 1.25 mg Route: Inhalation; [facility] 07:59 Drug: AtroVENT (ipratropium) Aerosol 0.5 mg Route: Inhalation; 6 07:59 Drug: SOLU-Medrol (methylPrednisoLONE) 125 mg Route: IVP; Site: right antecubital; [facility] 08:00 Drug: Xopenex (levalbuterol) 1.25 mg Route: Inhalation; [facility] 08:33 Drug: Tussionex Pennkinetic ER (chlorpheniramine-hydrocodone) Suspension 5 ml Route: PO;[facility] 08:33 Drug: Magnesium Sulfate 2 grams Route: IVPB; Infused Over: 2 hrs; Site: right [facility] antecubital; Disposition Summary: 10/23/21 07:53 Hospitalization Ordered Hospitalization Status: Observation josé miguel Location: Telemetry/MedSurg (Inpatient) josé miguel Condition: Fair josé miguel Problem: new josé miguel Symptoms: have improved josé miguel Bed/Room Type: Standard josé miguel Provider: Mario Schmidt(10/23/21 08:15) josé miguel Room Assignment: [facility](10/23/21 12:52) dw Diagnosis - Essential (primary) hypertension josé miguel - Dyspnea josé miguel - Cough josé miguel - Cough variant asthma josé miguel Forms: - Medication Reconciliation Form josé miguel - SBAR form josé miguel Signatures: Dispatcher [employer] Saundra Zarate RN RN Jaylan Mane MD MD cha Sims, Marcus, DO DO ms3 Kristin Jack RN RN jh6 Ester Ordoñez RN RN sm5 Corrections: (The following items were deleted from the chart) 08:15 07:53 Alondra Hartmann cha josé miguel 12:52 07:53 josé miguel enamorado
[2021-10-23] MEDS ORDERED: METHYLPREDNISOLONE 125 MG INJ ONE (07:56)
[2021-10-23] MEDS ORDERED: ALBUTEROL 2.5 MG/3 ML NEB SOL ONE (07:57)
[2021-10-23] MEDS ORDERED: LEVALBUTEROL 1.25 MG/3 ML NEB ONE (07:57)
[2021-10-23] MEDS ORDERED: HYDROCODONE/CHLORPHEN 5 ML/OSYR ONE (08:34)
[2021-10-23] MEDS ORDERED: Magnesium Sulfate 2gm IVPB 2 G/50 ML BAG IV ONE (08:35)
--- NOTE | 2021-10-23 08:39 | P.HP ---
Certification for Inpatient Patient admitted to: Observation With expected LOS: <2 Midnights Practitioner: I am a practitioner with admitting privileges, knowledge of patient current condition, hospital course, and medical plan of care. Services: Services provided to patient in accordance with Admission requirements found in Title 42 Section 412.3 of the Code of Federal Regulations Patient History Date of Service: 10/23/21 Reason for admission: Wheezing and coughing History of Present Illness: 71-year-old -[place] gentleman with a history of asthma and hypertension presented to the emergency department with a complaint of wheezing and coughing for about 3 weeks duration. She states that his symptoms started with wheezing followed by persistent nonproductive cough. He reports passing out at the point of from his coughing spells. He went to urgent care and he was prescribed Z-Tito and oral prednisone with no significant improvement in the coughing. Today is his fourth visit to the emergency department. Patient not hypoxic. He was given breathing treatment and IV magnesium which per patient significantly helped his symptoms. Chest x-ray shows no acute disease. CTA thorax showed no acute disease but did demonstrate thoracic aortic aneurysm. Patient with acute asthma exacerbation which has failed outpatient treatment. He is hospitalized for further management. Allergies No Known Allergies Allergy (Unverified 03/10/19 14:29) Home Medications: Amlodipine Besylate/Benazepril [Lotrel 10-20 mg Capsule] 20 tab PO DAILY 03/11/19 Doxazosin [Cardura*] 1 tab PO BEDTIME 03/11/19 Losartan/Hydrochlorothiazide [Hyzaar 100-25 Tablet] 100 mg PO DAILY 03/11/19 Metoprolol Succinate [Toprol Xl] 1 tab PO DAILY 03/11/19 Ascorbic Acid [Vitamin C*] 1,000 mg PO DAILY 03/26/20 Aspirin [Low Dose Aspirin EC] 81 mg PO DAILY 03/26/20 Cetirizine HCl [Zyrtec*] 10 mg PO DAILY 03/26/20 Cholecalciferol (Vitamin D3) [Vitamin D 1000 Iu Tab*] 2,000 mg PO DAILY 03/26/20 Famotidine [Pepcid*] 20 mg PO BID 03/26/20 Vitamin E 400 mg PO DAILY 03/26/20 - Past Medical/Surgical History Diabetic: No -: HTN -: Gout -: Glaucoma -: Aortic Aneurysm -: Cyst back of head 2009 -: thyroidectomy-2017 -: Laminectomy 2018 -: Adrenal mass removal left kidney . - Family History Father -: Other (see notes) Notes: Glaucoma Mother -: Heart disease, Diabetes, Other (see notes) Notes: Arthritis - Social History Smoking Status: Current some day smoker Alcohol use: Yes CD- Drugs: Yes Caffeine use: Yes Review of Systems Other: He denied any chest pain or fever or chills. He denied any abdominal pain. Except as documented, all other systems reviewed and negative. Physical Examination - Physical Exam General: Alert, In no apparent distress, Oriented x3 HEENT: Atraumatic, PERRLA, Mucous membr. moist/pink, EOMI, Sclerae nonicteric Neck: Supple, JVD not distended Respiratory: Normal air movement, Expiratory wheezes (Mild scattered expiratory wheezes), Other (No crackles) Cardiovascular: No edema, Regular rate/rhythm, Normal S1 S2, No murmurs Capillary refill: <2 Seconds Gastrointestinal: Normal bowel sounds, Soft and benign, Non-distended, No tenderness Musculoskeletal: No swelling, No tenderness Integumentary: No rashes, No erythema, No cyanosis Neurological: Normal strength at 5/5 x4 extr, Cranial nerves 3-12 intact Lymphatics: No axilla or inguinal lymphadenopathy - Studies Laboratory Data (last 24 hrs) 10/23/21 05:43: WBC 4.5 D, Hgb 12.2 L, Hct 37.3 L, Plt Count 251 10/23/21 05:43: Sodium 139, Potassium 3.9, BUN 16, Creatinine 1.08, Glucose 99 Assessment and Plan - Problems (Diagnosis) (1) Acute asthma exacerbation Current Visit: Yes Status: Acute (2) Hypertension Current Visit: No Status: Chronic Qualifiers: Hypertension type: essential hypertension Qualified Code(s): I10 - Essential (primary) hypertension - Plan Placed under observation. Treat acute asthma exacerbation with IV steroid, scheduled bronchodilators. IV magnesium as needed for severe episodes. Supplemental oxygen as needed. Patient has been avoiding inhaled steroid due to his history of glaucoma. May need exploration of alternative to steroids for asthma. Pulmonary consult. Reconcile and continue home antihypertensive. - Advance Directives Does patient have a Living Will: No Does patient have a Durable POA for Healthcare: No
--- NOTE | 2021-10-23 08:57 | RAD REPORT ---
EXAM DESCRIPTION: RAD - Chest Single View - 10/23/2021 6:29 am CLINICAL HISTORY: COUGH Chest pain. COMPARISON: Chest Pa And Lat (2 Views) dated 10/11/2021; Chest Single View dated 10/09/2021; Chest Sin gle View dated 03/28/2020; Chest Single View dated 03/25/2020 FINDINGS: Portable technique limits examination quality. The lungs are grossly clear. Calcified left hilar lymph nodes are present. The heart is normal in siz e. No displaced fractures. IMPRESSION: No acute intrathoracic process suspected.
[2021-10-23] MEDS: METOPROLOL XL 100 MG TAB PO SCH (09:00)
--- NOTE | 2021-10-23 09:01 | RAD REPORT ---
EXAM DESCRIPTION: CT - Chest For Pe Angio - 10/23/2021 8:46 am CLINICAL HISTORY: Chest pain. dyspnea COMPARISON: CT CHEST ABDOMEN W CONTRAST dated 02/20/2013 TECHNIQUE: CT angiogram of the pulmonary arteries was performed with MIP. All CT scans are performed using dose optimization technique as appropriate and may include automated exposure control or mA/KV adjustment according to patient size. FINDINGS: No evidence of pulmonary thromboembolism. No acute aortic finding demonstrated. Mild aneurysmal dilatation of the ascending thoracic aorta freedom ures 4.8 cm in transverse dimension. The proximal descending thoracic aorta is also aneurysmal measur ing 4.5 cm in transverse dimension. This represents mild interval size increase since 2013 comparativ e study. The lungs are clear. No significant pericardial or pleural fluid. No concerning bony finding. IMPRESSION: No evidence of pulmonary thromboembolism. Aneurysmal dilatation of the thoracic aorta as detailed. No acute lung findings.
[2021-10-23] MEDS: METHYLPREDNISOLONE 40 MG INJ IV SCH ×2 (10:02→17:26)
[2021-10-23] MEDS ORDERED: ONDANSETRON 4 MG/2 ML VIAL IV PRN (10:02)
[2021-10-23] MEDS ORDERED: ACETAMINOPHEN 500 MG TAB PO PRN (10:02)
[2021-10-23] MEDS ORDERED: ALBUTEROL 2.5 MG/3 ML NEB SOL NEB PRN (10:02)
[2021-10-23] MEDS: ENOXAPARIN 40 MG/0.4 ML SQ SCH (10:02)
[2021-10-23 10:43] LABS: Blood Morphology Comment NOTED (NOT SEEN); Ovalocytes 1+; Platelet Estimate ADEQ; Poikilocytosis 1+; Teardrop Cell 1+; White Blood Cell Scan OK (OK)
[2021-10-23 11:50] VITALS: BMI 31.1
[2021-10-23] MEDS: IPRATROPIUM BROM 0.5MG/2.5ML NEB SCH ×2 (14:02→20:00)
[2021-10-23] MEDS: GUAIFENESIN/DM 5 ML UCUP PO PRN ×2 (17:26→23:30)
[2021-10-23 19:38] LABS: Urine Appearance Clear (Clear); Urine Bilirubin Negative (Negative); Urine Blood Negative (Negative); Urine Color Yellow (Yellow); Urine Glucose Negative (Negative); Urine Protein Negative (Negative); Urine Specific Gravity <=1.005 (1.005-1.030); Urine Urobilinogen 0.2 mg/dL (0.2-1.0); Urine pH 5.5 (5.0-7.0)
[2021-10-23 19:41] LABS: Urine Microscopic Reflex NO UMIC
[2021-10-23] MEDS ORDERED: DOXAZOSIN 2 MG TAB PO SCH (21:00)
[2021-10-24] MEDS: METHYLPREDNISOLONE 40 MG INJ IV SCH (00:26)
[2021-10-24] MEDS: IPRATROPIUM BROM 0.5MG/2.5ML NEB SCH ×2 (00:45→08:00)
[2021-10-24 04:26] LABS: Absolute Lymphocytes (CBC) 0.8 K/uL (0.7-4.9); Hematocrit 35.8 % (39.6-49.0); Lymphocytes % 12.1 % (15.3-44.8); MPV 8.1 fL (7.6-11.3)
[2021-10-24 04:43] LABS: Phosphorus 1.9 mg/dL (2.5-4.9); Potassium 4.9 mmol/L (3.5-5.1); Thyroid Stimulating Hormone 0.172 uIU/mL (0.360-3.740)
[2021-10-24] MEDS: POTASS/SODIUM PHOSPHATE 1 PKT POWD.PACK PO SCH ×3 (05:40→10:45)
[2021-10-24] MEDS: GUAIFENESIN/DM 5 ML UCUP PO PRN (05:40)
--- NOTE | 2021-10-24 08:18 | P.CNS ---
Date of Consult: 10/24/21 Reason for Consult: Shortness of breath wheezing Chief Complaint: Wheezing and coughing History of Present Illness: Patient is 71 years of age with a history of obstructive airways disease and having problems for the past 3 weeks apparently was diagnosed with glaucoma and had to stop his anticholinergic and inhaled steroids came worse past 3 weeks having more wheezing coughing shortness of breath doing much better Allergies No Known Allergies Allergy (Unverified 03/10/19 14:29) Home Medications: Amlodipine Besylate/Benazepril [Lotrel 10-20 mg Capsule] 1 tab PO BEDTIME 03/11/19 Doxazosin [Cardura*] 1 tab PO BEDTIME 03/11/19 Losartan/Hydrochlorothiazide [Hyzaar 100-25 Tablet] 100 mg PO DAILY 03/11/19 Metoprolol Succinate [Toprol Xl] 1 tab PO DAILY 03/11/19 Aspirin [Low Dose Aspirin EC] 81 mg PO DAILY 03/26/20 Cetirizine HCl [Zyrtec*] 10 mg PO DAILY 03/26/20 Cholecalciferol (Vitamin D3) [Vitamin D 1000 Iu Tab*] 2,000 mg PO DAILY 03/26/20 Vitamin E 400 mg PO DAILY 03/26/20 - Past Medical/Surgical History Diabetic: No -: HTN -: Gout -: Glaucoma -: Aortic Aneurysm -: Asthma -: Cyst back of head 2009 -: thyroidectomy-2017 -: Laminectomy 2018 -: Adrenal mass removal left kidney . - Family History Father Medical History: Other (see notes) Notes: Glaucoma Mother Medical History: Heart disease, Diabetes, Other (see notes) Notes: Arthritis - Social History Smoking Status: Former smoker Alcohol use: Yes CD- Drugs: Yes Caffeine use: Yes Place of Residence: Home Review of Systems 10-point ROS is otherwise unremarkable Physical Examination Temp Pulse Resp BP Pulse Ox 98.0 F 92 H 13 124/72 96 10/24/21 04:00 10/24/21 04:00 10/24/21 04:00 10/24/21 04:00 10/24/21 04:00 General: Alert, Oriented x3 HEENT: Atraumatic Neck: Supple Respiratory: Expiratory wheezes Cardiovascular: No edema, Regular rate/rhythm Gastrointestinal: Normal bowel sounds, Non-distended Musculoskeletal: No clubbing, No swelling Integumentary: No rashes, No breakdown Laboratory Data (last 24 hrs) 10/23/21 05:43: Magnesium 2.1 - Problems (1) Acute asthma exacerbation Current Visit: Yes Status: Acute Plan: Patient is 71 years of age with a history of obstructive airways disease was only using albuterol as needed due to glaucoma his anticholinergic and inhaled steroids were stopped came worse over the past 3 weeks increasing cough shortness of breath wheezing he is feeling much better chemistries and labs reviewed vital signs are all stable oxygenation satisfactory CT scan of the chest was negative for PE Qualifiers: Asthma severity: moderate
[2021-10-24] MEDS: METOPROLOL XL 100 MG TAB PO SCH (08:40)
--- NOTE | 2021-10-24 08:45 | P.HP ---
Patient History Date of Service: 10/24/21 Reason for admission: Wheezing and coughing History of Present Illness: 71-year-old -[place] gentleman with a history of asthma and hypertension presented to the emergency department with a complaint of wheezing and coughing for about 3 weeks duration. She states that his symptoms started with wheezing followed by persistent nonproductive cough. He reports passing out at the point of from his coughing spells. He went to urgent care and he was prescribed Z-Tito and oral prednisone with no significant improvement in the coughing. Today is his fourth visit to the emergency department. Patient not hypoxic. He was given breathing treatment and IV magnesium which per patient significantly helped his symptoms. Chest x-ray shows no acute disease. CTA thorax showed no acute disease but did demonstrate thoracic aortic aneurysm. Patient with acute asthma exacerbation which has failed outpatient treatment. He is hospitalized for further management. Allergies No Known Allergies Allergy (Unverified 03/10/19 14:29) Home Medications: Amlodipine Besylate/Benazepril [Lotrel 10-20 mg Capsule] 1 tab PO BEDTIME 03/11/19 Doxazosin [Cardura*] 1 tab PO BEDTIME 03/11/19 Losartan/Hydrochlorothiazide [Hyzaar 100-25 Tablet] 100 mg PO DAILY 03/11/19 Metoprolol Succinate [Toprol Xl] 1 tab PO DAILY 03/11/19 Aspirin [Low Dose Aspirin EC] 81 mg PO DAILY 03/26/20 Cetirizine HCl [Zyrtec*] 10 mg PO DAILY 03/26/20 Cholecalciferol (Vitamin D3) [Vitamin D 1000 Iu Tab*] 2,000 mg PO DAILY 03/26/20 Vitamin E 400 mg PO DAILY 03/26/20 Albuterol Sulfate [Albuterol Sulfate Hfa] 18 gm IH Q4H PRN #1 hfa.aer.ad 10/24/21 Guaif/Dm [Robitussin Dm*] 10 ml PO Q6H PRN #20 ucup 10/24/21 predniSONE [Prednisone*] 20 mg PO BID #10 tab 10/24/21 - Past Medical/Surgical History Has patient received pneumonia vaccine in the past: Yes Diabetic: No -: HTN -: Gout -: Glaucoma -: Aortic Aneurysm -: Asthma -: Cyst back of head 2009 -: thyroidectomy-2017 -: Laminectomy 2018 -: Adrenal mass removal left kidney . - Family History Father -: Other (see notes) Notes: Glaucoma Mother -: Heart disease, Diabetes, Other (see notes) Notes: Arthritis - Social History Smoking Status: Current some day smoker Alcohol use: Yes CD- Drugs: Yes Caffeine use: Yes Place of Residence: Home Physical Examination - Vital Signs Temperature: 98.0 F Blood Pressure: 124/72 Pulse: 92 Respirations: 13 Pulse Ox (%): 96 - Studies Laboratory Data (last 24 hrs) 10/23/21 05:43: Magnesium 2.1 Assessment and Plan - Problems (Diagnosis) (1) Acute asthma exacerbation Current Visit: Yes Status: Acute Qualifiers: Asthma severity: moderate (2) Hypertension Current Visit: No Status: Chronic Qualifiers: Hypertension type: essential hypertension Qualified Code(s): I10 - Essential (primary) hypertension - Plan Placed under observation. Treat acute asthma exacerbation with IV steroid, scheduled bronchodilators. IV magnesium as needed for severe episodes. Supplemental oxygen as needed. Patient has been avoiding inhaled steroid due to his history of glaucoma. May need exploration of alternative to steroids for asthma. Pulmonary consult. Reconcile and continue home antihypertensive. - Advance Directives Does patient have a Living Will: No Does patient have a Durable POA for Healthcare: No
[2021-10-24 08:50] VITALS: BP 147/84
[2021-10-24] MEDS: ENOXAPARIN 40 MG/0.4 ML SQ SCH (08:50)
[2021-10-24] MEDS ORDERED: AMLODIPINE 10 MG TAB PO SCH (09:00)
[2021-10-24] MEDS ORDERED: POTASS/SODIUM PHOSPHATE 1 PKT POWD.PACK PO SCH ×2 (09:00→10:00)
[2021-10-24] MEDS ORDERED: hydroCHLOROthiazide 25 MG TAB PO SCH (09:00)
[2021-10-24] MEDS ORDERED: LOSARTAN POTASSIUM 50 MG TABLET PO SCH (09:00)
[2021-10-24] MEDS ORDERED: CETIRIZINE HCL 5 MG TABLET PO SCH (09:00)
[2021-10-24] MEDS ORDERED: METHYLPREDNISOLONE 40 MG INJ IV ONE (09:00)
[2021-10-24] MEDS ORDERED: BENAZEPRIL 20 MG TAB PO SCH (09:00)
[2021-10-24] MEDS ORDERED: predniSONE 20 MG TAB PO SCH (09:00)
[2021-10-24 11:44] VITALS: O2SAT 96
[2021-10-24 13:09] VITALS: TEMP 98.5
--- NOTE | 2021-10-24 13:15 | P.DS ---
Admission Date: 10/23/21 Discharge Date: 10/24/21 Disposition: ROUTINE DISCHARGE Discharge Condition: FAIR Reason for Admission: Wheezing and coughing - Problems (1) Acute asthma exacerbation Status: Acute Qualifiers: Asthma severity: moderate (2) Hypertension Status: Chronic Qualifiers: Hypertension type: essential hypertension Qualified Code(s): I10 - Essential (primary) hypertension Brief History of Present Illness: 71-year-old -[place] gentleman with a history of asthma and hypertension presented to the emergency department with a complaint of wheezing and coughing for about 3 weeks duration. She states that his symptoms started with wheezing followed by persistent nonproductive cough. He reports passing out at the point of from his coughing spells. He went to urgent care and he was prescribed Z-Tito and oral prednisone with no significant improvement in the coughing. Today is his fourth visit to the emergency department. Patient not hypoxic. He was given breathing treatment and IV magnesium which per patient significantly helped his symptoms. Chest x-ray shows no acute disease. CTA thorax showed no acute disease but did demonstrate thoracic aortic aneurysm. Patient with acute asthma exacerbation which has failed outpatient treatment. He was hospitalized for further management. Hospital Course: Patient placed on the observation on the medical floor and treated with IV steroid and scheduled bronchodilators. His shortness of breath resolved with treatment, no more wheezing. Patient is back to baseline. He was seen by pulmonary Dr. Frakn who recommended outpatient inhaled steroid, oral prednisone therapy. Patient was reluctant to use inhaled steroids due to his glaucoma. Dr. Frank stated patient's asset protection manager Dr. Dodson has approved him to use inhaled steroids. Patient is discharged with Breo Ellipta, oral prednisone therapy and rescue inhaler. His supposed to follow-up with Dr. Dodson within 1 week. Vital Signs/Physical Exam: Temp Pulse Resp BP Pulse Ox 98.5 F 95 H 17 147/84 H 96 10/24/21 08:00 10/24/21 08:49 10/24/21 08:00 10/24/21 08:49 10/24/21 08:00 General: Alert, In no apparent distress, Oriented x3 HEENT: Mucous membr. moist/pink Neck: JVD not distended Respiratory: Clear to auscultation bilaterally, Normal air movement Cardiovascular: No edema, Regular rate/rhythm, Normal S1 S2, No murmurs Gastrointestinal: Soft and benign, Non-distended, No tenderness Musculoskeletal: No swelling Integumentary: No rashes Neurological: Normal strength at 5/5 x4 extr, Cranial nerves 3-12 intact Lymphatics: No axilla or inguinal lymphadenopathy Laboratory Data at Discharge: WBC 6.6 K/uL (4.3-10.9) D 10/24/21 03:56 Hgb 12.2 g/dL (13.6-17.9) L 10/24/21 03:56 Hct 35.8 % (39.6-49.0) L 10/24/21 03:56 Plt Count 283 K/uL (152-406) 10/24/21 03:56 Sodium 137 mmol/L (136-145) 10/24/21 03:56 Potassium 4.9 mmol/L (3.5-5.1) 10/24/21 03:56 BUN 17 mg/dL (7-18) 10/24/21 03:56 Creatinine 1.05 mg/dL (0.55-1.3) 10/24/21 03:56 Glucose 129 mg/dL (74-106) H 10/24/21 03:56 Phosphorus 1.9 mg/dL (2.5-4.9) L 10/24/21 03:56 Magnesium 2.1 mg/dL (1.8-2.4) 10/23/21 05:43 Home Medications: Amlodipine Besylate/Benazepril [Lotrel 10-20 mg Capsule] 1 tab PO BEDTIME 03/11/19 Doxazosin [Cardura*] 1 tab PO BEDTIME 03/11/19 Losartan/Hydrochlorothiazide [Hyzaar 100-25 Tablet] 100 mg PO DAILY 03/11/19 Metoprolol Succinate [Toprol Xl] 1 tab PO DAILY 03/11/19 Aspirin [Low Dose Aspirin EC] 81 mg PO DAILY 03/26/20 Cetirizine HCl [Zyrtec*] 10 mg PO DAILY 03/26/20 Cholecalciferol (Vitamin D3) [Vitamin D 1000 Iu Tab*] 2,000 mg PO DAILY 03/26/20 Vitamin E 400 mg PO DAILY 03/26/20 Albuterol Sulfate [Albuterol Sulfate Hfa] 18 gm IH Q4H PRN #1 hfa.aer.ad 06/06/22 Fluticasone/Vilanterol [Breo Ellipta 100-25 Mcg INH] 1 each IH BID #60 aer.pow.ba 10/24/21 Guaif/Dm [Robitussin Dm*] 10 ml PO Q6H PRN #20 ucup 10/24/21 predniSONE [Prednisone*] 20 mg PO BID #10 tab 10/24/21 New Medications: Albuterol Sulfate [Albuterol Sulfate Hfa] 18 gm IH Q4H PRN #1 hfa.aer.ad PRN Reason: Shortness Of Breath Fluticasone/Vilanterol [Breo Ellipta 100-25 Mcg INH] 1 each IH BID #60 aer.pow.ba predniSONE [Prednisone*] 20 mg PO BID #10 tab Guaif/Dm [Robitussin Dm*] 10 ml PO Q6H PRN #20 ucup PRN Reason: Cough Diet: AHA Activity: Ad ruby Followup: Jesse Zamora DO, DO [Primary Care Provider] - 1 Week (Please call his office to make an appointment)
--- NOTE | 2021-10-24 13:22 | EKG ---
Test Date: 2021-10-23 Test Time: 05:37:12 [employer] Operator: ARACELY MEASUREMENT RESULTS: Intervals: Rate: 78 ME: 164 QRSD: 80 QT: 372 QTc: 424 [place]: P: 47 ME: 164 QRS: 39 T: 40 INTERPRETIVE STATEMENTS: Normal sinus rhythm Normal ECG Compared to ECG 10/09/2021 08:26:58 Ventricular premature complex(es) no longer present Myocardial infarct finding no longer present Electronically Signed On 10-24-21 13:20:05 CDT by Roque Quintanilla
== END 2021-10-24 11:20 | disposition home or self-care (01) ==
LOC: ER 05:02 → ERHOLD 08:35 → 2ND 13:08
PROVIDERS: ADMIT Internal Medicine; ATTEND Internal Medicine
DX: J45.901 Unspecified asthma with (acute) exacerbation (principal); I10 Essential (primary) hypertension; I71.2 Thoracic aortic aneurysm, without rupture; H40.9 Unspecified glaucoma; M10.9 Gout, unspecified; E89.0 Postprocedural hypothyroidism; Z87.891 Personal history of nicotine dependence; Z79.82 Long term (current) use of aspirin; Z79.899 Other long term (current) drug therapy; Z20.822 Contact with and (suspected) exposure to COVID-19; Z82.49 Family history of ischemic heart disease and other diseases of the circulatory system; Z83.3 Family history of diabetes mellitus; Z82.61 Family history of arthritis
CPT/HCPCS: 93005; 85025 ×2; 80048 ×2; 36415; 83735; 84100; 84443; 81003; 84484; 83880; 71275; 71045; 94760 ×3; 96375; 96374; 99285; U0003; Q9967; J3475; J2930; J2920 ×3; G0378 ×3; J1650; J7512

== ENCOUNTER 2022-06-30 09:08 | Emergency (ER) | payer OTHER ==
--- OUTSIDE RECORDS SUMMARY | 2022-06-30 09:12 | XMS REPORT | Continuity of Care Document ---
:1950 Author Organization [facility] t Address [address] [place] [address] Care Team Providers Name Role Phone Jesse Zamora DO Primary Care Physician Velasquez Felder MD Attending Clinician Ree Caicedo MA Attending Clinician Unavailable Carlotta Rivera MA Attending Clinician Unavailable Otis Schreiber RN Attending Clinician Unavailable Carlie Paulino MA Attending Clinician Unavailable Yakelin RUIZ, Diane Rodriguez Attending Clinician Rodger Montez Attending Clinician [phone] Rafael Cavazos MA Attending Clinician Unavailable Rufus Soto Attending Clinician Moon Ibarra APRN Attending Clinician Provider, Unknown Attending Clinician Unavailable Gurinder Delgado MD Attending Clinician GURINDER DELGADO Attending Clinician Unavailable VELASQUEZ FELDER Admitting Clinician Unavailable GURINDER DELGADO Admitting Clinician Unavailable Payers Payer Name Policy Type Policy Number Effective Date Expiration Date S ource Problems Condition Condition Condition Status Onset Resolution Last Treating Co mments Source Name Details Category Date Date Treatment Clinician Date S/P hip S/P hip Disease Active [facility]i replacemen replacemen [address] [facility] t, right t, right 00:00: Hospit a 00 l Primary Primary Disease Active Overview: Meth trell osteoarthr osteoarthr -[address] itis of itis of 00:00: g of this Hospi ta right hip right hip 00 note l might be different from the original. Added automatic ally from request for surgery [id number] Adrenal Adrenal Disease [facility] Adrenal Adrenal Disease Active [facility] mass mass 1-07 College (HCCode) (HCCode) 00:00: of 00 Medicin e Hyperparat Hyperparat Disease Active M ethodi hyroidism, hyroidism, 8-24 st primary primary 00:00: Hospita 00 l Irregular Irregular Disease Active [facility] heart beat heart beat [facility]17 st 00:00: Hospita 00 l Abdominal Abdominal Disease Active 2015-05 [facility] aortic aortic 06-18 st aneurysm aneurysm 00:00: Hospit a (AAA) (AAA) 00 l Thoracic Thoracic Disease Active 2015-05 Metho di aortic aortic 06-18 st aneurysm aneurysm 00:00: Hospit a without without 00 l rupture rupture Aortic Aortic Disease Active 2015-05 [facility] valve valve 06-18 st regurgitat regurgitat 00:00: Ho spita ion ion 00 l Coronary Coronary Disease Active 2015-05 Metho di arterioscl arterioscl 06-18 st erosis erosis 00:00: Hospita 00 l Essential Essential Disease Active 2015-05 [facility] hypertensi hypertensi 06-18 st on on 00:00: Hospita 00 l Peripheral Peripheral Disease Active 2015-05 M ethodi vascular vascular 06-18 st disease disease 00:00: Hospita 00 l Allergies, Adverse Reactions, Alerts Allergy Allergy Status Severity Reaction(s) Onset Inactive Treating Comm ents Source Name Type Date Date Clinician Travopro Propensi Active Other (See Redness/w Methodi st ty to Comments) 3-[address] adverse 00:00: Hospita reaction 00 l s to drug NO KNOWN Allergy Active [facility] Family History Family Member Diagnosis Comments Start Date Stop Date Source Natural mother Diabetes [facility] Natural mother [facility] Other Heart attack [facility] Social History Social Habit Start Date Stop Date Quantity Comments Source History SDOH [facility] Alcohol [facility] History SDOH [facility] Alcohol Std Drinks [facility] History SDOH [facility] Alcohol Binge Medical Mp ter History of tobacco Cigar Smoker Meth odist use Hospital Alcohol intake 2022-06-23 2022-06-23 Current drinker [facility] dist 00:00:00 00:00:00 of alcohol Hospital (finding) Cigarettes smoked 2022-02-10 2022-02-[address] current (pack per 00:00:00 00:00:00 Hospita l day) - Reported Cigarette 2022-02-10 2022-02-10 [facility] pack-years 00:00:00 00:00:00 Hospital Tobacco Comment 2022-02-10 2022-02-[address] 00:00:00 00:00:00 Hospital Alcohol Comment 2021-12-12 2021-12-12 weekly [facility] 00:00:00 00:00:00 [facility] Tobacco use and 2019-06-25 2019-06-[address] [facility] [facility] kes exposure 00:00:00 00:00:00 [facility] Center Sex Assigned At [address] [facility] 00:00:00 00:00:00 [facility] Center Smoking Status Start Date Stop Date Source Ex-smoker 2022-02-10 00:00:00 2022-02-10 00:00:00 [facility] Never smoker [facility] o Medicine Medications Ordered Filled Start Stop Current Ordering Indication Dosage Frequency Signature Comments Components Source Medication Medication Date Date Medication? Clinician (SIG) Name Name amoxicillin No 2000mg Take 4 M ethodi (AMOXIL) 06-[address] 500 MG 00:00: 05:59 (2,000 mg Hospi ta capsule 00 :00 total) by l mouth once for 1 dose. amoxicillin 2021-05 No 2000mg Take 4 M ethodi (AMOXIL) 06-18 11-[address] 500 MG 00:00: 05:59 (2,000 mg Hospi ta capsule 00 :00 total) by l mouth once for 1 dose. metoprolol 2021-05 Yes 200mg QD Take 1 Meth trell succinate 0-[address] XL 00:00: (200 mg Hospita (TOPROL-XL) 00 total) by l 200 mg 24 mouth hr tablet daily. multivitami 2021-05 Yes 1{capsu QD Take 1 M ethodi n capsule 0-11 le} capsule by st 10:49: mouth Hospita 41 daily. l vitamin E 2021-05 Yes 400U QD Take 400 Meth trell 400 UNIT 0-[address] capsule 10:49: mouth Hospita 41 daily. l zinc 50 mg 2021-05 Yes 1{tbl} QD Take 1 Met [facility] tablet 0-[address] 10:49: mouth Hospita 41 daily. l omega 2021-05 Yes QD Take by Methodi 3-dha-epa-f 0-[address] radha-turmeri 10:49: daily. Hosp rell c 417 41 l mg-120 mg- 276 mg-600 mg capsule magnesium 2021-05 Yes 500mg QD Take 500 [facility] gluconate 0-[address] (MAGONATE) 10:49: mouth Hospit a 500 mg 41 daily. l tablet tablet cholecalcif 2021-05 Yes 2000U QD Take 2,000 Methodi myrna, 0-[address] vitamin D3, 10:49: mouth Hospi ta (VITAMIN 40 daily. l D3) 2,000 unit capsule capsule aspirin 2021-05 Yes 81mg QD Take 81 mg Meth trell (ECOTRIN) 0-[address] 81 MG 10:49: daily. Hospita enteric 40 l coated tablet bisacodyL No 10mg QD Insert 1 Met [facility]odi (DULCOLAX) 8-13 08-[address] 10 mg 00:00: 04:59 y (10 mg Hospita suppository 00 :00 total) l into the rectum daily for 5 days. amLODIPine No 10mg QD Take 1 Meth trell (NORVASC) 12-29 08-10 tablet (10 st 10 mg 00:00: 00:00 mg total) Hospit a tablet 00 :00 by mouth l daily for 30 days. polyethylen 2021- No DISSOLVE M ethodi e glycol 8-10 10-[address] (GLYCOLAX) 00:00: 00:00 IN 8 OZ OF Hospita 17 00 :00 FLUID l gram/dose LIQUID powder DRINK DAILY DIRECTED amoxicillin 2021- No 1{tbl} Q.5D Take 1 M ethodi -pot 12-[address] clavulanate 00:00: 04:59 mouth 2 Ho spita (Augmentin) 00 :00 (two) l 875-125 mg times a per tablet day for 14 days. aspirin 81 2021- No 81mg Q.5D Chew 1 Meth trell mg chewable 12-27 tablet (81 s t tablet 00:00: 04:59 mg total) Hospi ta 00 :00 2 (two) l times a day for 30 days. methocarbam 2021- No 500mg Q.[id number] Take 1 Methodi oL 12-[id number] (ROBAXIN) 00:00: 04:59 3D (500 mg Hosp rell 500 MG 00 :00 total) by l tablet mouth 3 (three) times a day for 30 days. HYDROcodone 2021- No [id number] 1{tbl} Q6H Take 1 Methodi -acetaminop 12-[address] (NORCO) 00:00: 04:59 mouth Hosp rell 10-325 mg 00 :00 every 6 l per tablet (six) hours as needed for moderate pain for up to 7 days .acute pain. Max Daily Amount: 4 tablets methylPREDN 2021- No 4mg Take 1 Met hodi ISolone 12-27 tablet (4 st (MEDROL 00:00: 04:59 mg total) Hosp rell DOSEPAK) 4 00 :00 by mouth l mg tablet See Admin Instructio ns for 5 days. Use as directed by package instructio ns polyethylen 2021- No 17g QD Take 17 g Methodi e glycol 12-[address] (MIRALAX) 00:00: 00:00 daily for Ho spita 17 gram 00 :00 30 days. l packet ciprofloxac 2021- No 500mg Q.5D Take 1 Me thodi in (Cipro) 12-[address] 500 MG 00:00: 00:00 (500 mg Hospita tablet 00 :00 total) by l mouth 2 (two) times a day for 7 days. meloxicam 2021- No 15mg QD Take 15 mg M ethodi (MOBIC) 15 12-[address] mg tablet 14:22: 00:00 daily. Hospi ta 16 :00 l iron 2021- No Take by Methodi fum/vit 12-[address] C/ascorbate 14:22: 00:00 Hospi ta sod (IRON 11 :00 l PLUS VITAMIN C ORAL) fluticasone 2021- No fluticason Methodi (FLONASE) 12-[address] 50 14:22: 00:00 mcg/actuat Hospit a mcg/actuati 04 :00 ion nasal l on nasal spray,susp spray ension PRN flaxseed 2021- No QD Take by Metho di powder 12-[address] 14:21: 00:00 daily. Hospita 54 :00 l calcium 2021- No 1{tbl} Q.5D Take 1 Metho di carbonate-v 12-[address] itamin D3 14:21: 00:00 mouth 2 Hosp rell 500 mg-200 43 :00 (two) l unit per times a tablet day with meals. Trelegy 2021- No QD Inhale 1 Metho di Ellipta 7- 10-[address] 100-62.5-25 00:00: 00:00 s every Ho spita mcg blister 00 :00 morning. l with device powder for inhalation albuterol Yes USE 1 Methodi (ACCUNEB) 10-[address] 2.5 mg /3 00:00: NEBULIZER Hos thad mL (0.083 00 EVERY 6 l %) HOURS nebulizer NEEDED FOR solution SHORTNESS OF BREATH azelastine Yes as needed. M ethodi (ASTELIN) 6-02 st 137 mcg 00:00: Hospita (0.1 %) 00 l nasal spray albuterol Yes as needed. Me thodi (PROAIR 5-30 st HFA) 90 00:00: Hospita mcg/actuati 00 l on inhaler metoprolol 2020-05- No 200mg QD Take 1 Met hodi succinate 1-10 10-[address] XL 00:00: 00:00 (200 mg Hospita (TOPROL-XL) 00 :00 total) by l 200 mg 24 mouth hr tablet daily. Cholecalcif 2020-0 Yes 2000U Take 2,000 [facility] myrna 3-04 Units by [place] (VITAMIN 21:56: mouth. of D3) 50 MCG 53 Medicin (2000 UT) e CAPS Magnesium 2020-0 Yes 500mg Take 500 Ball seth Cl-Calcium 3-04 mg by [place] Carbonate 21:56: mouth. of (SLOW-MAG 53 Medicin OR) e omeprazole 2020-0 Yes 20mg Take 20 mg [facility] (PRILOSEC) 3-04 by mouth Colle ge 20 MG 21:56: daily. of capsule 53 Medicin e aspirin 81 2020-0 Yes 81mg Take 81 mg [facility] MG tablet 3-04 by mouth Colleg e 21:56: daily. of 53 Medicin e Zinc 50 MG 2020-0 Yes 1{tbl} Take 1 Tab Jorge Luis TABS 3-04 by mouth. [place] 21:56: of 53 Medicin e vitamin E 2020-0 Yes 400U Take 400 [facility] 400 units 3-04 Units by Colleg e capsule 21:56: mouth. of 53 Medicin e allopurinol 2020-0 Yes 300mg QD Take [address] (ZYLOPRIM) 2-20 mg by [facility] 300 MG 09:20: mouth Medical tablet 49 daily. Center amlodipine- 2020-0 Yes 1{capsu QD Take [address] benazepril 2-20 le} capsule by Mariaa es (LOTREL) 09:20: mouth Medical 10-20 mg 49 daily. Center per capsule doxazosin 2020-0 Yes 2mg Q.5D Take [address] (CARDURA) 2 2-20 by mouth 2 Geovanna kes MG tablet 09:20: (two) Medical 49 times Center daily. metoprolol 2020-0 Yes 200mg QD Take [address] (TOPROL-XL) 2-20 mg by [facility] 200 MG 24 09:20: mouth Medical hr tablet 49 daily. Center losartan 2020-0 Yes 100mg QD Take [address] (COZAAR) 2-20 mg by [facility] 100 MG 09:20: mouth Medical tablet 49 daily. Center zinc 2020-0 Yes 50mg QD Take [address] gluconate 2-20 by mouth [facility] 50 mg 09:20: daily. Medical tablet 49 Center vitamin E 2020-0 Yes 400U QD Take [address] 400 UNIT 2-20 Units by [facility] capsule 09:20: mouth Medical 49 daily. Center cholecalcif 2020-0 Yes 2000U QD Take 2,[address] myrna, 2-20 Units by [facility] vitamin D3, 09:20: mouth Medic al 2,000 unit 49 daily. Center Tab magnesium 2020-0 Yes QD Take by [facility]I S t chloride 2-20 mouth [facility] (SLOW-MAG) 09:20: daily. Medic al 71.5 mg 49 Center TbEC omeprazole 2020-0 Yes 20mg QD Take [address] (PRILOSEC) 2-20 by mouth [facility] 20 MG 09:20: daily. Medical capsule 49 Center aspirin 81 2020-0 Yes 81mg QD Take [address] MG EC 2-20 by mouth [facility] tablet 09:20: daily. Medical 49 Center fluticasone 2020-0 Yes 1{spray [address] propionate 2-20 } Nasal [facility] (FLONASE) 09:20: route as Medi erica 50 49 needed for Center mcg/actuati Rhinitis. on nasal spray albuterol 2020-0 Yes 1{puff} Inhale [address] HFA 2-20 puff by [facility] (VENTOLIN 09:20: mouth via Med ical HFA) 90 49 inhaler Center mcg/actuati every 6 on inhaler (six) hours as needed for Wheezing. fluticasone 2020-0 Yes Inhale by [facility] furoate-catrachito 2-20 mouth via Mariaa es anterol 09:20: inhaler as Medi erica (BREO 49 needed. Center ELLIPTA) 200-25 mcg/dose DsDv doxylamine/ 2020-0 Yes Take by [facility] phenylephri 2-20 mouth as Luke s ne HCl 09:20: needed. Medical (POLY HIST 49 Center FORTE ORAL) metoprolol 2018- Yes TAKE 1 [facility] (TOPROL-XL) 2-12 TABLET BY Col lege 200 MG XL 00:00: MOUTH of tablet 00 EVERY DAY Medicin e IBU 800 mg 2019-0 Yes 800mg Q6H Take 800 Me thodi tablet 4-[address] 00:00: mouth Hospita 00 every 6 l (six) hours as needed. cetirizine Yes QD every Method i (ZyrTEC) 10 2-[address] MG tablet 00:00: Hospita 00 l doxazosin 2017-05 Yes 2mg 2 mg. Jorge Luis (CARDURA) 2 0-25 College MG tablet 00:00: of 00 Medicin e doxazosin 2017-05 Yes 2mg Q.5D 2 mg 2 Method i (CARDURA) 2 0-25 (two) st MG tablet 00:00: times a Hospi ta day. l losartan Yes 100mg QD Take 100 Meth trell (COZAAR) 5-[address] 100 MG 00:00: mouth Hospita tablet 00 daily. l losartan Yes 100mg Take 100 [facility] (COZAAR) 5-23 mg by [place] 100 MG 00:00: mouth. of tablet 00 Medicin e amlodipine- 2015-05 Yes 1{capsu QD Take 1 M ethodi benazepril 1-18 le} capsule by st (LOTREL) 00:00: mouth Hospita 10-20 mg 00 daily. l per capsule amlodipine- 2015-05 Yes 1{capsu Take 1 Cap Jorge Luis benazepril 1-18 le} by mouth. Jr ege (LOTREL) 00:00: of 10-20 MG 00 Medicin per capsule e allopurinol Yes 300mg Take 300 [facility] (ZYLOPRIM) 9-14 mg by [place] 300 MG 00:00: mouth. of tablet 00 Medicin e allopurinol 2021- No 300mg QD Take 300 Methodi (ZYLOPRIM) 9-14 07-[address] 300 MG 00:00: 00:00 mouth once Hosp rell tablet 00 :00 daily. l Immunizations Ordered Immunization Filled Immunization Date Status Commen ts Source Name Name WILMAN COVID-19 MRNA 2021-08-30 Completed [facility] 2021-03-25 Completed Met [facility]odist VACCINATION 00:00:00 [facility] FLUCELVAX QUAD PF 2021-02-[address] [facility] 2020-06-29 Completed Met [facility]odist VACCINATION 00:00:00 [facility] COVID-19 MRNA 2020-06-01 Completed Met hodist VACCINATION 00:00:00 Hospital FLUCELVAX QUAD PF 2020-01-[address] 00:00:00 Hospital Pneumococcal 2019-02-24 Completed [facility] Polysaccharide 00:00:00 Hospital Pneumococcal 2019-02-24 Completed [facility] Colle ge Polysaccharide 00:00:00 of Medicin e FLUZONE HIGH-DOSE PF 2019-02-06 Completed Meth odist 00:00:00 [facility] Pneumococcal 2019-01-28 Completed [facility] ge 13-valent Conjugate 00:00:00 of Me dicine Vaccine Tetanus 2011-03-11 Completed [facility] 00:00:00 of Medicine Vital Signs Vital Name Observation Time Observation Value Comments Source Systolic blood 2019-07-23 21:56:00 124 mm[Hg] [facility] Medicine Diastolic blood 2019-07-23 21:56:00 85 mm[Hg] [facility] Medicine Heart rate 2019-07-23 21:56:00 73 /min [facility] Body temperature 2019-07-23 21:56:00 36.56 Kristie [facility] Body height 2019-07-23 21:56:00 182.9 cm [facility] Body weight 2019-07-23 21:56:00 104.327 kg [facility] BMI 2019-07-23 21:56:00 31.19 kg/m2 [facility] Systolic blood 2019-07-23 21:56:00 124 mm[Hg] [facility] Medicine Diastolic blood 2019-07-23 21:56:00 85 mm[Hg] [facility] Medicine Heart rate 2019-07-23 21:56:00 73 /min [facility] Body temperature 2019-07-23 21:56:00 36.56 Kristie [facility] Body height 2019-07-23 21:56:00 182.9 cm [facility] Body weight 2019-07-23 21:56:00 104.327 kg [facility] BMI 2019-07-23 21:56:00 31.19 kg/m2 [facility] Body height 2022-06-23 17:57:[facility] 2022-06-23 17:57:00 107.502 kg [facility] BMI 2022-06-23 17:57:00 32.14 kg/m2 [facility] Systolic blood 2022-02-28 15:48:00 134 mm[Hg] [facility] pressure Diastolic blood 2022-02-28 15:48:00 83 mm[Hg] [facility] pressure Heart rate 2022-02-28 15:48:00 74 /min [facility] Body temperature 2021-12-28 12:03:50 36.5 Kristie [facility] Respiratory rate 2021-12-28 12:03:50 20 /min [facility] Oxygen saturation in 2021-12-28 12:03:50 98 /min [facility] Arterial blood by Pulse oximetry Procedures Procedure Date / Time Performing Clinician Source Performed XR HIP 2-3 VIEWS RIGHT 2022-03-10 17:13:20 ThermalitoRodger dickens [facility] Sadi CT CARDIAC OVERREAD 2022-02-13 18:08:38 Diane Jaquez [facility] CV CTA CORONARY ARTERIES 2022-02-13 15:11:23 Diane Jaquez [facility] W CONTRAST AND FFR POC CREATININE 2022-02-13 14:36:00 Diane Jaquez spital ESTIMATED GFR 2022-02-13 14:36:00 Diane Jaquez spital DURABLE MEDICAL 2021-12-28 13:04:18 Velasquez Felder [facility] spital EQUIPMENT CBC WITH PLATELET AND 2021-12-28 08:18:00 Rodger Mary [facility] DIFFERENTIAL Sadi BASIC METABOLIC PANEL 2021-12-28 08:18:00 [facility] ESTIMATED GFR 2021-12-28 08:18:00 [place] [facility] Sadi SURGICAL PATHOLOGY 2021-12-27 17:44:00 Velasquez Felder [facility] REQUEST XR PELVIS 1 OR 2 VW 2021-12-27 17:34:00 [facility] 2021-12-27 17:24:00 Bradford [facility] spital OR [place] > 1 HOUR 2021-12-27 16:30:00 [facility] spital XR PELVIS 1 OR 2 VW 2021-12-27 16:06:08 [facility] MO AN ELECTIVE 2021-12-27 14:01:00 Alfred Santos [facility] ENDOTRACHEAL AIRWAY Spencer ARTHROPLASTY, HIP, 2021-12-27 13:49:00 [facility] TOTAL, ANTERIOR APPROACH POC GLUCOSE 2021-12-27 12:18:00 [facility] spital ECG PRE/POST OP 2021-12-12 20:13:53 [facility] CBC WITH PLATELET AND 2021-12-12 20:11:00 [facility] DIFFERENTIAL COMPREHENSIVE METABOLIC 2021-12-12 20:11:[address] [facility] PANEL HEMOGLOBIN A1C 2021-12-12 20:11:00 [facility] TYPE AND SCREEN 2021-12-12 20:11:00 Stacey [facility] ospital ESTIMATED GFR 2021-12-12 20:11:00 [facility] URINE CULTURE 2021-12-12 19:58:00 [facility] ospital URINALYSIS SCREEN AND 2021-12-12 19:58:00 [facility] MICROSCOPY, WITH REFLEX TO CULTURE XR HIP 2-3 VIEWS RIGHT 2021-11-14 14:31:42 [facility] POCT URINALYSIS DIPSTICK 2019-07-23 00:00:00 Gurinder Delgado [facility] Plan of Care Planned Activity Planned Date Details Comments Source Future Scheduled 2022-06-28 Hepatitis C screening [facility] Test 15:39:35 (procedure) [code = 171009341] Future Scheduled 2022-06-28 COLONOSCOPY SCREENING [facility] Test 15:39:35 [code = COLONOSCOPY SCREENING] Future Scheduled 2022-06-28 Screening for [facility] Test 15:39:35 malignant neoplasm of lung (procedure) [code = 127068571] Future Scheduled 2022-06-28 SHINGLES VACCINES (1 [facility] Test 15:39:35 of 2) [code = SHINGLES VACCINES (1 of 2)] Future Scheduled 2022-05-[address] [facility] Test 00:00:00 (12+) [code = Medical Center DEPRESSION SCREENING (12+)] Future Scheduled 2022-05-21 FALLS RISK SCREENING [facility] Test 00:00:00 [code = FALLS RISK Medical C enter SCREENING] Future Scheduled 2020-06-[address] [facility] Test 00:00:00 Counseling and Medical Cente r Screening (12+) [code = Tobacco Cessation Counseling and Screening (12+)] Future Scheduled 2018-07-[address] [facility] Test 00:00:00 WELLNESS (YEAR 2 or Medical Center FIRST YEAR if no IPPE) [code = MEDICARE ANNUAL WELLNESS (YEAR 2 or FIRST YEAR if no IPPE)] Future Scheduled 2011-03-12 DTAP/TDAP/TD VACCINES [facility] Test 00:00:00 (1 - Tdap) [code = Medical C enter DTAP/TDAP/TD VACCINES (1 - Tdap)] Future Scheduled 2002 SHINGLES VACCINES ([address] [facility] Test 00:00:00 of 2) [code = SHINGLES Medic al Center VACCINES (1 of 2)] Future Scheduled 1970 HEPATITIS C SCREENING [facility] Test 00:00:00 [code = HEPATITIS C Medical Center SCREENING] Future Scheduled 1951-01-25 COVID-19 VACCINE (#1) [facility] Test 00:00:00 [code = COVID-[address] VACCINE (#1)] Future Scheduled [address] [facility] Test 00:00:00 (combo) [code = CT Medical C enter Colonography (combo)] Future Scheduled [address] [facility] Test 00:00:00 malignant neoplasm of Medica l Center colon (procedure) [code = 062407399] Future Scheduled [address] [facility] Test 00:00:00 malignant neoplasm of Medica l Center colon (procedure) [code = 133338578] Future Scheduled [address] [facility] Test 00:00:00 [facility] colon (procedure) [code = 782828587] Future Scheduled [address] [facility] Test 00:00:00 [facility] [place] colon (procedure) [code = 460386546] Future Scheduled 1950 Sigmoidoscopy [code = [facility] Test 00:00:00 Sigmoidoscopy] Medical Cente r Future Scheduled BMI FOLLOW UP PLAN [facility] Test [code = BMI FOLLOW UP Medici ne PLAN] Future Scheduled HEPATITIS C SCREENING [facility] Test [code = HEPATITIS C Medicine SCREENING] Future Scheduled MEDICARE AWV (Initial) [facility] [employer] [facility] Test [code = MEDICARE AWV Medicin e (Initial)] Future Scheduled FALL SCREEN [code = [facility] [employer] [facility] Test FALL SCREEN] Medicine Future Scheduled COLON CANCER [facility] Jr ege of Test SCREENING: COLONOSCOPY Medic ine [code = COLON CANCER SCREENING: COLONOSCOPY] Future Scheduled TETANUS SHOT (ADULT) [facility] [employer] of Test [code = TETANUS SHOT Medicin e (ADULT)] Encounters Start End Encounter Admission Attending Care Care Encounter Source Date/Time Date/Time Type Type Clinicians Facility Department ID 2022-06-23 2022-06-23 Office Velasquez Felder [id number] Methodi 12:00:00 13:04:36 Visit [place] [id number] 3.430.2.7 Hospit a .3.740063 l .8 2022-06-23 2022-06-23 Outpatient VELASQUEZ FELDER [facility] [id number] [place] 00:00:00 00:00:[address] 2022-06-23 2022-06-23 Outpatient VELASQUEZ FELDER [facility] [id number] [place] 00:00:00 00:00:[address] 2022-06-23 2022-06-23 Travel 1.2.840.1 [id number] Methodi 00:00:00 00:00:[address] 3.430.2.7 0.2.7.3.698 Ho spita .3.194112 084.8 l .8 2022-06-23 2022-06-23 Orders Sascha, 1.2.840.1 [id number] Methodi 00:00:00 00:00:00 Only Ree 97966.1.[address] 3.430.2.7 Hospit a .3.766169 l .8 2022-06-22 2022-06-22 Orders Nicole, 1.2.840.1 [id number] Methodi 00:00:00 00:00:00 Only Carlotta 98870.1.[address] 3.430.2.7 Hospit a .3.980490 l .8 2022-06-21 2022-06-21 Oncology Schreiber, 1.2.840.1 [id number] Methodi 00:00:00 00:00:00 [facility] Otis [id number] 496 s t ip 3.430.2.7 Hospit a .3.153696 l .8 2022-06-21 2022-06-21 Travel 1.2.840.1 [id number] Methodi 00:00:00 00:00:[address] 3.430.2.7 0.2.7.3.698 Ho spita .3.984491 084.8 l .8 2022-05-23 2022-05-23 Travel 1.2.840.1 [id number] [id number] Methodi 00:00:00 00:00:[address] 3.430.2.7 0.2.7.3.698 Ho spita .3.477036 084.8 l .8 2022-04-24 2022-04-24 Telephone Hatter, 1.2.840.1 [id number] Methodi 00:00:00 00:00:[address] 3.430.2.7 Hospit a .3.054819 l .8 2022-04-18 2022-04-18 Orders Nicole, 1.2.840.1 [id number] 2100 [id number] Methodi 00:00:00 00:00:00 Only Carlotta 73267.1.[address] 3.430.2.7 Hospit a .3.912590 l .8 2022-03-19 2022-03-19 Thom Jaquez 1.2.840.1 [id number] 1469 Methodi 00:00:00 00:00:[address] 3.430.2.7 Hospit a .3.183422 l .8 2022-03-10 2022-03-10 [facility] Velasquez Felder Carrington 1.2.840.1 [id number] Methodi 12:00:00 12:49:26 Visit Rodger Mary 95383.1.[address] 3.430.2.7 Hospit a .3.911303 l .8 2022-03-10 2022-03-10 Outpatient HERNSHAWVELASQUEZ [facility] 2100 [id number] [place] 00:00:00 00:00:[address] 2022-03-10 2022-03-10 Outpatient [facility] [id number] 089 [place] 00:00:00 00:00:[address] 2022-03-10 2022-03-10 Travel 1.2.840.1 1.2.645.406 2479 [id number] Methodi 00:00:00 00:00:[address] 3.430.2.7 0.2.7.3.698 Ho spita .3.430569 084.8 l .8 2022-03-10 2022-03-10 Breanna Caicedo, 1.2.840.1 [id number] 97737 95606 Methodi 00:00:00 00:00:00 [address] Ree 87987.1.[address] 3.430.2.7 Hospit a .3.837170 l .8 2022-02-28 2022-02-28 Evelyn Jaquez 1.2.840.1 [id number] 8433 Methodi 10:50:00 15:40:51 Visit Diane R. 03810.1.[address] 3.430.2.7 Hospit a .3.236014 l .8 2022-02-28 2022-02-28 Outpatient [facility] [id number] 169 [place] 00:00:00 00:00:00 DIANE [address] 2022-02-28 2022-02-28 Travel 1.2.840.1 1.2.232.801 4421 [id number] Methodi 00:00:00 00:00:[address] 3.430.2.7 0.2.7.3.698 Ho spita .3.969323 084.8 l .8 2022-02-13 2022-02-13 [facility], 1.2.840.1 [id number] 39824 78827 Methodi 13:08:38 23:59:00 Encounter Diane R. 84397.1.[address] 3.430.2.7 Hospit a .3.091405 l .8 2022-02-13 2022-02-13 [facility], 1.2.840.1 [id number] 93634 82438 Methodi 09:08:24 13:07:00 Encounter Diane R. 97292.1.[address] 3.430.2.7 Hospit a .3.386142 l .8 2022-02-13 2022-02-13 Outpatient [facility] [id number] 573 [place] 00:00:00 00:00:00 DIANE [address] 2022-02-13 2022-02-13 Outpatient [facility] [id number] [place] 00:00:00 00:00:00 DIANE [address] 2022-02-13 2022-02-13 Travel 1.2.840.1 1.2.492.985 7271 [id number] Methodi 00:00:00 00:00:[address] 3.430.2.7 0.2.7.3.698 Ho spita .3.788288 084.8 l .8 2022-02-10 2022-02-10 Office Velasquez Felder 1.2.840.1 [id number] Methodi 12:00:00 13:09:14 Visit Rodger Mary 74517.1.[address] 3.430.2.7 Hospit a .3.839755 l .8 2022-02-10 2022-02-10 Outpatient VELASQUEZ FELDER [facility] 2100 [id number] [place] 00:00:00 00:00:[address] 2022-02-10 2022-02-10 Outpatient [facility] [id number] 071 [place] 00:00:00 00:00:[address] 2022-02-10 2022-02-10 Travel 1.2.840.1 1.2.205.954 0427 496006 Methodi 00:00:00 00:00:[address] 3.430.2.7 0.2.7.3.698 Ho spita .3.288209 084.8 l .8 2022-02-10 2022-02-10 Breanna Caicedo 1.2.840.1 [id number] 62396 40566 Methodi 00:00:00 00:00:00 Only Ree 71200.1.[address] 3.430.2.7 Hospit a .3.844799 l .8 2022-02-03 2022-02-03 Travel 1.2.840.1 1.2.892.346 3067 797994 Methodi 00:00:00 00:00:[address] 3.430.2.7 0.2.7.3.698 Ho spita .3.803016 084.8 l .8 2022-02-03 2022-02-03 Orders Rafael Cavazos 1.2.840.1 [id number] 2099 [id number] Methodi 00:00:00 00:00:[address] 3.430.2.7 Hospit a .3.142053 l .8 2022-01-13 2022-01-13 [facility] Velasquez Felder Carrington 1.2.840.1 [id number] Methodi 10:30:00 11:05:28 Visit Rodger Mary 21643.1.[address] 3.430.2.7 Hospit a .3.038806 l .8 2022-01-13 2022-01-13 Breanna Rivera 1.2.840.1 [id number] 2099 [id number] Methodi 00:00:00 00:00:00 Only Carlotta 56779.1.[address] 3.430.2.7 Hospit a .3.930249 l .8 2022-01-13 2022-01-13 Travel 1.2.840.1 1.2.587.612 5091 [id number] Methodi 00:00:00 00:00:[address] 3.430.2.7 0.2.7.3.698 Ho spita .3.721843 084.8 l .8 2022-01-13 2022-01-13 Outpatient [facility] [facility] 2100 [id number] [place] 00:00:00 00:00:[address] 2022-01-13 2022-01-13 Outpatient [facility] [id number] 127 [place] 00:00:00 00:00:[address] 2021-12-31 2021-12-31 [facility] Velasquez Felder 1.2.840.1 [id number] Methodi 00:00:00 00:00:00 Only Carrington 08440.1.[address] 3.430.2.7 Hospit a .3.671642 l .8 2021-12-29 2021-12-29 Abstract Nicole 1.2.840.1 [id number] 572 [id number] Methodi 00:00:00 00:00:[address] 3.430.2.7 Hospit a .3.856112 l .8 2021-12-27 2021[facility]12-28 [facility] [id number] 21 [id number] Methodi 05:52:00 11:57:00 Encounter Carrington 65010.1.[address] 3.430.2.7 Hospit a .3.474804 l .8 2021-12-28 2021[facility]12-28 [facility] Felder 1.2.840.1 [id number] 146 [id number] Methodi 00:00:00 00:00:[address] 3.430.2.7 Hospit a .3.236464 l .8 2021-12-27 2021-12-28 Outpatient HERNSHAWVELASQUEZ [facility] 021 2100 [id number] [place] 00:00:00 00:00:[address] 2021-12-27 2021-12-27 Surgery TasleyVelasquez 1.2.840.1 [id number] 592 [id number] Methodi 09:30:00 13:20:[address] 3.430.2.7 Hospit a .3.077572 l .8 2021-12-27 2021-12-27 Anesthesia Charles Hooper [facility] 1.2.840. 1 [id number] Methodi 08:49:00 12:24:00 Event Moon Ibarra 20880.1.[address] 3.430.2.7 Hospit a .3.572819 l .8 2021-12-26 2021-12-26 [facility] [id number] 2 [id number] Methodi 00:00:00 00:00:[address] 3.430.2.7 Hospit a .3.490075 l .8 2021-12-12 2021-12-12 Pre-Admiss Velasquez Felder 1.2.840.1 [id number] Methodi 13:30:00 14:30:00 ion Carrington 65487.1.[address] Testing 3.430.2.7 Hospit a .3.082009 l .8 2021-12-12 2021-12-12 Tasneem Kelly.2.840.1 [id number] 352 [id number] Methodi 13:00:00 13:30:00 Visit Rodger 23896.1.[address] Sadi 3.430.2.7 Hospit a .3.500186 l .8 2021-12-12 2021-12-12 Travel 1.2.840.1 1.2.486.468 8546 954573 Methodi 00:00:00 00:00:[address] 3.430.2.7 0.2.7.3.698 Ho spita .3.791865 084.8 l .8 2021-12-12 2021-12-12 Outpatient [facility] [id number] 852 [place] 00:00:00 00:00:[address] 2021-12-12 2021-12-12 Outpatient VELASQUEZ FELDER [facility] 2100 [id number] [place] 00:00:00 00:00:[address] 2021-11-29 2021-11-29 Abstract Nicole, 1.2.840.1 [id number] 422 [id number] Methodi 00:00:00 00:00:[address] 3.430.2.7 Hospit a .3.145932 l .8 2021-11-15 2021-11-15 Documentat Provider, 1.2.840.1 [id number] 2 [id number] Methodi 00:00:00 00:00:00 ion Unknown 02380.1.[address] 3.430.2.7 Hospit a .3.998191 l .8 2021-11-15 2021-11-15 Orders Nicole, 1.2.840.1 [id number] 2100 [id number] Methodi 00:00:00 00:00:00 Only Carlotta 26671.1.[address] 3.430.2.7 Hospit a .3.319223 l .8 2021-11-14 2021-11-14 Office Velasquez Felder 1.2.840.1 [id number] 063 [id number] Methodi 09:30:00 10:28:21 Visit Carrington 43953.1.[address] 3.430.2.7 Hospit a .3.202796 l .8 2021-11-14 2021-11-14 Telephone Yakelin 1.2.840.1 [id number] 2099 [id number] Methodi 00:00:00 00:00:00 Diane Rodriguez 71573.1.[address] 3.430.2.7 Hospit a .3.331404 l .8 2021-11-14 2021-11-14 Travel 1.2.840.1 1.2.891.670 7366 [id number] Methodi 00:00:00 00:00:[address] 3.430.2.7 0.2.7.3.698 Ho spita .3.333834 084.8 l .8 2021-11-14 2021-11-14 Outpatient [place] [facility] 2100 [id number] [place] 00:00:00 00:00:[address] 2021-11-14 2021-11-[address] [facility] 2100 [id number] [place] 00:00:00 00:00:[address] 2021-11-10 2021-11-10 Breanna Caicedo 1.2.840.1 [id number] 52026 70032 Methodi 00:00:00 00:00:00 Only Ree 72177.1.[address] 3.430.2.7 Hospit a .3.770745 l .8 2021-11-07 2021-11-07 Travel 1.2.840.1 1.2.843.492 7267 537297 Methodi 00:00:00 00:00:[address] 3.430.2.7 0.2.7.3.698 Ho spita .3.097901 084.8 l .8 2020-09-09 2020-09-09 Outpatient [facility] [id number] 866 [place] 00:00:00 00:00:00 DIANE [address] 2020-09-07 2020-09-07 [facility] [id number] 867 [place] 00:00:00 00:00:[address] DI[address] 2020-09-07 2020-09-07 Outpatient YAKELIN [facility] [id number] [place] 00:00:00 00:00:[address] DIANE [address] 2019-09-09 2019-09-09 Outpatient YAKELIN, [facility] [id number] [place] 00:00:00 00:00:[address] DIANE [address] 2019-07-23 2019-07-23 [facility] 1.2.840.114 [id number] 15:02:12 16:42:42 Visit Gurinder E AMBULATOR 350.1.13.21 Y 0.2.7.2.686 [id number] 300 2019-07-23 2019-07-23 Office Link, [facility] 1.2.840.[id number] [place] [address] 15:02:12 16:42:42 Visit Gurinder E AMBULATOR 350.1.13.21 College Y 0.2.7.2.686 of 200.9621069 [facility] 300 e Results Test Description Test Time Test Comments Results Result Comments Source POC creatinine 2022-02-13 14:38:00 Test Item Value Reference Range Interpretation Comme nts POC creatinine (test code = 0.9 mg/dl 0.7-1.2 [employer] Name: Avtar [id number]) Verena ID: [id number] [facility] [id number] 14:38:00Estimated GFR>=90mL/min/1.73 m202/13/2022 9:38 AM [facility] [id number] 23:12:10 Test Item Value Reference Range Interpretation Comments Case number (test code = [id number]) Surgical pathology See link below for report (test code = PDF Lab Report 2255) Result status (test code This is Final Report = [id number]) for [id number] [facility] [id number] 14:39:40 Test Item Value Reference Range Interpretation Comments SUPPLIER NAME (test [facility] code = 6415) SUPPLIER PHONE (test code = 9543) ORDER STATUS (test code Delivery Successful = 6417) DELIVERY NOTE (test code = 6419) REQUESTED DELIVEY DATE 12/28/2021 (test code = 6420) ITEM DESCRIPTION (test Wheeled Walker, Adult Qty: 1 code = 6423) EXPECTED DELIVERY DATE 12/28/2021 (test code = 6421) ACTUAL DELIVERY DATE 12/28/2021 (test code = 6422) [facility] [id number] 17:25:00 Test Item Value Reference Range Interpretation Comments POC glucose (test code 151 mg/dL 65-99 H Opera tor Name: = 38212-1) Wojciech bella ID: [id number] able: [facility] 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 [facility] Pre/Post [id number] 21:23:32 Test Item Value Reference Range Interpretation Comments Ventricular rate (test 69 code = 253) Atrial rate (test code 69 = 255) MO interval (test code 162 = 266) QRSD interval (test 74 code = 260) QT interval (test code 380 = 264) QTC interval (test code 407 = 265) P axis 1 (test code = 19 267) QRS axis 1 (test code = 47 268) T wave axis (test code 26 = 270) EKG impression (test Normal sinus code = 273) rhythm-Septal infarct , age undetermined-Abnormal ECG-In automated comparison with ECG of 17-JUL-2018 11:14,-Non-specific change in ST segment in Inferior leads- [facility] URINALYSIS [id number] 00:00:00 Test Item Value Reference Range Interpretation Comments COLOR UA (test code = 5778-6) Jonna YELLOW/STRAW CLARITY UA (test code = 99052-3) Clear CLEAR GLUCOSE UA (test code = 5792-7) Negative NEGATIVE BILIRUBIN UA (test code = 5770-3) Negative NEGATIVE KETONES UA (test code = 76728-2) Negative NEGATIVE SPECIFIC GRAVITY UA (test code = 1.005-1.035 5811-5) BLOOD UA (test code = 5794-3) Negative NEGATIVE PH UA (test code = 5803-2) 5-9 PROTEIN UA (test code = 5804-0) Negative NEGATIVE UROBILINOGEN UA (test code = 0.02 E.U/DL NORMAL MG/DL 5818-0) LEUKOCYTE ESTERASE UA (test code Negative NEGATIVE = 5799-2) NITRITE UA (test code = 5802-4) Negative NEGATIVE REDUCING SUBSTANCES URINE (test code = 08201-6) [facility] [id number] 16:10:00Surgical Pathology Report Case: [id number] Authorizing Provider: Gurinder Delgado MD Collected:07/08/2019 1003 Ordering Location: [facility] PERIOPERATIVE Received: 07/08/2019 1306 SERVICES Pathologist: Love Hernandez MD Specimen: Adrenal, Left, Left adrenal gland A. ADRENAL GLAND, LEFT, ADRENALECTOMY: - BENIGN ADRENAL GLAND WITH NO SIGNIFICANT DIAGNOSTIC ALTERATION. - HEMORRHAGE, ORGANIZING THROMBOSIS AND VASCULAR RECANALIZATION ADJACENT TO THE ADRENAL GLAND. - NO MALIGNANCY IDENTIFIED. Signing Pathologist Direct Phone Line: [phone] signed by Love Hernandez MD on 07/11/2019 at 4:10 [id number] and postop diagnosis: adrenal massLeft adrenal glandReceived fresh labeled with the patient's name, accession number and "adrenal, left" is a 58 gm, 7 x 4.7 x 4 cm adrenal gland surfaced by a glistening membrane. The outer surface is inked blue, and the specimen is serially sectioned to reveala well-circumscribed, mostly hemorrhagic mass with a central area of pale yellow, sorensen to guo solid area. The mass is 5.5 x 4.7 x 4 cm and is completely encased within the cortex. The remaining adrenal gland is peguero yellow to guo and smooth. Ndt Inspector sections are submitted. Section code: A1-A5, tour sales representative of one full cross section [...] Immunohistochemistry technical testing was performed at [facility], Pathology Laboratory where it was developed and its performance characteristics were determined. It has not been cleared or approved by theU.S. Food and Drug Administration. The FDA has determined that such clearance or approval is not necessary. The test is used for clinical purposes. It should not be regarded as investigational or for research. This laboratory is certified under the Clinical Laboratory Improvement Amendments of 1988 (CLIA-88) as qualified to perform high complexity clinical laboratory testing.[facility], Department of Pathology, [address] [place] [address], [facility], [facility] of [facility], [address] [place] [address], Tel [facility], Department of Pathology, [address] [place] [address] 727[address], HOVIR METABOLIC [id number] 06:54:00 Test Item Value Reference Range Interpretation [...] 1092) DATA TO CALCULA TE ESTIMATED GFR. [employer] ID - [id number] W/PLT COUNT & AUTO [id number] 05:35:00 Test Item Value Reference Range Interpretation [...] (BEAKER) (test code = 2801) BASIC METABOLIC [id number] 10:13:00 Test Item Value Reference Range Interpretation [...] 1092) DATA TO CALCULA TE ESTIMATED GFR. [employer] Teacher ID - [place] FCBC W/PLT COUNT & AUTO [id number] 09:50:00 Test Item Value Reference Range Interpretation [...] (BEAKER) (test code = 2801) BASIC METABOLIC [id number] 11:58:00 Test Item Value Reference Range Interpretation [...] 1092) DATA TO CALCULA TE ESTIMATED GFR. [employer] Physical Education Teacher [place] - [place] FHEMOGLOBIN AND [id number] 11:41:00 Test Item Value Reference Range Interpretation Comments HEMOGLOBIN (BEAKER) (test code = 11.7 GM/DL 13.7-17.5 L 410) HEMATOCRIT (BEAKER) (test code = 34.9 % 40.1-51.0 L 411) [employer] ID - [id number] 11:35:00 Test Item Value Reference Range Interpretation Comments CULTURE (BEAKER) (test code = 1095) No growth URINALYSIS W/ REFLEX URINE [id number] 14:23:00 Test Item Value Reference Range Interpretation [...] 517) Rare SOURCE(BEAKER) (test code = 2795) [employer] Teacher ID - [auto][employer] Physical [employer] Teacher ID - techCOMPREHENSIVE METABOLIC [id number] 13:52:00 Test Item Value Reference Range Interpretation [...] 1092) DATA TO CALCULA TE ESTIMATED GFR. [employer] Physical [employer] Teacher ID - ROSIANGCBC W/PLT COUNT & AUTO [id number] 13:10:00 Test Item Value Reference Range Interpretation [...] % 0-1 PERCENT (BEAKER) (test code = 4928)
[2022-06-30] MEDS ORDERED: predniSONE 20 MG TAB ONE (09:46)
[2022-06-30] MEDS ORDERED: LIDOCAINE 1% 20 ML MDV ONE (09:55)
--- NOTE | 2022-06-30 10:53 | RAD REPORT ---
EXAM DESCRIPTION: Jennyfer Single View2/02/2023 10:16 am CLINICAL HISTORY: Cough COMPARISON: 2021 FINDINGS: The lungs appear clear of acute infiltrate. The heart is normal size. The aorta is tortuo us/ectatic. IMPRESSION: No acute abnormalities displayed
--- NOTE | 2022-06-30 11:54 | EDPHYS ---
Physician Documentation [facility] Name: Jesus Rodriguez Age: 71 yrs Sex: Male : 1950 Arrival Date: 06/30/2022 Time: 09:11 Bed 15 Private MD: ED Physician Armani Mckee HPI: 06/30 09:42 This 71 yrs old Black Male presents to ER via Ambulatory with complaints of Abscess. aj3 09:42 Patient reports noticing a small bump to right groin area couple of days ago and that aj3 got bigger yesterday. Patient's attempted to expelled the pus but was unable to get all of it. No reports of any fever, chills, nausea or vomiting. Patient is concerned because he is 6 months postop for right hip replacement and does not want to get an infection in that area. Patient also reports having cough/congestion over the last 2 weeks this is usually a steroid course helps his symptoms. . Historical: - Allergies: 09:21 No Known Allergies; iw - PMHx: 09:21 Asthma; Glaucoma; Gout; Hypertension; iw - Immunization history:: Adult Immunizations unknown. - Social history:: Smoking status: . ROS: 09:42 Constitutional: Negative for fever, chills, and weight loss, Cardiovascular: Negative aj3 for chest pain, palpitations, and edema. 09:42 Abdomen/GI: Negative for abdominal pain, nausea, vomiting, diarrhea, and constipation, MS/Extremity: Negative for injury and deformity. 09:42 Neuro: Negative for syncope, headache, weakness, numbness, tingling, and seizure. 09:42 Respiratory: Positive for cough. 09:42 : Positive for bump to right groin/scrotal region. 09:42 Skin: Positive for abscess. Exam: 09:42 Constitutional: This is a well developed, well nourished patient who is awake, alert, aj3 and in no acute distress. Head/Face: Normocephalic, atraumatic. Neck: Trachea midline and no cervical lymphadenopathy. Supple, full range of motion without nuchal rigidity. Cardiovascular: Regular rate and rhythm with a normal S1 and S2. No gallops, murmurs, or rubs. Normal PMI, no JVD. No pulse deficits. Respiratory: Lungs have equal breath sounds bilaterally, clear to auscultation and percussion. No rales, rhonchi or wheezes noted. No increased work of breathing, no retractions or nasal flaring. Abdomen/GI: Soft, non-tender, with normal bowel sounds. No distension or tympany. No guarding or rebound. No evidence of tenderness throughout. 09:42 Skin: abscess, that is small, of the , with induration, To right groin/scrotal region. Vital Signs: 09:19 BP 106 / 76; Pulse 82; Resp 16; Temp 98.8; Pulse Ox 97% ; Weight 106.59 kg; Height 6 iw ft. 0 in. (182.88 cm); Pain 2/10; 10:00 BP 109 / 78; Pulse 74; Resp 18; Pulse Ox 97% on R/A; kr3 11:00 BP 103 / 69; Pulse 77; Resp 18; Pulse Ox 98% on R/A; kr3 12:00 BP 112 / 79; Pulse 75; Resp 18; Pulse Ox 98% on R/A; kr3 09:19 Body Mass Index 31.87 (106.59 kg, 182.88 cm) iw Procedures: 11:47 I \T\ D: Incision and drainage was performed for an abscess of the right Groin Prepped aj3 with Betadine, Anesthetized with 8 ml's 1% Lidocaine. Incised with #11 blade. Drained small amount purulent fluid. serosanguinous fluid. bloody fluid. Packed with Dressing: sterile 4x4 gauze, the patient tolerated the procedure well. MDM: 09:30 Patient medically screened. aj3 11:47 Differential diagnosis: abscess, cellulitis, Li's gangrene. Consideration of aj3 Admission/Observation No admission warranted. Independent interpretation of the following test(s) in the Emergency Department X-Ray: My interpretation is Chest x-ray appears clear. Test considered but Not performed: Labs: Patient's vitals are stable and have low suspicion for sepsis. 11:58 Data reviewed: vital signs, nurses notes, radiologic studies, plain films. Historians aj3 other than the Patient: Spouse/Significant Other: . Care significantly affected by the following chronic conditions: Hypertension. 12:01 Counseling: I had a detailed discussion with the patient and/or guardian regarding: the aj3 historical points, exam findings, and any diagnostic results supporting the discharge/admit diagnosis. 12:03 ED course: X-ray was clear showing no signs of PNA. Steroid Rx written as patient aj3 requested. Abscess I\T\D done with small amount of exudate and serosanguineous drainage. No packing required. Patient will be sent home with 2 antibiotics. Patient has appointment with general surgery Dr. Newell next week for wound recheck. I discussed with patient and that if symptoms were to worsen to return to ED. Patient otherwise cleared to go home with no admission required.. 06/30 11:49 Order name: Wound Culture aj3 06/30 09:40 Order name: Chest Single View XRAY; Complete Time: 11:10 aj3 06/30 09:41 Order name: Incision \T\ Drainage Setup; Complete Time: 09:52 aj3 06/30 11:49 Order name: Dressing - Wound; Complete Time: 12:24 aj3 Administered Medications: 09:49 Drug: predniSONE 40 mg Route: PO; kr3 12:27 Follow up: Response: No adverse reaction kr3 11:15 Drug: Lidocaine (1 %) 10 ml {Note: Administered by Nishi Whelan at bedside for kr3 procedure.} Volume: 20 ml; Route: Infiltration; 12:27 Follow up: Response: No adverse reaction kr3 Disposition: 13:10 Co-signature as Attending Physician, Armani Mckee MD I reviewed the patient's care rt provided by the Advanced Practice Provider and agree with the diagnosis and treatment plan. Disposition Summary: 06/30/22 11:53 Discharge Ordered Location: Home aj3 Problem: new aj3 Symptoms: have improved aj3 Condition: Stable aj3 Diagnosis - Cutaneous abscess of groin aj3 - Acute upper respiratory infection, unspecified aj3 Followup: aj3 - With: Private Physician - When: 2 - 3 days - Reason: Wound Recheck Followup: aj3 - With: Johnson Newell MD - When: 2 - 3 days - Reason: Wound Recheck Followup: aj3 - With: Emergency Department - When: - Reason: If symptoms return Discharge Instructions: - Discharge Summary Sheet aj3 - Skin Abscess aj3 - Incision and Drainage aj3 - Viral Respiratory Infection, Mezj-Ku-Srxe aj3 Forms: - Medication Reconciliation Form aj3 - Thank You Letter aj3 - Antibiotic Education aj3 - Prescription Opioid Use aj3 Prescriptions: - Cephalexin 500 mg Oral Capsule - take 1 capsule by ORAL route every 6 hours for 7 days; 28 capsule; Refills: 0, aj3 Product Selection Permitted - Bactrim DS 800-160 mg Oral Tablet - take 1 tablet by ORAL route every 12 hours for 7 days; 14 tablet; Refills: 0, aj3 Product Selection Permitted - Prednisone 20 mg Oral Tablet - take 1 tablet by ORAL route once daily for 4 days; 4 tablet; Refills: 0, aj3 Product Selection Permitted Signatures: Dispatcher [employer] Janae Hannah RN RN iw Jammie Howard RN RN kr3 Nishi Whelan, NUT SHELLER NUT SHELLER aj3 Armani Mckee MD MD rt Corrections: (The following items were deleted from the chart) 09:21 09:21 Allergies: No steroids due to glaucoma; [facility]
--- NOTE | 2022-06-30 11:54 | ER ---
Nurse's Notes [facility] Name: Jesus Rodriguez Age: 71 yrs Sex: Male : 1950 Arrival Date: 06/30/2022 Time: 09:11 Bed 15 Private MD: Diagnosis: Cutaneous abscess of groin;Acute upper respiratory infection, unspecified Presentation: 06/30 09:19 Chief complaint: Patient states: he has a mass on right groin are, he had hip surgery 6 iw months ago, they got pus out yesterday but nothing today. Coronavirus screen: At this time, the client does not indicate any symptoms associated with coronavirus-19. Ebola Screen: Patient negative for fever greater than or equal to 101.5 degrees Fahrenheit, and additional compatible Ebola Virus Disease symptoms Patient denies exposure to infectious person. Patient denies travel to an Ebola-affected area in the 21 days before illness onset. No symptoms or risks identified at this time. Initial Sepsis Screen: Does the patient meet any 2 criteria? No. Patient's initial sepsis screen is negative. Does the patient have a suspected source of infection? No. Patient's initial sepsis screen is negative. Risk Assessment: Do you want to hurt yourself or someone else? Patient reports no desire to harm self or others. Onset of symptoms was June 29, 2022. 09:19 Method Of Arrival: Ambulatory iw 09:19 Acuity: THERON 3 iw Triage Assessment: 12:25 General: Appears in no apparent distress. comfortable, Behavior is calm, cooperative, kr3 appropriate for age. Pain: Complains of pain in groin and right femoral area. Historical: - Allergies: : No Known Allergies; iw - PMHx: : Asthma; Glaucoma; Gout; Hypertension; iw - Immunization history:: Adult Immunizations unknown. - Social history:: Smoking status: . Screenin:25 [facility] ED Fall Risk Assessment (Adult) History of falling in the last 3 months, kr3 including since admission No falls in past 3 months (0 pts) Confusion or Disorientation No (0 pts) Intoxicated or Sedated No (0 pts) Impaired Gait No (0 pts) Mobility Assist Device Used No (0 pt) Altered Elimination No (0 pt) Score/Fall Risk Level 0 - 2 = Low Risk Oriented to surroundings, Maintained a safe environment, Assessed \\T\\ reinforced patient's understanding of fall precautions, Hourly rounding (assess needs \\T\\ fall precautionary measures) done. Abuse screen: Denies threats or abuse. Nutritional screening: No deficits noted. Tuberculosis screening: No symptoms or risk factors identified. Assessment: 10:20 Reassessment: Patient appears in no apparent distress at this time. Patient and/or kr3 family updated on plan of care and expected duration. Pain level reassessed. Patient is alert, oriented x 3, equal unlabored respirations, skin warm/dry/pink. 11:20 Reassessment: Patient appears in no apparent distress at this time. Patient and/or kr3 family updated on plan of care and expected duration. Pain level reassessed. Patient is alert, oriented x 3, equal unlabored respirations, skin warm/dry/pink. 12:06 Reassessment: see triage note. kr3 Vital Signs: 09:19 BP 106 / 76; Pulse 82; Resp 16; Temp 98.8; Pulse Ox 97% ; Weight 106.59 kg; Height 6 iw ft. 0 in. (182.88 cm); Pain 2/10; 10:00 BP 109 / 78; Pulse 74; Resp 18; Pulse Ox 97% on R/A; kr3 11:00 BP 103 / 69; Pulse 77; Resp 18; Pulse Ox 98% on R/A; kr3 12:00 BP 112 / 79; Pulse 75; Resp 18; Pulse Ox 98% on R/A; kr3 09:19 Body Mass Index 31.87 (106.59 kg, 182.88 cm) iw ED Course: 09:11 Patient arrived in ED. rg4 09:21 Triage completed. iw 09:21 Arm band placed on. iw 09:25 Nishi Whelan, KIANA is PHCP. aj3 09:25 Armani Mckee MD is Attending Physician. aj3 09:30 Bed in low position. Call light in reach. Side rails up X 1. kr3 09:41 Jammie Howard, ANGELES is Primary Nurse. kr3 09:52 I and D TRAY. mm9 10:18 Chest Single View XRAY In Process Unspecified. EDMS 11:52 Johnson Newell MD is Referral Physician. aj3 12:26 No provider procedures requiring assistance completed. Patient did not have IV access kr3 during this emergency room visit. Administered Medications: 09:49 Drug: predniSONE 40 mg Route: PO; kr3 12:27 Follow up: Response: No adverse reaction kr3 11:15 Drug: Lidocaine (1 %) 10 ml {Note: Administered by Nishi Whelan at bedside for kr3 procedure.} Volume: 20 ml; Route: Infiltration; 12:27 Follow up: Response: No adverse reaction kr3 Medication: 12:27 VIS not applicable for this client. kr3 Outcome: 11:53 Discharge ordered by . aj3 12:26 Discharged to home ambulatory. kr3 12:26 Condition: stable 12:26 Discharge instructions given to patient, family, Instructed on discharge instructions, follow up and referral plans. medication usage, Demonstrated understanding of instructions, follow-up care, medications, Prescriptions given X 3. 12:47 Patient left the ED. kr3 Signatures: Dispatcher [employer] EDMS Janae Fonseca RN RN iw Garcia, Rubi rg4 Jammie Howard RN RN kr3 Jennings, Amanda, KIANA FURNITURE INSTALLER Myrna Rapp mm9 Corrections: (The following items were deleted from the chart) 09:21 09:21 Allergies: No steroids due to glaucoma; [facility] 14:09 11:15 Reassessment: mom at bedside and states "whatever they gave her in the ambulance kr3 really messed her up". When patient arrived with EMS she was not behaving this away and GSC was 15 with no issues noted. Patient started behaving this way upon moms presence. kr3
[2022-06-30 12:54] VITALS: TEMP 98.8
[2022-06-30 12:56] VITALS: O2SAT 98
[2022-06-30 12:57] VITALS: BP 112/79
== END 2022-06-30 12:47 | disposition home or self-care (01) ==
LOC: ER 09:08
PROC: 0H9AXZZ Drainage of Inguinal Skin, External Approach (ICD-10-PCS; principal; 2022-06-30)
DX: L02.214 Cutaneous abscess of groin (principal); J06.9 Acute upper respiratory infection, unspecified; I10 Essential (primary) hypertension
CPT/HCPCS: 87070; 87205; 71045; 99283; 10060; J2001; J7512; 87077; 87186

== ENCOUNTER 2022-07-11 16:55 | Observation (INO) | payer OTHER ==
--- OUTSIDE RECORDS SUMMARY | 2022-07-11 17:14 | XMS REPORT | Continuity of Care Document ---
:1950 Author Organization [facility] t Address [address] [place] [address] Care Team Providers Name Role Phone Jesse Zamora DO Primary Care Physician Jesse Zamora Attending Clinician Unavailable Velasquez Felder MD Attending Clinician Ree Caicedo MA Attending Clinician Unavailable Carlotta Rivera MA Attending Clinician Unavailable Otis Schreiber RN Attending Clinician Unavailable Carlie Paulino MA Attending Clinician Unavailable Leonid RUIZ, Diane Rodriguez Attending Clinician Rodger Montez Attending Clinician [phone] Rafael Cavazos MA Attending Clinician Unavailable Rufus [...] S/P hip Disease Active [facility] replacemen replacemen 12-27 st t, right t, right 00:00: Hospit a 00 l Primary Primary Disease Active Overview: [facility] osteoarthr osteoarthr 6-[address] itis of itis of 00:00: g of this Hospi ta right hip right hip 00 note l might be different from the original. Added automatic ally from request for surgery [id number] Adrenal Adrenal Disease [facility] Adrenal Adrenal Disease Active [facility] mass mass 1-07 College (HCCode) (HCCode) 00:00: of 00 Medicin e Hyperparat Hyperparat Disease Active M ethodi hyroidism, hyroidism, 8-24 st primary primary 00:00: Hospita 00 l Irregular Irregular Disease Active [facility] heart beat heart beat 717 st 00:00: Hospita 00 l Abdominal Abdominal Disease Active 2015-05 [facility] aortic aortic 1 st aneurysm aneurysm 00:00: Hospit a (AAA) [...] s to drug NO KNOWN Allergy Active [facility] Family History Family Member Diagnosis Comments Start Date Stop Date Source Natural mother [facility] Social History Social Habit Start Date Stop Date Quantity Comments Source History SDOH [facility] Alcohol Frequency [facility] History SDOH [facility] Alcohol Std Drinks [facility]ica [facility] Center History SDOH [facility] Alcohol Binge Medical Mp ter Alcohol intake 2022-06-23 2022-06-23 Current drinker [facility] 00:00:00 00:00:00 of alcohol Hospital (finding) Cigarettes smoked 2022-02-10 2022-02-[address] current (pack per 00:00:00 00:00:00 Hospita l day) - Reported Cigarette 2022-02-10 2022-02-10 [facility] pack-years 00:00:00 00:00:00 Hospital Tobacco Comment 2022-02-10 2022-02-[address] 00:00:00 00:00:00 Hospital Alcohol Comment 2021-12-12 2021-12-12 weekly [facility] 00:[facility]:00 Hospital Tobacco use and 2019-06-25 2019-06-[address] [facility] exposure 00:00:00 00:00:00 [facility] Center History of tobacco 1966-05-21 2009-05-21 Cigar Smoker [facility] use 00:00:00 00:00:00 [facility] Sex Assigned At [address] [facility] 00:[facility]00 [facility]00 [facility] Center Smoking Status Start Date Stop Date Source Ex-smoker 2022-02-10 00:00:00 2022-02-10 00:00:00 [facility] Never smoker [facility] Medications Ordered Filled Start Stop Current Ordering Indication Dosage Frequency Signature Comments Components Source Medication Medication Date Date Medication? Clinician (SIG) Name Name amoxicillin 2022- No 2000mg Take 4 M ethodi (AMOXIL) 06-[address] 500 MG 00:00: 05:59 (2,000 mg Hospi ta capsule 00 :00 total) by l mouth once for 1 dose. amoxicillin 2022- No 2000mg Take 4 M ethodi (AMOXIL) 06-[address] 500 MG 00:00: 05:59 (2,000 mg Hospi ta capsule 00 :00 total) by l mouth once for 1 dose. amoxicillin 2021-05- No 2000mg Take 4 M ethodi (AMOXIL) 06-18-[address] 500 MG 00:00: 05:59 (2,000 mg Hospi ta capsule 00 :00 total) by l mouth once for 1 dose. amoxicillin 2021-05- No 2000mg Take 4 M ethodi (AMOXIL) 06-18-[address] 500 MG 00:00: 05:59 (2,000 mg Hospi ta capsule 00 :00 total) by l mouth once for 1 dose. metoprolol 2021-05 Yes 200mg QD Take 1 [facility] succinate 0-[address] XL 00:00: (200 mg Hospita (TOPROL-XL) 00 total) by l 200 mg 24 mouth hr tablet daily. metoprolol 2021-05 Yes 200mg QD Take 1 [...] 500 mg 41 daily. l tablet tablet multivitami 2021-05 Yes 1{capsu QD Take 1 [...] daily. Hospita enteric 40 l coated tablet cholecalcif 2021-05 Yes 2000U QD Take 2,000 [facility] myrna, 0-[address] vitamin D3, 10:49: mouth Hospi ta (VITAMIN 40 daily. l D3) 2,000 unit capsule capsule aspirin 2021-05 Yes 81mg QD Take 81 mg [facility] (ECOTRIN) 0-[address] 81 MG 10:49: daily. Hospita enteric 40 l coated tablet bisacodyL 2021- No 10mg QD Insert 1 [facility] (DULCOLAX) 12-[address] 10 mg 00:00: 04:59 y (10 mg Hospita suppository 00 :00 total) l into the rectum daily for 5 days. bisacodyL 2021- No 10mg QD Insert 1 [facility] (DULCOLAX) 12-[address] 10 mg 00:00: 04:59 y (10 mg Hospita suppository 00 :00 total) l into the rectum daily for 5 days. amLODIPine 2021- No 10mg QD Take 1 [facility] (NORVASC) 12-29 08-10 tablet (10 st 10 mg 00:00: 00:00 mg total) Hospit a tablet 00 :00 by mouth l daily for 30 days. amLODIPine 2021- No 10mg QD Take 1 [facility] (NORVASC) 12-29 08-10 tablet (10 st 10 mg 00:00: 00:00 mg total) Hospit a tablet 00 :00 by mouth l daily for 30 days. polyethylen 2021-2021- No DISSOLVE M ethodi e glycol 8-10 10-[address] (GLYCOLAX) 00:00: 00:00 IN 8 OZ OF Hospita 17 00 :00 FLUID l gram/dose LIQUID powder DRINK DAILY DIRECTED polyethylen 2021-2021- No DISSOLVE M ethodi e glycol 8-10 10-[address] (GLYCOLAX) 00:00: 00:00 IN 8 OZ OF Hospita 17 00 :00 FLUID l gram/dose LIQUID powder DRINK DAILY DIRECTED amoxicillin 2021-2021- No 1{tbl} Q.5D Take 1 M ethodi -pot 8-10 08-[address] clavulanate 00:00: 04:59 mouth 2 Ho spita (Augmentin) 00 :00 (two) l 875-125 mg times a per tablet day for 14 days. amoxicillin 2021-2021- No 1{tbl} Q.5D Take 1 M ethodi -pot 8-10 08-[address] clavulanate 00:00: 04:59 mouth 2 Ho spita (Augmentin) 00 :00 (two) l 875-125 mg times a per tablet day for 14 days. aspirin 81 2021-2021- No 81mg Q.5D Chew 1 [facility] mg chewable 12-27 tablet (81 s t tablet 00:00: 04:59 mg total) Hospi ta 00 :00 2 (two) l times a day for 30 days. methocarbam 2021- No 500mg Q.[id number] Take 1 [facility] oL 12-[id number] (ROBAXIN) 00:00: 04:59 3D (500 mg Hosp rell 500 MG 00 :00 total) by l tablet mouth 3 (three) times a day for 30 days. aspirin 81 2021-2021- No 81mg Q.5D Chew 1 [facility] mg chewable 12-27 tablet (81 s t tablet 00:00: 04:59 mg total) Hospi ta 00 :00 2 (two) l times a day for 30 days. methocarbam 2021- No 500mg Q.[id number] Take 1 [facility] oL 12-[id number] (ROBAXIN) 00:00: 04:59 3D (500 mg Hosp rell 500 MG 00 :00 total) by l tablet mouth 3 (three) times a day for 30 days. HYDROcodone 2021-0 2021- [place] [id number] 1{tbl} Q6H Take 1 Methodi -acetaminop 12-[address] hen ([employer]) 00:00: 04:59 mouth Hosp rell 10-325 mg 00 :00 every 6 l per tablet (six) hours as needed for moderate pain for up to 7 days .acute pain. Max Daily Amount: 4 tablets HYDROcodone 2021-0 2021- No [id number] 1{tbl} Q6H Take 1 Methodi -acetaminop 12-[address] hen (MYERS FLAT) 00:00: 04:59 mouth Hosp rell 10-325 mg 00 :00 every 6 l per tablet (six) hours as needed for moderate pain for up to 7 days .acute pain. Max Daily Amount: 4 tablets methylPREDN 2021-2021- No 4mg Take 1 [facility] ISolone 12-27 tablet (4 st (MEDROL 00:00: 04:59 mg total) Hosp rell DOSEPAK) 4 00 :00 by mouth l mg tablet See Admin Instructio ns for 5 days. Use as directed by package instructio ns methylPREDN 2021-2021- No 4mg Take 1 [facility] ISolone 12-2715 tablet (4 st (MEDROL 00:00: 04:59 mg total) Hosp rell DOSEPAK) 4 00 :00 by mouth l mg tablet See Admin Instructio ns for 5 days. Use as directed by package instructio ns polyethylen 2021-2021- No 17g QD Take 17 g Methodi e glycol 12-[address] (MIRALAX) 00:00: 00:00 daily for Ho spita 17 gram 00 :00 30 days. l packet ciprofloxac 2021-2021- No 500mg Q.5D Take 1 Me thodi in (Cipro) 12-[address] 500 MG 00:00: 00:00 (500 mg Hospita tablet 00 :00 total) by l mouth 2 (two) times a day for 7 days. polyethylen 2021- No 17g QD Take 17 [...] Take 15 mg M ethodi (MOBIC) 15 12-12-[address] mg tablet 14:22: 00:00 daily. Hospi ta 16 :00 l meloxicam 2021- No 15mg QD Take 15 mg M ethodi (MOBIC) 15 12-[address] mg tablet 14:22: 00:00 daily. Hospi ta 16 :00 l iron 2021- No Take by [facility] fum/vit 12-12- mouth. st C/ascorbate 14:22: 00:00 Hospi ta sod (IRON 11 :00 l PLUS VITAMIN C ORAL) iron 2021- No Take by [facility]i fum/vit 12-[address] C/ascorbate 14:22: 00:00 Hospi ta sod (IRON 11 :00 l PLUS VITAMIN C ORAL) fluticasone 2021- No fluticason Methodi (FLONASE) 12-[address] 50 14:22: 00:00 mcg/actuat Hospit a mcg/actuati 04 :00 ion nasal l on nasal spray,susp spray ension PRN fluticasone 2021- No fluticason Methodi (FLONASE) 12-[address] 50 14:22: 00:00 mcg/actuat Hospit a mcg/actuati 04 :00 ion nasal l on nasal spray,susp spray ension PRN flaxseed 2021- No QD Take by [facility] di powder 12-[address] 14:21: 00:00 daily. Hospita 54 :00 l flaxseed 2021- No QD Take by [facility] di powder 12-[address] 14:21: 00:00 daily. Hospita 54 :00 l calcium 2021- No 1{tbl} Q.5D Take 1 Metho di carbonate-v 12-[address] itamin D3 14:21: 00:00 mouth 2 Hosp rell 500 mg-200 43 :00 (two) l unit per times a tablet day with meals. calcium 2021- No 1{tbl} Q.5D Take 1 [facility]o di carbonate-v 12-[address] itamin D3 14:21: 00:00 mouth 2 Hosp rell 500 mg-200 43 :00 (two) l unit per times a tablet day with meals. Trelegy 2021- No QD Inhale 1 [facility] di Ellipta 7-20 10-[address] 100-62.5-25 00:00: 00:00 s every Ho spita mcg blister 00 :00 morning. l with device powder for inhalation Trelegy 2021- No QD Inhale 1 Metho di Ellipta 7-20 10-[address] 100-62.5-25 00:00: 00:00 s every Ho spita mcg blister 00 :00 morning. l with device powder for inhalation albuterol Yes USE 1 [facility] (ACCUNEB) 6-[address] 2.5 mg /3 00:00: NEBULIZER Hos thad mL (0.083 00 EVERY 6 l %) HOURS nebulizer NEEDED FOR solution SHORTNESS OF BREATH azelastine Yes as needed. M ethodi (ASTELIN) 6-02 st 137 mcg 00:00: Hospita (0.1 %) 00 l nasal spray albuterol Yes USE 1 [facility] (ACCUNEB) 6-[address] 2.5 mg /3 00:00: NEBULIZER Hos thad mL (0.083 00 EVERY 6 l %) HOURS nebulizer NEEDED FOR solution SHORTNESS OF BREATH azelastine 0 Yes as needed. M ethodi (ASTELIN) 6-02 st 137 mcg 00:00: Hospita (0.1 %) 00 l nasal spray albuterol 0 Yes as needed. Me thodi (PROAIR 5-30 st HFA) 90 00:00: Hospita mcg/actuati 00 l on inhaler albuterol 0 Yes as needed. Me thodi (PROAIR 5-30 st HFA) 90 00:00: Hospita mcg/actuati 00 l on inhaler metoprolol 2020-05- No 200mg QD Take 1 [facility] succinate 1-10 10-[address] XL 00:00: 00:00 (200 mg Hospita (TOPROL-XL) 00 :00 total) by l 200 mg 24 mouth hr tablet daily. metoprolol 2020-05 No 200mg QD Take 1 [facility] succinate 1-10 10-[address] XL 00:00: 00:00 (200 mg Hospita (TOPROL-XL) 00 :00 total) by l 200 mg 24 mouth hr tablet daily. vitamin E 2020-0 Yes 400U Take 400 [facility] 400 units 3-04 Units by [facility] e capsule 21:56: mouth. of 53 Medicin e Cholecalcif 2020-0 Yes 2000U Take 2,000 [facility] myrna 3-04 Units by [place] (VITAMIN 21:56: mouth. of D3) 50 MCG 53 Medicin (2000 UT) e CAPS Magnesium 2020-0 Yes 500mg Take 500 [place] seth Cl-Calcium 3-04 mg by [place] Carbonate 21:56: mouth. of (SLOW-MAG 53 Medicin [...] Tab Jorge Luis TABS 3-04 by mouth. College 21:56: of 53 Medicin e fluticasone 2020-0 Yes 1{spray 1 spray by [...] Medical (POLY HIST 49 Center FORTE ORAL) allopurinol 2020-0 Yes 300mg QD Take [address] (ZYLOPRIM) 2-20 mg by [facility] 300 MG 09:20: mouth Medical tablet 49 daily. [place] amlodipine- 2020-0 Yes 1{capsu QD Take [address] benazepril 2-20 le} capsule by Mariaa es (LOTREL) 09:20: mouth Medical 10-20 mg 49 daily. [place] per capsule doxazosin 2020-0 Yes 2mg Q.5D Take [address] (CARDURA) 2 2-20 by mouth 2 [facility] k[facility] MG tablet 09:20: (two) Medical 49 times Center daily. metoprolol 2020-0 Yes 200mg QD Take [address] (TOPROL-XL) 2-20 mg by [facility] 200 MG 24 09:20: mouth Medical hr tablet 49 daily. [place] losartan 2020-0 Yes 100mg QD Take [address] (COZAAR) 2-20 mg by [facility] 100 MG 09:20: mouth Medical tablet 49 daily. [place] zinc 2020-0 Yes 50mg QD Take [address] gluconate 2-20 by mouth [facility] 50 mg 09:20: daily. Medical tablet 49 Center vitamin E 2020-0 Yes 400U QD Take [address] 400 UNIT 2-20 Units by [facility] capsule 09:20: mouth Medical 49 daily. [place] cholecalcif 2020-0 Yes 2000U QD Take 2,[address] myrna, 2-20 Units by [facility] vitamin D3, 09:20: mouth Medic al 2,000 unit 49 daily. Center Tab magnesium 2020-0 Yes QD Take by [facility] t chloride 2-20 mouth [facility] (SLOW-MAG) 09:20: daily. Medic al 71.5 [facility]0 Yes 20mg QD Take 20 [...] Medical (POLY HIST 49 Center FORTE ORAL) allopurinol 2020-0 Yes 300mg QD Take 300 [...] MG 09:20: mouth Medical tablet 49 daily. [place] zinc 2020-0 Yes 50mg QD Take 50 [...] mouth Medic al 2,000 unit 49 daily. [place] Tab magnesium 2020-0 Yes QD Take by [facility] t chloride 2-20 mouth [facility] (SLOW-MAG) 09:20: daily. Medic al 71.5 mg 49 Center [facility] omeprazole 2020-0 Yes 20mg QD Take [address] (PRILOSEC) 2-20 by mouth [facility] 20 MG 09:20: daily. Medical capsule 49 Center aspirin 81 2020-0 Yes 81mg QD Take [address] MG EC 2-20 by mouth [facility] tablet 09:20: daily. Medical 49 [place] fluticasone 2020-0 Yes 1{spray 1 spray by [...] inhaler as Medi erica (BREO 49 needed. [place] ELLIPTA) 200-25 mcg/dose DsDv doxylamine/ 2020-0 Yes Take by [facility] phenylephri 2-20 mouth as Luke s ne HCl 09:20: needed. Medical (POLY HIST 49 Center FORTE ORAL) allopurinol 2020-0 Yes 300mg QD Take [address] (ZYLOPRIM) 2-20 mg by [facility] 300 MG 09:20: mouth Medical tablet 49 daily. [place] amlodipine- 2020-0 Yes 1{capsu QD Take [address] benazepril 2-20 le} capsule by Mariaa es (LOTREL) 09:20: mouth Medical 10-20 mg 49 daily. [place] per capsule doxazosin 2020-0 Yes 2mg Q.5D Take [address] (CARDURA) 2 2-20 by mouth 2 Ge[facility]anna kes MG tablet 09:20: (two) Medical 49 times Center daily. metoprolol 2020-0 Yes 200mg QD Take [address] (TOPROL-XL) 2-20 mg by [facility] 200 MG 24 09:20: mouth Medical hr tablet 49 daily. [place] losartan 2020-0 Yes 100mg QD Take [address] (COZAAR) 2-20 mg by [facility] 100 MG 09:20: mouth Medical tablet 49 daily. [place] zinc 2020-0 Yes 50mg QD Take [address] gluconate 2-20 by mouth [facility] 50 mg 09:20: daily. Medical tablet 49 [place] vitamin E 2020-0 Yes 400U QD Take [address] 400 UNIT 2-20 Units by [facility] capsule 09:20: mouth Medical 49 daily. [place] cholecalcif 2020-0 Yes 2000U QD Take 2,[address] myrna, 2-20 Units by [facility] vitamin D3, 09:20: mouth Medic al 2,000 unit 49 daily. [place] Tab magnesium 2020-0 Yes QD Take by [facility] t chloride 2-20 mouth [facility] (SLOW-MAG) 09:20: daily. Medic al 71.5 mg 49 [place] TbEC omeprazole 2020-0 Yes 20mg QD Take [address] (PRILOSEC) 2-20 by mouth [facility] 20 MG 09:20: daily. Medical capsule 49 Center aspirin 81 2020-0 Yes 81mg QD Take [address] MG EC 2-20 by mouth [facility] tablet 09:20: daily. Medical 49 Center metoprolol 2018- Yes TAKE 1 [facility] (TOPROL-XL) 2-12 TABLET BY Col lege 200 MG XL 00:00: MOUTH of tablet 00 EVERY DAY Medicin e IBU 800 mg 2018-0 Yes 800mg Q6H Take 800 [facility] tablet 4-[address] 00:00: mouth Hospita 00 every 6 l (six) hours as needed. IBU 800 mg 2019-0 Yes 800mg Q6H Take 800 [facility] tablet 4-[address] 00:00: mouth Hospita 00 every 6 l (six) hours as needed. cetirizine 2019-0 Yes QD every Method i (ZyrTEC) 10 06-[address] MG tablet 00:00: Hospita 00 l cetirizine 2019-0 Yes QD every Method i (ZyrTEC) 10 06-[address] MG tablet 00:00: Hospita 00 l doxazosin 2017- Yes 2mg 2 mg. [facility] (CARDURA) 2 0-25 College MG tablet 00:00: of 00 Medicin e doxazosin 2017- Yes 2mg Q.5D 2 mg 2 Method i (CARDURA) 2 0-25 (two) st MG tablet 00:00: times a Hospi ta 00 day. l doxazosin 2017- Yes 2mg Q.5D 2 mg 2 Method i (CARDURA) 2 0-25 (two) st MG tablet 00:00: times a Hospi ta 00 day. l losartan 2017-0 Yes 100mg Take 100 [facility] (COZAAR) 5-23 mg by [place] 100 MG 00:00: mouth. of tablet 00 Medicin e losartan 2017-0 Yes 100mg QD Take 100 [facility] (COZAAR) 5-[address] 100 MG 00:00: mouth Hospita tablet 00 daily. l losartan 2017-0 Yes 100mg QD Take 100 [facility] (COZAAR) 5-[address] 100 MG 00:00: mouth Hospita tablet 00 daily. l amlodipine- 2015-05 Yes 1{capsu Take 1 Cap [facility] benazepril 1-18 le} by mouth. Jr ege (LOTREL) 00:00: of 10-20 MG 00 Medicin per capsule e amlodipine- 2015-05 Yes 1{capsu QD Take 1 M ethodi benazepril 1-18 le} capsule by st (LOTREL) 00:00: mouth Hospita 10-20 mg 00 daily. l per capsule amlodipine- 2015-05 Yes 1{capsu QD Take 1 M ethodi benazepril 1-18 le} capsule by st (LOTREL) 00:00: mouth Hospita 10-20 mg 00 daily. l per capsule allopurinol Yes 300mg Take 300 [facility] (ZYLOPRIM) 9-14 mg by [place] 300 MG 00:00: mouth. of tablet 00 Medicin e allopurinol No 300mg QD Take 300 [facility] (ZYLOPRIM) 9-14 07-[address] 300 MG 00:00: 00:00 mouth once Hosp rell tablet 00 :00 daily. l allopurinol No 300mg QD Take 300 [facility] (ZYLOPRIM) 9-14 07-[address] 300 MG 00:00: 00:00 mouth once Hosp rell tablet 00 :00 daily. l Immunizations Ordered Immunization Filled Immunization Date Status Commen ts Source Name Name [facility] ANASTACIOID19 MRNA 2021-08-30 Completed [facility] VACCINATION 00:00:00 [facility] COVID-19 MRNA 2021-08-30 Completed [facility] VACCINATION 00:00:00 [facility] COVID-19 MRNA 2021-03-25 Completed [facility] VACCINATION 00:00:00 [facility] COVID-19 MRNA 2021-03-25 Completed [facility]ist VACCINATION 00:00:00 [facility] FLUCELVAX QUAD PF 2021-02-[address] 00:00:00 [facility] FLUCELVAX QUAD PF 2021-02-[address] 00:00:00 [facility] COVID-19 MRNA 2020-06-29 Completed [facility]ist VACCINATION 00:00:00 [facility] COVID-19 MRNA 2020-06-29 Completed [facility] VACCINATION 00:00:00 [facility] COVID-19 MRNA 2020-06-01 Completed [facility] VACCINATION 00:00:00 [facility] COVID-19 MRNA 2020-06-01 Completed [facility]ist VACCINATION 00:00:00 [facility] FLUCELVAX QUAD PF 2020-01-[address] 00:00:00 [facility] FLUCELVAX QUAD PF 2020-01-[address] 00:00:00 [facility] Pneumococcal 2019-02-24 Completed [facility] Polysaccharide 00:00:00 [facility] Pneumococcal 2019-02-24 Completed [facility] Col[facility] Polysaccharide 00:00:00 of Medicin e Pneumococcal 2019-02-24 Completed [facility] Polysaccharide 00:00:00 Hospital FLUZONE HIGH-DOSE PF 2019-02-06 Completed [facility] 00:00:00 Hospital FLUZONE HIGH-DOSE PF 2019-02-06 Completed [facility] 00:00:00 Hospital Pneumococcal 2019-01-28 Completed [facility] ge 13-valent Conjugate 00:00:00 of Me dicine Vaccine Tetanus 2011-03-11 Completed [facility] 00:00:00 of Medicine Vital Signs Vital Name Observation Time Observation Value Comments Source Systolic blood 2019-07-23 21:56:00 124 mm[Hg] [facility] pressure Medicine Diastolic blood 2019-07-23 21:56:00 85 mm[Hg] [facility] Medicine Heart rate 2019-07-23 21:56:00 73 /min [facility] Body temperature 2019-07-23 21:56:00 36.56 Kristie [facility] Body height 2019-07-23 21:56:00 182.9 cm [facility] Medicine Body weight 2019-07-23 21:56:00 104.327 kg [facility] Medicine BMI 2019-07-23 21:56:00 31.19 kg/m2 [facility] Medicine Systolic blood 2019-07-23 21:56:00 124 mm[Hg] [facility] Medicine Diastolic blood 2019-07-23 21:56:00 85 mm[Hg] [facility] Medicine Heart rate 2019-07-23 21:56:00 73 /min [facility] Medicine Body temperature 2019-07-23 21:56:00 36.56 Kristie [facility] Body height 2019-07-23 21:56:00 182.9 cm [facility] C ollege of Medicine Body weight 2019-07-23 21:56:00 104.327 kg [facility] BMI 2019-07-23 21:56:00 31.19 kg/m2 [facility] Medicine Body height 2022-06-23 17:57:00 182.9 cm [facility] Body weight 2022-06-23 17:57:00 107.502 kg [facility] BMI 2022-06-23 17:57:00 32.14 kg/m2 [facility] Systolic blood 2022-02-28 15:48:00 134 mm[Hg] [facility] pressure Diastolic blood 2022-02-28 15:48:00 83 mm[Hg] [facility] pressure Heart rate 2022-02-28 15:48:00 74 /min [facility] Body temperature 2021-12-28 12:03:50 36.5 Kristie [facility] Respiratory rate 2021-12-28 12:03:50 20 /min [facility] Oxygen saturation in 2021-12-28 12:03:50 98 /min [facility] Arterial blood by Pulse oximetry Procedures Procedure Date / Time Performing Clinician Source Performed XR HIP 2-3 VIEWS RIGHT 2022-06-23 17:55:13 Gema Velasquez [facility] XR HIP 2-3 VIEWS RIGHT 2022-03-10 [facility]:13[facility] 2022-02-13 18[facility]08[facility] CORONARY ARTERIES 2022-02-13 15:11:23 [facility] W CONTRAST AND FFR POC CREATININE 2022-02-13 14:36:00 Diane Hamlin spital ESTIMATED GFR 2022-02-13 14:36:00 Diane Hamlin spital DURABLE MEDICAL 2021-12-28 13:04[facility] CBC WITH PLATELET AND 2021-12-28 08:18:00 [facility] DIFFERENTIAL Sadi BASIC METABOLIC PANEL 2021-12-28 08:18:00 [facility] Sadi ESTIMATED GFR 2021-12-28 08:18:00 [facility] Sadi SURGICAL PATHOLOGY 2021-12-27 17:44:00 [facility] PELVIS 1 OR 2 VW 2021-12-27 17:34:[facility] GLU[facility]SE 2021-12-27 17:24:00 Gema, Velasquez [facility] sp[facility] OR [place] > 1 HOUR 2021-12-27 16:30:00 [facility] spital XR PELVIS 1 OR 2 VW 2021-12-27 16:06:[address] [facility] [address] AN ELECTIVE 2021-12-27 14:01:00 Tom Alfred [facility] ENDOTRACHEAL AIRWAY Spencer ARTHROPLASTY, HIP, 2021-12-27 13:49:00 [facility] TOTAL, ANTERIOR APPROACH POC GLUCOSE 2021-12-27 12:18:00 [facility] spital ECG PRE/POST OP 2021-12-12 20:13:53 [facility] CBC WITH PLATELET AND 2021-12-12 20:11:00 [facility] DIFFERENTIAL COMPREHENSIVE METABOLIC 2021-12-12 20:11:00 [facility] PANEL HEMOGLOBIN A1C 2021-12-12 20:11:00 Aram Ibarra [facility] ospital TYPE AND SCREEN 2021-12-12 20:11:00 [facility] ESTIMATED GFR 2021-12-12 20:11:00 [facility] URINE CULTURE 2021-12-12 19:58:00 [facility] ospital URINALYSIS SCREEN AND 2021-12-12 19:58:00 [facility] MICROSCOPY, WITH REFLEX TO CULTURE XR HIP 2-3 VIEWS RIGHT 2021-11-14 14:31:42 [facility] POCT URINALYSIS DIPSTICK 2019-07-23 00:00:00 Gurinder Delgado [facility] Plan of Care Planned Activity Planned Date Details Comments Source Future Scheduled 2022-07-11 Hepatitis C screening [facility] Test 09:14:51 (procedure) [code = [id number]] Future Scheduled 2022-07-11 COLONOSCOPY SCREENING [facility] Test 09:14:51 [code = COLONOSCOPY SCREENING] Future Scheduled 2022-07-11 Screening for [facility] Test 09:14:51 malignant neoplasm of lung (procedure) [code = 312450387] Future Scheduled 2022-07-11 SHINGLES VACCINES (1 [facility] Test 09:14:51 of 2) [code = SHINGLES VACCINES (1 of 2)] Future Scheduled 2022-06-28 Hepatitis C screening [facility] Test 15:39:35 (procedure) [code = 732628284] Future Scheduled 2022-06-28 COLONOSCOPY SCREENING [facility] Test 15:39:35 [code = COLONOSCOPY SCREENING] Future Scheduled 2022-06-28 Screening for [facility] Test 15:39:35 malignant neoplasm of lung (procedure) [code = 383920022] Future Scheduled 2022-06-28 SHINGLES VACCINES (1 [facility] Test 15:39:35 of 2) [code = SHINGLES VACCINES (1 of 2)] Future Scheduled 2022-05-[address] [facility] Test 00:00:00 (12+) [code = Medical Center DEPRESSION SCREENING (12+)] Future Scheduled 2022-05-21 FALLS RISK SCREENING [facility] Test 00:00:00 [code = FALLS RISK Medical C enter SCREENING] Future Scheduled 2022-05-[address] [facility] Test 00:00:00 (12+) [code = Medical Center DEPRESSION SCREENING (12+)] Future Scheduled 2022-05-21 FALLS RISK SCREENING [facility] Test 00:00:00 [code = FALLS RISK Medical C enter SCREENING] Future Scheduled 2022-05-[address] [...] FIRST YEAR if no IPPE)] Future Scheduled 2018-07-[address] [facility] Test 00:00:00 WELLNESS (YEAR 2 or Medical Center FIRST YEAR if no IPPE) [code = MEDICARE ANNUAL WELLNESS (YEAR 2 or FIRST YEAR if no IPPE)] Future Scheduled 2018-07-[address] [facility] Test 00:00:00 WELLNESS (YEAR 2 or Medical Center FIRST YEAR if no IPPE) [code = MEDICARE ANNUAL WELLNESS (YEAR 2 or FIRST YEAR if no IPPE)] Future Scheduled 2011-03-12 DTAP/TDAP/TD VACCINES [facility] Test 00:00:00 (1 - Tdap) [code = Medical C enter DTAP/TDAP/TD VACCINES (1 - Tdap)] Future Scheduled 2011-03-12 DTAP/TDAP/TD VACCINES [facility] Test 00:00:00 (1 - Tdap) [code = Medical C enter DTAP/TDAP/TD VACCINES (1 - Tdap)] Future Scheduled 2011-03-12 DTAP/TDAP/TD VACCINES [facility] Test 00:00:00 (1 - Tdap) [code = Medical C enter DTAP/TDAP/TD VACCINES (1 - Tdap)] Future Scheduled 2002 SHINGLES VACCINES ([address] [facility] Test 00:00:00 of 2) [code = SHINGLES Medic al Center VACCINES (1 of 2)] Future Scheduled 2002 SHINGLES VACCINES ([address] [facility] Test 00:00:00 of 2) [code = SHINGLES Medic al Center VACCINES (1 of 2)] Future Scheduled 2002 SHINGLES VACCINES ([address] [facility] Test 00:00:00 of 2) [code = SHINGLES Medic al Center VACCINES (1 of 2)] Future Scheduled 1970 HEPATITIS C SCREENING [facility] Test 00:00:00 [code = HEPATITIS C Medical Center SCREENING] Future Scheduled 1970 HEPATITIS C [facility]CRE[facility] Test 00:00:00 [code = HEPATITIS C Medical Center SCREENING] Future Scheduled 1970 HEPATITIS C [facility]CRE[facility]ING [facility] Test 00:00:00 [code = HEPATITIS C Medical Center SCREENING] Future Scheduled [address] [facility] Test 00:00:00 Counseling and Medical Cente r Screening (12+) [code = Tobacco Cessation Counseling and Screening (12+)] Future Scheduled [address] [facility] Test 00:00:00 Counseling and Medical Cente r Screening (12+) [code = Tobacco Cessation Counseling and Screening (12+)] Future Scheduled 1953-01-25 COVID-19 VACCINE (#1) [facility] Test 00:00:00 [code = COVID-[address] VACCINE (#1)] Future Scheduled 1953-01-25 COVID-19 VACCINE (#1) [facility] Test 00:00:00 [code = COVID-[address] VACCINE (#1)] Future Scheduled 1953-01-25 COVID-19 VACCINE (#1) [facility] Test 00:00:00 [code = COVID-[address] VACCINE (#1)] Future Scheduled [address] [facility] Test 00:00:00 (combo) [code = CT Medical C enter Colonography (combo)] Future Scheduled [address] [facility] Test 00:[facility]:00 malignant neoplasm of Medica l Center colon (procedure) [code = 618702082] Future Scheduled [address] [facility] Test 00:00:00 malignant neoplasm of Medica l Center colon (procedure) [code = 780291686] Future Scheduled [address] [facility] Test 00:00:00 malignant neoplasm of Medica l Center colon (procedure) [code = 689638950] Future Scheduled [address] [facility] Test 00:00:00 malignant neoplasm of Medica l Center colon (procedure) [code = 806461263] Future Scheduled 1952 Sigmoidoscopy [code = [facility] Test 00:[facility] Sigmoidoscopy] Medical Cente r Future Scheduled [address] [facility] Test 00:00:00 (combo) [code = CT Medical C enter Colonography (combo)] Future Scheduled [address] [facility] Test 00:00:00 malignant neoplasm of Medica l Center colon (procedure) [code = 325685122] Future Scheduled [address] [facility] Test 00:00:00 malignant neoplasm of Medica l Center colon (procedure) [code = 146007847] Future Scheduled [address] [facility] Test 00:00:00 malignant neoplasm of Medica l Center colon (procedure) [code = 851654476] Future Scheduled [address] [facility] Test 00:00:00 malignant neoplasm of Medica l Center colon (procedure) [code = 223151470] Future Scheduled 1952 Sigmoidoscopy [facility]code [facility] Test [facility] S[facility]oidoscopy] Medical Cente r Future Scheduled [address] [facility] Test 00:00:00 (combo) [code = CT Medical C enter Colonography (combo)] Future Scheduled [address] [facility] Test 00:00:00 malignant neoplasm of Medica l Center colon (procedure) [code = 261103721] Future Scheduled [address] [facility] Test 00:00:00 malignant neoplasm of Medica l Center colon (procedure) [code = 053227475] Future Scheduled [address] [facility] Test 00:00:00 malignant neoplasm of Medica l Center colon (procedure) [code = 167444963] Future Scheduled [address] [facility] Test 00:00:00 malignant neoplasm of Medica l Center colon (procedure) [code = 043459279] Future Scheduled 1952 Sigmoidoscopy [code = [facility] Test 00:[facility] S[facility]oscopy] Medical Cente r Future Scheduled BMI FOLLOW UP PLAN [facility] [employer] Test [code = BMI FOLLOW UP Medici ne PLAN] Future Scheduled HEPATITIS C SCREENING [employer] Test [code = HEPATITIS C Medicine SCREENING] Future Scheduled MEDICARE AWV (Initial) [employer] Test [code = MEDICARE AWV Medicin e (Initial)] Future Scheduled FALL SCREEN [code = [facility] [employer] [facility] Test FALL SCREEN] Medicine Future Scheduled COLON CANCER [facility] Test SCREENING: COLONOSCOPY Medic ine [code = COLON CANCER SCREENING: COLONOSCOPY] Future Scheduled TETANUS SHOT (ADULT) [facility] of Test [code = TETANUS SHOT Medicin e (ADULT)] Encounters Start End Encounter Admission Attending Care Care Encounter Source Date/Time Date/Time Type Type Clinicians Facility Department ID 2022-07-[address] [id number] [id number] Common 10:50:02 AnaliaYassine [id number] [facility] 2022-06-23 2022-06-23 Office Velasquez Felder 1.2.840.1 [id number] Methodi 12:00:00 13:04:36 Visit Carrington 08816.1.[address] 3.430.2.7 Hospit a .3.848377 l .8 2022-06-23 2022-06-23 [facility] Velasquez Felder 1.2.840.1 [id number] Methodi 12:00:00 13:04:36 Visit Carrington 90903.1.[address] 3.430.2.7 Hospit a .3.156018 l .8 2022-06-23 2022-06-23 Travel 1.2.840.1 1.2.159.657 7300 [id number] Methodi 00:00:00 00:00:[address] 3.430.2.7 0.2.7.3.698 Ho spita .3.240221 084.8 l .8 2022-06-23 2022-06-23 Orders Sascha, 1.2.840.1 [id number] 78718 Methodi 00:00:00 00:00:00 Only Ree 52388.1.[address] 3.430.2.7 Hospit a .3.438162 l .8 2022-06-23 2022-06-23 Outpatient VELASQUEZ FELDER [facility] [id number] [place] 00:00:00 00:00:[address] 2022-06-23 2022-06-23 Travel 1.2.840.1 1.2.404.570 3771 308010 Methodi 00:00:00 00:00:[address] 3.430.2.7 0.2.7.3.698 Ho spita .3.099087 084.8 l .8 2022-06-23 2022-06-23 Orders Sascha, 1.2.840.1 [id number] 36831 Methodi 00:00:00 00:00:00 Only Ree 36578.1.[address] 3.430.2.7 Hospit a .3.888145 l .8 2022-06-22 2022-06-22 Orders Nicole, 1.2.840.1 [id number] 2099 708347 Methodi 00:00:00 00:00:00 Only Carlotta 78205.1.[address] 3.430.2.7 Hospit a .3.751663 l .8 2022-06-22 2022-06-22 Orders Nicole, 1.2.840.1 [id number] 2099 352143 Methodi 00:00:00 00:00:00 Only Carlotta 63704.1.[address] 3.430.2.7 Hospit a .3.606376 l .8 2022-06-21 2022-06-21 Oncology Schreiber, 1.2.840.1 [id number] 2099 529681 Methodi 00:00:00 00:00:00 Survivorsh Otis 71310.1.1 496 s t ip 3.430.2.7 Hospit a .3.303977 l .8 2022-06-21 2022-06-21 Travel 1.2.840.1 1.2.174.984 1353 155020 Methodi 00:00:00 00:00:[address] 3.430.2.7 0.2.7.3.698 Ho spita .3.658054 084.8 l .8 2022-06-21 2022-06-21 Oncology Schreiber, 1.2.840.1 [id number] 2099 567357 Methodi 00:00:00 00:00:00 Survivorsh Otis 70575.1.1 496 s t ip 3.430.2.7 Hospit a .3.224135 l .8 2022-06-21 2022-06-21 Travel 1.2.840.1 1.2.007.107 3626 811691 Methodi 00:00:00 00:00:[address] 3.430.2.7 0.2.7.3.698 Ho spita .3.134319 084.8 l .8 2022-05-23 2022-05-23 Travel 1.2.840.1 1.2.367.774 8296 034496 Methodi 00:00:00 00:00:[address] 3.430.2.7 0.2.7.3.698 Ho spita .3.017066 084.8 l .8 2022-05-23 2022-05-23 Travel 1.2.840.1 1.2.406.241 7039 616970 Methodi 00:00:00 00:00:[address] 3.430.2.7 0.2.7.3.698 Ho spita .3.088092 084.8 l .8 2022-04-24 2022-04-24 Telephone Hatter, 1.2.840.1 [id number] 2099 [id number] Methodi 00:00:00 00:00:[address] 3.430.2.7 Hospit a .3.995425 l .8 2022-04-24 2022-04-24 Telephone Hatter, 1.2.840.1 [id number] 2099 586460 Methodi 00:00:00 00:00:[address] 3.430.2.7 Hospit a .3.504125 l .8 2022-04-18 2022-04-18 Orders Nicole, 1.2.840.1 [id number] 2099 303748 Methodi 00:00:00 00:00:00 Only Carlotta 88190.1.[address] 3.430.2.7 Hospit a .3.837860 l .8 2022-04-18 2022-04-18 Orders Nicole, 1.2.840.1 [id number] 2100 593222 Methodi 00:00:00 00:00:00 Only Carlotta 73318.1.[address] 3.430.2.7 Hospit a .3.745218 l .8 2022-03-19 2022-03-19 Refill Leonid, 1.2.840.1 [id number] 037257 9469 Methodi 00:00:00 00:00:00 Diane Rodriguez 57121.1.[address] 3.430.2.7 Hospit a .3.389098 l .8 2022-03-19 2022-03-19 Refill Leonid, 1.2.840.1 [id number] 8870 Methodi 00:00:00 00:00:00 Diane Rodriguez 18188.1.[address] 3.430.2.7 Hospit a .3.357126 l .8 2022-03-10 2022-03-10 [facility] 1.2.840.1 [id number] Methodi 12:00:00 12:49:26 Visit Rodger Mary 19318.1.[address] 3.430.2.7 Hospit a .3.479762 l .8 2022-03-10 2022-03-10 [facility] 1.2.840.1 [id number] Methodi 12:00:00 12:49:26 Visit Rodger Mary 63251.1.[address] 3.430.2.7 Hospit a .3.999443 l .8 2022-03-10 2022-03-10 Travel 1.2.840.1 1.2.135.545 8459 686864 Methodi 00:00:00 00:00:[address] 3.430.2.7 0.2.7.3.698 Ho spita .3.146185 084.8 l .8 2022-03-10 2022-03-10 Orders Sascha, 1.2.840.1 [id number] 34455 18024 Methodi 00:00:00 00:00:00 Only Ree 71250.1.[address] 3.430.2.7 Hospit a .3.100842 l .8 2022-03-10 2022-03-10 Outpatient [facility] [id number] 089 [place] 00:00:00 00:00:[address] 2022-03-10 2022-03-10 Travel 1.2.840.1 1.2.240.908 5155 300226 Methodi 00:00:00 00:00:[address] 3.430.2.7 0.2.7.3.698 Ho spita .3.135338 084.8 l .8 2022-03-10 2022-03-10 Orders Sascha, 1.2.840.1 [id number] 81013 35220 Methodi 00:00:00 00:00:00 Only Ree 58652.1.[address] 3.430.2.7 Hospit a .3.361190 l .8 2022-02-28 2022-02-28 Office Leonid, 1.2.840.1 [id number] 739282 3772 Methodi 10:50:00 15:40:51 Visit Diane Rodriguez 71371.1.[address] 3.430.2.7 Hospit a .3.947872 l .8 2022-02-28 2022-02-28 Office Leonid 1.2.840.1 [id number] 729582 3838 Methodi 10:50:00 15:40:51 Visit Diane REsme 96731.1.[address] 3.430.2.7 Hospit a .3.670488 l .8 2022-02-28 2022-02-28 Travel 1.2.840.1 1.2.519.113 3300 908849 Methodi 00:00:00 00:00:[address] 3.430.2.7 0.2.7.3.698 Ho spita .3.968779 084.8 l .8 2022-02-28 2022-02-28 Travel 1.2.840.1 1.2.278.490 6563 388166 Methodi 00:00:00 00:00:[address] 3.430.2.7 0.2.7.3.698 Ho spita .3.495683 084.8 l .8 2022-02-13 2022-02-13 [facility], 1.2.840.1 [id number] 65013 Methodi 13:08:38 23:59:00 Encounter Diane R. 91296.1.[address] 3.430.2.7 Hospit a .3.208099 l .8 2022-02-13 2022-02-13 [facility], 1.2.840.1 [id number] 99759 Methodi 13:08:38 23:59:00 Encounter Diane R. 13465.1.[address] 3.430.2.7 Hospit a .3.995368 l .8 2022-02-13 2022-02-13 [facility], 1.2.840.1 [id number] 89785 Methodi 09:08:24 13:07:00 Encounter Diane R. 22379.1.[address] 3.430.2.7 Hospit a .3.153165 l .8 2022-02-13 2022-02-13 [facility], 1.2.840.1 [id number] 20121 19541 Methodi 09:08:24 13:07:00 Encounter Diane R. 16541.1.[address] 3.430.2.7 Hospit a .3.590049 l .8 2022-02-13 2022-02-13 Travel 1.2.840.1 1.2.271.798 7677 291041 Methodi 00:00:00 00:00:[address] 3.430.2.7 0.2.7.3.698 Ho spita .3.953347 084.8 l .8 2022-02-13 2022-02-13 Travel 1.2.840.1 1.2.826.060 2260 089589 Methodi 00:00:00 00:00:[address] 3.430.2.7 0.2.7.3.698 Ho spita .3.293959 084.8 l .8 2022-02-10 2022-02-10 [facility] 1.2.840.1 [id number] Methodi 12:00:00 13:09:14 Visit Rodger Mary 97398.1.[address] 3.430.2.7 Hospit a .3.129253 l .8 2022-02-10 2022-02-10 [facility] 1.2.840.1 [id number] Methodi 12:00:00 13:09:14 Visit Rodger Mary 62726.1.[address] 3.430.2.7 Hospit a .3.407210 l .8 2022-02-10 2022-02-10 Outpatient [facility] [id number] [address] [place] [address] 00:00:00 00:00:[address] 2022-02-10 2022-02-10 Travel 1.2.840.1 1.2.993.015 1484 707261 Methodi 00:00:00 00:00:[address] 3.430.2.7 0.2.7.3.698 Ho spita .3.204278 084.8 l .8 2022-02-10 2022-02-10 Breanna Caicedo 1.2.840.1 [id number] 95922 46009 Methodi 00:00:00 00:00:00 Only Ree 48241.1.[address] 3.430.2.7 Hospit a .3.726650 l .8 2022-02-10 2022-02-10 Travel 1.2.840.1 1.2.949.773 5372 617274 Methodi 00:00:00 00:00:[address] 3.430.2.7 0.2.7.3.698 Ho spita .3.828108 084.8 l .8 2022-02-10 2022-02-10 Orders Sascha, 1.2.840.1 [id number] 66783 81790 Methodi 00:00:00 00:00:00 Only Ree 43195.1.[address] 3.430.2.7 Hospit a .3.315938 l .8 2022-02-03 2022-02-03 Travel 1.2.840.1 1.2.376.922 4868 283446 Methodi 00:00:00 00:00:[address] 3.430.2.7 0.2.7.3.698 Ho spita .3.255487 084.8 l .8 2022-02-03 2022-02-03 Orders Rafael Cavazos 1.2.840.1 [id number] 2099 423918 Methodi 00:00:00 00:00:[address] 3.430.2.7 Hospit a .3.526947 l .8 2022-02-03 2022-02-03 Travel 1.2.840.1 1.2.404.071 5344 134849 Methodi 00:00:00 00:00:[address] 3.430.2.7 0.2.7.3.698 Ho spita .3.944763 084.8 l .8 2022-02-03 2022-02-03 Orders Macy Rafael 1.2.840.1 [id number] Methodi 00:00:00 00:00:[address] 3.430.2.7 Hospit a .3.880065 l .8 2022-01-13 2022-01-13 [facility] 1.2.840.1 [id number] Methodi 10:30:00 11:05:28 Visit Rodger Mary 36200.1.[address] 3.430.2.7 Hospit a .3.076312 l .8 2022-01-13 2022-01-13 [facility] 1.2.840.1 [id number] Methodi 10:30:00 11:05:28 Visit Rodger Mary 57710.1.[address] 3.430.2.7 Hospit a .3.955027 l .8 2022-01-13 2022-01-13 Outpatient [facility] [id number] 127 [place] 00:00:00 00:00:[address] 2022-01-13 2022-01-13 Orders Nicole, 1.2.840.1 [id number] Methodi 00:00:00 00:00:00 Only Carlotta 69656.1.[address] 3.430.2.7 Hospit a .3.727678 l .8 2022-01-13 2022-01-13 Travel 1.2.840.1 1.2.945.543 9832 841800 Methodi 00:00:00 00:00:[address] 3.430.2.7 0.2.7.3.698 Ho spita .3.623297 084.8 l .8 2022-01-13 2022-01-13 Orders Nicole, 1.2.840.1 [id number] Methodi 00:00:00 00:00:00 Only Carlotta 46140.1.[address] 3.430.2.7 Hospit a .3.778707 l .8 2022-01-13 2022-01-13 Travel 1.2.840.1 1.2.706.179 2613 132124 Methodi 00:00:00 00:00:[address] 3.430.2.7 0.2.7.3.698 Ho spita .3.604248 084.8 l .8 2021-12-31 2021-12-31 [facility]1 [id number] 955 [id number] Methodi 00:00:00 00:00:00 Only Carrington 04193.1.[address] 3.430.2.7 Hospit a .3.686465 l .8 2021-12-31 2021-12-31 [facility] 1.2.840.1 [id number] 203 [id number] Methodi 00:00:00 00:00:00 Only Carrington 39383.1.[address] 3.430.2.7 Hospit a .3.010648 l .8 2021-12-29 2021-12-29 Abstract Nicole, 1.2.840.1 [id number] 879 [id number] Methodi 00:00:00 00:00:[address] 3.430.2.7 Hospit a .3.563482 l .8 2021-12-29 2021-12-29 Abstract Nicole, 1.2.840.1 [id number] 441 [id number] Methodi 00:00:00 00:00:[address] 3.430.2.7 Hospit a .3.683363 l .8 2021-12-27 2021-12-28 [facility] Velasquez 1.2.840.1 [id number] 21 [id number] Methodi 05:52:00 11:57:00 Encounter Carrington 97830.1.[address] 3.430.2.7 Hospit a .3.605102 l .8 2021-12-27 2021-12-28 [facility] Velasquez 1.2.840.1 [id number] 21 [id number] Methodi 05:52:00 11:57:00 Encounter Carrington [address]306.1.[address] 3.430.2.7 Hospit a .3.396528 l .8 2021-12-28 2021-12-28 [facility] Velasquez 1.2.840.1 [id number] 288 [id number] Methodi 00:00:00 00:00:[address] 3.430.2.7 Hospit a .3.436885 l .8 2021-12-28 2021[facility]28 [facility] [id number] 201 [id number] Methodi 00:00:00 00:00:[address] 3.430.2.7 Hospit a .3.466298 l .8 2021-12-27 2021-12-27 [facility] 1.2.840.1 [id number] 369 [id number] Methodi 09:30:00 13:20:[address] 3.430.2.7 Hospit a .3.669750 l .8 2021-12-27 2021-12-27 [facility] 1.2.840.1 [id number] 900 [id number] Methodi 09:30:00 13:20:[address] 3.430.2.7 Hospit a .3.080627 l .8 2021-12-27 2021-12-27 Anesthesia Soto, Rufus [facility] 1.2.840. 1 [id number] Methodi 08:49:00 12:24:00 Event Moon Ibarra 91855.1.[address] 3.430.2.7 Hospit a .3.235822 l .8 2021-12-27 2021-12-27 Anesthesia Nancy Sotomad [facility] 1.2.840. 1 [id number] Methodi 08:49:00 12:24:00 Event GeralddesireeMoon zambrano 14405.1.[address] 3.430.2.7 Hospit a .3.667919 l .8 2021-12-26 2021-12-26 [facility] 1.2.840.1 [id number] 2 [id number] Methodi 00:00:00 00:00:[address] 3.430.2.7 Hospit a .3.380891 l .8 2021-12-26 2021-12-26 [place] Velasquez Felder 1.2.840.1 [id number] 2 [id number] Methodi 00:00:00 00:00:[address] 3.430.2.7 Hospit a .3.777168 l .8 2021-12-12 2021-12-12 [facility] Velasquez Felder 1.2.840.1 [id number] Methodi 13:30:00 14:30:00 ion Carrington 84499.1.[address] Testing 3.430.2.7 Hospit a .3.582541 l .8 2021-12-12 2021-12-12 [facility] Felder 1.2.840.1 [id number] Methodi 13:30:00 14:30:00 ion Carrington 45963.1.[address] Testing 3.430.2.7 Hospit a .3.926374 l .8 2021-12-12 2021-12-12 Office [place], 1.2.840.1 [id number] 869 [id number] Methodi 13:00:00 13:30:00 Visit Rodger 07158.1.[address] Sadi 3.430.2.7 Hospit a .3.476858 l .8 2021-12-12 2021-12-12 Office [place], 1.2.840.1 [id number] 552 [id number] Methodi 13:00:00 13:30:00 Visit Rodger 72793.1.[address] Sadi 3.430.2.7 Hospit a .3.078202 l .8 2021-12-12 2021-12-12 Travel 1.2.840.1 1.2.445.546 3774 907254 Methodi 00:00:00 00:00:[address] 3.430.2.7 0.2.7.3.698 Ho spita .3.772264 084.8 l .8 2021-12-12 2021-12-12 Travel 1.2.840.1 1.2.216.414 6957 765598 Methodi 00:00:00 00:00:[address] 3.430.2.7 0.2.7.3.698 Ho spita .3.600186 084.8 l .8 2021-11-29 2021-11-29 Abstract Nicole, 1.2.840.1 [id number] 442 [id number] Methodi 00:00:00 00:00:[address] 3.430.2.7 Hospit a .3.351270 l .8 2021-11-29 2021-11-29 Abstract Nicole, 1.2.840.1 [id number] 435 2372028 Methodi 00:00:00 00:00:[address] 3.430.2.7 Hospit a .3.677071 l .8 2021-11-15 2021-11-15 Documentat Provider, 1.2.840.1 [id number] 2 [id number] Methodi 00:00:00 00:00:00 ion Unknown 46662.1.[address] 3.430.2.7 Hospit a .3.647501 l .8 2021-11-15 2021-11-15 Orders Nicole, 1.2.840.1 [id number] 2100 802027 Methodi 00:00:00 00:00:00 Only Carlotta 60175.1.[address] 3.430.2.7 Hospit a .3.261897 l .8 2021-11-15 2021-11-15 Documentat Provider, 1.2.840.1 [id number] 2 [id number] Methodi 00:00:00 00:00:00 ion Unknown 76632.1.[address] 3.430.2.7 Hospit a .3.008986 l .8 2021-11-15 2021-11-15 Orders Nicole, 1.2.840.1 [id number] 2100 167814 Methodi 00:00:00 00:00:00 Only Carlotta 83758.1.[address] 3.430.2.7 Hospit a .3.580042 l .8 2021-11-14 2021-11-14 [facility] 1.2.840.1 [id number] 183 [id number] Methodi 09:30:00 10:28:21 Visit Carrington 53522.1.[address] 3.430.2.7 Hospit a .3.515713 l .8 2021-11-14 2021-11-14 [facility] 1.2.840.1 [id number] 292 [id number] Methodi 09:30:00 10:28:21 Visit [place]rington 92991.1.[address] 3.430.2.7 Hospit a .3.633535 l .8 2021-11-14 2021-11-14 Telephone Leonid 1.2.840.1 [id number] 2099 825143 Methodi 00:00:00 00:00:00 [place] 23336.1.[address] 3.430.2.7 Hospit a .3.512943 l .8 2021-11-14 2021-11-14 Travel 1.2.840.1 1.2.283.411 3826 461046 Methodi 00:00:00 00:00:[address] 3.430.2.7 0.2.7.3.698 Ho spita .3.392947 084.8 l .8 2021-11-14 2021-11-14 [facility] 2100 [id number] [place] 00:00:00 00:00:[address] 2021-11-14 2021-11-14 Telephone Leonid 1.2.840.1 [id number] 2099 952859 Methodi 00:00:00 00:00:00 Diane R. 95585.1.[address] 3.430.2.7 Hospit a .3.177365 l .8 2021-11-14 2021-11-14 Travel 1.2.840.1 1.2.632.972 5761 834950 Methodi 00:00:00 00:00:[address] 3.430.2.7 0.2.7.3.698 Ho spita .3.687244 084.8 l .8 2021-11-10 2021-11-10 Orders Sascha, 1.2.840.1 [id number] 75583 Methodi 00:00:00 00:00:00 Only Ree 94584.1.[address] 3.430.2.7 Hospit a .3.287736 l .8 2021-11-10 2021-11-10 Orders Sascha, 1.2.840.1 [id number] 24252 Methodi 00:00:00 00:00:00 Only Ree 66985.1.[address] 3.430.2.7 Hospit a .3.285697 l .8 2021-11-07 2021-11-07 Travel 1.2.840.1 1.2.515.462 2586 210874 Methodi 00:00:00 00:00:[address] 3.430.2.7 0.2.7.3.698 Ho spita .3.814241 084.8 l .8 2021-11-07 2021-11-07 Travel 1.2.840.1 1.2.307.898 4739 377583 Methodi 00:00:00 00:00:[address] 3.430.2.7 0.2.7.3.698 Ho spita .3.787143 084.8 l .8 2020-09-09 2020-09-09 Outpatient [facility] [id number] 866 [place] 00:00:00 00:00:00 DIANE [address] 2020-09-07 2020-09-07 Outpatient [facility] [id number] [address] [place] [address] 00:00:00 00:00:[address] DIANE [address] 2020-09-07 2020-09-07 Outpatient [facility] [id number] [address] [place] [address] 00:00:00 00:00:00 DIANE [address] 2019-09-09 2019-09-09 Outpatient [place], [facility] [id number] 121 [place] 00:00:00 00:00:[address] DI[address] 2019-07-23 2019-07-23 Office Link, [facility] 1.2.840.114 [id number] 15:02:12 16:42:42 Visit Gurinder E AMBULATOR 350.1.13.21 Y 0.2.7.2.686 [id number] 300 2019-07-23 2019-07-23 Office Link, [facility] 1.2.840.114 [id number] 50 [facility] 15:02:12 16:42:42 Visit Gurinder E AMBULATOR 350.1.13.21 College Y 0.2.7.2.686 of 600.3297766 [facility] 300 e Results Test Description Test Time Test Comments Results Result Comments Source POC creatinine 2022-02-13 14:38:00 Test Item Value Reference Range Interpretation Comme nts POC creatinine (test code = 0.9 mg/dl 0.7-1.2 [employer] Lead Name: Avtar [id number]) Verena ID: [id number] [facility] [id number] 14:38:00Estimated GFR>=90mL/min/1.73 m202/13/2022 9:38 AM [facility] [id number] 14:38:00 Test Item Value Reference Range Interpretation Comments POC creatinine (test 0.9 mg/dl 0.7-1.2 Operato r Name: code = 49657-8) Avtar Mac ID: [id number] [facility] [id number] 14:38:00Estimated GFR>=90mL/min/1.73 m202/13/2022 9:38 AM [facility] [id number] 23:12:10 Test Item Value Reference Range Interpretation Comments Case number (test code = [id number]) Surgical pathology See link below for report (test code = PDF Lab Report 2255) Result status (test code This is Final Report = [id number]) for [id number] [facility] [id number] 23:12:10 Test Item Value Reference Range Interpretation Comments Case number (test code = [id number]) Surgical pathology See link below for report (test code = PDF Lab Report 9273) Result status (test code This is Final Report = [id number]) for [id number] [facility] [id number] 14:39:40 Test Item Value Reference Range Interpretation Comments SUPPLIER NAME (test [facility] code = 6415) SUPPLIER PHONE (test code = 6416) ORDER STATUS (test code Delivery Successful = 6417) DELIVERY NOTE (test code = 6419) REQUESTED DELIVEY DATE 12/28/2021 (test code = 6420) ITEM DESCRIPTION (test Wheeled Walker, Adult Qty: 1 code = 6423) EXPECTED DELIVERY DATE 12/28/2021 (test code = 6421) ACTUAL DELIVERY DATE 12/28/2021 (test code = 6422) [facility]2022-08-10 14:39:40 Test Item Value Reference Range Interpretation Comments SUPPLIER NAME (test [facility] [place] code = 6415) SUPPLIER PHONE (test code = 6416) ORDER STATUS (test code Delivery Successful = 6417) DELIVERY NOTE (test code = 6419) REQUESTED DELIVEY DATE 12/28/2021 (test code = 6420) ITEM DESCRIPTION (test Wheeled Walker, Adult Qty: 1 code = 6423) EXPECTED DELIVERY DATE 12/28/2021 (test code = 6421) ACTUAL DELIVERY DATE 12/28/2021 (test code = 6422) [facility]2022-08-09 17:25:00 Test Item Value Reference Range Interpretation Comments POC glucose (test code 151 mg/dL 65-99 H Opera tor Name: = 79209-9) Wojciech bella ID: [id number] able: [facility] Notified supervisor wool shearing Interpretation Abnormal (test code = 22175-9) [facility] [id number] 17:25:00 Test Item Value Reference Range Interpretation Comments POC glucose (test code 151 mg/dL 65-99 H Opera tor Name: = 57792-6) Wojciech bella ID: [id number] able: [facility] Notified supervisor wool shearing Interpretation Abnormal (test code = 46248-9) [facility] [id number] 23:36:00 Test Item Value Reference Range Interpretation Comments Urine culture (test SEE COMMENT Bacteriu jose screen code = 0139080) negative. [facility] [id number] 23:36:00 Test Item Value Reference Range Interpretation Comments Urine culture (test SEE COMMENT Bacteriu jose screen code = 3718853) negative. [facility] Pre/Post [id number] 21:23:32 Test Item Value Reference Range Interpretation Comments Ventricular rate (test 69 code = 253) Atrial rate (test code 69 = 255) CT interval (test code 162 = 266) QRSD [...] change in ST segment in Inferior leads- [facility] Pre/Post [id number] 21:23:32 Test Item Value Reference Range Interpretation Comments Ventricular rate (test 69 code = 253) Atrial rate (test code 69 = 255) CT interval (test code 162 = 266) QRSD [...] change in ST segment in Inferior leads- [facility] [id number] 00:00:00 Test Item Value Reference Range Interpretation Comments COLOR UA (test code = 5778-6) Jonna YELLOW/STRAW CLARITY UA (test code = 98541-6) Clear CLEAR GLUCOSE UA (test code = 5792-7) Negative NEGATIVE BILIRUBIN UA (test code = 5770-3) Negative NEGATIVE KETONES UA (test code = 74759-5) Negative NEGATIVE SPECIFIC GRAVITY UA (test code [...] NEGATIVE REDUCING SUBSTANCES URINE (test code = 63648-1) [facility] Medicine[facility] [id number] 16:10:00Surgical Pathology Report Case: [id number] Authorizing Provider: Gurinder Delgado MD Collected: 07/08/2019 1003 Ordering Location: [facility] Received: 07/08/2019 1306 SERVICES Pathologist: Love Hernandez MD Specimen: Adrenal, Left, Left adrenal gland A. ADRENAL GLAND, LEFT, ADRENALECTOMY: - BENIGN ADRENAL GLAND WITH NO SIGNIFICANT DIAGNOSTIC ALTERATION. - HEMORRHAGE, ORGANIZING THROMBOSISAND VASCULAR RECANALIZATION ADJACENT TO THE ADRENAL GLAND. - NO MALIGNANCY IDENTIFIED. Signing Pathologist Direct Phone Line: [phone] signed by Love Hernandez MD on 07/11/2019 at 4:10 [id number] and postop diagnosis: adrenal massLeft adrenal glandReceived [...] the cortex. The remaining adrenal gland is pgeuero yellow to guo and smooth. 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, Pathology Laboratory where it was [...] qualified to perform high complexity clinical laboratory testing.[facility], Department of Pathology, [address] [place] [address], [facility], [address] [place] [address], [facility], Department of Pathology, [address] [place] [address], VIFLF METABOLIC [id number] 06:54:00 Test Item Value Reference Range Interpretation [...] 1092) DATA TO CALCULA TE ESTIMATED GFR. [employer] Lead ID - GALAPCBC W/PLT COUNT & AUTO [id number] 05:35:00 Test Item Value Reference Range Interpretation [...] (BEAKER) (test code = 2801) BASIC METABOLIC [id number] 10:13:00 Test Item Value Reference Range Interpretation [...] 1092) DATA TO CALCULA TE ESTIMATED GFR. [employer] Lead ID - [place] FCBC W/PLT COUNT & AUTO [id number] 09:50:00 Test Item Value Reference Range Interpretation [...] (BEAKER) (test code = 2801) BASIC METABOLIC [id number] 11:58:00 Test Item Value Reference Range Interpretation [...] 1092) DATA TO CALCULA TE ESTIMATED GFR. [employer] Lead ID - FARNAZ FHEMOGLOBIN AND [id number] 11:41:00 Test Item Value Reference Range Interpretation Comments HEMOGLOBIN (BEAKER) (test code = 11.7 GM/DL 13.7-17.5 L 410) HEMATOCRIT (BEAKER) (test code = 34.9 % 40.1-51.0 L 411) [employer] Lead ID - [id number] 11:35:00 Test Item Value Reference Range Interpretation Comments CULTURE (BEAKER) (test code = 1095) No growth URINALYSIS W/ REFLEX URINE [id number] 14:23:00 Test Item Value Reference Range Interpretation [...] 517) Rare SOURCE(BEAKER) (test code = 2795) [employer] Lead ID - [auto][employer] Lead ID - techCOMPREHENSIVE METABOLIC [id number] 13:52:00 Test Item Value Reference Range Interpretation [...] 1092) DATA TO CALCULA TE ESTIMATED GFR. [employer] Lead ID - ROSIANGCBC W/PLT COUNT & AUTO [id number] 13:10:00 Test Item Value Reference Range Interpretation [...] % 0-1 PERCENT (BEAKER) (test code = 6391)
[2022-07-11] MEDS ORDERED: NA CHLORIDE 0.9% 1,000 ML ONE ×2 (17:45→20:39)
[2022-07-11 17:46] LABS: Absolute Lymphocytes (CBC) 1.5 K/uL (0.7-4.9); Hematocrit 38.4 % (39.6-49.0); Lymphocytes % 40.5 % (15.3-44.8); MCV 92.1 fL (80-100); MPV 7.5 fL (7.6-11.3); RBC Red Blood Cell Count 4.17 M/uL (4.33-5.43)
[2022-07-11 17:49] LABS: Protime INR 0.96
[2022-07-11 18:11] LABS: Albumin 3.7 g/dL (3.4-5.0); Bilirubin Direct 0.1 mg/dL (0-0.2); Bilirubin Total 0.3 mg/dL (0.2-1.0); Magnesium 2.2 mg/dL (1.6-2.4); Potassium 5.1 mmol/L (3.5-5.1); Troponin High Sensitivity 9.5 pg/mL (<58.9)
--- NOTE | 2022-07-11 18:12 | RAD REPORT ---
EXAM DESCRIPTION: RADChest Single View07/11/2022 5:32 pm CLINICAL HISTORY: hypotension COMPARISON: Chest Single View dated 06/30/2022; Chest Single View dated 10/23/2021; Chest Pa And Lat (2 Views) dated 10/11/2021; Chest Single View dated 10/09/2021 TECHNIQUE: Portable AP view of the chest. FINDINGS: Decreased inspiratory effort and lordotic positioning limits evaluation. The lungs are mana ar.Mild left basilar platelike atelectasis. No pneumothorax or effusion. The cardiomediastinal contou rs are unremarkable. IMPRESSION: No acute cardiopulmonary process.
[2022-07-11 18:56] LABS: Urine Blood Negative (Negative); Urine Glucose Negative (Negative); Urine Protein 1+ (Negative); Urine Specific Gravity >=1.030 (1.005-1.030)
[2022-07-11 19:00] LABS: SARS-COV-2 RT PCR NEGATIVE (NEGATIVE)
[2022-07-11 19:13] LABS: Urine Bacteria <20 /HPF (<20); Urine Granular Casts >20 /LPF (None Seen); Urine Mucus 1+ /HPF (None Seen); Urine RBC <5 /HPF (None Seen); Urine WBC Clump Rare /HPF (None Seen)
--- NOTE | 2022-07-11 19:24 | RAD REPORT ---
EXAM DESCRIPTION: CT - Chest Abd Pelvis Wo Con - 07/11/2022 6:55 pm CLINICAL HISTORY: hypotension COMPARISON: Chest For Pe Angio dated 10/23/2021; CT CHEST ABDOMEN W CONTRAST dated 02/20/2013; THORAX W CONTRAST dated 06/09/2011; THORAX W CONTRAST dated 12/05/2010 TECHNIQUE: Thin cut axial CT images of the chest, abdomen, and pelvis, were obtained without IV cont rast. Multiplanar reformats were generated and reviewed. All CT scans are performed using dose optimization technique as appropriate and may include automated exposure control or mA/KV adjustment according to patient size. FINDINGS: CT CHEST: The lungs are clear.No suspicious nodules or masses.No pleural or pericardial effusion.Cardiac silhou ette is within normal limits. Fusiform aneurysmal dilation of the ascending thoracic aorta, measuring 4.7 centimeter in caliber, as compared to the 10/23/2021 CT. Stable fusiform aneurysmal dilation of the distal arch and proximal descending thoracic aorta as well.No intrathoracic adenopathy. Calcified left hilar lymph nodes are again noted, may reflect sequelae of chronic granulomatous infection. CT ABDOMEN AND PELVIS: The liver, spleen, pancreas, adrenal glands and kidneys are within normal limits, with small hypoatte nuating renal cortical lesions, the largest at the left upper to mid pole measuring 1.9 centimeter, s table compared to prior imaging exams. Mildly hyperdense layering material within the gallbladder nathan men, suggesting sludge, without evidence of cholelithiasis. No bowel obstruction, free air, free fluid or abscess. Normal appendix. No pathologic lymphadenopath y in the abdomen or pelvis. No worrisome osseous finding. Right total hip arthroplasty in place. IMPRESSION: Stable fusiform aneurysmal dilation of the thoracic aorta, and other stable incidental f indings as above. No acute abnormality chest, abdomen, or pelvis.
--- NOTE | 2022-07-11 20:03 | EDPHYS ---
Physician Documentation [facility] Name: Jesus Rodriguez Age: 71 yrs Sex: Male : 1950 Arrival Date: 07/11/2022 Time: 16:57 Bed 20 Private MD: Jeses Zamora H ED Physician Jaylan Caballero HPI: 07/11 17:15 This 71 yrs old Black Male presents to ER via Ambulatory with complaints of Blood cp Pressure Problem - 66/47\T\1650. 17:15 The patient's problem is reported as weakness, that is generalized. Onset: The cp symptoms/episode began/occurred today. Duration: The episode is continuous. Associated signs and symptoms: Pertinent positives: low blood pressure, fatigue for past several days and reportedly increased urination last night. 17:15 Patient's baseline: Neuro: alert and fully oriented, Motor: no deficits, Ambulation: cp walks without assistance, Speech: normal. Patient presents to ED with c/o low blood pressure, general weakness today and fatigue for past several days. Historical: - Allergies: 17:01 No Known Allergies; ap3 - PMHx: 17:01 Asthma; Glaucoma; Gout; Hypertension; ap3 - Immunization history:: Client reports receiving the 2nd dose of the Covid vaccine, Flu vaccine is up to date. - Social history:: Smoking status: Patient denies any tobacco usage or history of. ROS: 17:20 Constitutional: Negative for body aches, chills, fever, poor PO intake. cp 17:20 Eyes: Negative for injury, pain, redness, and discharge. cp 17:20 ENT: Negative for drainage from ear(s), ear pain, sore throat, difficulty swallowing, difficulty handling secretions. 17:20 Cardiovascular: Negative for chest pain, edema, palpitations. 17:20 Respiratory: Negative for cough, shortness of breath, wheezing. 17:20 Abdomen/GI: Negative for abdominal pain, vomiting, diarrhea, constipation, anorexia, black/tarry stool, rectal bleeding. 17:20 Back: Negative for pain at rest, pain with movement. 17:20 : Positive for right groin abscess, Negative for urinary symptoms, hematuria, testicular pain 17:20 Neuro: Positive for weakness, Negative for altered mental status, dizziness, headache, numbness, syncope. 17:20 All other systems are negative. Exam: 17:25 Constitutional: The patient appears in no acute distress, alert, awake, comfortable, cp non-diaphoretic, non-toxic, well developed, well nourished. 17:25 Head/Face: Normocephalic, atraumatic. cp 17:25 Eyes: Periorbital structures: appear normal, Pupils: equal, round, and reactive to light and accomodation, Extraocular movements: intact throughout, Conjunctiva: normal, no exudate, no injection, Sclera: no appreciated abnormality, Lids and lashes: appear normal, bilaterally. 17:25 ENT: External ear(s): are unremarkable, Ear canal(s): are normal, clear, TM's: dullness, bilaterally, Nose: is normal, Mouth: Lips: moist, Oral mucosa: pink and intact, moist, Posterior pharynx: is normal, airway is patent, no erythema, no exudate. 17:25 Neck: ROM/movement: is normal, is supple, without pain, no range of motions limitations, no meningismus, no nuchal rigidity. 17:25 Chest/axilla: Inspection: normal, Palpation: is normal, no crepitus, no tenderness. 17:25 Cardiovascular: Rate: normal, Rhythm: regular, Edema: is not appreciated, JVD: is not appreciated. 17:25 Respiratory: the patient does not display signs of respiratory distress, Respirations: normal, no use of accessory muscles, no retractions, labored breathing, is not present, Breath sounds: are clear throughout, no decreased breath sounds, no stridor, no wheezing. 17:25 Abdomen/GI: Inspection: abdomen appears normal, Bowel sounds: active, all quadrants, Palpation: abdomen is soft and non-tender, in all quadrants. 17:25 Back: pain, is absent, ROM is normal. 17:25 : Male external genitalia: swelling, tenderness noted lateral right side scrotum. 17:25 Neuro: Orientation: to person, place \T\ time. Mentation: is normal, Cerebellar function: is grossly normal, Motor: moves all fours, strength is normal, Sensation: is normal. 17:30 CT study not indicated or reported. Reason for not performing CT: no focal neuro cp deficits noted 18:10 ECG was reviewed by the Attending Physician. cp Vital Signs: 16:59 BP 78 / 56; Pulse 91; Resp 18; Temp 98.7; Pulse Ox 99% ; Weight 111.13 kg; Height 6 ft. ap3 (182.88 cm); 17:25 BP 83 / 65; Pulse 85; Resp 18; Pulse Ox 98% on R/A; kr3 18:13 BP 99 / 61; Pulse 79; Resp 18; Pulse Ox 98% on R/A; kr3 19:45 BP 99 / 64; Pulse 80; Resp 18 S; Pulse Ox 97% on R/A; aa9 20:15 BP 91 / 63; Pulse 81; Resp 17 S; Pulse Ox 100% on R/A; aa9 21:15 BP 110 / 82; Pulse 80; Resp 18 S; Pulse Ox 99% on R/A; aa9 21:45 BP 108 / 74; Pulse 81; Resp 19 S; Pulse Ox 98% on R/A; aa9 16:59 Body Mass Index 33.23 (111.13 kg, 182.88 cm) ap3 MDM: 17:07 Patient medically screened. cp 18:00 Differential diagnosis: drug effects, dehydration, kidney failure, cardiac arrythmia. cp 19:35 Data reviewed: vital signs, nurses notes, lab test result(s), EKG, radiologic studies, cp CT scan, plain films. 19:35 Consideration of Admission/Observation Patient was admitted/placed on observation. I cp considered the following discharge prescriptions or medication management in the emergency department Medications were administered in the Emergency Department. See MAR. Care significantly affected by the following chronic conditions: Hypertension. 19:45 Counseling: I had a detailed discussion with the patient and/or guardian regarding: the cp historical points, exam findings, and any diagnostic results supporting the discharge/admit diagnosis, lab results, radiology results, the need for further work-up and treatment in the hospital. 19:45 Response to treatment: the patient's symptoms have markedly improved after treatment, cp systolic pressure now greater than 90. 20:14 ED course: consult with DR Newell who will see patient in hospital and evaluate cp concern for groin abscess. CT abdomen/pelvis negative and WBC not elevated. Discussed this with DR Newell. Will withhold antibiotics at this time, give another 1 liter bolus and admit to hospitalist. 07/11 17:08 Order name: Basic Metabolic Panel 07/11 17:08 Order name: CBC with Diff cp 07/11 17:08 Order name: LFT's cp 07/11 17:08 Order name: Magnesium cp 07/11 17:08 Order name: NT PRO-BNP cp 07/11 17:08 Order name: PT-INR cp 07/11 17:08 Order name: Troponin HS cp 07/11 17:08 Order name: Lactate w/ 2H reflex if indic. cp 07/11 17:08 Order name: Urine Microscopic Only cp 07/11 17:08 Order name: CDIFF cp 07/11 17:49 Order name: Protime (+INR); Complete Time: 17:54 EDMS 07/11 17:50 Order name: CBC with Automated Diff; Complete Time: 17:54 EDMS 07/11 17:54 Interpretation: Normal except: WBC 3.60; RBC 4.17; HGB 12.6; HCT 38.4; MPV 7.5; cp EOSINOPHIL % 6.6; NEUT A 1.6. 07/11 17:57 Order name: COVID-19/FLU A+B cp 07/11 18:11 Order name: Basic Metabolic Panel; Complete Time: 18:15 EDMS 07/11 18:15 Interpretation: Normal except: NA 133; GLUC 184; BUN 30; CRE 2.45; GFR 28. cp 07/11 18:11 Order name: Liver (Hepatic) Function; Complete Time: 18:15 EDMS 07/11 18:16 Interpretation: Reviewed. cp 07/11 18:11 Order name: Troponin High Sensitivity; Complete Time: 18:15 EDMS 07/11 18:11 Order name: NT PRO-BNP; Complete Time: 18:15 EDMS 07/11 18:11 Order name: Magnesium; Complete Time: 18:15 EDMS 07/11 18:12 Order name: Lactate w/ 2H reflex if indic.; Complete Time: 18:15 EDMS 07/11 18:16 Interpretation: Abnormal: LAC 2.6. cp 07/11 18:39 Order name: Fecal Leukocyte Stain cp 07/11 18:39 Order name: Ova And Parasites cp 07/11 18:39 Order name: Rotavirus Antigen cp 07/11 18:39 Order name: Stool Culture cp 07/11 18:56 Order name: Urine Dipstick-Ancillary; Complete Time: 19:08 EDMS 07/11 19:00 Order name: COVID-19/FLU A+B; Complete Time: 19:08 EDMS 07/11 19:13 Order name: Urine Microscopic Only; Complete Time: 19:31 EDMS 07/11 17:08 Order name: XRAY Chest (1 view) 07/11 17:08 Order name: EKG; Complete Time: 17:09 07/11 17:08 Order name: Cardiac monitoring; Complete Time: 17:20 07/11 17:08 Order name: EKG - Nurse/Tech; Complete Time: 18:15 07/11 17:08 Order name: IV Saline Lock; Complete Time: 17:39 07/11 17:08 Order name: Labs collected and sent; Complete Time: 17:39 07/11 17:08 Order name: O2 Per Protocol; Complete Time: 17:20 07/11 17:08 Order name: O2 Sat Monitoring; Complete Time: 17:20 07/11 17:08 Order name: Urine Dipstick-Ancillary (obtain specimen); Complete Time: 19:56 07/11 18:13 Order name: RAD; Complete Time: 18:15 EDNC 07/11 18:17 Interpretation: Report reviewed. 07/11 18:17 Order name: CT Chest Abdomen Pelvis W/O Contrast 07/11 19:25 Order name: CT; Complete Time: 19:31 EDNC 07/11 20:10 Order name: Blood Culture Adult (2) 07/11 21:43 Order name: Lactate Sepsis 2 HR Follow-up EDNC 07/11 21:58 Order name: Fecal Leukocyte Stain EDNC 07/11 21:59 Order name: Ova and Parasites EDNC 07/11 22:00 Order name: Rotavirus Antigen EDNC 07/11 22:00 Order name: Stool Culture EDNC EC:10 Rate is 77 beats/min. Rhythm is regular. OR interval is normal. QRS interval is normal. cp QT interval is normal. T waves are Inverted in lead aVR. Interpreted by me. Reviewed by me. Administered Medications: 17:44 Drug: NS 0.9% 1000 ml Route: IV; Rate: 1000 ml/hr; Site: right forearm; kr3 22:21 Follow up: Response: No adverse reaction; IV Status: Completed infusion; IV Intake: aa9 1000ml 20:36 Drug: NS 0.9% 1000 ml Route: IV; Rate: 100 ml/hr; Site: right forearm; aa9 22:23 Follow up: Response: No adverse reaction; IV Status: Completed infusion; IV Intake: aa9 900ml Disposition Summary: 07/11/22 20:02 Hospitalization Ordered Hospitalization Status: Observation cp Location: Telemetry/MedSurg (observation) cp Condition: Stable cp Problem: new cp Symptoms: have improved cp Bed/Room Type: Standard cp Provider: Mario Schmidt(07/11/22 20:35) sb4 Room Assignment: [facility](07/11/22 21:34) Diagnosis - Hypotension, unspecified cp - Acute kidney failure, unspecified cp - Diarrhea, unspecified cp Forms: - Medication Reconciliation Form cp - SBAR form cp Signatures: Dispatcher [employer] EDMS Jaylan Calderon PA PA cp Garcia, Cindy RN Nishi Miller RN RN yoshi3 Yokasta King RN ANGELES aa9 Jammie Howard RN RN kr3 Alicia Hurtado PA-C PAShahla sb4 Corrections: (The following items were deleted from the chart) 17:39 17:09 Fecal Leukocyte Stain+BA.LAB.BRZ ordered. EDMS EDMS 17:39 17:09 Ova and Parasites+MR.LAB.BRZ ordered. EDMS EDMS 17:39 17:09 Rotavirus Antigen+BA.LAB.BRZ ordered. EDMS EDMS 17:39 17:09 Stool Culture+BA.LAB.BRZ ordered. EDMS EDMS 20:35 20:02 Alicia Hurtado cp sb4 21:34 20:02 cp cg
--- NOTE | 2022-07-11 20:03 | ER ---
Nurse's Notes [facility] Name: Jesus Rodriguez Age: 71 yrs Sex: Male : 1950 Arrival Date: 07/11/2022 Time: 16:57 Bed 20 Private MD: Jesse Zamora H Diagnosis: Hypotension, unspecified;Acute kidney failure, unspecified;Diarrhea, unspecified Presentation: 07/11 16:59 Chief complaint: Patient states: he has been having low blood pressure since this ap3 morning. patient reports being tired for the last few days and feeling weak today. patients reported blood pressure at home was 66/47 at home. Coronavirus screen: At this time, the client does not indicate any symptoms associated with coronavirus-19. Ebola Screen: No symptoms or risks identified at this time. Initial Sepsis Screen: Does the patient meet any 2 criteria? No. Patient's initial sepsis screen is negative. Does the patient have a suspected source of infection? No. Patient's initial sepsis screen is negative. Risk Assessment: Do you want to hurt yourself or someone else? Patient reports no desire to harm self or others. Onset of symptoms was July 11, 2022. 16:59 Method Of Arrival: Ambulatory ap3 17:05 Acuity: THERON 2 ap3 Triage Assessment: 17:02 General: Appears in no apparent distress. Behavior is calm, cooperative, Reports ap3 fatigue for. Pain: Denies pain. Neuro: Level of Consciousness is awake, alert, obeys commands, Oriented to person, place, time, situation, Reports weakness. Cardiovascular: Patient's skin is warm and dry. Respiratory: Airway is patent Respiratory effort is even, unlabored. Historical: - Allergies: 17:01 No Known Allergies; ap3 - PMHx: 17:01 Asthma; Glaucoma; Gout; Hypertension; ap3 - Immunization history:: Client reports receiving the 2nd dose of the Covid vaccine, Flu vaccine is up to date. - Social history:: Smoking status: Patient denies any tobacco usage or history of. Screenin:02 Abuse screen: Denies threats or abuse. Nutritional screening: No deficits noted. ap3 Tuberculosis screening: No symptoms or risk factors identified. 21:46 [facility] ED Fall Risk Assessment (Adult) History of falling in the last 3 months, aa9 including since admission No falls in past 3 months (0 pts) Confusion or Disorientation No (0 pts) Intoxicated or Sedated No (0 pts) Impaired Gait No (0 pts) Mobility Assist Device Used No (0 pt) Altered Elimination No (0 pt) Score/Fall Risk Level 0 - 2 = Low Risk Oriented to surroundings, Maintained a safe environment. Assessment: 17:30 General: Appears in no apparent distress. comfortable, Behavior is calm, cooperative, kr3 appropriate for age. Neuro: Level of Consciousness is awake, alert, obeys commands, Oriented to person, place, time, situation. Cardiovascular: Patient's skin is warm and dry. Respiratory: Airway is patent Respiratory effort is even, unlabored. GI: No signs and/or symptoms were reported involving the gastrointestinal system. : No signs and/or symptoms were reported regarding the genitourinary system. EENT: No signs and/or symptoms were reported regarding the EENT system. Derm: No signs and/or symptoms reported regarding the dermatologic system. Musculoskeletal: No signs and/or symptoms reported regarding the musculoskeletal system. 19:29 Reassessment: Patient appears in no apparent distress at this time. Patient and/or aa9 family updated on plan of care and expected duration. Pain level reassessed. Patient is alert, oriented x 3, equal unlabored respirations, skin warm/dry/pink. 23:59 Reassessment: Patient appears in no apparent distress at this time. Patient and/or aa9 family updated on plan of care and expected duration. Pain level reassessed. Patient is alert, oriented x 3, equal unlabored respirations, skin warm/dry/pink. Patient denies pain at this time. Vital Signs: 16:59 BP 78 / 56; Pulse 91; Resp 18; Temp 98.7; Pulse Ox 99% ; Weight 111.13 kg; Height 6 ft. ap3 (182.88 cm); 17:25 BP 83 / 65; Pulse 85; Resp 18; Pulse Ox 98% on R/A; kr3 18:13 BP 99 / 61; Pulse 79; Resp 18; Pulse Ox 98% on R/A; kr3 19:45 BP 99 / 64; Pulse 80; Resp 18 S; Pulse Ox 97% on R/A; aa9 20:15 BP 91 / 63; Pulse 81; Resp 17 S; Pulse Ox 100% on R/A; aa9 21:15 BP 110 / 82; Pulse 80; Resp 18 S; Pulse Ox 99% on R/A; aa9 21:45 BP 108 / 74; Pulse 81; Resp 19 S; Pulse Ox 98% on R/A; aa9 16:59 Body Mass Index 33.23 (111.13 kg, 182.88 cm) ap3 ED Course: 16:57 Patient arrived in ED. am2 16:57 Jesse Zamora DO is Private Physician. am2 17:01 Triage completed. ap3 17:02 Arm band placed on left wrist. ap3 17:06 Jaylan Calderon PA is PHCP. cp 17:06 Jaylan Caballero MD is Attending Physician. cp 17:38 Jammie Howard RN is Primary Nurse. kr3 17:38 Inserted saline lock: 20 gauge in right forearm, using aseptic technique. Blood kr3 collected. 18:12 Notified ED physician of a critical lab result(s). Lactate 2.6. kr3 20:01 Alicia Hurtado PA-C is Hospitalizing Provider. cp 20:35 Mario Schmidt is Hospitalizing Provider. sb4 21:44 No provider procedures requiring assistance completed. Patient admitted, IV remains in aa9 place. 21:46 Patient has correct armband on for positive identification. Bed in low position. Adult aa9 w/ patient. Administered Medications: 17:44 Drug: NS 0.9% 1000 ml Route: IV; Rate: 1000 ml/hr; Site: right forearm; kr3 22:21 Follow up: Response: No adverse reaction; IV Status: Completed infusion; IV Intake: aa9 1000ml 20:36 Drug: NS 0.9% 1000 ml Route: IV; Rate: 100 ml/hr; Site: right forearm; aa9 22:23 Follow up: Response: No adverse reaction; IV Status: Completed infusion; IV Intake: aa9 900ml Medication: 17:02 VIS not applicable for this client. ap3 Intake: 22:21 IV: 1000ml; Total: 1000ml. aa9 22:23 IV: 900ml; Total: 1900ml. aa9 Outcome: 20:02 Decision to Hospitalize by Provider. cp 21:46 Condition: stable aa9 23:01 Admitted to Med/surg accompanied by tech, room 431, with chart, Report called to aa9 Chaparro 23:01 Instructed on the need for admit. 23:59 Patient left the ED. aa9 Signatures: Jaylan Calderon, Nishi Estrada cp am2 Nishi Martínez RN RN ap3 Yokasta King RN RN aa9 Jammie Howard RN RN kr3 Alicia Hurtado PAShahla PAShahla sb4 Corrections: (The following items were deleted from the chart) 17:05 16:59 Acuity: THERON 3 ap3 ap3 17:47 17:30 Reassessment: Patient appears in no apparent distress at this time. Patient kr3 and/or family updated on plan of care and expected duration. Pain level reassessed. Patient is alert, oriented x 3, equal unlabored respirations, skin warm/dry/pink. kr3
--- NOTE | 2022-07-11 21:15 | P.HP ---
Certification for Inpatient Patient admitted to: Observation With expected LOS: <2 Midnights Patient will require the following post-hospital care: None Practitioner: I am a practitioner with admitting privileges, knowledge of patient current condition, hospital course, and medical plan of care. Services: Services provided to patient in accordance with Admission requirements found in Title 42 Section 412.3 of the Code of Federal Regulations Patient History Date of Service: 07/11/22 Primary Care Provider: Noah Reason for admission: ELVIN, Dehydration History of Present Illness: Patient is a 71-year-old male with past medical history of asthma and hypertension presented to the emergency department with a complaints of hypotens ion, weakness, and diarrhea. He was started on bactrim about 10 week ago for a groin abscess and has not had any issues. He is scheduled to see Dr. Newell tomorrow. Patient reports that he started having diarrhea today, started feeling weak, and found his blood pressure to be 66/47 at home. Upon arrival to the ED, it was 78/56. Labs significant for Cr 2.45, BUN 30. CT chest abdomen pelvis negative. Stool samples collected. He received 2L fluid in the emergency department which improved his BP. Dr. Newell will see patient in morning. Patient is hospitalized for further management. Allergies No Known Allergies Allergy (Unverified 03/10/19 14:29) Home medications list reviewed: Yes Home Medications: Amlodipine Besylate/Benazepril [Lotrel 10-20 mg Capsule] 1 tab PO BEDTIME 03/11/19 Doxazosin [Cardura*] 1 tab PO BEDTIME 03/11/19 Losartan/Hydrochlorothiazide [Hyzaar 100-25 Tablet] 100 mg PO DAILY 03/11/19 Metoprolol Succinate [Toprol Xl] 1 tab PO DAILY 03/11/19 Aspirin [Low Dose Aspirin EC] 81 mg PO DAILY 03/26/20 Cetirizine HCl [Zyrtec*] 10 mg PO DAILY 03/26/20 Cholecalciferol (Vitamin D3) [Vitamin D 1000 Iu Tab*] 2,000 mg PO DAILY 03/26/20 Vitamin E 400 mg PO DAILY 03/26/20 Albuterol Sulfate [Albuterol Sulfate Hfa] 18 gm IH Q4H PRN #1 hfa.aer.ad 10/24/21 Fluticasone/Vilanterol [Breo Ellipta 100-25 Mcg INH] 1 each IH BID #60 aer.pow.ba 10/24/21 Guaif/Dm [Robitussin Dm*] 10 ml PO Q6H PRN #20 ucup 10/24/21 predniSONE [Prednisone*] 20 mg PO BID #10 tab 10/24/21 - Past Medical/Surgical History Diabetic: No -: HTN -: Gout -: Glaucoma -: Aortic Aneurysm -: Asthma -: Cyst back of head 2009 -: thyroidectomy-2017 -: Laminectomy 2018 -: Adrenal mass removal left kidney . Psychosocial/ Personal History: Patient is . - Family History Father -: Other (see notes) Notes: Glaucoma Mother -: Heart disease, Diabetes, Other (see notes) Notes: Arthritis - Social History Smoking Status: Never smoker Alcohol use: Yes CD- Drugs: Yes Caffeine use: Yes Place of Residence: Home Review of Systems General: Weakness Gastrointestinal: Diarrhea Physical Examination - Vital Signs Temperature: 98.7 F Blood Pressure: 99/64 Pulse: 80 Respirations: 18 Pulse Ox (%): 97 - Physical Exam General: Alert, In no apparent distress HEENT: Atraumatic, EOMI, Sclerae nonicteric Neck: Supple, 2+ carotid pulse no bruit Respiratory: Clear to auscultation bilaterally, Normal air movement Cardiovascular: Regular rate/rhythm, Normal S1 S2 Gastrointestinal: Normal bowel sounds, No tenderness Musculoskeletal: No tenderness Integumentary: No rashes Neurological: Normal speech, Normal affect - Studies Laboratory Data (last 24 hrs) 07/11/22 17:34: PT 10.6, INR 0.96 07/11/22 17:34: WBC 3.60 L, Hgb 12.6 L, Hct 38.4 L, Plt Count 265 07/11/22 17:34: Sodium 133 L, Potassium 5.1, BUN 30 H, Creatinine 2.45 H, Glucose 184 H, Magnesium 2.2, Total Bilirubin 0.3, AST 18, ALT 29, Alkaline Phosphatase 61 Assessment and Plan - Problems (Diagnosis) (1) Dehydration Current Visit: Yes Status: Acute (2) Acute kidney injury Current Visit: Yes Status: Acute (3) Anemia Current Visit: Yes Status: Chronic Qualifiers: Anemia type: unspecified type Qualified Code(s): D64.9 - Anemia, unspecified - Plan Patient is admitted for observation, for dehydration/ELVIN. Continue IV hydration. BP responding well. Recheck renal function in the morning. No concerns for sepsis at this time- no tachycardia, no WBC, no source of infection. Groin abscess healing appropriately, no drainage noted. Stool sample collected, do not anticipate any abnormalities. Monitor and replete electrolytes per protocol. Reconcile and continue home medications. Lovenox for VTE prophylaxis. Full code. Discharge Plan: Home Plan to discharge in: 24 Hours - Advance Directives Does patient have a Living Will: No Does patient have a Durable POA for Healthcare: No - Code Status/Comfort Care Code Status Assessed: Yes Code Status: Full Code Physician Review: Patient Assessed, Agree with Above Assessment and Plan Critical Care: No Time Spent Managing Pts Care (In Minutes): 50
[2022-07-12] MEDS ORDERED: NA CHLORIDE 0.9% 1,000 ML IV SCH (00:54)
[2022-07-12] MEDS ORDERED: ONDANSETRON 4 MG/2 ML VIAL IV PRN (00:54)
[2022-07-12] MEDS ORDERED: ACETAMINOPHEN 500 MG TAB PO PRN (00:54)
[2022-07-12 01:20] VITALS: O2SAT 98
[2022-07-12 03:44] VITALS: BMI 33.2
[2022-07-12 03:54] LABS: Absolute Lymphocytes (CBC) 1.7 K/uL (0.7-4.9); Hematocrit 33.8 % (39.6-49.0); Lymphocytes % 45.8 % (15.3-44.8); MCV 91.3 fL (80-100); MPV 8.1 fL (7.6-11.3)
[2022-07-12 04:12] LABS: Magnesium 2.2 mg/dL (1.6-2.4); Phosphorus 3.6 mg/dL (2.5-4.9); Potassium 4.6 mmol/L (3.5-5.1)
[2022-07-12 05:23] VITALS: BP 110/69; TEMP 97.1
[2022-07-12] MEDS ORDERED: ENOXAPARIN 40 MG/0.4 ML SQ SCH (09:00)
--- NOTE | 2022-07-12 10:51 | P.DS ---
Admission Date: 07/11/22 Discharge Date: 07/12/22 Primary Care Provider: Noah Disposition: ROUTINE DISCHARGE Discharge Condition: FAIR Reason for Admission: ELVIN, Dehydration - Problems (1) Hypovolemic shock Status: Acute (2) Acute renal failure Status: Acute (3) Acute gastroenteritis Status: Acute (4) Benign prostatic hyperplasia Status: Chronic Qualifiers: Lower urinary tract symptom presence: symptoms present Lower urinary tract symptom detail: nocturia Qualified Code(s): N40.1 - Benign prostatic hyperplasia with lower urinary tract symptoms; R35.1 - Nocturia Brief History of Present Illness: Patient is a 71-year-old male with past medical history of asthma and hypertension presented to the emergency department with a complaints of h ypotension, weakness, and diarrhea. He was started on bactrim about 10 week ago for a groin abscess and has not had any issues. He is scheduled to see Dr. Newell tomorrow. Patient reports that he started having diarrhea today, started feeling weak, and found his blood pressure to be 66/47 at home. Upon arrival to the ED, it was 78/56. Labs significant for Cr 2.45, BUN 30. CT chest abdomen pelvis negative. Stool samples collected. He received 2L fluid in the emergency department which improved his BP. Patient was hospitalized for further management. Hospital Course: Patient placed under observation on the medical floor and aggressively hydrated with IVF. His blood pressure stabilized. His diarrhea resolved. No nausea or vomiting. Patient tolerated his food without any issues. Patient seen by PT and he ambulated in the hallway without assistance. He has clinically improved to baseline. He was seen by Dr. Newell for groin abscess. His abscess is hea ling and no further recommendation by Dr. Newell. Patient is deemed stable for discharge. Vital Signs/Physical Exam: Temp Pulse Resp BP Pulse Ox 97.1 F 80 18 110/69 97 07/12/22 04:00 07/12/22 04:00 07/12/22 04:00 07/12/22 04:00 07/12/22 04:00 General: Alert, In no apparent distress, Oriented x3 HEENT: Mucous membr. moist/pink Neck: JVD not distended Respiratory: Clear to auscultation bilaterally, Normal air movement Cardiovascular: Regular rate/rhythm, Normal S1 S2 Gastrointestinal: Normal bowel sounds, Soft and benign, Non-distended, No tenderness Musculoskeletal: No swelling Integumentary: No rashes Neurological: Normal strength at 5/5 x4 extr Laboratory Data at Discharge: WBC 3.70 K/uL (4.3-10.9) L 07/12/22 02:45 Hgb 11.6 g/dL (13.6-17.9) L 07/12/22 02:45 Hct 33.8 % (39.6-49.0) L 07/12/22 02:45 Plt Count 234 K/uL (152-406) 07/12/22 02:45 PT 10.6 SECONDS (9.5-12.5) 07/11/22 17:34 INR 0.96 07/11/22 17:34 Sodium 138 mmol/L (136-145) D 07/12/22 02:45 Potassium 4.6 mmol/L (3.5-5.1) 07/12/22 02:45 BUN 29 mg/dL (7-18) H 07/12/22 02:45 Creatinine 1.75 mg/dL (0.70-1.30) H 07/12/22 02:45 Glucose 153 mg/dL (74-106) H 07/12/22 02:45 Phosphorus 3.6 mg/dL (2.5-4.9) 07/12/22 02:45 Magnesium 2.2 mg/dL (1.6-2.4) 07/12/22 02:45 Total Bilirubin 0.3 mg/dL (0.2-1.0) 07/11/22 17:34 AST 18 U/L (15-37) 07/11/22 17:34 ALT 29 U/L (16-61) 07/11/22 17:34 Alkaline Phosphatase 61 U/L (45-117) 07/11/22 17:34 Triglycerides 277 mg/dL (<150) H 07/12/22 02:45 Cholesterol 153 mg/dL (<200) 07/12/22 02:45 HDL Cholesterol 41 mg/dL (40-60) 07/12/22 02:45 Cholesterol/HDL Ratio 3.73 07/12/22 02:45 Home Medications: Amlodipine Besylate/Benazepril [Lotrel 10-20 mg Capsule] 1 tab PO BEDTIME 03/11/19 Doxazosin [Cardura*] 2 tab PO BID 03/11/19 Metoprolol Succinate [Toprol Xl] 1 tab PO BEDTIME 03/11/19 Aspirin [Low Dose Aspirin EC] 81 mg PO DAILY 03/26/20 Cetirizine HCl [Zyrtec*] 10 mg PO DAILY 03/26/20 Cholecalciferol (Vitamin D3) [Vitamin D 1000 Iu Tab*] 2,000 mg PO DAILY 03/26/20 Vitamin E 400 mg PO DAILY 03/26/20 Albuterol Sulfate [Albuterol Sulfate Hfa] 18 gm IH Q4H PRN #1 hfa.aer.ad 10/24/21 Albuterol Neb [Proventil 0.083% Neb Soln] 1 dose IH QIDP PRN 07/12/22 Budesonide/Glycopyr/Formoterol [Breztri Aerosphere Inhaler] 1 puff IH DAILY 07/12/22 Losartan Potassium 1 tab PO DAILY 07/12/22 Magnesium Oxide [Mag 0X*] 1 tab PO DAILY 07/12/22 Multivitamin [Daily Multivitamin] 1 tab PO DAILY 07/12/22 Omeprazole 1 tab PO DAILY 07/12/22 Zinc Gluconate [Zinc] 1 tab PO DAILY 07/12/22 Followup: Noah TAYLOR,Jesse Tubbs DO [Primary Care Provider] - 1 Week Johnson Newell MD [ACTIVE - CAN ADMIT] - 1 Week
--- NOTE | 2022-07-12 14:50 | CON ---
Date of Consultation: 07/12/2022 Diagnosis: History of groin and perineal cellulitis. History Of Present Illness: This is the case of a 71-year-old patient admitted yesterday to the hosp ital with hypotension, weakness, and diarrhea, diagnosed with possible dehydration. Patient has been dealing with a groin lump for more than 2 weeks. He came initially to the ER. He was sent home wit h some antibiotics and eventually came to my office. The antibiotics extended. He improved. He did not need an I and D of that area. Still has the cyst left behind. We might have to address that an d remove that for biopsy, but he was going to be seen today at the office and I noticed he come to e ER. They called me to see the patient while he is in the hospital. Patient is awake. Patient has no problem right now. No dizziness. No shortness of breath. No chest pain. There is no perineal tenderness. No drainage neither. Allergies: NONE. Medications: Reviewed. Past Medical Problems: Include hypertension, gout, glaucoma, aortic aneurysm, asthma. Past Surgical History: Include cyst removed from the head, thyroidectomy, spine surgery, adrenal mas s removal. Family History: Includes diabetes and glaucoma. Social History: He does not smoke. He does not drink alcohol. Physical Examination: General: Patient is awake and alert. HEENT: Pupils are equal and reactive. Anicteric. Neck: Supple. Chest: Clear. Heart: S1, S2. Abdomen: Soft and depressible. No guarding or rebound. No peritoneal signs. Pelvic: Scrotum with no tenderness and no mass palpated. In the base of the scrotum, patient has a chronic lump left behind after the infection resolved, probably a cyst that may have to be addressed in biopsy. He just finished his antibiotics. No cellulitis is present at this moment. No fluctuanc e seen. No crepitus, no tenderness. No drainage from that area. Perianal area is not involved. Extremities: Good capillary refill. Laboratory Data: Blood work shows WBC count of 3.7, hemoglobin of 11.6. INR of 0.96. Potassium 4.6 , creatinine is 1.75. Plan: From the surgical standpoint, I believe he has been off antibiotics. Because of diarrhea, the y are doing colitis protocol. I believe the findings in the scrotum right now are benign enough. I do not suggest any antibiotics at this moment unless obviously the primary doctor believes is needed for his other conditions. The stool culture is still present. We are going to refer to the primary doctor for antibiotics. Instruct the patient scrotal subcutaneous lesion. We do not need any antibiotics at this time, but we need to get a biopsy once all these chronic medical conditions resolve. He is going to follow up in my office. CAROL/JOSEP Voice ID: [id number] Report ID: [id number]
--- NOTE | 2022-07-12 15:22 | EKG ---
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
== END 2022-07-12 11:51 | disposition home or self-care (01) ==
LOC: ER 16:55 → ERHOLD 20:36 → 4TH 22:05
PROVIDERS: ADMIT Internal Medicine; ATTEND Internal Medicine
DX: R57.1 Hypovolemic shock (principal); N17.9 Acute kidney failure, unspecified; K52.9 Noninfective gastroenteritis and colitis, unspecified; N40.1 Benign prostatic hyperplasia with lower urinary tract symptoms; E86.0 Dehydration; D64.9 Anemia, unspecified; I95.9 Hypotension, unspecified; R53.1 Weakness; R35.1 Nocturia; J45.909 Unspecified asthma, uncomplicated; M10.9 Gout, unspecified; I71.9 Aortic aneurysm of unspecified site, without rupture; Z20.822 Contact with and (suspected) exposure to COVID-19
CPT/HCPCS: 96361; 93005; 87040 ×2; 85025 ×2; 80048 ×2; 36415; 83735 ×2; 84100; 85610; 80061; 80076; 83605 ×2; 84484; 83880; 0240U; 71250; 74176; 71045; 97161; 96360; 99285; J7030 ×3; 81003; 81015; G0378